=== PATIENT | female | born 1995 | race Caucasian/White ===

== ENCOUNTER 2019-11-02 20:00 | Emergency (ER) | payer MEDICAID, SELFPAY ==
[2019-11-02 20:20] VITALS: BP 133/91; PULSE 82; RESP 14; TEMP 37; O2SAT 98; BMI 22.6
--- NOTE | 2019-11-02 21:31 | CTR_ITS ---
PROCEDURE INFORMATION: Exam: CT Abdomen And Pelvis With Contrast Exam date and time: 11/02/2019 10:18 PM Age: 23 years old Clinical indication: Abdominal pain; Localized; Right lower quadrant (rlq); Additional info: Abd pain TECHNIQUE: Imaging protocol: Computed tomography of the abdomen and pelvis with intravenous contrast. Radiation optimization: All CT scans at this facility use at least one of these dose optimization techniques: automated exposure control; mA and/or kV adjustment per patient size (includes targeted exams where dose is matched to clinical indication); or iterative reconstruction. Contrast material: OMNI 300; Contrast volume: 95 ml; Contrast route: INTRAVENOUS (IV); COMPARISON: CT Abdomen/Pelvis Renal [id number] 10/28/2018 3:21 PM RADIATION DOSE METRICS: Total DLP (mGy-cm): 321.57 FINDINGS: Lungs: The lung bases are clear. Liver: There is mild periportal edema in the liver. This is a nonspecific finding, that can be seen in hepatitis and other hepatic abnormalities. It can also be a nonsignificant finding, sometimes seen in overhydration. Please correlate clinically. Gallbladder and bile ducts: No definite gallbladder abnormality by CT. No biliary tree dilation. Pancreas: Unremarkable. Spleen: Unremarkable. Adrenals: Unremarkable. Kidneys and ureters: No significant hydronephrosis of either kidney. No visible ureteral calculus. Suspect mild right periureteric stranding. There appears to be very mild thickening/enhancement of the right ureteral wall. While nonspecific, this appearance raises suspicion for right ureteritis/pyelonephritis. Please correlate clinically. The kidneys enhance homogeneously. No perinephric fluid. Stomach and bowel: There are no CT findings to strongly suggest diverticulitis. Appendix: The appendix is visualized and appears normal. Intraperitoneal space: No free air, ascites, or bowel distention. Vasculature: No evidence for abdominal aortic aneurysm. Lymph nodes: No retroperitoneal adenopathy. Bladder: Suspect mild to moderate diffuse urinary bladder wall thickening. While nonspecific, this could indicate evidence for cystitis. Please correlate clinically. Reproductive: Essentially unremarkable for age. Bones/joints: No significant acute finding. Soft tissues: No significant acute finding. CT/CT abdomen pelvis w con* [id number] IMPRESSION: 1. Suspect mild right periureteric stranding. There appears to be very mild thickening/enhancement of the right ureteral wall. While nonspecific, this appearance raises suspicion for right ureteritis/pyelonephritis. Please correlate clinically. 2. Suspected urinary bladder wall thickening, possibly secondary to cystitis. 3. Normal appendix. 4. Mild periportal edema in the liver, see above. 5. Other findings discussed above. Radiation Dose CTDIVOL = (mGy): DLP = 321.57 (mGy-cm)
[2019-11-02 21:47] VITALS: BP 130/80; PULSE 69; RESP 18; O2SAT 100
[2019-11-02 21:48] VITALS: RESP 18
[2019-11-02] MEDS: ondansetron 2 mg/ML SDV 2 mL 4 MG IVP ×2 (21:48→23:53)
[2019-11-02] MEDS: morphine 4 mg/mL SDV 1 mL IVP ×2 (21:48→23:55)
--- NOTE | 2019-11-02 21:56 | W.ED.ABDPA2 ---
HPI - Abdominal Pain General: Chief Complaint: Abdominal Pain Stated Complaint: ABDOMINAL PAIN Time Seen by Provider: 11/02/19 20:41 Source: patient Mode of arrival: ambulatory Limitations: no limitations History of Present Illness: HPI narrative: 23-year-old female who states she been having diffuse abdominal pain over the last day. States pain is sharp in nature. States she is also had nausea and vomiting. States she has had no worsening or improving factors. Denies any fevers. MD elicited complaint: abdominal pain Onset (ago): day(s) Pain Consistency: constant Location: RLQ Severity: severe Quality: stabbing Radiation: none Associated Symptoms: Denies chills, dysuria and fever(s) Review of Systems Const: Denies: fever(s), chills, body aches or change in appetite Eyes: Denies: blurry vision or eye discomfort ENMT: Denies: throat pain or dental pain Card: Denies: chest pain Resp: Denies: dyspnea GI: Reports: abdominal pain : Denies: dysuria Musc: Denies: neck pain or back pain Skin/Breast: Denies: rash Neuro: Denies: headache(s) Psych: Denies: depression Bryon/Lymph: Denies: easy bruising All/Imm: Denies: urticaria Physical Exam Const: COMMON NORMALS: no acute distress, patient oriented x3 and healthy appearing HENMT: COMMON NORMALS: normocephalic and atraumatic HEAD & SCALP: normocephalic and atraumatic Eye: COMMON NORMALS: Equal, round and reactive pupils present and EOMs intact bilaterally PUPIL: Yes Equal, round and reactive pupils present Neck/C-Spine: COMMON NORMALS: full ROM and supple Chest: COMMONS NORMALS: normal inspection of the chest and normal palpation of entire chest wall Resp: COMMON NORMALS: normal respiratory effort, No retractions, No use of accessory muscles and clear to auscultation bilaterally AUSCULTATION: clear to auscultation bilaterally Cardio: COMMON NORMALS: regular rate, regular rhythm and No murmurs present (Cardio) RATE: regular rate RHYTHM: regular rhythm GI: COMMON NORMALS: Normal to inspection, nondistended, normoactive bowel sounds present, Soft to palpation and no masses PALPATION: Yes Soft to palpation and Yes Tenderness to palpation present (GI) Details: RLQ Extremity: COMMON NORMALS: normal to inspection and full ROM Neuro: COMMON NORMALS: patient oriented x3, moves all extremities and no focal motor deficits Psych: COMMON NORMALS: mental status grossly normal, Normal thought process present and cooperative THOUGHT PROCESS: Normal thought process present Skin: COMMON NORMALS: no rashes or lesions noted and no wounds GENERAL SKIN EXAM: no rashes or lesions noted Course Vital Signs: Vital signs: Vital Signs Temperature 98.6 F 11/02/19 20:20 Pulse Rate 79 11/03/19 01:28 Respiratory Rate 17 11/03/19 01:28 Blood Pressure 108/70 11/03/19 01:28 Pulse Oximetry 97 11/03/19 01:28 MDM - Abdominal Pain MDM Narrative: Medical decision making narrative: Tisha presents here with pyelonephritis. Patient is able to tolerate p.o. here and white count is normal. Will trial outpatient therapy first. We will place her on nausea meds along with pain meds and ciprofloxacin. She is to follow-up with PCP in 3 to 5 days and return to ER if worsening. She understands and agrees to plan. Lab Data: Labs: Lab Results 11/02/19 11/02/19 11/03/19 Range/Units 21:30 21:49 00:35 WBC 9.7 (4.0-10.0) 10^3/ uL RBC 3.73 L (4.1-5.3) 10^6/u L Hgb 10.9 L (11.5-15.3) g/dL Hct 34.6 L (37.0-47.0) % MCV 92.8 (81-99) fL MCH 29.2 (28.0-34.0) pg MCHC 31.5 (30.0-36.0) g/dL RDW 12.5 (12.1-15.1) % Plt Count 192 (130-400) 10^3/c mm MPV 10.8 H (7.4-10.4) fL Neut % (Auto) 73.9 % Lymph % (Auto) 17.2 % [place] % (Auto) 7.6 % Eos % (Auto) 0.8 % Baso % (Auto) 0.1 % Neut # (Auto) 7.19 (1.8-7.7) 10^3/u L Lymph # (Auto) 1.7 (0.8-4.8) 10^3/u L [place] # (Auto) 0.7 (0.2-0.9) 10^3/u L Eos # (Auto) 0.1 (0.0-0.8) 10^3/u L Baso # (Auto) 0.0 (0.0-0.1) 10^3/u L Nucleated RBC % (a uto) 0 % Nucleated RBCs # 0.0 /100WBC Sodium (136-145) mmol/L Potassium (3.5-5.1) mmol/L Chloride (98-107) mmol/L Carbon Dioxide (22-29) mmol/L Anion Gap (5-19) BUN (6-20) mg/dL Creatinine (0.5-0.9) mg/dL GFR Calculation (90-130) mL/min Glucose (65-115) mg/dL Calculated Osmolal ity (285-295) mOsm/k g Calcium (8.5-10.5) mg/dL Total Bilirubin (0.15-1.2) mg/dL AST (0-32) U/L ALT (0-33) U/L Alkaline Phosphata se (35-105) IU/L Total Protein (6.6-8.7) g/dL Albumin (3.5-5.2) g/dL Globulin (1.3-4.6) g/dL Lipase (13-60) U/L Urine Color Yellow (Yellow) Urine Appearance Cloudy (CLEAR) Urine pH 6.5 (5-7) Ur Specific Gravit y 1.020 (1.005-1.030) Urine Protein 1+ H (Negative) Urine Glucose (UA) Norm (Normal) Urine Ketones Negative (Negative) Urine Blood 2+ H (Negative) Urine Nitrate Negative (Negative) Urine Bilirubin Neg (NEGATIVE) Urine Urobilinogen Norm (Negative) mg/dL Ur Leukocyte Stefani ase Negative (Negative) Urine RBC 5-10 H (0-2) /hpf Urine WBC 15-25 H (0-5) /hpf Ur Squamous Epith Cells 0-4 H (0-5) Amorphous Sediment Not Reportable Urine Bacteria 1+ H (NONE) Urine HCG, Qual Negative (Negative) 11/03/19 Range/Units 00:35 WBC (4.0-10.0) 10^3/ uL RBC (4.1-5.3) 10^6/u L Hgb (11.5-15.3) g/dL Hct (37.0-47.0) % MCV (81-99) fL MCH (28.0-34.0) pg MCHC (30.0-36.0) g/dL RDW (12.1-15.1) % Plt Count (130-400) 10^3/c mm MPV (7.4-10.4) fL Neut % (Auto) % Lymph % (Auto) % [place] % (Auto) % Eos % (Auto) % Baso % (Auto) % Neut # (Auto) (1.8-7.7) 10^3/u L Lymph # (Auto) (0.8-4.8) 10^3/u L [place] # (Auto) (0.2-0.9) 10^3/u L Eos # (Auto) (0.0-0.8) 10^3/u L Baso # (Auto) (0.0-0.1) 10^3/u L Nucleated RBC % (a uto) % Nucleated RBCs # /100WBC Sodium 137 (136-145) mmol/L Potassium 3.7 (3.5-5.1) mmol/L Chloride 103 (98-107) mmol/L Carbon Dioxide 24 (22-29) mmol/L Anion Gap 13.7 (5-19) BUN 11 (6-20) mg/dL Creatinine 0.8 (0.5-0.9) mg/dL GFR Calculation 88.9 L (90-130) mL/min Glucose 83 (65-115) mg/dL Calculated Osmolal ity 279 L (285-295) mOsm/k g Calcium 8.2 L (8.5-10.5) mg/dL Total Bilirubin 0.2 (0.15-1.2) mg/dL AST 13 (0-32) U/L ALT 10 (0-33) U/L Alkaline Phosphata se 49 (35-105) IU/L Total Protein 7.2 (6.6-8.7) g/dL Albumin 4.1 (3.5-5.2) g/dL Globulin 3.1 (1.3-4.6) g/dL Lipase 22 (13-60) U/L Urine Color (Yellow) Urine Appearance (CLEAR) Urine pH (5-7) Ur Specific Gravit y (1.005-1.030) Urine Protein (Negative) Urine Glucose (UA) (Normal) Urine Ketones (Negative) Urine Blood (Negative) Urine Nitrate (Negative) Urine Bilirubin (NEGATIVE) Urine Urobilinogen (Negative) mg/dL Ur Leukocyte Stfeani ase (Negative) Urine RBC (0-2) /hpf Urine WBC (0-5) /hpf Ur Squamous Epith Cells (0-5) Amorphous Sediment Urine Bacteria (NONE) Urine HCG, Qual (Negative) Discharge Plan Discharge Patient Disposition: Home Clinical Impression: Pyelonephritis Condition: Stable Prescriptions: [place] 5-325 mg tablet 1 tab PO Q6H PRN (Reason: pain) Qty: 14 RF: 0 ondansetron 4 mg tablet,disintegrating 4 mg PO Q6H PRN (Reason: nausea and vomiting) Qty: 14 RF: 0 Cipro 500 mg tablet 500 mg PO BID Qty: 14 RF: 0 No Action Sprintec (28) 0.25-35 mg-mcg tablet 1 tab PO DAILY RF: 0 Hair,Skin and Nails 1 mg iron-66.7 mcg-1,000 mcg Tablet 1 tab PO DAILY RF: 0 Discharge Orders: Discharge Order (Routine); Ordered 11/03/19 Ordered By: Cy Hilliard Referrals: Lars Isabel MD [Primary Care Provider] - 1-3 days Discharge Diet: Advance as tolerated Discharge Activity: Resume usual activity Patient Instructions: Acute Pyelonephritis (ED) Discharge Date/Time: 11/03/19 01:30 Coding Level of Care Code ED Chief Console Operator for Chg Fwd Exam Comprehensive
[2019-11-02 22:02] LABS: Add Urine Microscopic? YES; Bacteria Urine 1+; Bilirubin Urine Neg (NEGATIVE); Blood Urine 2+ (Negative); Glucose Urine UA Norm (Normal); Ketones Urine Negative (Negative); Leukocyte Esterase Urine Negative (Negative); Nitrate Urine Negative (Negative); Protein Urine 1+ (Negative); Squamous Epithelial Cell Urine 0-4 (0-5); Urine Appearance Cloudy (CLEAR); Urine Color Yellow (Yellow); Urobilinogen Urine Norm (Negative); WBC Urine 15-25 /hpf (0-5); pH Urine 6.5 (5-7)
[2019-11-02 22:47] VITALS: BP 140/85; PULSE 88; RESP 18; O2SAT 100
[2019-11-02 23:00] VITALS: RESP 18
[2019-11-02] MEDS: iohexol 300 mg/mL 100 mL Btl IV (23:07)
[2019-11-02] MEDS: sodium chloride 0.9% 1,000 ML 999 ML IV (23:54)
[2019-11-02 23:55] VITALS: RESP 18
[2019-11-03] VITALS: BP 124/80; PULSE 70; RESP 18; O2SAT 98
[2019-11-03] MEDS: cefTRIAXone 1,000 MG in sodium chloride 0.9% (plus) 50 ML 100 MG IV (00:13)
[2019-11-03] MEDS: metoclopramide 5 mg/mL SDV 2 mL IVP (00:20)
[2019-11-03] MEDS: diphenhydrAMINE 50 mg/mL SDV 1mL 25 MG IVP (00:21)
[2019-11-03 00:50] LABS: Basophils % 0.1 %; Eosinophils # 0.1 10^3/uL (0.0-0.8); Eosinophils % 0.8 %; Hematocrit 34.6 % (37.0-47.0); Hemoglobin 10.9 g/dL (11.5-15.3); Lymphocytes # 1.7 10^3/uL (0.8-4.8); Lymphocytes % 17.2 %; Mean Corpuscular HGB Conc 31.5 g/dL (30.0-36.0); Mean Corpuscular Hemoglobin 29.2 pg (28.0-34.0); Mean Corpuscular Volume 92.8 fL (81-99); Mean Platelet Volume 10.8 fL (7.4-10.4); Monocytes # 0.7 10^3/uL (0.2-0.9); Monocytes % 7.6 %; Neutrophils # 7.19 10^3/uL (1.8-7.7); Neutrophils % 73.9 %; Nucleated Red Blood Cells % 0 %; Platelet Count 192 10^3/cmm (130-400); Red Blood Count 3.73 10^6/uL (4.1-5.3); Red Cell Distribution Width 12.5 % (12.1-15.1); White Blood Count 9.7 10^3/uL (4.0-10.0)
[2019-11-03 01:12] LABS: Alanine Aminotransferase 10 U/L (0-33); Albumin Level 4.1 g/dL (3.5-5.2); Alkaline Phosphatase 49 IU/L (35-105); Anion Gap 13.7 (5-19); Aspartate Amino Transferase 13 U/L (0-32); Blood Urea Nitrogen 11 mg/dL (6-20); Calcium 8.2 mg/dL (8.5-10.5); Carbon Dioxide 24 mmol/L (22-29); Chloride 103 mmol/L (98-107); Globulin 3.1 g/dL (1.3-4.6); Glomerular Filtration Rate 88.9 mL/min (90-130); Glucose 83 mg/dL (65-115); Lipase 22 U/L (13-60); Osmolality Calculated 279 mOsm/kg (285-295); Potassium 3.7 mmol/L (3.5-5.1); Sodium 137 mmol/L (136-145); Total Bilirubin 0.2 mg/dL (0.15-1.2); Total Protein 7.2 g/dL (6.6-8.7)
[2019-11-03 01:28] VITALS: BP 108/70; PULSE 79; RESP 17; O2SAT 97
== END 2019-11-03 01:30 | disposition home or self-care (01) ==
PROVIDERS: Emergency Provider Emergency Medicine; PCP Family Medicine
DX: N10 Acute pyelonephritis (principal)
CPT/HCPCS: 12345; 74177; 80053; 81001; 81025; 83690; 85025; 96360; 96361; 96365; 96375; 96376; 99283; 99284; J0696; J1200; J2270; J2405; J2765; J7030; Q9967

== ENCOUNTER 2020-05-16 12:36 | Emergency (ER) | payer MEDICAID, SELFPAY ==
[2020-05-16 13:12] VITALS: BP 105/75; PULSE 81; RESP 14; TEMP 36.2; O2SAT 99; BMI 21.1
== END 2020-05-16 14:06 | disposition left against medical advice (07) ==
PROVIDERS: Emergency Provider Family Medicine; PCP Family Medicine
DX: Z53.21 Procedure and treatment not carried out due to patient leaving prior to being seen by health care provider (principal)
CPT/HCPCS: 99282

== ENCOUNTER 2020-05-18 14:42 | Emergency (ER) | payer MEDICAID, SELFPAY ==
[2020-05-18 14:59] VITALS: BP 105/71; PULSE 80; RESP 16; TEMP 36.5; O2SAT 98; BMI 19.5
--- NOTE | 2020-05-18 15:38 | ED_ITS ---
HPI - Abdominal Pain General: Chief Complaint: Abdominal Pain Stated Complaint: RUQ ABDOMINAL PAIN Time Seen by Provider: 05/18/20 15:04 History of Present Illness: HPI narrative: 24-year-old female comes in complaining of right upper quadrant abdominal pain that began yesterday. She was seen yesterday at a local primary care clinic and had a right upper quadrant abdominal soft ultrasound done which ultimately was negative. Patient states her last period was normal and she had a negative test at home. She has had some nausea her stools have been normal she has not had any vomiting denies dysuria urgency or frequency. MD elicited complaint: abdominal pain Pertinent past history: past UTI Onset (ago): day(s) Pain Consistency: constant Location: RUQ Severity: moderate Quality: cramping Radiation: R flank Exacerbating factors: nothing Associated Symptoms: Reports anorexia, nausea and poor appetite; Denies belching, bloating, change in bowel habits, change in stool character, chills, coffee ground emesis, constipation, GI cramping, diarrhea, dyspepsia, dysuria, excessive flatus, fever(s), heartburn, hematochezia, hematuria, hematemesis, fecal incontinence, loose stools, melena, syncope, vomiting and other Related Data: Date of Last Menstrual Period: 05/10/20 Review of Systems Const: Denies: fever(s) or chills ENMT: Denies: throat pain, ear or mastoid pain, nasal discharge or nasal congestion Card: Denies: syncope Resp: Denies: dyspnea, productive cough or non-productive cough GI: Reports: nausea; Denies: vomiting, hematemesis, coffee ground emesis, heartburn, diarrhea, constipation, bloating, GI cramping, belching, excessive flatus, fecal incontinence, change in bowel habits, change in stool character, hematochezia, melena or other : Denies: dysuria or hematuria Skin/Breast: Denies: rash or pruritus [facility] ED Female Reproductive History: Date of last menstrual period: 05/10/20 Physical Exam Const: COMMON NORMALS: no acute distress GENERAL APPEARANCE: cooperative and comfortable ORIENTATION/CONSCIOUSNESS: Yes awake, Yes oriented to person, Yes oriented to place and Yes oriented to time HENMT: COMMON NORMALS: normocephalic, atraumatic and hearing grossly normal bilaterally HEAD & SCALP: normocephalic and atraumatic Neck/C-Spine: COMMON NORMALS: no JVD Resp: COMMON NORMALS: normal respiratory effort, No retractions, No use of accessory muscles and clear to auscultation bilaterally AUSCULTATION: clear to auscultation bilaterally Cardio: COMMON NORMALS: no JVD, regular rate, regular rhythm and No murmurs present (Cardio) RATE: regular rate RHYTHM: regular rhythm GI: COMMON NORMALS: Soft to palpation and No hepatosplenomegaly present AUS CULTATION: Yes normoactive bowel sounds PALPATION: Yes Soft to palpation, No Tenderness to palpation present (GI), No Guarding due to palpation present (GI) and Yes No hepatosplenomegaly present Extremity: COMMON NORMALS: normal to inspection, capillary refill normal, no clubbing, cyanosis or edema, no calf tenderness and no pedal edema Neuro: SENSORIUM/ORIENTATION: Yes oriented to person, Yes oriented to place and Yes oriented to time Skin: COMMON NORMALS: no rashes or lesions noted GENERAL SKIN EXAM: no rashes or lesions noted Course Vital Signs: Vital signs: Vital Signs Temperature 97.7 F 05/18/20 14:59 Pulse Rate 78 05/18/20 16:47 Respiratory Rate 18 05/18/20 16:47 Blood Pressure 104/66 05/18/20 16:47 Pulse Oximetry 98 05/18/20 16:47 MDM - Abdominal Pain MDM Narrative: Medical decision making narrative: Reviewed findings with the patient. Her labs and imaging are all normal. I suspect that some of this may be dyspepsia but also very likely may be biliary dyskinesia she notes when she eats specific foods meats that seems to trigger it has been increasing recently. She had a gallbladder ultrasound yesterday that was read as normal reviewed that in the electronic record. It was done over [facility]. Reviewed diet with her recommend she do very very bland diet the next several days gave her hydrocodone and Zofran to use as needed. Should follow-up with her primary care doctor may need further investigation such as a HIDA scan or EGD if she has worsening symptoms she can return. Lab Data: Labs: Lab Results 05/18/20 05/18/20 05/18/20 Range/Units 15:20 15:20 15:20 WBC 3.8 L (4.0-10.0) 10^3/ uL RBC 4.13 (4.1-5.3) 10^6/u L Hgb 12.0 (11.5-15.3) g/dL Hct 37.6 (37.0-47.0) % MCV 91.0 (81-99) fL MCH 29.1 (28.0-34.0) pg MCHC 31.9 (30.0-36.0) g/dL RDW 12.3 (12.1-15.1) % Plt Count 189 (130-400) 10^3/c mm MPV 10.8 H (7.4-10.4) fL Neut % (Auto) 58.3 % Lymph % (Auto) 28.6 % [place] % (Auto) 11.7 % Eos % (Auto) 1.1 % Baso % (Auto) 0.0 % Neut # (Auto) 2.20 (1.8-7.7) 10^3/u L Lymph # (Auto) 1.1 (0.8-4.8) 10^3/u L [place] # (Auto) 0.4 (0.2-0.9) 10^3/u L Eos # (Auto) 0.0 (0.0-0.8) 10^3/u L Baso # (Auto) 0.0 (0.0-0.1) 10^3/u L Nucleated RBC % (a uto) 0 % Nucleated RBCs # 0.0 /100WBC Sodium 136 (136-145) mmol/L Potassium 3.8 (3.5-5.1) mmol/L Chloride 100 (98-107) mmol/L Carbon Dioxide 28 (22-29) mmol/L Anion Gap 11.8 (5-19) BUN 10 (6-20) mg/dL Creatinine 0.7 (0.5-0.9) mg/dL GFR Calculation 102.8 (90-130) mL/min Glucose 81 (65-115) mg/dL Calculated Osmolal ity 280 L (285-295) mOsm/k g Calcium 9.2 (8.5-10.5) mg/dL Magnesium 1.8 (1.7-2.3) mg/dL Total Bilirubin 0.2 (0.15-1.2) mg/dL AST 16 (0-32) U/L ALT 22 (0-33) U/L Alkaline Phosphata se 69 (35-105) IU/L Total Protein 7.5 (6.6-8.7) g/dL Albumin 4.5 (3.5-5.2) g/dL Globulin 3.0 (1.3-4.6) g/dL HCG, Qual Negative (Negative) Urine Color (Yellow) Urine Appearance (CLEAR) Urine pH (5-7) Ur Specific Gravit y (1.005-1.030) Urine Protein (Negative) Urine Glucose (UA) (Normal) Urine Ketones (Negative) Urine Blood (Negative) Urine Nitrate (Negative) Urine Bilirubin (Negative) Urine Urobilinogen (Negative) mg/dL Ur Leukocyte Stefani ase (Negative) Urine RBC (0-2) /hpf Urine WBC (0-5) /hpf Ur Squamous Epith Cells (0-5) /hpf Calcium Oxalate Cr ystal /hpf Amorphous Sediment Urine Bacteria (NONE) /hpf Urine Mucus /hpf 05/18/20 Range/Units 15:20 WBC (4.0-10.0) 10^3/ uL RBC (4.1-5.3) 10^6/u L Hgb (11.5-15.3) g/dL Hct (37.0-47.0) % MCV (81-99) fL MCH (28.0-34.0) pg MCHC (30.0-36.0) g/dL RDW (12.1-15.1) % Plt Count (130-400) 10^3/c mm MPV (7.4-10.4) fL Neut % (Auto) % Lymph % (Auto) % [place] % (Auto) % Eos % (Auto) % Baso % (Auto) % Neut # (Auto) (1.8-7.7) 10^3/u L Lymph # (Auto) (0.8-4.8) 10^3/u L [place] # (Auto) (0.2-0.9) 10^3/u L Eos # (Auto) (0.0-0.8) 10^3/u L Baso # (Auto) (0.0-0.1) 10^3/u L Nucleated RBC % (a uto) % Nucleated RBCs # /100WBC Sodium (136-145) mmol/L Potassium (3.5-5.1) mmol/L Chloride (98-107) mmol/L Carbon Dioxide (22-29) mmol/L Anion Gap (5-19) BUN (6-20) mg/dL Creatinine (0.5-0.9) mg/dL GFR Calculation (90-130) mL/min Glucose (65-115) mg/dL Calculated Osmolal ity (285-295) mOsm/k g Calcium (8.5-10.5) mg/dL Magnesium (1.7-2.3) mg/dL Total Bilirubin (0.15-1.2) mg/dL AST (0-32) U/L ALT (0-33) U/L Alkaline Phosphata se (35-105) IU/L Total Protein (6.6-8.7) g/dL Albumin (3.5-5.2) g/dL Globulin (1.3-4.6) g/dL HCG, Qual (Negative) Urine Color Yellow (Yellow) Urine Appearance Hazy A (CLEAR) Urine pH 5 (5-7) Ur Specific Gravit y 1.025 (1.005-1.030) Urine Protein Neg (Negative) Urine Glucose (UA) Norm (Normal) Urine Ketones Negative (Negative) Urine Blood Neg (Negative) Urine Nitrate Negative (Negative) Urine Bilirubin Neg (Negative) Urine Urobilinogen Norm (Negative) mg/dL Ur Leukocyte Stefani ase Negative (Negative) Urine RBC None (0-2) /hpf Urine WBC None (0-5) /hpf Ur Squamous Epith Cells 5-10 H (0-5) /hpf Calcium Oxalate Cr ystal 25-40 H /hpf Amorphous Sediment Not Reportable Urine Bacteria Trace (NONE) /hpf Urine Mucus 4+ /hpf Discharge Plan Discharge Patient Disposition: Home Clinical Impression: Abdominal pain Condition: Stable Prescriptions: New hydrocodone-acetaminophen 5-325 mg tablet 1 tab PO Q6H PRN (Reason: pain) Qty: 20 RF: 0 Zofran 4 mg tablet 4 mg PO Q6H PRN (Reason: nausea and vomiting) Qty: 10 RF: 0 Discharge Orders: Discharge ED (Routine); Ordered 05/18/20 Ordered By: Dre Gunter Referrals: Lars Isabel MD [Primary Care Provider] - Patient Instructions: Abdominal Pain (ED), Opioid Safety Coding Level of Care Code ED Air Operations Manager for Chg Fwd Exam Comprehensive
[2020-05-18 15:42] LABS: Eosinophils % 1.1 %; Hematocrit 37.6 % (37.0-47.0); Lymphocytes # 1.1 10^3/uL (0.8-4.8); Lymphocytes % 28.6 %; Mean Corpuscular HGB Conc 31.9 g/dL (30.0-36.0); Mean Corpuscular Hemoglobin 29.1 pg (28.0-34.0); Mean Platelet Volume 10.8 fL (7.4-10.4); Monocytes # 0.4 10^3/uL (0.2-0.9); Monocytes % 11.7 %; Neutrophils % 58.3 %; Nucleated Red Blood Cells % 0 %; Platelet Count 189 10^3/cmm (130-400); Red Blood Count 4.13 10^6/uL (4.1-5.3); Red Cell Distribution Width 12.3 % (12.1-15.1); White Blood Count 3.8 10^3/uL (4.0-10.0)
[2020-05-18 15:47] VITALS: BP 108/68; PULSE 78; RESP 18; O2SAT 99
[2020-05-18 15:52] LABS: Add Urine Microscopic? YES; Bilirubin Urine Neg (Negative); Blood Urine Neg (Negative); Glucose Urine UA Norm (Normal); Ketones Urine Negative (Negative); Leukocyte Esterase Urine Negative (Negative); Nitrate Urine Negative (Negative); Protein Urine Neg (Negative); Specific Gravity, Urine 1.025 (1.005-1.030); Urine Appearance Hazy (CLEAR); Urine Color Yellow (Yellow); Urobilinogen Urine Norm (Negative); pH Urine 5 (5-7)
[2020-05-18 15:55] LABS: Add Urine Culture? No; Bacteria Urine TRACE /hpf; Calcium Oxalate Crystals Urine 25-40 /hpf; Mucus Urine 4+ /hpf
--- NOTE | 2020-05-18 15:55 | CTR_ITS ---
PROCEDURE INFORMATION: Exam: CT Abdomen And Pelvis With Contrast Exam date and time: 05/18/2020 4:20 PM Age: 24 years old Clinical indication: Abdominal pain; Additional info: Abd pain TECHNIQUE: Imaging protocol: Computed tomography of the abdomen and pelvis with contrast. Radiation optimization: All CT scans at this facility use at least one of these dose optimization techniques: automated exposure control; mA and/or kV adjustment per patient size (includes targeted exams where dose is matched to clinical indication); or iterative reconstruction. Contrast material: OMNI 300; Contrast volume: 95 ml; Contrast route: INTRAVENOUS (IV); COMPARISON: CT abdomen pelvis w con* [id number] 11/02/2019 11:00 PM RADIATION DOSE METRICS: Total DLP (mGy-cm): 816.66 FINDINGS: Lungs: Small subsolid subcentimeter nodules are again seen in the right lower lobe, which appear stable. The largest nodule measures 7 mm. Liver: Normal. No mass. Gallbladder and bile ducts: Normal. No calcified stones. No ductal dilation. Pancreas: Normal. No ductal dilation. Spleen: Normal. No splenomegaly. Adrenal glands: Normal. No mass. Kidneys and ureters: Normal. No hydronephrosis. Stomach and bowel: Short segment small bowel intussusception is present in the right upper quadrant, which is likely transient. No intestinal obstruction. Appendix: The appendix is normal. Intraperitoneal space: Unremarkable. No free air. No significant fluid collection. Vasculature: Unremarkable. No abdominal aortic aneurysm. Lymph nodes: Unremarkable. No enlarged lymph nodes. Urinary bladder: Unremarkable as visualized. Reproductive: The uterus and ovaries appear normal. Bones/joints: Unremarkable. No acute fracture. Soft tissues: Unremarkable. CT/CT abdomen pelvis w con* [id number] IMPRESSION: 1. No acute abnormality is seen. Short segment small bowel intussusception in the right upper quadrant is likely transient. No intestinal obstruction. 2. Stable, likely benign, right lower lobe subcentimeter nodules. Radiation Dose CTDIVOL = (mGy): DLP = 816.66 (mGy-cm)
[2020-05-18 16:19] LABS: Alanine Aminotransferase 22 U/L (0-33); Albumin Level 4.5 g/dL (3.5-5.2); Alkaline Phosphatase 69 IU/L (35-105); Anion Gap 11.8 (5-19); Aspartate Amino Transferase 16 U/L (0-32); Blood Urea Nitrogen 10 mg/dL (6-20); Calcium 9.2 mg/dL (8.5-10.5); Carbon Dioxide 28 mmol/L (22-29); Chloride 100 mmol/L (98-107); Glomerular Filtration Rate 102.8 mL/min (90-130); Glucose 81 mg/dL (65-115); Magnesium 1.8 mg/dL (1.7-2.3); Osmolality Calculated 280 mOsm/kg (285-295); Potassium 3.8 mmol/L (3.5-5.1); Sodium 136 mmol/L (136-145); Total Bilirubin 0.2 mg/dL (0.15-1.2); Total Protein 7.5 g/dL (6.6-8.7)
[2020-05-18 16:21] LABS: HCG, Serum Qual Negative (Negative)
[2020-05-18] MEDS: iohexol 300 mg/mL 100 mL Btl IV (16:32)
[2020-05-18] MEDS: sodium chloride 0.9% 1,000 ML 999 ML IV (16:39)
[2020-05-18] MEDS: promethazine 25 mg/mL SDV 1 mL IM (16:45)
[2020-05-18] MEDS: morphine 4 mg/mL SDV 1 mL 2 MG IVP (16:45)
[2020-05-18] MEDS: lidocaine 2% viscous 15 ML, aluminum-mag hydrox-simethicon 30 ML, sucralfate oral liq 1 GM PO (16:45)
[2020-05-18 16:47] VITALS: BP 104/66; PULSE 78; RESP 18; O2SAT 98
[2020-05-18 17:41] VITALS: BP 104/66; PULSE 78; RESP 18; O2SAT 98
== END 2020-05-18 17:42 | disposition home or self-care (01) ==
PROVIDERS: Emergency Provider Family Medicine; PCP Family Medicine
DX: R10.9 Unspecified abdominal pain (principal)
CPT/HCPCS: 74177; 80053; 81001; 83735; 84703; 85025; 96361; 96374; 99284; J2270; J2550; J7030; Q9967

== ENCOUNTER 2020-06-01 02:11 | Emergency (ER) | payer MEDICAID, SELFPAY ==
[2020-06-01 02:42] VITALS: BP 106/72; PULSE 73; RESP 14; TEMP 36.8; O2SAT 98; BMI 21.1
[2020-06-01 02:46] VITALS: PULSE 66; RESP 16; O2SAT 100
--- NOTE | 2020-06-01 03:05 | ED_ITS ---
HPI - Abdominal Pain General: Chief Complaint: Abdominal Pain Stated Complaint: upper abd pain Time Seen by Provider: 06/01/20 02:49 Source: patient Mode of arrival: ambulatory Limitations: no limitations History of Present Illness: HPI narrative: 24-year-old female states mid abdominal pain for last 2 to 3 weeks. Last 2 weeks she has had an ultrasound and CT of her abdomen that showed no abnormalities. Her PCP is concerned it could be her gallbladder but she missed her appointment with him this week. She states he started her on a antiacid that she states helps when she takes it but then the pain starts again. States pain is worse with eating. States the pain got worse tonight rates it 8 out of 10. Denies any vomiting and fever. Denies any diarrhea. Associated Symptoms: Reports nausea; Denies chills, dysuria and fever(s) Related Data: Date of Last Menstrual Period: 05/10/20 Review of Systems Const: Denies: fever(s), chills, body aches or change in appetite Eyes: Denies: blurry vision or eye discomfort ENMT: Denies: throat pain or dental pain Card: Denies: chest pain Resp: Denies: dyspnea GI: Reports: abdominal pain and nausea : Denies: dysuria Musc: Denies: neck pain or back pain Skin/Breast: Denies: rash Neuro: Denies: headache(s) Psych: Denies: depression Bryon/Lymph: Denies: easy bruising All/Imm: Denies: urticaria [facility] ED Female Reproductive History: Date of last menstrual period: 05/10/20 Physical Exam Const: COMMON NORMALS: no acute distress, patient oriented x3 and healthy appearing HENMT: COMMON NORMALS: normocephalic and atraumatic HEAD & SCALP: normocephalic and atraumatic Eye: COMMON NORMALS: Equal, round and reactive pupils present and EOMs intact bilaterally PUPIL: Yes Equal, round and reactive pupils present Neck/C-Spine: COMMON NORMALS: full ROM and supple Chest: COMMONS NORMALS: normal inspection of the chest and normal palpation of entire chest wall Resp: COMMON NORMALS: normal respiratory effort, No retractions, No use of accessory muscles and clear to auscultation bilaterally AUSCULTATION: clear to auscultation bilaterally Cardio: COMMON NORMALS: regular rate, regular rhythm and No murmurs present (Cardio) RATE: regular rate RHYTHM: regular rhythm GI: COMMON NORMALS: Normal to inspection, nondistended, normoactive bowel sounds present, Soft to palpation, non-tender and no masses PALPATION: Yes Soft to palpation Extremity: COMMON NORMALS: normal to inspection and full ROM Neuro: COMMON NORMALS: patient oriented x3, moves all extremities and no focal motor deficits Psych: COMMON NORMALS: mental status grossly normal, Normal thought process present and cooperative THOUGHT PROCESS: Normal thought process present Skin: COMMON NORMALS: no rashes or lesions noted and no wounds GENERAL SKIN EXAM: no rashes or lesions noted Course Vital Signs: Vital signs: Vital Signs Temperature 98.2 F 06/01/20 02:42 Pulse Rate 66 06/01/20 02:46 Respiratory Rate 16 06/01/20 03:11 Blood Pressure 106/72 06/01/20 02:42 Pulse Oximetry 100 06/01/20 02:46 MDM - Abdominal Pain MDM Narrative: Medical decision making narrative: Patient presents with abdominal pain and recent CT and ultrasound that were both negative. Her exam here is benign she has no signs of acute surgical abdomen. We will start her on Protonix and sulcal fate and get her surgery follow-up. She feels much improved here she is stable for discharge. She is return if worsening. Lab Data: Labs: Lab Results 06/01/20 06/01/20 06/01/20 Range/Units 03:10 03:10 03:10 WBC 5.9 (4.0-10.0) 10^3/ uL RBC 4.22 (4.1-5.3) 10^6/u L Hgb 12.2 (11.5-15.3) g/dL Hct 38.1 (37.0-47.0) % MCV 90.3 (81-99) fL MCH 28.9 (28.0-34.0) pg MCHC 32.0 (30.0-36.0) g/dL RDW 12.5 (12.1-15.1) % Plt Count 200 (130-400) 10^3/c mm MPV 10.8 H (7.4-10.4) fL Neut % (Auto) 64.6 % Lymph % (Auto) 22.3 % [place] % (Auto) 11.5 % Eos % (Auto) 1.2 % Baso % (Auto) 0.2 % Neut # (Auto) 3.83 (1.8-7.7) 10^3/u L Lymph # (Auto) 1.3 (0.8-4.8) 10^3/u L [place] # (Auto) 0.7 (0.2-0.9) 10^3/u L Eos # (Auto) 0.1 (0.0-0.8) 10^3/u L Baso # (Auto) 0.0 (0.0-0.1) 10^3/u L Nucleated RBC % (a uto) 0 % Nucleated RBCs # 0.0 /100WBC Sodium 138 (136-145) mmol/L Potassium 3.9 (3.5-5.1) mmol/L Chloride 103 (98-107) mmol/L Carbon Dioxide 24 (22-29) mmol/L Anion Gap 14.9 (5-19) BUN 10 (6-20) mg/dL Creatinine 0.7 (0.5-0.9) mg/dL GFR Calculation 102.8 (90-130) mL/min Glucose 93 (65-115) mg/dL Calculated Osmolal ity 285 (285-295) mOsm/k g Calcium 9.2 (8.5-10.5) mg/dL Total Bilirubin 0.2 (0.15-1.2) mg/dL AST 15 (0-32) U/L ALT 23 (0-33) U/L Alkaline Phosphata se 71 (35-105) IU/L Total Protein 7.8 (6.6-8.7) g/dL Albumin 4.6 (3.5-5.2) g/dL Globulin 3.2 (1.3-4.6) g/dL Lipase 34 (13-60) U/L HCG, Qual Negative (Negative) Urine Color (Yellow) Urine Appearance (CLEAR) Urine pH (5-7) Ur Specific Gravit y (1.005-1.030) Urine Protein (Negative) Urine Glucose (UA) (Normal) Urine Ketones (Negative) Urine Blood (Negative) Urine Nitrate (Negative) Urine Bilirubin (Negative) Urine Urobilinogen (Negative) mg/dL Ur Leukocyte Stefani ase (Negative) 06/01/20 Range/Units 03:10 WBC (4.0-10.0) 10^3/ uL RBC (4.1-5.3) 10^6/u L Hgb (11.5-15.3) g/dL Hct (37.0-47.0) % MCV (81-99) fL MCH (28.0-34.0) pg MCHC (30.0-36.0) g/dL RDW (12.1-15.1) % Plt Count (130-400) 10^3/c mm MPV (7.4-10.4) fL Neut % (Auto) % Lymph % (Auto) % [place] % (Auto) % Eos % (Auto) % Baso % (Auto) % Neut # (Auto) (1.8-7.7) 10^3/u L Lymph # (Auto) (0.8-4.8) 10^3/u L [place] # (Auto) (0.2-0.9) 10^3/u L Eos # (Auto) (0.0-0.8) 10^3/u L Baso # (Auto) (0.0-0.1) 10^3/u L Nucleated RBC % (a uto) % Nucleated RBCs # /100WBC Sodium (136-145) mmol/L Potassium (3.5-5.1) mmol/L Chloride (98-107) mmol/L Carbon Dioxide (22-29) mmol/L Anion Gap (5-19) BUN (6-20) mg/dL Creatinine (0.5-0.9) mg/dL GFR Calculation (90-130) mL/min Glucose (65-115) mg/dL Calculated Osmolal ity (285-295) mOsm/k g Calcium (8.5-10.5) mg/dL Total Bilirubin (0.15-1.2) mg/dL AST (0-32) U/L ALT (0-33) U/L Alkaline Phosphata se (35-105) IU/L Total Protein (6.6-8.7) g/dL Albumin (3.5-5.2) g/dL Globulin (1.3-4.6) g/dL Lipase (13-60) U/L HCG, Qual (Negative) Urine Color Yellow (Yellow) Urine Appearance Clear (CLEAR) Urine pH 5 (5-7) Ur Specific Gravit y 1.020 (1.005-1.030) Urine Protein Neg (Negative) Urine Glucose (UA) Norm (Normal) Urine Ketones Negative (Negative) Urine Blood Neg (Negative) Urine Nitrate Negative (Negative) Urine Bilirubin Neg (Negative) Urine Urobilinogen Norm (Negative) mg/dL Ur Leukocyte Stefani ase Negative (Negative) Discharge Plan Discharge Patient Disposition: Home Condition: Stable Prescriptions: New Protonix 40 mg tablet,delayed release (DR/EC) 40 mg PO DAILY Qty: 60 RF: 0 sucralfate 1 gram tablet 1 g PO BID 28 Days Qty: 56 RF: 0 No Action hydrocodone-acetaminophen 5-325 mg tablet 1 tab PO Q6H PRN (Reason: pain) Qty: 20 RF: 0 Zofran 4 mg tablet 4 mg PO Q6H PRN (Reason: nausea and vomiting) Qty: 10 RF: 0 Discharge Orders: Discharge ED (Routine); Ordered 06/01/20 Ordered By: Cy Hilliard Referrals: Franky Emmanuel MD [Physician] - 1-3 days Lars Isabel MD [Primary Care Provider] - Discharge Diet: Advance as tolerated Discharge Activity: Resume usual activity Patient Instructions: Abdominal Pain (ED) Coding Level of Care Code ED Flamer After Lasting for Chg Fwd Exam Comprehensive
[2020-06-01 03:11] VITALS: RESP 16
[2020-06-01] MEDS: morphine 4 mg/mL SDV 1 mL IVP (03:11)
[2020-06-01] MEDS: ondansetron 2 mg/ML SDV 2 mL 4 MG IVP (03:12)
[2020-06-01] MEDS: sodium chloride 0.9% 1,000 ML 999 ML IV (03:12)
[2020-06-01 03:20] LABS: Add Urine Microscopic? NO; Basophils % 0.2 %; Eosinophils # 0.1 10^3/uL (0.0-0.8); Eosinophils % 1.2 %; Hematocrit 38.1 % (37.0-47.0); Hemoglobin 12.2 g/dL (11.5-15.3); Lymphocytes # 1.3 10^3/uL (0.8-4.8); Lymphocytes % 22.3 %; Mean Corpuscular Hemoglobin 28.9 pg (28.0-34.0); Mean Corpuscular Volume 90.3 fL (81-99); Mean Platelet Volume 10.8 fL (7.4-10.4); Monocytes # 0.7 10^3/uL (0.2-0.9); Monocytes % 11.5 %; Neutrophils # 3.83 10^3/uL (1.8-7.7); Neutrophils % 64.6 %; Nucleated Red Blood Cells % 0 %; Platelet Count 200 10^3/cmm (130-400); Red Blood Count 4.22 10^6/uL (4.1-5.3); Red Cell Distribution Width 12.5 % (12.1-15.1); White Blood Count 5.9 10^3/uL (4.0-10.0)
[2020-06-01 03:21] LABS: HCG Qualitative Urine. Negative (Negative)
[2020-06-01 03:24] LABS: Bilirubin Urine Neg (Negative); Blood Urine Neg (Negative); Glucose Urine UA Norm (Normal); Ketones Urine Negative (Negative); Leukocyte Esterase Urine Negative (Negative); Nitrate Urine Negative (Negative); Protein Urine Neg (Negative); Urine Appearance Clear (CLEAR); Urine Color Yellow (Yellow); Urobilinogen Urine Norm (Negative); pH Urine 5 (5-7)
[2020-06-01 03:36] LABS: Alanine Aminotransferase 23 U/L (0-33); Albumin Level 4.6 g/dL (3.5-5.2); Alkaline Phosphatase 71 IU/L (35-105); Anion Gap 14.9 (5-19); Aspartate Amino Transferase 15 U/L (0-32); Blood Urea Nitrogen 10 mg/dL (6-20); Calcium 9.2 mg/dL (8.5-10.5); Carbon Dioxide 24 mmol/L (22-29); Chloride 103 mmol/L (98-107); Globulin 3.2 g/dL (1.3-4.6); Glomerular Filtration Rate 102.8 mL/min (90-130); Glucose 93 mg/dL (65-115); Lipase 34 U/L (13-60); Osmolality Calculated 285 mOsm/kg (285-295); Potassium 3.9 mmol/L (3.5-5.1); Sodium 138 mmol/L (136-145); Total Bilirubin 0.2 mg/dL (0.15-1.2); Total Protein 7.8 g/dL (6.6-8.7)
[2020-06-01 04:05] VITALS: BP 112/77; PULSE 71; RESP 16; O2SAT 100
--- NOTE | 2020-06-04 08:10 | DCPLANNER ---
marketing support manager had message to schedule a follow up appointment for patient with general surgery for abdominal pain. marketing support manager emailed patients information to both Jade and Kaylie at [facility] general surgery. Patients information will be printed and reviewed. Clinic will call patient with appointment information.
--- NOTE | 2020-06-12 09:16 | DCPLANNER ---
manager switch was contacted by general surgery, stating that they were unable to reach patient, and mailed patient a letter. manager switch called phone number [phone], unable to speak with patient at this time. manager switch left a voicemail for patient patient to return phone call.
--- NOTE | 2020-06-15 09:47 | DCPLANNER ---
Patient has a follow up appointment scheduled for Thursday, June 18, 2020 at 3:[address] Jha at [facility] General Surgery. Clinic will call patient with appointment information.
--- NOTE | 2020-06-19 15:42 | DCPLANNER ---
Patient had a follow up appointment scheduled for 06.18.[address] Jha at general surgery - patient did attend appointment.
== END 2020-06-01 04:03 | disposition home or self-care (01) ==
PROVIDERS: Emergency Provider Emergency Medicine; PCP Family Medicine
DX: R10.9 Unspecified abdominal pain (principal)
CPT/HCPCS: 80053; 81003; 81025; 83690; 85025; 96361; 96374; 96375; 99284; J2270; J2405; J7030

== ENCOUNTER 2020-06-05 15:34 | Emergency (ER) | payer MEDICAID, SELFPAY ==
[2020-06-05 15:57] VITALS: BP 111/71; PULSE 75; RESP 16; TEMP 36.7; O2SAT 97; BMI 21.1
[2020-06-05 16:34] LABS: Add Urine Microscopic? NO
[2020-06-05 16:41] LABS: Bilirubin Urine Neg (Negative); Blood Urine Neg (Negative); Glucose Urine UA Norm (Normal); Ketones Urine Negative (Negative); Leukocyte Esterase Urine Negative (Negative); Nitrate Urine Negative (Negative); Protein Urine Neg (Negative); Urine Appearance Clear (CLEAR); Urine Color Yellow (Yellow); Urobilinogen Urine Norm (Negative); pH Urine 6.5 (5-7)
[2020-06-05 17:10] VITALS: BP 123/76; PULSE 77; RESP 18; O2SAT 98
[2020-06-05 17:18] LABS: Basophils % 0.2 %; Eosinophils % 0.6 %; Hematocrit 35.8 % (37.0-47.0); Hemoglobin 11.4 g/dL (11.5-15.3); Lymphocytes # 1.2 10^3/uL (0.8-4.8); Lymphocytes % 18.5 %; Mean Corpuscular HGB Conc 31.8 g/dL (30.0-36.0); Mean Corpuscular Hemoglobin 28.7 pg (28.0-34.0); Mean Corpuscular Volume 90.2 fL (81-99); Mean Platelet Volume 10.4 fL (7.4-10.4); Monocytes # 0.6 10^3/uL (0.2-0.9); Monocytes % 9.7 %; Neutrophils % 70.8 %; Nucleated Red Blood Cells % 0 %; Platelet Count 198 10^3/cmm (130-400); Red Blood Count 3.97 10^6/uL (4.1-5.3); Red Cell Distribution Width 12.6 % (12.1-15.1); White Blood Count 6.5 10^3/uL (4.0-10.0)
--- NOTE | 2020-06-05 17:26 | ED_ITS ---
HPI - Abdominal Pain General: Chief Complaint: Abdominal Pain Stated Complaint: R SIDE ABD PAIN Time Seen by Provider: 06/05/20 17:11 History of Present Illness: HPI narrative: Patient says she had anxiety attack this morning felt like some pulled underneath her bellybutton when she was having the tach. She complains about pain underneath her bellybutton denies any other problems presently. MD elicited complaint: abdominal pain Pertinent past history: other (Recent work-up for abdominal pain) Onset (ago): hour(s) Pain Consistency: constant Location: Periumbilical Severity: moderate Quality: aching and sharp Radiation: none Migration to: no migration Exacerbating factors: movement Relieving factors: rest Context: other (With anxiety attack muscles were again tense she said) Associated Symptoms: Reports no associated symptoms and nausea; Denies chills, fever(s) and vomiting Related Data: Date of Last Menstrual Period: 05/22/20 Review of Systems Const: Denies: fever(s), chills or body aches Eyes: Denies: change in vision or blurry vision ENMT: Denies: throat pain or nasal congestion Card: Denies: chest pain or dyspnea on exertion Resp: Denies: dyspnea, productive cough or non-productive cough GI: Reports: abdominal pain and nausea; Denies: vomiting Musc: Denies: extremity pain Skin/Breast: Denies: rash Neuro: Denies: headache(s) Psych: Denies: anxiety or depression Bryon/Lymph: Denies: easy bruising [facility] Female Reproductive History: Date of last menstrual period: 05/22/20 Physical Exam Const: COMMON NORMALS: no acute distress, average body habitus and patient oriented x3 HENMT: COMMON NORMALS: normocephalic HEAD & SCALP: normal to inspection and normocephalic FACE & SINUS: normal facial exam Eye: COMMON NORMALS: conjunctivae normal GENERAL EYE: appearance normal, both eyes and all related structures CONJUNCTIVA: Yes conjunctivae normal Neck/C-Spine: COMMON NORMALS: no JVD Chest: COMMONS NORMALS: normal inspection of the chest Resp: COMMON NORMALS: normal respiratory effort and clear to auscultation bilaterally AUSCULTATION: clear to auscultation bilaterally Cardio: COMMON NORMALS: no JVD, regular rate and regular rhythm RATE: regular rate RHYTHM: regular rhythm GI: AUSCULTATION: Yes normoactive bowel sounds PALPATION: Yes Tenderness to palpation present (GI) Details: other (in and around the bellybutton) Extremity: COMMON NORMALS: normal to inspection and full ROM Neuro: COMMON NORMALS: patient oriented x3 Course Vital Signs: Vital signs: Vital Signs Temperature 98.1 F 06/05/20 15:57 Pulse Rate 87 06/05/20 18:01 Respiratory Rate 16 06/05/20 18:01 Blood Pressure 137/75 06/05/20 18:01 Pulse Oximetry 98 06/05/20 18:01 MDM - Abdominal Pain MDM Narrative: Medical decision making narrative: Patient complained about abdominal pain after anxiety attack this morning when she felt like she strained her muscle below her umbilicus. Patient does not appear any distress here did have tenderness around the belt I did not feel a hernia no bulging noted good bowel sounds. Patient instructed to take care abdominal strain and what medication she can take. Lab Data: Labs: Lab Results 06/05/20 06/05/20 06/05/20 Range/Units 16:09 17:05 17:05 WBC 6.5 (4.0-10.0) 10^3/ uL RBC 3.97 L (4.1-5.3) 10^6/u L Hgb 11.4 L (11.5-15.3) g/dL Hct 35.8 L (37.0-47.0) % MCV 90.2 (81-99) fL MCH 28.7 (28.0-34.0) pg MCHC 31.8 (30.0-36.0) g/dL RDW 12.6 (12.1-15.1) % Plt Count 198 (130-400) 10^3/c mm MPV 10.4 (7.4-10.4) fL Neut % (Auto) 70.8 % Lymph % (Auto) 18.5 % [place] % (Auto) 9.7 % Eos % (Auto) 0.6 % Baso % (Auto) 0.2 % Neut # (Auto) 4.60 (1.8-7.7) 10^3/u L Lymph # (Auto) 1.2 (0.8-4.8) 10^3/u L [place] # (Auto) 0.6 (0.2-0.9) 10^3/u L Eos # (Auto) 0.0 (0.0-0.8) 10^3/u L Baso # (Auto) 0.0 (0.0-0.1) 10^3/u L Nucleated RBC % (a uto) 0 % Nucleated RBCs # 0.0 /100WBC Sodium 138 (136-145) mmol/L Potassium 4.3 (3.5-5.1) mmol/L Chloride 103 (98-107) mmol/L Carbon Dioxide 26 (22-29) mmol/L Anion Gap 13.3 (5-19) BUN 11 (6-20) mg/dL Creatinine 0.7 (0.5-0.9) mg/dL GFR Calculation 102.8 (90-130) mL/min Glucose 79 (65-115) mg/dL Calculated Osmolal ity 284 L (285-295) mOsm/k g Calcium 9.4 (8.5-10.5) mg/dL Total Bilirubin 0.2 (0.15-1.2) mg/dL AST 13 (0-32) U/L ALT 13 (0-33) U/L Alkaline Phosphata se 50 (35-105) IU/L Total Protein 7.7 (6.6-8.7) g/dL Albumin 4.7 (3.5-5.2) g/dL Globulin 3.0 (1.3-4.6) g/dL Lipase 27 (13-60) U/L HCG, Qual (Negative) Urine Color Yellow (Yellow) Urine Appearance Clear (CLEAR) Urine pH 6.5 (5-7) Ur Specific Gravit y 1.020 (1.005-1.030) Urine Protein Neg (Negative) Urine Glucose (UA) Norm (Normal) Urine Ketones Negative (Negative) Urine Blood Neg (Negative) Urine Nitrate Negative (Negative) Urine Bilirubin Neg (Negative) Urine Urobilinogen Norm (Negative) mg/dL Ur Leukocyte Stefani ase Negative (Negative) 06/05/20 Range/Units 17:05 WBC (4.0-10.0) 10^3/ uL RBC (4.1-5.3) 10^6/u L Hgb (11.5-15.3) g/dL Hct (37.0-47.0) % MCV (81-99) fL MCH (28.0-34.0) pg MCHC (30.0-36.0) g/dL RDW (12.1-15.1) % Plt Count (130-400) 10^3/c mm MPV (7.4-10.4) fL Neut % (Auto) % Lymph % (Auto) % [place] % (Auto) % Eos % (Auto) % Baso % (Auto) % Neut # (Auto) (1.8-7.7) 10^3/u L Lymph # (Auto) (0.8-4.8) 10^3/u L [place] # (Auto) (0.2-0.9) 10^3/u L Eos # (Auto) (0.0-0.8) 10^3/u L Baso # (Auto) (0.0-0.1) 10^3/u L Nucleated RBC % (a uto) % Nucleated RBCs # /100WBC Sodium (136-145) mmol/L Potassium (3.5-5.1) mmol/L Chloride (98-107) mmol/L Carbon Dioxide (22-29) mmol/L Anion Gap (5-19) BUN (6-20) mg/dL Creatinine (0.5-0.9) mg/dL GFR Calculation (90-130) mL/min Glucose (65-115) mg/dL Calculated Osmolal ity (285-295) mOsm/k g Calcium (8.5-10.5) mg/dL Total Bilirubin (0.15-1.2) mg/dL AST (0-32) U/L ALT (0-33) U/L Alkaline Phosphata se (35-105) IU/L Total Protein (6.6-8.7) g/dL Albumin (3.5-5.2) g/dL Globulin (1.3-4.6) g/dL Lipase (13-60) U/L HCG, Qual Negative (Negative) Urine Color (Yellow) Urine Appearance (CLEAR) Urine pH (5-7) Ur Specific Gravit y (1.005-1.030) Urine Protein (Negative) Urine Glucose (UA) (Normal) Urine Ketones (Negative) Urine Blood (Negative) Urine Nitrate (Negative) Urine Bilirubin (Negative) Urine Urobilinogen (Negative) mg/dL Ur Leukocyte Stefani ase (Negative) Discharge Plan Discharge Patient Disposition: Home Clinical Impression: Abdominal wall strain Qualifiers: Encounter type: initial encounter Qualified Code(s): S39.011A - Strain of muscle, fascia and tendon of abdomen, initial encounter Condition: Stable Prescriptions: New ketorolac 10 mg tablet 10 mg PO Q8H 2 Days Qty: 6 RF: 0 No Action buspirone 5 mg Tablet 5 mg PO BID PRN (Reason: Anxiety) RF: 0 Sprintec (28) 0.25-35 mg-mcg tablet 1 tab PO DAILY RF: 0 propranolol 20 mg Tablet 20 - 40 mg PO BID PRN (Reason: UNKNOWN) RF: 0 Lexapro 10 mg Tablet 10 mg PO DAILY@0900 RF: 0 sucralfate 1 gram tablet 1 g PO BID@0900,1800 RF: 0 Protonix 40 mg tablet,delayed release (DR/EC) 40 mg PO DAILY@0900 RF: 0 Discharge Orders: Discharge ED (Routine); Ordered 06/05/20 Ordered By: Edy Arroyo Referrals: Lars Isabel MD [Primary Care Provider] - Discharge Diet: Usual diet Discharge Activity: Increase activity as tolerated Patient Instructions: Muscle Strain (ED) Activity Restrictions/Additional Instructions: Follow-up with medical provider as directed. Take medications as prescribed. Return to the ER or your medical provider if condition worsens. Please read and understand discharge instructions. If any questions ask please. No heavy lifting. Can apply warm moist heat to area to help with discomfort. Follow-up Dr. Isabel as needed. Coding Level of Care Code ED Laborer Cheesemaking for Julito Pérez Exam Comprehensive
[2020-06-05] MEDS: ketorolac 10 mg Tablet PO (17:28)
[2020-06-05] MEDS: promethazine 25 mg Tablet PO (17:28)
[2020-06-05 17:41] LABS: Alanine Aminotransferase 13 U/L (0-33); Albumin Level 4.7 g/dL (3.5-5.2); Alkaline Phosphatase 50 IU/L (35-105); Anion Gap 13.3 (5-19); Aspartate Amino Transferase 13 U/L (0-32); Blood Urea Nitrogen 11 mg/dL (6-20); Calcium 9.4 mg/dL (8.5-10.5); Carbon Dioxide 26 mmol/L (22-29); Chloride 103 mmol/L (98-107); Glomerular Filtration Rate 102.8 mL/min (90-130); Glucose 79 mg/dL (65-115); Lipase 27 U/L (13-60); Osmolality Calculated 284 mOsm/kg (285-295); Potassium 4.3 mmol/L (3.5-5.1); Sodium 138 mmol/L (136-145); Total Bilirubin 0.2 mg/dL (0.15-1.2); Total Protein 7.7 g/dL (6.6-8.7)
[2020-06-05 18:01] VITALS: BP 137/75; PULSE 87; RESP 16; O2SAT 98
[2020-06-05 18:07] LABS: HCG, Serum Qual Negative (Negative)
== END 2020-06-05 18:03 | disposition home or self-care (01) ==
PROVIDERS: Physician Assistant; Emergency Provider Nurse Practitioner Family; PCP Family Medicine
DX: S39.011A Strain of muscle, fascia and tendon of abdomen, initial encounter (principal); X58.XXXA Exposure to other specified factors, initial encounter
CPT/HCPCS: 36415; 80053; 81003; 83690; 84703; 85025; 99283; Q0169

== ENCOUNTER 2020-06-29 07:49 | Outpatient (CLI) | payer MEDICAID, SELFPAY ==
--- NOTE | 2020-06-29 08:00 | NM_ITS ---
WS: [id number] NUCLEAR MEDICINE HIDA SCAN CLINICAL INFORMATION: R10.9 - Unspecified abdominal pain TECHNIQUE: Following intravenous administration of mCi of technetium 99m mebrofenin, images of the ab domen were obtained over the course of 60 minutes. Next, gallbladder ejection fraction was determined by obtaining preprandial and one-hour postprandial images of the gallbladder following oral ingestio n of Ensure. COMPARISON: Ultrasound and CT May 2020 FINDINGS: Normal hepatic uptake at 5 minutes. Normal common bile duct and small bowel activity. No evidence of acute cholecystitis. Gallbladder is visualized by 15 minutes. Gallbladder ejection fraction 78% withi n normal limits. No evidence of chronic cholecystitis. NM/NM hepatobiliary w phar* [id number] IMPRESSION: 1. No evidence of acute or chronic cholecystitis. 2. Normal gallbladder ejection fraction 78% within normal limits.
== END 2020-06-29 07:50 | disposition home or self-care (01) ==
LOC: NM 07:51
PROVIDERS: PCP Family Medicine; Visit Provider Surgery
DX: R10.9 Unspecified abdominal pain (principal)
CPT/HCPCS: 78227; A9537

== ENCOUNTER → 2020-07-05 11:56 | Outpatient (BNVA) | payer MEDICAID, SELFPAY | PROVIDERS: PCP Family Medicine; Visit Provider Surgery | DX: R10.9 Unspecified abdominal pain (principal) | CPT/HCPCS: 87635 ==

== ENCOUNTER 2020-07-09 08:30 | Day surgery (SDC) | payer MEDICAID, SELFPAY ==
[2020-07-06 14:13] VITALS: BMI 21.1
[2020-07-09] VITALS (11 sets, daily range): BP systolic 110–129; BP diastolic 52–85; PULSE 52–71; RESP 10–20; TEMP 36.2–36.6; O2SAT 99–100
[2020-07-09 08:44] LABS: OR HCG Qualitative Urine Negative (Negative)
[2020-07-09] MEDS: sodium chloride 0.9% 1,000 ML 30 ML IV (09:13)
[2020-07-09] MEDS: diphenhydrAMINE 50 mg/mL SDV 1mL 12.5 MG IVP (09:27)
[2020-07-09] MEDS: ondansetron 2 mg/ML SDV 2 mL 4 MG IVP ×2 (09:28→12:02)
--- NOTE | 2020-07-09 09:28 | P.ANESASSM_ITS ---
Pre-Anesthetic Assessment Pre-Anesthetic Assessment: Height/Weight: Height 1.7 m Weight 61.235 kg Temp Pulse Resp BP Pulse Ox 98 F 71 16 110/68 100 07/09/20 08:49 07/09/20 08:49 07/09/20 08:49 07/09/20 08:49 07/09/20 08:49 Preop Diagnosis: Abdominal pain Proposed Procedure: Operation Date: 07/09/20 09:55 Proposed Procedures p Laparoscopic Cholecystectomy 99633 R10.9(Not Applicable) - Eulalio Baez MD Was Beta Tasha taken within 24 hours: N/A Was Clonidine taken within 24 hours: N/A Last intake: Intake Last Liquid Date 07/08/20 Last Liquid Time 18:30 Last Solid Date 07/08/20 Last Solid Time 18:30 Social: Social History: No alcohol and No tobacco Exam: Pre-Anes Outpt Exam: alert, oriented x 3, clear to auscultation bilat erally and regular rate & rhythm Airway: Submandibular: WNL Cervical ROM: WNL MP: 2 Dentition: Full Anesthetic Plan: ASA status: 1 Anesthesia: General Risk of > 500 ml blood loss (7ml/kg in children): No Meds/Allergies Current Medications: Current Medications Generic Name Dose Route Start Last Admin Trade Name Freq PRN Reason Stop Dose Admin Sodium Chloride 1,000 mls @ 30 ml s/hr 07/09/20 08:45 07/09/20 09:13 Sodium Chloride 0.9% IV 07/10/20 08:44 30 mls/hr .Q24H ROBB Administration PFSH Anesthesia PFSH: Family History Other Cancer Diabetes Hypertension Stroke Denies family history of CAD (coronary artery disease) Social History Smoking and tobacco status: never smoked Alcohol intake: never Female Reproductive History: Date of last menstrual period: 05/22/20 Data Anesthesia Other Labs: Laboratory Results - last 48 hr 07/09/20 08:37 Urine HCG, Qual Negative Cardiac Studies: No Data to Display
--- NOTE | 2020-07-09 10:07 | W.PM.OPSUD ---
Surgery/Procedure H&P Update DATE OF PROCEDURE: July 09, 2020 DATE H&P PERFORMED: 07/04/20 H&P UPDATE INFORMATION: I have reviewed H&P completed within last 30 days, I have examined patient prior to procedure and No changes to prior documentation PREOP DIAGNOSIS: Abdominal pain PRIMARY INDICATION FOR PROCEDURE: The same PLANNED PROCEDURE: Operation Date: 07/09/20 09:55 Proposed Procedures p Laparoscopic Cholecystectomy 47135 R10.9(Not Applicable) - Eulalio Baez MD
[2020-07-09] MEDS: ampicillin-sulbactam 3 GM in sodium chloride 0.9% (plus) 50 ML IV (10:17)
[2020-07-09] MEDS: lidocaine 2% INJ 20 mL (10:43)
--- NOTE | 2020-07-09 11:09 | P.OP_ITS ---
Operative Report Date of procedure: July 09, 2020 Pre-op Diagnosis: Abdominal pain Post-op diagnosis: same Post-op Findings: Chronic Cholecystitis Procedure Done: Laproscopic Cholecystectomy Specimens removed/disposition: GALL BLADDER AND CONTENTS Surgeon: Eulalio Baez Mixer Operator Tablets: Surgical cady Reese student Franca Rose nurse Clari Anesthesia: General (GETA Team Leader Surgery Will Smart ) Estimated blood loss (mL): 5 Findings: Chronic cholecystitis Condition: stable Disposition: same day Brief History: Recurrent biliary colic. Full H&P and informed consent per chart. Procedure: Patient was identified in the holding area and taken back to the operative suite, placed in supine position intubated by anesthesia . Time-out was done verifying the patient's name/date of /planned procedure and destination after the procedure, all were in agreement. SCDs confirmed to be functioning, preoperative antibiotics administered per protocol, and beta anila protocol was confirmed. Patient was appropriately secured to the table, footboard was applied to the OR table, before prep and drape anesthesia was asked to tilt the table back and forth to make sure that the patient is appropriately secured and she was. Prep and drape of the abdomen was done under the usual sterile technique, followed by that supraumbilical skin incision,skin incision was done by a 11 blade knife, and stay sutures were applied to the fascia and Goldstein trocar technique was used to enter the abdominal without injuring any abdominal viscera, started by low flow gas insufflation followed by a high flow, started with a 10 mm laparoscope and under direct vision there was no evidence of any injuries, the scope then switched to a 30? ,10 millimeter scope and under direct visualization 5 millimeter trocar was inserted in the epigastric region followed by two 5 mm trocars were inserted in the right upper quadrant that was done after injection of local lidocaine 2% at all incision sites. Gallbladder showed Chronic cholecystitis.Mild Fatty liver is noticed. Patient was then positioned in the head up and tilted to the left Ratcheted forceps were introduced into the lateral most 5mm port and was applied unto the fundus of the gallbladder cephalad and using Bullet forceps the infundibulum of the gallbladder was retracted laterally. Using [place] forceps then L-hook cautery to dissect the peritoneum overlying the Calot's triangle which was then opened medially and laterally until the cystic duct and the cystic artery were skeletonized. Dissection was carried along the body of the gallbladder and after ensuring critical view of safety was identfied. Cystic duct and cystic artery where seen connected to the gallbladder. Clips were applied on the cystic duct towards the common bile duct 1 towards the gallbladder then divided is in sharp scissors, 2 clips were then applied onto the cystic artery and 1 towards the gallbladder and divided by sharp scissors.Additional traversing vessel was clipped and divided. Dissection was then carried along of the gallbladder from the gallbladder fossa using cautery as well as sharp dissection with heat energy.The gallbladder then was dissected out from the gallbladder fossa totally , cholecystectomy was then achieved and was placed in an Endo Catch bag and then retrieved from the Goldstein trocar site under direct visualization using a 5 mm 30? scope through the epigastric trocar, specimen was then passed to the circulating nurse to go for permanent pathology,irrigation and hemostasis was done to the gallbladder fossa after hemostasis was secured, final survey laparoscopy was done that showed no injuries. The supraumbilical fascial defect was then closed using interrupted PDS sutures using a fascial closure device ;Shamar Linder under direct visualization Gas was allowed to deflate,Trocars were then taken out under direct vision there was no evidence of bleeding Specimen was passed to the circulating nurse for permanent pathology. No drains were placed and the supraumbilical incision as well as all trocar sites were closed by 3/0 vicryl followed by 4-0 Monocryl to approximate the skin edges of the supraumbilical incision, dressing was applied in the form of surical glue and the patient patient got extubated and was taken to recovery area in a stable condition. Count of sponges,needles and instruments were completed at the end of the proce jovany I was present for the whole entire procedure.
[2020-07-09] MEDS: fentaNYL 50 mcg/mL INJ 2mL IVP ×2 (11:35→11:40)
[2020-07-09] MEDS: HYDROcodone-acetaminophen 5-325 mg Tablet 1 TAB PO (12:18)
[2020-07-09] MEDS: HYDROmorphone 1 mg/mL INJ 1 mL 0.5 MG IVP (13:00)
[2020-07-09] MEDS: midazolam 1 mg/mL INJ 2 mL 2 MG IVP (13:50)
--- NOTE | 2020-07-09 14:53 | ANE.PACU2 ---
Inpatient post-anesthesia follow up: Airway intact: Yes Vital signs: Temperature 97.9 F Pulse Rate 59 Respiratory Rate 16 Blood Pressure 114/81 Pulse Oximetry 100 Oxygen Delivery Me thod Room Air Oxygen Flow Rate 8 Fraction of Inspir ed Oxygen Hydration adequate: Yes Nausea and vomiting: No Pain level: 3 Mental status: Baseline Additional Comments: A lot of pain and anxiety post op.
--- NOTE | 2020-07-10 09:33 | SUR.PHASEII ---
1300 pt states she is hurting real bad and stated that pain pill not working,order given to give dilaudid 0.5mg iv per dr cordero 1320 pt with eyes closed and resting 1345 pt states she needs something for her nerves bad stated she was about to have an anxiety attack,order given to give versed 2mg iv 1355 pt ready to go home
== END 2020-07-09 14:20 | disposition home or self-care (01) ==
PROVIDERS: PCP Family Medicine; Visit Provider Surgery
PROC: 0FT44ZZ Resection of Gallbladder, Percutaneous Endoscopic Approach (ICD-10-PCS; CPT 47562; principal; 2020-07-09 09:45)
DX: K81.1 Chronic cholecystitis (principal)
CPT/HCPCS: 47562; 81025; 84703; 88304; 96374; 96375; J0295; J1100; J1170; J1200; J2250; J2405; J2704; J2710; J3010; J3490; J7030

== ENCOUNTER 2020-07-15 13:01 | Emergency (ER) | payer MEDICAID, SELFPAY ==
[2020-07-15 13:02] VITALS: BP 134/83; PULSE 82; RESP 18; TEMP 36.6; O2SAT 99; BMI 21.1
[2020-07-15 13:33] LABS: HCG Qualitative Urine. Negative (Negative)
[2020-07-15 13:37] LABS: Add Urine Culture? No; Bacteria Urine TRACE /hpf; Bilirubin Urine Neg (Negative); Blood Urine Neg (Negative); Glucose Urine UA Norm (Normal); Ketones Urine 1+ (Negative); Leukocyte Esterase Urine Negative (Negative); Mucus Urine 1+ /hpf; Nitrate Urine Negative (Negative); Protein Urine Neg (Negative); Specific Gravity, Urine 1.015 (1.005-1.030); Urine Appearance Clear (CLEAR); Urine Color Yellow (Yellow); Urobilinogen Urine Norm (Negative); WBC Urine 0-4 /hpf (0-5); pH Urine 6 (5-7)
--- NOTE | 2020-07-15 14:29 | XRR_ITS ---
PROCEDURE INFORMATION: Exam: XR Chest Exam date and time: 07/15/2020 2:52 PM Age: 24 years old Clinical indication: Abdominal pain. Recent cholecystectomy. TECHNIQUE: Imaging protocol: XR of the chest. Views: 1 view. COMPARISON: CT abdomen pelvis w con* [id number] 05/18/2020 4:46 PM FINDINGS: Lungs: Minimal atelectasis or scarring at the left base. Pleural spaces: No pleural effusion. No pneumothorax. Heart/Mediastinum: The cardiac silhouette is unremarkable. No gross evidence of pneumomediastinum. Bones/joints: No gross fracture. IMPRESSION: No acute cardiopulmonary abnormality identified. PROCEDURE INFORMATION: Exam: XR Abdomen Exam date and time: 07/15/2020 2:52 PM Age: 24 years old Clinical indication: Abdominal pain. Recent cholecystectomy. TECHNIQUE: Imaging protocol: XR of the abdomen. Views: 2 Views. Upright and supine views. COMPARISON: CT abdomen pelvis w con* [id number] 05/18/2020 4:46 PM FINDINGS: The liver appears enlarged. There has been recent cholecystectomy. No portal venous gas is appreciated. No free intraperitoneal air is seen. Nonobstructive bowel gas pattern. XR/XR acute abdomen series [id number] IMPRESSION: 1. Nonobstructive bowel gas pattern. 2. No free intraperitoneal air is seen. 3. Probable hepatomegaly.
--- NOTE | 2020-07-15 14:30 | W.ED.ABDPA2 ---
HPI - Abdominal Pain General: Chief Complaint: Abdominal Pain Stated Complaint: AB PAIN Time Seen by Provider: 07/15/20 14:25 History of Present Illness: HPI narrative: 24-year-old female comes in with abdominal pain. Patient had her gallbladder removed 1 week ago on July 09. Patient comes in today just for lower abdominal pain. Patient appears well. Patient appears no acute distress. Related Data: Date of Last Menstrual Period: 05/22/20 Review of Systems General: Reports: 10 or more systems reviewed and unremarkable except in HPI and below GI: Reports: abdominal pain PFSH ED PFSH: Family History Other Cancer Diabetes Hypertension Stroke Denies family history of CAD (coronary artery disease) Social History Smoking and tobacco status: never smoked Alcohol intake: never Female Reproductive History: Date of last menstrual period: 05/22/20 Physical Exam Const: COMMON NORMALS: no acute distress and patient oriented x3 GENERAL APPEARANCE: cooperative HENMT: COMMON NORMALS: normocephalic and Normal external nose present HEAD & SCALP: normal to inspection and normocephalic NOSE: Normal external nose present MOUTH: Normal oral and palatal mucosa present Eye: GENERAL EYE: appearance normal, both eyes and all related structures Neck/C-Spine: COMMON NORMALS: full ROM Chest: COMMONS NORMALS: normal inspection of the chest Resp: COMMON NORMALS: normal respiratory effort EFFORT & INSPECTION: Yes able to speak in complete sentences Cardio: COMMON NORMALS: regular rate and regular rhythm RATE: regular rate RHYTHM: regular rhythm GI: COMMON NORMALS: Soft to palpation PALPATION: Yes Soft to palpation and Yes Tenderness to palpation present (GI) OTHER: Patient is for well-healed surgical incision wounds. No significant redness or swelling is noted at the wounds. Bowel sounds are present. Back/Pelvis: COMMON NORMALS: thoracic and lumbar spine normal to inspection Extremity: COMMON NORMALS: normal to inspection Neuro: COMMON NORMALS: patient oriented x3 and moves all extremities Psych: COMMON NORMALS: mental status grossly normal and cooperative Skin: COMMON NORMALS: no rashes or lesions noted GENERAL SKIN EXAM: no rashes or lesions noted Course Vital Signs: Vital signs: Vital Signs Temperature 97.8 F 07/15/20 13:02 Pulse Rate 82 07/15/20 13:02 Respiratory Rate 18 07/15/20 13:02 Blood Pressure 134/83 07/15/20 13:02 Pulse Oximetry 99 07/15/20 13:02 MDM - Abdominal Pain MDM Narrative: Medical decision making narrative: Patient comes in today for concerns of abdominal pain. Patient is 1 week status post cholecystectomy. On exam abdomen is soft with some mild tenderness. Surgical wounds are well-healing. No signs of significant redness no rigidity and abdomen. Vital signs are normal. Differential diagnosis includes but not limited to malingering, obstructed bile duct, pancreatitis, bowel obstruction. X-rays noted no significant abnormality normal bowel gas pattern, and no signs of free air. Laboratory values were normal. Urinalysis was normal. Reviewed exam with patient recommended trying to return to normal diet and exercise. Encourage plenty of fluids. I did not refill her hydrocodone but did give her some tramadol 50 mg every 6 hours number 20 tablets for her pain. Recommend that patient could also use acetaminophen or ibuprofen for further pain. Patient reported understanding of care plan and need for follow-up or return. Lab Data: Labs: Lab Results 07/15/20 07/15/20 07/15/20 Range/Units 13:08 13:08 14:40 WBC 5.1 (4.0-10.0) 10^3/ uL RBC 4.28 (4.1-5.3) 10^6/u L Hgb 12.6 (11.5-15.3) g/dL Hct 38.4 (37.0-47.0) % MCV 89.7 (81-99) fL MCH 29.4 (28.0-34.0) pg MCHC 32.8 (30.0-36.0) g/dL RDW 12.3 (12.1-15.1) % Plt Count 199 (130-400) 10^3/c mm MPV 10.7 H (7.4-10.4) fL Neut % (Auto) 73.1 % Lymph % (Auto) 14.8 % [place] % (Auto) 10.9 % Eos % (Auto) 0.8 % Baso % (Auto) 0.2 % Neut # (Auto) 3.70 (1.8-7.7) 10^3/u L Lymph # (Auto) 0.8 (0.8-4.8) 10^3/u L [place] # (Auto) 0.6 (0.2-0.9) 10^3/u L Eos # (Auto) 0.0 (0.0-0.8) 10^3/u L Baso # (Auto) 0.0 (0.0-0.1) 10^3/u L Nucleated RBC % (a uto) 0 % Nucleated RBCs # 0.0 /100WBC Sodium (136-145) mmol/L Potassium (3.5-5.1) mmol/L Chloride (98-107) mmol/L Carbon Dioxide (22-29) mmol/L Anion Gap (5-19) BUN (6-20) mg/dL Creatinine (0.5-0.9) mg/dL GFR Calculation (90-130) mL/min Glucose (65-115) mg/dL Calculated Osmolal ity (285-295) mOsm/k g Calcium (8.5-10.5) mg/dL Total Bilirubin (0.15-1.2) mg/dL AST (0-32) U/L ALT (0-33) U/L Alkaline Phosphata se (35-105) IU/L Total Protein (6.6-8.7) g/dL Albumin (3.5-5.2) g/dL Globulin (1.3-4.6) g/dL Lipase (13-60) U/L HCG, Qual Negative (Negative) Urine Color Yellow (Yellow) Urine Appearance Clear (CLEAR) Urine pH 6 (5-7) Ur Specific Gravit y 1.015 (1.005-1.030) Urine Protein Neg (Negative) Urine Glucose (UA) Norm (Normal) Urine Ketones 1+ H (Negative) Urine Blood Neg (Negative) Urine Nitrate Negative (Negative) Urine Bilirubin Neg (Negative) Urine Urobilinogen Norm (Negative) mg/dL Ur Leukocyte Stefani ase Negative (Negative) Urine RBC None (0-2) /hpf Urine WBC 0-4 H (0-5) /hpf Ur Squamous Epith Cells 5-10 H (0-5) /hpf Amorphous Sediment Not Reportable Urine Bacteria Trace (NONE) /hpf Urine Mucus 1+ /hpf 07/15/20 Range/Units 14:40 WBC (4.0-10.0) 10^3/ uL RBC (4.1-5.3) 10^6/u L Hgb (11.5-15.3) g/dL Hct (37.0-47.0) % MCV (81-99) fL MCH (28.0-34.0) pg MCHC (30.0-36.0) g/dL RDW (12.1-15.1) % Plt Count (130-400) 10^3/c mm MPV (7.4-10.4) fL Neut % (Auto) % Lymph % (Auto) % [place] % (Auto) % Eos % (Auto) % Baso % (Auto) % Neut # (Auto) (1.8-7.7) 10^3/u L Lymph # (Auto) (0.8-4.8) 10^3/u L [place] # (Auto) (0.2-0.9) 10^3/u L Eos # (Auto) (0.0-0.8) 10^3/u L Baso # (Auto) (0.0-0.1) 10^3/u L Nucleated RBC % (a uto) % Nucleated RBCs # /100WBC Sodium 136 (136-145) mmol/L Potassium 4.1 (3.5-5.1) mmol/L Chloride 98 (98-107) mmol/L Carbon Dioxide 26 (22-29) mmol/L Anion Gap 16.1 (5-19) BUN 10 (6-20) mg/dL Creatinine 0.7 (0.5-0.9) mg/dL GFR Calculation 102.8 (90-130) mL/min Glucose 79 (65-115) mg/dL Calculated Osmolal ity 280 L (285-295) mOsm/k g Calcium 9.3 (8.5-10.5) mg/dL Total Bilirubin 0.4 (0.15-1.2) mg/dL AST 18 (0-32) U/L ALT 24 (0-33) U/L Alkaline Phosphata se 65 (35-105) IU/L Total Protein 7.9 (6.6-8.7) g/dL Albumin 4.7 (3.5-5.2) g/dL Globulin 3.2 (1.3-4.6) g/dL Lipase 19 (13-60) U/L HCG, Qual (Negative) Urine Color (Yellow) Urine Appearance (CLEAR) Urine pH (5-7) Ur Specific Gravit y (1.005-1.030) Urine Protein (Negative) Urine Glucose (UA) (Normal) Urine Ketones (Negative) Urine Blood (Negative) Urine Nitrate (Negative) Urine Bilirubin (Negative) Urine Urobilinogen (Negative) mg/dL Ur Leukocyte Stefani ase (Negative) Urine RBC (0-2) /hpf Urine WBC (0-5) /hpf Ur Squamous Epith Cells (0-5) /hpf Amorphous Sediment Urine Bacteria (NONE) /hpf Urine Mucus /hpf Discharge Plan Discharge Patient Disposition: Home Clinical Impression: Abdominal pain Qualifiers: Abdominal location: generalized Qualified Code(s): R10.84 - Generalized abdominal pain Condition: Stable Prescriptions: New tramadol 50 mg tablet 50 mg PO Q6H PRN (Reason: pain) Qty: 20 RF: 0 Discontinued hydrocodone-acetaminophen 5-325 mg tablet 1 tab PO Q6H PRN (Reason: pain) Qty: 28 RF: 0 No Action Pain PM 25-500 mg Tablet 2 tab PO PRN RF: 0 Discharge Orders: Discharge ED (Routine); Ordered 07/15/20 Ordered By: Jose Antonio Lopez Referrals: Lars Isabel MD [Primary Care Provider] - Discharge Diet: Usual diet Discharge Activity: Increase activity as tolerated Patient Instructions: Abdominal Pain (ED), Opioid Safety Activity Restrictions/Additional Instructions: Monitor for fever. Drink plenty of fluids. Increase diet as tolerated. Consider a bland diet such as bananas, rice, apples, toast, boiled chicken. Follow-up with surgeon for continued complaints. Return to the ER for new concerns. Coding Level of Care Code ED Brain Wave Technician for Chg Fwd Exam Comprehensive
--- NOTE | 2020-07-15 14:39 | PC.PHAR ---
PT STATES SHE HASNT TAKEN HER SPRINTEC FOR 3 WEEKS OR SO-PT STATES SHE STOP TAKING HER BUSPAR,PROPRANOLOL,OR LEXAPRO FOR AT LEAST A MONTH OR 2
[2020-07-15 14:57] LABS: Basophils % 0.2 %; Eosinophils % 0.8 %; Hematocrit 38.4 % (37.0-47.0); Hemoglobin 12.6 g/dL (11.5-15.3); Lymphocytes # 0.8 10^3/uL (0.8-4.8); Lymphocytes % 14.8 %; Mean Corpuscular HGB Conc 32.8 g/dL (30.0-36.0); Mean Corpuscular Hemoglobin 29.4 pg (28.0-34.0); Mean Corpuscular Volume 89.7 fL (81-99); Mean Platelet Volume 10.7 fL (7.4-10.4); Monocytes # 0.6 10^3/uL (0.2-0.9); Monocytes % 10.9 %; Neutrophils % 73.1 %; Nucleated Red Blood Cells % 0 %; Platelet Count 199 10^3/cmm (130-400); Red Blood Count 4.28 10^6/uL (4.1-5.3); Red Cell Distribution Width 12.3 % (12.1-15.1); White Blood Count 5.1 10^3/uL (4.0-10.0)
[2020-07-15] MEDS: HYDROcodone-acetaminophen 5-325 mg Tablet 1 TAB PO (15:11)
[2020-07-15 15:21] LABS: Alanine Aminotransferase 24 U/L (0-33); Albumin Level 4.7 g/dL (3.5-5.2); Alkaline Phosphatase 65 IU/L (35-105); Anion Gap 16.1 (5-19); Aspartate Amino Transferase 18 U/L (0-32); Blood Urea Nitrogen 10 mg/dL (6-20); Calcium 9.3 mg/dL (8.5-10.5); Carbon Dioxide 26 mmol/L (22-29); Chloride 98 mmol/L (98-107); Globulin 3.2 g/dL (1.3-4.6); Glomerular Filtration Rate 102.8 mL/min (90-130); Glucose 79 mg/dL (65-115); Lipase 19 U/L (13-60); Osmolality Calculated 280 mOsm/kg (285-295); Potassium 4.1 mmol/L (3.5-5.1); Sodium 136 mmol/L (136-145); Total Bilirubin 0.4 mg/dL (0.15-1.2); Total Protein 7.9 g/dL (6.6-8.7)
[2020-07-15 16:00] VITALS: PULSE 72; RESP 17; O2SAT 99
== END 2020-07-15 16:00 | disposition home or self-care (01) ==
PROVIDERS: Emergency Medicine; Emergency Provider Nurse Practitioner Family; PCP Family Medicine
DX: R10.84 Generalized abdominal pain (principal)
CPT/HCPCS: 74022; 80053; 81001; 81025; 83690; 85025; 99283

== ENCOUNTER 2020-10-22 11:09 | Emergency (ER) | payer MEDICAID, SELFPAY ==
[2020-10-22] VITALS (7 sets, daily range): BP systolic 107–117; BP diastolic 74–86; PULSE 78–89; RESP 14–16; TEMP 36.9; O2SAT 97–100; BMI 21.9
--- NOTE | 2020-10-22 11:16 | ED_ITS ---
HPI - Abdominal Pain General: Chief Complaint: Abdominal Pain Stated Complaint: Abd pain Time Seen by Provider: 10/22/20 11:13 History of Present Illness: HPI narrative: Ms. White is a 24-year-old lady with significant past medical history of endometriosis and surgical history of cholecystectomy who presents emergency department due to abdominal pain. She reports a longstanding history of intermittent abdominal pain though starting this morning she had significant worsening of this pain. She describes symptom onset is after eating some spam. She had subacute onset diffuse abdominal cramping which is worse in the lower abdomen. The intensity of symptoms is moderate to severe and worsened her typical baseline. There is mild associated nausea but no vomiting. Since her cholecystectomy she endorses change in bowel habits but no diarrhea associated with this event. No urinary symptoms. She reports negative home test and had a menstraul period starting approximately 10 days ago. Overall the intensity symptoms has persisted. Her symptoms are worse with movement but do not cope with rest. She does endorse a somewhat fatty diet. No other specific exacerbating relieving factors identified. Related Data: Date of Last Menstrual Period: 05/22/20 Review of Systems General: Reports: 10 or more systems reviewed and unremarkable except in HPI and below Narrative: CONSTITUTIONAL: denies fever, fatigue, weakness EYES - denies pain, denies loss of vision EARS - denies ear issues. NOSE - denies congestion or rhinorrhea. THROAT - denies sore throat or difficulty swallowing. CARDIOVASCULAR - denies chest pain and palpitations RESPIRATORY - denies shortness of breath and cough GASTROINTESTINAL -see HPI GENITOURINARY - denies dysuria or urinary frequency. No abnormal bleeding or discharge MUSCULOSKELETAL- denies deformity or pain SKIN - denies rashes or new changed skin lesions NEUROLOGIC - denies focal weakness or sensory changes HEMATOLOGIC/LYMPHATIC - denies easy bruising or lymphadenopathy. PFSH ED PFSH: Medical History Abdominal pain Chronic cholecystitis Family History Other Cancer Diabetes Hypertension Stroke Denies family history of CAD (coronary artery disease) Social History Smoking and tobacco status: never smoked Alcohol intake: never Female Reproductive History: Date of last menstrual period: 05/22/20 Physical Exam Narrative: EXAM NARRATIVE: GENERAL/CONSTITUTIONAL - well-appearing. No acute distress. Eyes - PERRL, no conjunctival injection ENMT - Atraumatic external nose and ears. Moist mucous membranes NECK - supple. trachea midline CARDIOVASCULAR - regular rate and rhythm. Peripheral pulses 2+ and equal RESPIRATORY -clear to auscultation bilaterally. No retractions or accessory muscle use. ABDOMEN/GI - there is generalized tenderness to moderate palpation. There are a few small areas of localized tenderness to percussion though no diffuse distention or peritonitis noted. MSK - Extremities without obvious deformity or tenderness to palpation SKIN - Warm, Dry NEURO - alert and appropriately oriented. strength and sensation intact. Moves all extremities equally. PSYCH - Appropriate mood and affect Course ED course: - Patient was seen and evaluated by me at bedside - Patient placed on cardiac monitors, IV access obtained - Initial evaluation notable for mildly uncomfortable appearing, no acute distress. Abdominal exam as noted above. - Labs and imaging obtained and reviewed -Symptom control ordered. - Labs notable for no significant hematologic or metabolic abnormality. No evidence of urinary tract infection. Beta hCG negative. -Patient did have some improvement with symptomatic care however given evidence of focal tenderness to percussion on abdominal exam, despite being somewhat out of proportion to laboratory findings, imaging was warranted. I discussed various methodologies with the patient including risks and benefits. Via shared decision making we proceeded with ultrasound given history of multiple CT scans and age. Ultrasound with no acute finding to explain the patient's symptoms, no evidence of abscess in the gallbladder fossa. - Upon serial reexamination after treatment the patient was improved with symptom care - Based on patient history, evaluation, labs, and imaging as interpreted the most likely cause of the patient's condition is unclear. I discussed at length changes that can occur without a gallbladder with the patient including need for dietary modification and time for renormalization of GI function. The patient endorses symptoms that are somewhat consistent with poor processing of fatty foods which are a stable in her diet. - The results of ED evaluation were discussed with the patient including prescriptions and/or symptomatic cares including appropriate and responsible use, followup plan, and return precautions. The patient verbalized understanding and felt safe for discharge. - Patient discharged in satisfactory condition. Vital Signs: Vital signs: Vital Signs Temperature 98.4 F 10/22/20 11:13 Pulse Rate 83 10/22/20 15:09 Respiratory Rate 14 10/22/20 13:27 Blood Pressure 107/74 10/22/20 15:09 Pulse Oximetry 97 10/22/20 15:09 MDM - Abdominal Pain Medical Records: Attestation: I reviewed the patient's medical records. Lab Data: Attestation: I reviewed the patient's lab results. Labs: Lab Results 10/22/20 10/22/20 10/22/20 Range/Units 11:49 11:49 11:49 WBC 5.2 (4.0-10.0) 10^3/ uL RBC 4.13 (4.1-5.3) 10^6/u L Hgb 12.1 (11.5-15.3) g/dL Hct 37.5 (37.0-47.0) % MCV 90.8 (81-99) fl MCH 29.3 (28.0-34.0) pg MCHC 32.3 (30.0-36.0) g/dL RDW 13.2 (12.1-15.1) % Plt Count 212 (130-400) 10^3/c mm MPV 10.7 H (7.4-10.4) fL Neut % (Auto) 69.1 % Lymph % (Auto) 15.9 % [place] % (Auto) 13.6 % Eos % (Auto) 0.8 % Baso % (Auto) 0.4 % Neut # (Auto) 3.61 (1.8-7.7) 10^3/u L Lymph # (Auto) 0.8 (0.8-4.8) 10^3/u L [place] # (Auto) 0.7 (0.2-0.9) 10^3/u L Eos # (Auto) 0.0 (0.0-0.8) 10^3/u L Baso # (Auto) 0.0 (0.0-0.1) 10^3/u L Nucleated RBC % (a uto) 0 % Nucleated RBCs # 0.0 /100WBC Sodium 138 (136-145) mmol/L Potassium 3.9 (3.5-5.1) mmol/L Chloride 103 (98-107) mmol/L Carbon Dioxide 25 (22-29) mmol/L Anion Gap 13.9 (5-19) BUN 11 (6-20) mg/dL Creatinine 0.6 (0.5-0.9) mg/dL GFR Calculation 122.8 (90-130) mL/min Glucose 77 (65-115) mg/dL Calculated Osmolal ity 284 L (285-295) mOsm/k g Lactate 0.7 (0.5-2.2) mmol/L Calcium 8.7 (8.5-10.5) mg/dL Total Bilirubin 0.4 (0.15-1.2) mg/dL AST 17 (0-32) U/L ALT 19 (0-33) U/L Alkaline Phosphata se 74 (35-105) IU/L Total Protein 7.0 (6.6-8.7) g/dL Albumin 4.5 (3.5-5.2) g/dL Globulin 2.5 (1.3-4.6) g/dL Lipase 17 (13-60) U/L HCG, Qual (Negative) Urine Color (Yellow) Urine Appearance (CLEAR) Urine pH (5-7) Ur Specific Gravit y (1.005-1.030) Urine Protein (Negative) Urine Glucose (UA) (Normal) Urine Ketones (Negative) Urine Blood (Negative) Urine Nitrate (Negative) Urine Bilirubin (Negative) Urine Urobilinogen (Negative) mg/dL Ur Leukocyte Stefani ase (Negative) 10/22/20 10/22/20 Range/Units 11:49 11:49 WBC (4.0-10.0) 10^3/ uL RBC (4.1-5.3) 10^6/u L Hgb (11.5-15.3) g/dL Hct (37.0-47.0) % MCV (81-99) fl MCH (28.0-34.0) pg MCHC (30.0-36.0) g/dL RDW (12.1-15.1) % Plt Count (130-400) 10^3/c mm MPV (7.4-10.4) fL Neut % (Auto) % Lymph % (Auto) % [place] % (Auto) % Eos % (Auto) % Baso % (Auto) % Neut # (Auto) (1.8-7.7) 10^3/u L Lymph # (Auto) (0.8-4.8) 10^3/u L [place] # (Auto) (0.2-0.9) 10^3/u L Eos # (Auto) (0.0-0.8) 10^3/u L Baso # (Auto) (0.0-0.1) 10^3/u L Nucleated RBC % (a uto) % Nucleated RBCs # /100WBC Sodium (136-145) mmol/L Potassium (3.5-5.1) mmol/L Chloride (98-107) mmol/L Carbon Dioxide (22-29) mmol/L Anion Gap (5-19) BUN (6-20) mg/dL Creatinine (0.5-0.9) mg/dL GFR Calculation (90-130) mL/min Glucose (65-115) mg/dL Calculated Osmolal ity (285-295) mOsm/k g Lactate (0.5-2.2) mmol/L Calcium (8.5-10.5) mg/dL Total Bilirubin (0.15-1.2) mg/dL AST (0-32) U/L ALT (0-33) U/L Alkaline Phosphata se (35-105) IU/L Total Protein (6.6-8.7) g/dL Albumin (3.5-5.2) g/dL Globulin (1.3-4.6) g/dL Lipase (13-60) U/L HCG, Qual Negative (Negative) Urine Color Yellow (Yellow) Urine Appearance Clear (CLEAR) Urine pH 5 (5-7) Ur Specific Gravit y 1.010 (1.005-1.030) Urine Protein Neg (Negative) Urine Glucose (UA) Norm (Normal) Urine Ketones Negative (Negative) Urine Blood Neg (Negative) Urine Nitrate Negative (Negative) Urine Bilirubin Neg (Negative) Urine Urobilinogen Norm (Negative) mg/dL Ur Leukocyte Stefani ase Negative (Negative) Discharge Plan Discharge Patient Disposition: Home Clinical Impression: Abdominal pain Qualifiers: Abdominal location: generalized Qualified Code(s): R10.84 - Generalized abdominal pain Condition: Stable Prescriptions: No Action ibuprofen 200 mg Tablet 400 mg PO Q6H PRN (Reason: Pain) RF: 0 diphenhydramine-acetaminophen [Tylenol PM Extra Strength] 25-500 mg Tablet 2 tab PO BEDTIME PRN (Reason: Sleep) RF: 0 dicyclomine 20 mg tablet 20 mg PO TID PRN (Reason: Abd cramping) Qty: 30 RF: 0 Discharge Orders: Discharge ED (Routine); Ordered 10/22/20 Ordered By: Andrei Griffin Referrals: Lars Isabel MD [Primary Care Provider] - Discharge Diet: Low Fat Discharge Activity: Resume usual activity Patient Instructions: Abdominal Pain (ED), Opioid Safety Activity Restrictions/Additional Instructions: Thank you for visiting the emergency department. You were seen and evaluated for abdominal pain. The exact cause of this is somewhat unclear and likely involves multiple factors. Since having your gallbladder removed you are more likely to have pain after eating fatty foods or large meals. Additionally it is possible that you have mild irritation of the stomach or even ulcers. Please follow-up with your primary care provider. You may use [id number] medications for your symptoms however please avoid NSAIDs such as ibuprofen. Please return to the emergency department if you experience worsening of your current symptoms, inability to tolerate oral intake, fevers, chills, pain that does not improve with ulqs-[id number] medications, or anything else that you are concerned about and feel needs emergency department evaluation. Coding Level of Care Code ED Private Branch Exchange Operator for Julito Pérez
[2020-10-22] MEDS: ondansetron 2 mg/ML SDV 2 mL 4 MG IVP (11:52)
[2020-10-22 11:57] LABS: Basophils % 0.4 %; Eosinophils % 0.8 %; Hematocrit 37.5 % (37.0-47.0); Hemoglobin 12.1 g/dL (11.5-15.3); Lymphocytes # 0.8 10^3/uL (0.8-4.8); Lymphocytes % 15.9 %; Mean Corpuscular HGB Conc 32.3 g/dL (30.0-36.0); Mean Corpuscular Hemoglobin 29.3 pg (28.0-34.0); Mean Corpuscular Volume 90.8 fl (81-99); Mean Platelet Volume 10.7 fL (7.4-10.4); Monocytes # 0.7 10^3/uL (0.2-0.9); Monocytes % 13.6 %; Neutrophils # 3.61 10^3/uL (1.8-7.7); Neutrophils % 69.1 %; Nucleated Red Blood Cells % 0 %; Platelet Count 212 10^3/cmm (130-400); Red Blood Count 4.13 10^6/uL (4.1-5.3); Red Cell Distribution Width 13.2 % (12.1-15.1); White Blood Count 5.2 10^3/uL (4.0-10.0)
[2020-10-22] MEDS: sodium chloride 0.9% 1,000 ML 999 ML IV (11:58)
[2020-10-22 12:00] LABS: Add Urine Microscopic? NO; Charge for UA Resulting for Rev
[2020-10-22 12:01] LABS: HCG Qualitative Urine. Negative (Negative)
[2020-10-22] MEDS: morphine 4 mg/mL SDV 1 mL IVP ×2 (12:07→13:27)
[2020-10-22 12:09] LABS: Bilirubin Urine Neg (Negative); Blood Urine Neg (Negative); Glucose Urine UA Norm (Normal); Ketones Urine Negative (Negative); Leukocyte Esterase Urine Negative (Negative); Nitrate Urine Negative (Negative); Protein Urine Neg (Negative); Urine Appearance Clear (CLEAR); Urine Color Yellow (Yellow); Urobilinogen Urine Norm (Negative); pH Urine 5 (5-7)
[2020-10-22 12:14] LABS: Alanine Aminotransferase 19 U/L (0-33); Albumin Level 4.5 g/dL (3.5-5.2); Alkaline Phosphatase 74 IU/L (35-105); Anion Gap 13.9 (5-19); Aspartate Amino Transferase 17 U/L (0-32); Blood Urea Nitrogen 11 mg/dL (6-20); Calcium 8.7 mg/dL (8.5-10.5); Carbon Dioxide 25 mmol/L (22-29); Chloride 103 mmol/L (98-107); Globulin 2.5 g/dL (1.3-4.6); Glomerular Filtration Rate 122.8 mL/min (90-130); Glucose 77 mg/dL (65-115); Lipase 17 U/L (13-60); Osmolality Calculated 284 mOsm/kg (285-295); Potassium 3.9 mmol/L (3.5-5.1); Sodium 138 mmol/L (136-145); Total Bilirubin 0.4 mg/dL (0.15-1.2)
[2020-10-22 12:15] LABS: Lactate (Lactic Acid level) 0.7 mmol/L (0.5-2.2)
--- NOTE | 2020-10-22 12:30 | US_ITS ---
WS: [id number] Complete ABDOMINAL ULTRASOUND HISTORY: abdominal pain, hx of cholecystectomy COMPARISON: 05/17/2020. Liver: 13.1 cm in length. Liver is normal size and echogenicity with no mass or intrahepatic dilatati on. Gallbladder: Prior cholecystectomy. Pancreas: Normal size and echogenicity. CBD: 0.4 cm. Right kidney: 12.1 cm x 6.4 cm x 6.0 cm. No mass, cortical thickening or hydronephrosis. Left kidney: 11.5 cm x 5.4 cm x 5.6 cm. No mass, cortical thickening or hydronephrosis. Spleen: Normal size and echogenicity. Abdominal aorta and IVC are within normal limits. No ascites. US/US abdomen complete* [id number] IMPRESSION: 1. Prior cholecystectomy. 2. Otherwise normal.
[2020-10-22] MEDS: dicyclomine 10 mg Capsule PO (13:26)
[2020-10-22] MEDS: lidocaine 2% viscous 15 ML, aluminum-mag hydrox-simethicon 30 ML, sucralfate oral liq 1 GM PO (14:26)
== END 2020-10-22 15:11 | disposition home or self-care (01) ==
PROVIDERS: Emergency Provider Emergency Medicine; PCP Family Medicine
DX: R10.84 Generalized abdominal pain (principal)
CPT/HCPCS: 76700; 80053; 81003; 81025; 83605; 83690; 85025; 96361; 96374; 96375; 96376; 99284; J2270; J2405; J7030

== ENCOUNTER 2020-10-23 12:04 | Emergency (ER) | payer MEDICAID, SELFPAY ==
[2020-10-23 12:11] VITALS: BP 105/71; PULSE 74; RESP 18; TEMP 37.1; O2SAT 98; BMI 21.9
--- NOTE | 2020-10-23 12:18 | W.ED.ABDPA2 ---
HPI - Abdominal Pain General: Chief Complaint: Abdominal Pain Stated Complaint: Pain in right side of abd Time Seen by Provider: 10/23/20 12:17 History of Present Illness: HPI narrative: 24-year-old female comes in today with complaints of abdominal pain and nausea. Patient was evaluated yesterday in the in the emergency room and was recommended to just monitor it. Patient came in today for continued complaints of pain and nausea without much improvement. Patient reports that movement makes it worse. MD elicited complaint: abdominal pain Related Data: Date of Last Menstrual Period: 05/22/20 Review of Systems General: Reports: 10 or more systems reviewed and unremarkable except in HPI and below GI: Reports: abdominal pain PFSH ED PFSH: Medical History Abdominal pain Chronic cholecystitis Family History Other Cancer Diabetes Hypertension Stroke Denies family history of CAD (coronary artery disease) Social History Smoking and tobacco status: never smoked Alcohol intake: never Female Reproductive History: Date of last menstrual period: 05/22/20 Physical Exam Const: COMMON NORMALS: no acute distress and patient oriented x3 GENERAL APPEARANCE: cooperative HENMT: COMMON NORMALS: normocephalic and Normal external nose present HEAD & SCALP: normal to inspection and normocephalic NOSE: Normal external nose present MOUTH: Normal oral and palatal mucosa present Eye: GENERAL EYE: appearance normal, both eyes and all related structures Neck/C-Spine: COMMON NORMALS: full ROM Lymph: LYMPHATIC: no lymphadenopathy noted Chest: COMMONS NORMALS: normal inspection of the chest Resp: COMMON NORMALS: normal respiratory effort EFFORT & INSPECTION: Yes able to speak in complete sentences Cardio: COMMON NORMALS: regular rate and regular rhythm RATE: regular rate RHYTHM: regular rhythm GI: COMMON NORMALS: Soft to palpation PALPATION: Yes Soft to palpation, No Guarding due to palpation present (GI) and No Rebound tenderness present : COMMON NORMALS: Yes no CVA tenderness BLADDER/KIDNEY EXAM: Yes no CVA tenderness Back/Pelvis: COMMON NORMALS: no CVA tenderness and thoracic and lumbar spine normal to inspection Extremity: COMMON NORMALS: normal to inspection Neuro: COMMON NORMALS: patient oriented x3 and moves all extremities Psych: COMMON NORMALS: mental status grossly normal and cooperative Skin: COMMON NORMALS: no rashes or lesions noted GENERAL SKIN EXAM: no rashes or lesions noted Course Vital Signs: Vital signs: Vital Signs Temperature 98.7 F 10/23/20 12:11 Pulse Rate 76 10/23/20 13:03 Respiratory Rate 13 10/23/20 13:03 Blood Pressure 108/78 10/23/20 13:03 Pulse Oximetry 98 10/23/20 13:03 MDM - Abdominal Pain MDM Narrative: Medical decision making narrative: 24-year-old female comes in today for complaints of abdominal discomfort. Patient reports some nausea. Patient denies any fever. Patient denies any vomiting or blood in stool. Patient reports discomfort is been waxing and waning since her gallbladder surgery. Patient appears well. Patient appears in no acute distress. Abdomen was soft with some mild tenderness on palpation. Bowel sounds are present throughout. Vital signs were normal. Differential diagnosis includes but not limited to constipation, bowel obstruction, gastroenteritis. Laboratory values were unremarkable. There was no significant changes from prior labs yesterday. X-ray of the abdomen and chest indicated no perforation or bowel obstruction. Patient sounds like she has more of a irritable bowel type syndrome as she reports that feeling to defecate but without being able to produce any bowel movements. Patient also reports when she does have bowel movements it is watery. I will start patient on dicyclomine 20 mg 3 times a day to treat for irritable bowel type syndrome. Patient was recommended then to follow-up with primary care for further treatment and evaluation. Patient was also recommended to monitor for fever or blood in vomit or stool. Patient reported understanding agreed to plan. Lab Data: Labs: Lab Results 10/23/20 10/23/20 10/23/20 Range/Units 12:20 12:30 12:30 WBC 5.4 (4.0-10.0) 10^3/ uL RBC 4.23 (4.1-5.3) 10^6/u L Hgb 12.3 (11.5-15.3) g/dL Hct 38.0 (37.0-47.0) % MCV 89.8 (81-99) fl MCH 29.1 (28.0-34.0) pg MCHC 32.4 (30.0-36.0) g/dL RDW 12.8 (12.1-15.1) % Plt Count 214 (130-400) 10^3/c mm MPV 10.9 H (7.4-10.4) fL Neut % (Auto) 71.4 % Lymph % (Auto) 14.8 % Cook % (Auto) 12.8 % Eos % (Auto) 0.4 % Baso % (Auto) 0.4 % Neut # (Auto) 3.86 (1.8-7.7) 10^3/u L Lymph # (Auto) 0.8 (0.8-4.8) 10^3/u L Cook # (Auto) 0.7 (0.2-0.9) 10^3/u L Eos # (Auto) 0.0 (0.0-0.8) 10^3/u L Baso # (Auto) 0.0 (0.0-0.1) 10^3/u L Nucleated RBC % (a uto) 0 % Nucleated RBCs # 0.0 /100WBC Sodium 138 (136-145) mmol/L Potassium 4.0 (3.5-5.1) mmol/L Chloride 99 (98-107) mmol/L Carbon Dioxide 29 (22-29) mmol/L Anion Gap 14.0 (5-19) BUN 11 (6-20) mg/dL Creatinine 0.7 (0.5-0.9) mg/dL GFR Calculation 102.8 (90-130) mL/min Glucose 108 (65-115) mg/dL Calculated Osmolal ity 286 (285-295) mOsm/k g Calcium 9.5 (8.5-10.5) mg/dL Total Bilirubin 0.3 (0.15-1.2) mg/dL AST 18 (0-32) U/L ALT 26 (0-33) U/L Alkaline Phosphata se 87 (35-105) IU/L Total Protein 7.9 (6.6-8.7) g/dL Albumin 4.5 (3.5-5.2) g/dL Globulin 3.4 (1.3-4.6) g/dL Lipase 22 (13-60) U/L HCG, Qual (Negative) Urine Color Yellow (Yellow) Urine Appearance Clear (CLEAR) Urine pH 7 (5-7) Ur Specific Gravit y 1.020 (1.005-1.030) Urine Protein Neg (Negative) Urine Glucose (UA) Norm (Normal) Urine Ketones Negative (Negative) Urine Blood Trace H (Negative) Urine Nitrate Negative (Negative) Urine Bilirubin Neg (Negative) Urine Urobilinogen Norm (Negative) mg/dL Ur Leukocyte Stefani ase Negative (Negative) Urine RBC 5-10 H (0-2) /hpf Urine WBC None (0-5) /hpf Ur Squamous Epith Cells 0-4 H (0-5) /hpf Amorphous Sediment Not Reportable Urine Bacteria 1+ H (NONE) /hpf Urine Mucus Trace /hpf 10/23/20 Range/Units 12:30 WBC (4.0-10.0) 10^3/ uL RBC (4.1-5.3) 10^6/u L Hgb (11.5-15.3) g/dL Hct (37.0-47.0) % MCV (81-99) fl MCH (28.0-34.0) pg MCHC (30.0-36.0) g/dL RDW (12.1-15.1) % Plt Count (130-400) 10^3/c mm MPV (7.4-10.4) fL Neut % (Auto) % Lymph % (Auto) % Cook % (Auto) % Eos % (Auto) % Baso % (Auto) % Neut # (Auto) (1.8-7.7) 10^3/u L Lymph # (Auto) (0.8-4.8) 10^3/u L Cook # (Auto) (0.2-0.9) 10^3/u L Eos # (Auto) (0.0-0.8) 10^3/u L Baso # (Auto) (0.0-0.1) 10^3/u L Nucleated RBC % (a uto) % Nucleated RBCs # /100WBC Sodium (136-145) mmol/L Potassium (3.5-5.1) mmol/L Chloride (98-107) mmol/L Carbon Dioxide (22-29) mmol/L Anion Gap (5-19) BUN (6-20) mg/dL Creatinine (0.5-0.9) mg/dL GFR Calculation (90-130) mL/min Glucose (65-115) mg/dL Calculated Osmolal ity (285-295) mOsm/k g Calcium (8.5-10.5) mg/dL Total Bilirubin (0.15-1.2) mg/dL AST (0-32) U/L ALT (0-33) U/L Alkaline Phosphata se (35-105) IU/L Total Protein (6.6-8.7) g/dL Albumin (3.5-5.2) g/dL Globulin (1.3-4.6) g/dL Lipase (13-60) U/L HCG, Qual Negative (Negative) Urine Color (Yellow) Urine Appearance (CLEAR) Urine pH (5-7) Ur Specific Gravit y (1.005-1.030) Urine Protein (Negative) Urine Glucose (UA) (Normal) Urine Ketones (Negative) Urine Blood (Negative) Urine Nitrate (Negative) Urine Bilirubin (Negative) Urine Urobilinogen (Negative) mg/dL Ur Leukocyte Stefani ase (Negative) Urine RBC (0-2) /hpf Urine WBC (0-5) /hpf Ur Squamous Epith Cells (0-5) /hpf Amorphous Sediment Urine Bacteria (NONE) /hpf Urine Mucus /hpf Discharge Plan Discharge Patient Disposition: Home Clinical Impression: Abdominal pain Qualifiers: Abdominal location: generalized Qualified Code(s): R10.84 - Generalized abdominal pain Condition: Stable Prescriptions: New dicyclomine 20 mg tablet 20 mg PO TID PRN (Reason: Abd cramping) Qty: 30 RF: 0 No Action ibuprofen 200 mg Tablet 400 mg PO Q6H PRN (Reason: Pain) RF: 0 diphenhydramine-acetaminophen [Tylenol PM Extra Strength] 25-500 mg Tablet 2 tab PO BEDTIME PRN (Reason: Sleep) RF: 0 Discharge Orders: Discharge ED (Routine); Ordered 10/23/20 Ordered By: Jose Antonio Lopez Referrals: Lars Isabel MD [Primary Care Provider] - Discharge Diet: Usual diet Discharge Activity: Increase activity as tolerated Patient Instructions: High Fiber Diet (ED), Abdominal Pain (ED), Opioid Safety Activity Restrictions/Additional Instructions: Drink plenty of fluids. Use dicyclomine 20 mg 3 times a day for abdominal pain and cramping. Healthy diet. Includes high fibrous foods or supplemental fiber. Follow-up with primary care for further instruction and evaluation. Return to the ER for high fever, blood in vomit or stool. 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
--- NOTE | 2020-10-23 12:27 | XRR_ITS ---
PROCEDURE INFORMATION: Exam: XR Abdomen Exam date and time: 10/23/2020 12:27 PM Age: 24 years old Clinical indication: Abdominal pain; Prior surgery; Surgery date: 1-6 months; Surgery type: Gb 3 months ago; Patient HX: History--right side abd pain and pelvic pain. Nausea. Diarrhea since gb surger 3 month ago. TECHNIQUE: Imaging protocol: XR of the abdomen. Views: 2 Views. Upright and supine views. COMPARISON: CR XR acute abdomen series [id number] 07/15/2020 2:50 PM FINDINGS: Gastrointestinal tract: Normal. No bowel dilation. Intraperitoneal space: Normal. No free air. Organs: Cholecystectomy clips project over the right upper quadrant. Bones/joints: Unremarkable for age. XR/XR acute abdomen series [id number] IMPRESSION: Nonobstructive bowel gas pattern.
[2020-10-23 12:41] LABS: Bilirubin Urine Neg (Negative); Blood Urine Trace (Negative); Glucose Urine UA Norm (Normal); Ketones Urine Negative (Negative); Nitrate Urine Negative (Negative); Protein Urine Neg (Negative); Urine Appearance Clear (CLEAR); Urine Color Yellow (Yellow); pH Urine 7 (5-7)
[2020-10-23 12:42] LABS: Add Urine Microscopic? YES; Leukocyte Esterase Urine Negative (Negative); Urobilinogen Urine Norm (Negative)
[2020-10-23 12:52] LABS: Basophils % 0.4 %; Eosinophils % 0.4 %; Hemoglobin 12.3 g/dL (11.5-15.3); Lymphocytes # 0.8 10^3/uL (0.8-4.8); Lymphocytes % 14.8 %; Mean Corpuscular HGB Conc 32.4 g/dL (30.0-36.0); Mean Corpuscular Hemoglobin 29.1 pg (28.0-34.0); Mean Corpuscular Volume 89.8 fl (81-99); Mean Platelet Volume 10.9 fL (7.4-10.4); Monocytes # 0.7 10^3/uL (0.2-0.9); Monocytes % 12.8 %; Neutrophils # 3.86 10^3/uL (1.8-7.7); Neutrophils % 71.4 %; Nucleated Red Blood Cells % 0 %; Platelet Count 214 10^3/cmm (130-400); Red Blood Count 4.23 10^6/uL (4.1-5.3); Red Cell Distribution Width 12.8 % (12.1-15.1); White Blood Count 5.4 10^3/uL (4.0-10.0)
--- NOTE | 2020-10-23 12:52 | PC.NURSE ---
Patient has bowel sounds active in all 4 quadrants. Reports pain in lower abd and nausea.
[2020-10-23 12:54] LABS: Bacteria Urine 1+ /hpf; Mucus Urine TRACE /hpf; Squamous Epithelial Cell Urine 0-4 /hpf (0-5)
[2020-10-23 12:55] LABS: Add Urine Culture? No
[2020-10-23 13:03] VITALS: BP 108/78; PULSE 76; RESP 13; O2SAT 98
[2020-10-23 13:13] LABS: HCG, Serum Qual Negative (Negative)
[2020-10-23 13:20] LABS: Alanine Aminotransferase 26 U/L (0-33); Albumin Level 4.5 g/dL (3.5-5.2); Alkaline Phosphatase 87 IU/L (35-105); Aspartate Amino Transferase 18 U/L (0-32); Blood Urea Nitrogen 11 mg/dL (6-20); Calcium 9.5 mg/dL (8.5-10.5); Carbon Dioxide 29 mmol/L (22-29); Chloride 99 mmol/L (98-107); Globulin 3.4 g/dL (1.3-4.6); Glomerular Filtration Rate 102.8 mL/min (90-130); Glucose 108 mg/dL (65-115); Lipase 22 U/L (13-60); Osmolality Calculated 286 mOsm/kg (285-295); Sodium 138 mmol/L (136-145); Total Bilirubin 0.3 mg/dL (0.15-1.2); Total Protein 7.9 g/dL (6.6-8.7)
[2020-10-23 13:56] VITALS: BP 113/89; PULSE 80; RESP 16; O2SAT 100
== END 2020-10-23 13:53 | disposition home or self-care (01) ==
PROVIDERS: Emergency Provider Nurse Practitioner Family; PCP Family Medicine
DX: R10.84 Generalized abdominal pain (principal)
CPT/HCPCS: 74022; 80053; 81001; 83690; 84703; 85025; 99282

== ENCOUNTER 2021-01-18 13:27 | Emergency (ER) | payer MEDICAID, SELFPAY ==
[2021-01-18 13:58] VITALS: BP 116/86; PULSE 82; RESP 18; TEMP 36.7; O2SAT 99; BMI 21.9
[2021-01-18 15:10] LABS: Add Urine Microscopic? NO; Charge for UA Resulting for Rev
[2021-01-18 15:36] LABS: Bilirubin Urine Neg (Negative); Blood Urine Neg (Negative); Glucose Urine UA Norm (Normal); HCG Qualitative Urine. Negative (Negative); Ketones Urine Negative (Negative); Leukocyte Esterase Urine Negative (Negative); Nitrate Urine Negative (Negative); Protein Urine Neg (Negative); Urine Appearance Clear (CLEAR); Urine Color Yellow (Yellow); Urobilinogen Urine Norm (Negative); pH Urine 5 (5-7)
--- NOTE | 2021-01-18 15:50 | ED_ITS ---
Documented by User: BRADLEY Constantino 01/19/21 07:12 HPI - Abdominal Pain General: Chief Complaint: Abdominal Pain Stated Complaint: Abdominal Pain Time Seen by Provider: 01/18/21 15:11 History of Present Illness: HPI narrative: Patient is a 25 female comes to the ED with abdominal pain. Past surgical history of cholecystectomy. Patient says symptoms have been going on on and off for the past 2 weeks. She says today she woke up and she was having more severe abdominal pain. Abdominal pain was located in the epigastric, periumbilical and right lower quadrant of abdomen. She rates the pain currently a 7 out of 10. Pain worsens with certain food she eats. She endorses having nausea but denies any emesis. Denies any fever, chills, bladder or bowel symptoms. Associated Symptoms: Reports nausea; Denies chills, constipation, diarrhea, dysuria, fever(s), hematochezia, hematuria and vomiting Related Data: Date of Last Menstrual Period: 01/05/21 Review of Systems Const: Reports: change in appetite (Decreased); Denies: fever(s), chills or fatigue Eyes: Denies: change in vision or eye discomfort ENMT: Denies: throat pain, odynophagia, nasal discharge or nasal congestion Card: Denies: chest pain, palpitations, edema, swelling of feet/ankles, dyspnea on exertion or orthopnea Resp: Denies: dyspnea, productive cough or non-productive cough GI: Reports: abdominal pain and nausea; Denies: vomiting, diarrhea, constipation or hematochezia : Denies: flank pain, dysuria or hematuria Musc: Denies: neck pain, back pain or extremity swelling Skin/Breast: Denies: rash or new lesions Neuro: Denies: headache(s), numbness in extremities or weakness in extremities PFSH ED PFSH: Medical History Abdominal pain Chronic cholecystitis Family History Other Cancer Diabetes Hypertension Stroke Denies family history of CAD (coronary artery disease) Social History Smoking and tobacco status: never smoked Alcohol intake: never Female Reproductive History: Date of last menstrual period: 01/05/21 Physical Exam Const: COMMON NORMALS: no acute distress, patient oriented x3, healthy appearing and alert GENERAL APPEARANCE: cooperative and comfortable HENMT: COMMON NORMALS: normocephalic HEAD & SCALP: normocephalic MOUTH: Normal oral and palatal mucosa present THROAT: posterior oropharynx normal and uvula midline Neck/C-Spine: COMMON NORMALS: supple GENERAL: Yes normal visual inspection Resp: COMMON NORMALS: normal respiratory effort, No retractions, No use of accessory muscles and clear to auscultation bilaterally AUSCULTATION: clear to auscultation bilaterally Cardio: COMMON NORMALS: regular rate, regular rhythm, S1 normal heart sound present, S2 normal heart sound present, No gallops present (Cardio), No clicks present (Cardio), No murmurs present (Cardio) and Peripheral pulses 2+ throughout RATE: regular rate RHYTHM: regular rhythm HEART SOUNDS: S1 normal heart sound present and S2 normal heart sound present PERIPHERAL PULSES: Peripheral pulses 2+ throughout GI: COMMON NORMALS: Normal to inspection, nondistended, normoactive bowel sounds present, Soft to palpation and no masses PALPATION: Yes Soft to palpation and Yes Tenderness to palpation present (GI) Details: RLQ and other (Epigastric and periumbilical tenderness) : COMMON NORMALS: Yes no CVA tenderness BLADDER/KIDNEY EXAM: Yes no CVA tenderness Back/Pelvis: COMMON NORMALS: no CVA tenderness Extremity: COMMON NORMALS: normal to inspection Neuro: COMMON NORMALS: patient oriented x3 SENSORIUM/ORIENTATION: Yes alert GAIT: Yes Normal gait present Skin: GENERAL SKIN EXAM: dry skin Course Vital Signs: Vital signs: Vital Signs Temperature 98.0 F 01/18/21 13:58 Pulse Rate 71 01/18/21 17:00 Respiratory Rate 16 01/18/21 16:48 Blood Pressure 135/96 01/18/21 17:00 Pulse Oximetry 96 01/18/21 17:00 MDM - Abdominal Pain MDM Narrative: Medical decision making narrative: Patient is a 25-year-old female comes to the ED with abdominal pain. Patient's abdominal pain is located in epigastric, periumbilical and right lower quadrant of abdomen. She endorses having nausea as well and a decreased appetite. Vitals stable. Patient appears nontoxic and in no acute distress or pain. Exam shows right lower quadrant, epigastric and periumbilical tenderness. The rest of exam was benign. I performed the history physical exam and lab work-up for patient. I transferred care over to Edy Oneill and I told him we are just waiting on the CT abdomen report. Lab Data: Attestation: I reviewed the patient's lab results. Labs: Lab Results 01/18/21 01/18/21 01/18/21 14:00 14:00 16:40 WBC 5.4 10^3/uL 10^3/ uL (4.0-10.0) RBC 4.26 10^6/uL 10^6 /uL (4.1-5.3) Hgb 12.5 g/dL g/dL (11.5-15.3) Hct 38.5 % % (37.0-47.0) MCV 90.4 fl fl (81-99) MCH 29.3 pg pg (28.0-34.0) MCHC 32.5 g/dL g/dL (30.0-36.0) RDW 12.7 % % (12.1-15.1) Plt Count 215 10^3/cmm 10^3 /cmm (130-400) MPV 10.6 fL H fL (7.4-10.4) Neut % (Auto) 62.1 % % Lymph % (Auto) 27.7 % % [place] % (Auto) 9.0 % % Eos % (Auto) 0.6 % % Baso % (Auto) 0.2 % % Neut # (Auto) 3.37 10^3/uL 10^3 /uL (1.8-7.7) Lymph # (Auto) 1.5 10^3/uL 10^3/ uL (0.8-4.8) [place] # (Auto) 0.5 10^3/uL 10^3/ uL (0.2-0.9) Eos # (Auto) 0.0 10^3/uL 10^3/ uL (0.0-0.8) Baso # (Auto) 0.0 10^3/uL 10^3/ uL (0.0-0.1) Nucleated RBC % (a uto) 0 % % Nucleated RBCs # 0.0 /100WBC /100W BC Sodium Potassium Chloride Carbon Dioxide Anion Gap BUN Creatinine GFR Calculation Glucose Calculated Osmolal ity Calcium Total Bilirubin AST ALT Alkaline Phosphata se Total Protein Albumin Globulin Lipase HCG, Qual Negative (Negative) Urine Color Yellow (Yellow) Urine Appearance Clear (CLEAR) Urine pH 5 (5-7) Ur Specific Gravit y 1.020 (1.005-1.030) Urine Protein Neg (Negative) Urine Glucose (UA) Norm (Normal) Urine Ketones Negative (Negative) Urine Blood Neg (Negative) Urine Nitrate Negative (Negative) Urine Bilirubin Neg (Negative) Urine Urobilinogen Norm mg/dL mg/dL (Negative) Ur Leukocyte Stefani ase Negative (Negative) H. pylori IgG Anti body 01/18/21 01/18/21 16:40 16:40 WBC RBC Hgb Hct MCV MCH MCHC RDW Plt Count MPV Neut % (Auto) Lymph % (Auto) [place] % (Auto) Eos % (Auto) Baso % (Auto) Neut # (Auto) Lymph # (Auto) [place] # (Auto) Eos # (Auto) Baso # (Auto) Nucleated RBC % (a uto) Nucleated RBCs # Sodium 137 mmol/L mmol/L (136-145) Potassium 3.9 mmol/L mmol/L (3.5-5.1) Chloride 100 mmol/L mmol/L (98-107) Carbon Dioxide 24 mmol/L mmol/L (22-29) Anion Gap 16.9 (5-19) BUN 9 mg/dL mg/dL (6-20) Creatinine 0.6 mg/dL mg/dL (0.5-0.9) GFR Calculation 121.8 mL/min mL/m in (90-130) Glucose 77 mg/dL mg/dL (65-115) Calculated Osmolal ity 281 mOsm/kg L mOs m/kg (285-295) Calcium 9.4 mg/dL mg/dL (8.5-10.5) Total Bilirubin 0.5 mg/dL mg/dL (0.15-1.2) AST 20 U/L U/L (0-32) ALT 25 U/L U/L (0-33) Alkaline Phosphata se 64 IU/L IU/L (35-105) Total Protein 7.7 g/dL g/dL (6.6-8.7) Albumin 4.7 g/dL g/dL (3.5-5.2) Globulin 3.0 g/dL g/dL (1.3-4.6) Lipase 18 U/L U/L (13-60) HCG, Qual Urine Color Urine Appearance Urine pH Ur Specific Gravit y Urine Protein Urine Glucose (UA) Urine Ketones Urine Blood Urine Nitrate Urine Bilirubin Urine Urobilinogen Ur Leukocyte Stefani ase H. pylori IgG Anti body Negative (Negative) Imaging Data ^: CT Abd/Pel: Attestation: I personally reviewed and interpreted this imaging study as follows: Radiologist's impression: [address] [id number] [address] Scan Report Signed Patient: Tisha Mcginnis Unit #: [id number] : 1995 Age/Sex: 25 / F ADM Date: 01/18/21 Loc: ER Room/Bed: Attending Dr: Ordering Provider/Ordering MD: Arturo Rodriguez Date of Service: 01/18/21 Procedure(s): CT abdomen pelvis w con* [id number] Accession Number(s): [id number] Report Number: [id number] PROCEDURE INFORMATION: Exam: CT Abdomen And Pelvis With Contrast Exam date and time: 01/18/2021 3:50 PM Age: 25 years old Clinical indication: Abdominal pain; Localized; Right; Prior surgery; Surgery date: 6+ months; Surgery type: Gb; Patient HX: C/O R sided and epigastric abd pain; Additional info: Rlq, epigastric and periumbilical tenderness, nausea TECHNIQUE: Imaging protocol: Computed tomography of the abdomen and pelvis with contrast. Radiation optimization: All CT scans at this facility use at least one of these dose optimization techniques: automated exposure control; mA and/or kV adjustment per patient size (includes targeted exams where dose is matched to clinical indication); or iterative reconstruction. Contrast material: OMNI 300; Contrast volume: 95 ml; Contrast route: INTRAVENOUS (IV); COMPARISON: CT abdomen pelvis w con* [id number] 05/18/2020 4:46 PM RADIATION DOSE METRICS: Total DLP (mGy-cm): 858.69 FINDINGS: Lungs: Two 5 mm right lower lobe nodules. Liver: Normal. No mass. Gallbladder and bile ducts: Cholecystectomy. Mild prominence of the bile ducts is consistent with reservoir effect. Pancreas: Normal. No ductal dilation. Spleen: Normal. No splenomegaly. Adrenal glands: Normal. No mass. Kidneys and ureters: Normal. No hydronephrosis. Stomach and bowel: Unremarkable. No obstruction. No mucosal thickening. Appendix: The appendix is visualized and is normal. Intraperitoneal space: Small amount of pelvic ascites. No free air. Vasculature: Unremarkable. No abdominal aortic aneurysm. Lymph nodes: Unremarkable. No enlarged lymph nodes. Urinary bladder: Unremarkable as visualized. Reproductive: The uterus and ovaries are unremarkable. Bones/joints: Unremarkable. No acute fracture. Soft tissues: Unremarkable. CT/CT abdomen pelvis w con* [id number] IMPRESSION: 1. No acute abnormality identified in the abdomen or pelvis. 2. 5 mm right pulmonary nodules. If the patient does not have known cancer, follow up should be based on clinical information because of the low risk of cancer in this age group. (Reference: Mike) References: Mike Garduno, et al. Guidelines for Management of Incidental Pulmonary Nodules Detected on CT Images: From the Fleischner Society 2017. Radiology. 2017;284(1):228-243. Radiation Dose CTDIVOL = (mGy): DLP = 858.69 (mGy-cm) Dictated By: Devyn Gould Signed By: Devyn Gould Signed Date/Time: 01/18/21 1717 DD/ 1550 Discharge Plan Discharge Prescriptions: No Action ibuprofen 200 mg Tablet 400 mg PO Q6H PRN (Reason: Pain) RF: 0 diphenhydramine-acetaminophen [Tylenol PM Extra Strength] 25-500 mg Tablet 2 tab PO BEDTIME PRN (Reason: Sleep) RF: 0 dicyclomine 20 mg tablet 20 mg PO TID PRN (Reason: Abd cramping) Qty: 30 RF: 0 Referrals: aLrs Isabel MD [Primary Care Provider] - Coding Level of Care Code ED Conveyor Attendant for Chg Fwd Exam Comprehensive Documented by User: GLENIS Aguilar 01/18/21 18:36 HPI - Abdominal Pain General: Chief Complaint: Abdominal Pain Stated Complaint: Abdominal Pain Time Seen by Provider: 01/18/21 15:11 PFSH ED PFSH: Medical History Abdominal pain Chronic cholecystitis Family History Other Cancer Diabetes Hypertension Stroke Denies family history of CAD (coronary artery disease) Social History Smoking and tobacco status: never smoked Alcohol intake: never Course Vital Signs: Vital signs: Vital Signs Temperature 98.0 F 01/18/21 13:58 Pulse Rate 71 01/18/21 17:00 Respiratory Rate 16 01/18/21 16:48 Blood Pressure 135/96 01/18/21 17:00 Pulse Oximetry 96 01/18/21 17:00 MDM - Abdominal Pain MDM Narrative: Medical decision making narrative: Patient signed out AMA prior to me being able to visit with her. Labs CT all come back showing no abnormal findings. I was told patient says she just want to go home did want waiting longer. Lab Data: Labs: Lab Results 01/18/21 01/18/21 01/18/21 14:00 14:00 16:40 WBC 5.4 10^3/uL 10^3/ uL (4.0-10.0) RBC 4.26 10^6/uL 10^6 /uL (4.1-5.3) Hgb 12.5 g/dL g/dL (11.5-15.3) Hct 38.5 % % (37.0-47.0) MCV 90.4 fl fl (81-99) MCH 29.3 pg pg (28.0-34.0) MCHC 32.5 g/dL g/dL (30.0-36.0) RDW 12.7 % % (12.1-15.1) Plt Count 215 10^3/cmm 10^3 /cmm (130-400) MPV 10.6 fL H fL (7.4-10.4) Neut % (Auto) 62.1 % % Lymph % (Auto) 27.7 % % [place] % (Auto) 9.0 % % Eos % (Auto) 0.6 % % Baso % (Auto) 0.2 % % Neut # (Auto) 3.37 10^3/uL 10^3 /uL (1.8-7.7) Lymph # (Auto) 1.5 10^3/uL 10^3/ uL (0.8-4.8) [place] # (Auto) 0.5 10^3/uL 10^3/ uL (0.2-0.9) Eos # (Auto) 0.0 10^3/uL 10^3/ uL (0.0-0.8) Baso # (Auto) 0.0 10^3/uL 10^3/ uL (0.0-0.1) Nucleated RBC % (a uto) 0 % % Nucleated RBCs # 0.0 /100WBC /100W BC Sodium Potassium Chloride Carbon Dioxide Anion Gap BUN Creatinine GFR Calculation Glucose Calculated Osmolal ity Calcium Total Bilirubin AST ALT Alkaline Phosphata se Total Protein Albumin Globulin Lipase HCG, Qual Negative (Negative) Urine Color Yellow (Yellow) Urine Appearance Clear (CLEAR) Urine pH 5 (5-7) Ur Specific Gravit y 1.020 (1.005-1.030) Urine Protein Neg (Negative) Urine Glucose (UA) Norm (Normal) Urine Ketones Negative (Negative) Urine Blood Neg (Negative) Urine Nitrate Negative (Negative) Urine Bilirubin Neg (Negative) Urine Urobilinogen Norm mg/dL mg/dL (Negative) Ur Leukocyte Stefani ase Negative (Negative) H. pylori IgG Anti body 01/18/21 01/18/21 16:40 16:40 WBC RBC Hgb Hct MCV MCH MCHC RDW Plt Count MPV Neut % (Auto) Lymph % (Auto) [place] % (Auto) Eos % (Auto) Baso % (Auto) Neut # (Auto) Lymph # (Auto) [place] # (Auto) Eos # (Auto) Baso # (Auto) Nucleated RBC % (a uto) Nucleated RBCs # Sodium 137 mmol/L mmol/L (136-145) Potassium 3.9 mmol/L mmol/L (3.5-5.1) Chloride 100 mmol/L mmol/L (98-107) Carbon Dioxide 24 mmol/L mmol/L (22-29) Anion Gap 16.9 (5-19) BUN 9 mg/dL mg/dL (6-20) Creatinine 0.6 mg/dL mg/dL (0.5-0.9) GFR Calculation 121.8 mL/min mL/m in (90-130) Glucose 77 mg/dL mg/dL (65-115) Calculated Osmolal ity 281 mOsm/kg L mOs m/kg (285-295) Calcium 9.4 mg/dL mg/dL (8.5-10.5) Total Bilirubin 0.5 mg/dL mg/dL (0.15-1.2) AST 20 U/L U/L (0-32) ALT 25 U/L U/L (0-33) Alkaline Phosphata se 64 IU/L IU/L (35-105) Total Protein 7.7 g/dL g/dL (6.6-8.7) Albumin 4.7 g/dL g/dL (3.5-5.2) Globulin 3.0 g/dL g/dL (1.3-4.6) Lipase 18 U/L U/L (13-60) HCG, Qual Urine Color Urine Appearance Urine pH Ur Specific Gravit y Urine Protein Urine Glucose (UA) Urine Ketones Urine Blood Urine Nitrate Urine Bilirubin Urine Urobilinogen Ur Leukocyte Stefani ase H. pylori IgG Anti body Negative (Negative) Discharge Plan Discharge Prescriptions: No Action ibuprofen 200 mg Tablet 400 mg PO Q6H PRN (Reason: Pain) RF: 0 diphenhydramine-acetaminophen [Tylenol PM Extra Strength] 25-500 mg Tablet 2 tab PO BEDTIME PRN (Reason: Sleep) RF: 0 dicyclomine 20 mg tablet 20 mg PO TID PRN (Reason: Abd cramping) Qty: 30 RF: 0 Referrals: Lars Isabel MD [Primary Care Provider] - Coding Level of Care Code ED Conveyor Attendant for Chg Fwd Exam Comprehensive Documented by User: Andrei Griffin MD 01/23/21 02:04 HPI - Abdominal Pain General: Chief Complaint: Abdominal Pain Stated Complaint: Abdominal Pain Time Seen by Provider: 01/18/21 15:11 [facility] ED PFSH: Medical History Abdominal pain Chronic cholecystitis Family History Other Cancer Diabetes Hypertension Stroke Denies family history of CAD (coronary artery disease) Social History Smoking and tobacco status: never smoked Alcohol intake: never Course Vital Signs: Vital signs: Vital Signs Temperature 98.0 F 01/18/21 13:58 Pulse Rate 71 01/18/21 17:00 Respiratory Rate 16 01/18/21 16:48 Blood Pressure 135/96 01/18/21 17:00 Pulse Oximetry 96 01/18/21 17:00 MDM - Abdominal Pain MDM Narrative: Medical decision making narrative: I did not see or discuss this patient at time of care. I have reviewed labs and imaging. Unclear best option for follow-up as I did not assess the patient's risk factors regarding pulmonary nodule. Andrei Griffin MD Emergency Medicine Lab Data: Labs: Lab Results 01/18/21 01/18/21 01/18/21 14:00 14:00 16:40 WBC 5.4 10^3/uL 10^3/ uL (4.0-10.0) RBC 4.26 10^6/uL 10^6 /uL (4.1-5.3) Hgb 12.5 g/dL g/dL (11.5-15.3) Hct 38.5 % % (37.0-47.0) MCV 90.4 fl fl (81-99) MCH 29.3 pg pg (28.0-34.0) MCHC 32.5 g/dL g/dL (30.0-36.0) RDW 12.7 % % (12.1-15.1) Plt Count 215 10^3/cmm 10^3 /cmm (130-400) MPV 10.6 fL H fL (7.4-10.4) Neut % (Auto) 62.1 % % Lymph % (Auto) 27.7 % % [place] % (Auto) 9.0 % % Eos % (Auto) 0.6 % % Baso % (Auto) 0.2 % % Neut # (Auto) 3.37 10^3/uL 10^3 /uL (1.8-7.7) Lymph # (Auto) 1.5 10^3/uL 10^3/ uL (0.8-4.8) [place] # (Auto) 0.5 10^3/uL 10^3/ uL (0.2-0.9) Eos # (Auto) 0.0 10^3/uL 10^3/ uL (0.0-0.8) Baso # (Auto) 0.0 10^3/uL 10^3/ uL (0.0-0.1) Nucleated RBC % (a uto) 0 % % Nucleated RBCs # 0.0 /100WBC /100W BC Sodium Potassium Chloride Carbon Dioxide Anion Gap BUN Creatinine GFR Calculation Glucose Calculated Osmolal ity Calcium Total Bilirubin AST ALT Alkaline Phosphata se Total Protein Albumin Globulin Lipase HCG, Qual Negative (Negative) Urine Color Yellow (Yellow) Urine Appearance Clear (CLEAR) Urine pH 5 (5-7) Ur Specific Gravit y 1.020 (1.005-1.030) Urine Protein Neg (Negative) Urine Glucose (UA) Norm (Normal) Urine Ketones Negative (Negative) Urine Blood Neg (Negative) Urine Nitrate Negative (Negative) Urine Bilirubin Neg (Negative) Urine Urobilinogen Norm mg/dL mg/dL (Negative) Ur Leukocyte Stefani ase Negative (Negative) H. pylori IgG Anti body 01/18/21 01/18/21 16:40 16:40 WBC RBC Hgb Hct MCV MCH MCHC RDW Plt Count MPV Neut % (Auto) Lymph % (Auto) [place] % (Auto) Eos % (Auto) Baso % (Auto) Neut # (Auto) Lymph # (Auto) [place] # (Auto) Eos # (Auto) Baso # (Auto) Nucleated RBC % (a uto) Nucleated RBCs # Sodium 137 mmol/L mmol/L (136-145) Potassium 3.9 mmol/L mmol/L (3.5-5.1) Chloride 100 mmol/L mmol/L (98-107) Carbon Dioxide 24 mmol/L mmol/L (22-29) Anion Gap 16.9 (5-19) BUN 9 mg/dL mg/dL (6-20) Creatinine 0.6 mg/dL mg/dL (0.5-0.9) GFR Calculation 121.8 mL/min mL/m in (90-130) Glucose 77 mg/dL mg/dL (65-115) Calculated Osmolal ity 281 mOsm/kg L mOs m/kg (285-295) Calcium 9.4 mg/dL mg/dL (8.5-10.5) Total Bilirubin 0.5 mg/dL mg/dL (0.15-1.2) AST 20 U/L U/L (0-32) ALT 25 U/L U/L (0-33) Alkaline Phosphata se 64 IU/L IU/L (35-105) Total Protein 7.7 g/dL g/dL (6.6-8.7) Albumin 4.7 g/dL g/dL (3.5-5.2) Globulin 3.0 g/dL g/dL (1.3-4.6) Lipase 18 U/L U/L (13-60) HCG, Qual Urine Color Urine Appearance Urine pH Ur Specific Gravit y Urine Protein Urine Glucose (UA) Urine Ketones Urine Blood Urine Nitrate Urine Bilirubin Urine Urobilinogen Ur Leukocyte Stefani ase H. pylori IgG Anti body Negative (Negative) Discharge Plan Discharge Prescriptions: No Action ibuprofen 200 mg Tablet 400 mg PO Q6H PRN (Reason: Pain) RF: 0 diphenhydramine-acetaminophen [Tylenol PM Extra Strength] 25-500 mg Tablet 2 tab PO BEDTIME PRN (Reason: Sleep) RF: 0 dicyclomine 20 mg tablet 20 mg PO TID PRN (Reason: Abd cramping) Qty: 30 RF: 0 Referrals: Lars Isabel MD [Primary Care Provider] - Coding Level of Care Code ED Conveyor Attendant for Chg Fwd Exam Comprehensive
[2021-01-18] MEDS: sodium chloride 0.9% 1,000 ML 999 ML IV (16:44)
[2021-01-18 16:45] VITALS: RESP 16; O2SAT 100
[2021-01-18 16:45] LABS: Basophils % 0.2 %; Eosinophils % 0.6 %; Hematocrit 38.5 % (37.0-47.0); Hemoglobin 12.5 g/dL (11.5-15.3); Lymphocytes # 1.5 10^3/uL (0.8-4.8); Lymphocytes % 27.7 %; Mean Corpuscular HGB Conc 32.5 g/dL (30.0-36.0); Mean Corpuscular Hemoglobin 29.3 pg (28.0-34.0); Mean Corpuscular Volume 90.4 fl (81-99); Mean Platelet Volume 10.6 fL (7.4-10.4); Monocytes # 0.5 10^3/uL (0.2-0.9); Neutrophils # 3.37 10^3/uL (1.8-7.7); Neutrophils % 62.1 %; Nucleated Red Blood Cells % 0 %; Platelet Count 215 10^3/cmm (130-400); Red Blood Count 4.26 10^6/uL (4.1-5.3); Red Cell Distribution Width 12.7 % (12.1-15.1); White Blood Count 5.4 10^3/uL (4.0-10.0)
[2021-01-18] MEDS: morphine 4 mg/mL SDV 1 mL IVP (16:45)
[2021-01-18] MEDS: ondansetron 2 mg/ML SDV 2 mL 4 MG IVP (16:45)
[2021-01-18 16:48] VITALS: BP 112/86; PULSE 75; RESP 16; O2SAT 100
[2021-01-18] MEDS: iohexol 300 mg/mL 100 mL Btl IV (16:54)
[2021-01-18 17:00] VITALS: BP 135/96; PULSE 71; O2SAT 96
[2021-01-18 17:02] LABS: Alanine Aminotransferase 25 U/L (0-33); Albumin Level 4.7 g/dL (3.5-5.2); Alkaline Phosphatase 64 IU/L (35-105); Anion Gap 16.9 (5-19); Aspartate Amino Transferase 20 U/L (0-32); Blood Urea Nitrogen 9 mg/dL (6-20); Calcium 9.4 mg/dL (8.5-10.5); Carbon Dioxide 24 mmol/L (22-29); Chloride 100 mmol/L (98-107); Creatinine Clr Calc Pharmacy 141.1067; Glomerular Filtration Rate 121.8 mL/min (90-130); Glucose 77 mg/dL (65-115); Lipase 18 U/L (13-60); Osmolality Calculated 281 mOsm/kg (285-295); Potassium 3.9 mmol/L (3.5-5.1); Sodium 137 mmol/L (136-145); Total Bilirubin 0.5 mg/dL (0.15-1.2); Total Protein 7.7 g/dL (6.6-8.7)
[2021-01-18 17:03] LABS: H. Pylori IgG Antibody Negative (Negative)
--- NOTE | 2021-01-18 17:24 | PC.NURSE ---
called to pt room via call light pt co pain of 10 on a pain scale. informed dr. arauz he verbalized understanding no further orders.
--- NOTE | 2021-01-18 17:40 | PC.NURSE ---
called to pt room via [employer] who stated that pt was wanting to leave. upon arrival pt is in tears updated pt on care. pt then asked if she wanted the iv removed and wanted to leave she stated, just take it out . pt refused to sign ama paperwork. pt informed that she should not drive under the influence of morphine. no evidence of learning.
== END 2021-01-18 17:48 ==
PROVIDERS: Family Medicine; Physician Assistant; Emergency Provider Nurse Practitioner Family; PCP Family Medicine
DX: R10.9 Unspecified abdominal pain (principal)
CPT/HCPCS: 74177; 80053; 81003; 81025; 83690; 85025; 86677; 96361; 96374; 96375; 99283; J2270; J2405; J7030; Q9967

== ENCOUNTER 2021-04-28 18:35 | Emergency (ER) | payer MEDICAID, SELFPAY ==
[2021-04-28 18:41] VITALS: BP 103/72; PULSE 84; RESP 16; TEMP 36.7; O2SAT 97; BMI 21.9
--- NOTE | 2021-04-28 18:44 | W.ED.SKABFB ---
HPI - Skin/Abscess/Foreign Bdy General: Chief complaint: Skin/Abscess/Foreign Body Stated complaint: Ingrown hairs in Pubic Area Time Seen by Provider: 04/28/21 18:44 History of Present Illness: 25-year-old female comes in today with complaints of new lesions to the left inguinal area along the underwear line where she shaves. Patient reports for the last 2 weeks she has had these recurring lesions and is concerned for wound infection or abscess. Patient reports lesions are painful. Patient denies any other medical problems or issues. Review of Systems General: Reports: 10 or more systems reviewed and unremarkable except in HPI and below Skin/Breast: Reports: skin tenderness and new lesions PFSH ED PFSH: Medical History Abdominal pain Chronic cholecystitis Family History Other Cancer Diabetes Hypertension Stroke Denies family history of CAD (coronary artery disease) Social History Smoking and tobacco status: never smoked Alcohol intake: never Female Reproductive History: Date of last menstrual period: 01/05/21 Physical Exam Const: COMMON NORMALS: alert Resp: COMMON NORMALS: clear to auscultation bilaterally AUSCULTATION: clear to auscultation bilaterally Cardio: COMMON NORMALS: regular rate and regular rhythm RATE: regular rate RHYTHM: regular rhythm : EXTERNAL FEMALE EXAM: Yes lesion (1 cm palpable fluctuant mass to the left perineal area.) Extremity: COMMON NORMALS: full ROM Neuro: SENSORIUM/ORIENTATION: Yes alert Psych: COMMON NORMALS: cooperative Skin: LESIONS: lesion noted (Pustular lesions noted to the left inguinal fold.) Procedures Abscess I/D Site: giorgi-rectal Side (if applicable): left Local Anesthetic: lidocaine 1% Amount of anesthesia used (mL): 1 Technique: incised with #11 blade Amount of fluid expressed (mL): 1 Irrigation: No Packing used?: none Course Vital Signs: Vital signs: Vital Signs Temperature 98.1 F 04/28/21 18:41 Pulse Rate 84 04/28/21 18:41 Respiratory Rate 16 04/28/21 18:41 Blood Pressure 103/72 04/28/21 18:41 Pulse Oximetry 97 04/28/21 18:41 MDM - Skin/Abscess/Foreign Bdy Medicial Decision Making Patient comes in for several pustules to the left inguinal area. On exam we note 3 or 4 pustules with one being enlarged to the perineal region. No significant surrounding erythema or redness. Differential diagnosis folliculitis, pseudo-Gretchen folliculitis, abscess. There is a superficial abscess to the groin patient requested that we go ahead and drain it. Small incision was made with small amount of purulent drainage from the wound. We will put patient on Keflex 500 mg twice daily for the next 7 days. Patient was also given some mupirocin ointment to use to each of the lesions until healed. Patient reported understanding of care plan need for follow-up or return to the ER. Discharge Plan Discharge Patient Disposition: Home Clinical Impression: Folliculitis Abscess of skin or subcutaneous tissue Qualifiers: Site of cutaneous abscess: trunk Site of cutaneous abscess of trunk: groin Qualified Code(s): L02.214 - Cutaneous abscess of groin Condition: Stable Prescriptions: New cephalexin 500 mg capsule 500 mg PO BID 7 Days Qty: 14 0RF No Action ibuprofen 200 mg Tablet 400 mg PO Q6H PRN (Reason: Pain) 0RF diphenhydramine-acetaminophen [Tylenol PM Extra Strength] 25-500 mg Tablet 2 tab PO BEDTIME PRN (Reason: Sleep) 0RF dicyclomine 20 mg tablet 20 mg PO TID PRN (Reason: Abd cramping) Qty: 30 0RF Discharge Orders: Discharge ED (Routine); Ordered 04/28/21 Ordered By: Jose Antonio Lopez Referrals: Lars Isabel MD [Primary Care Provider] - Discharge Diet: Usual diet Discharge Activity: Increase activity as tolerated Patient Instructions: Folliculitis (ED) Activity Restrictions/Additional Instructions: Use warm compresses to the area to help express purulent drainage. Take antibiotics as directed. Cephalexin twice a day for 7 days. Use mupirocin ointment to any new sores until healed. Use acetaminophen or ibuprofen for pain. Follow-up with primary care in 3 days for recheck. Return to ER for new concerns. Coding Level of Care Code ED Enrichment Specialist for [facility] Fwd Exam Detailed
[2021-04-28] MEDS: cephALEXin 500 mg Capsule PO (19:40)
[2021-04-28] MEDS: mupirocin oint 22 gm 1 APPLIC TOPICAL (19:40)
[2021-04-28 20:44] VITALS: BP 115/79; PULSE 70; RESP 16; TEMP 37; O2SAT 98
== END 2021-04-28 21:24 | disposition home or self-care (01) ==
PROVIDERS: Emergency Provider Nurse Practitioner Family; PCP Family Medicine
DX: L02.214 Cutaneous abscess of groin (principal); L73.9 Follicular disorder, unspecified
CPT/HCPCS: 10060; 99283

== ENCOUNTER 2021-05-05 20:36 | Emergency (ER) | payer MEDICAID, SELFPAY ==
[2021-05-05 20:53] VITALS: BP 143/79; PULSE 114; RESP 20; TEMP 36.8; O2SAT 100; BMI 21.9
--- NOTE | 2021-05-05 21:07 | ED_ITS ---
Documented by User: GLENIS Aguilar 05/05/21 22:02 HPI - Anxiety General: Chief Complaint: Anxiety Stated Complaint: Panic Attack Time Seen by Provider: 05/05/21 21:01 History of Present Illness: Patient with a history of severe anxiety and panic attacks. Patient smokes marijuana daily basis had marijuana last couple days and having severe panic attack presently. Has no medications to take. Says just life stressors going on her life. She has her boyfriend here with her. denies any significant medical history. Denies any other drugs of abuse ingested. Associated symptoms: Deny chest pain, chills, fever(s), headache(s), nausea or vomiting Review of Systems Const: Denies: fever(s), chills or body aches Eyes: Denies: eye discomfort ENMT: Denies: throat pain Card: Denies: chest pain Resp: Denies: dyspnea GI: Denies: abdominal pain, nausea or vomiting Skin/Breast: Denies: rash Neuro: Denies: headache(s) Psych: Reports: anxiety and panic attacks; Denies: depression or suicidal ideation PFSH ED PFSH: Medical History Abdominal pain Chronic cholecystitis Family History Other Cancer Diabetes Hypertension Stroke Denies family history of CAD (coronary artery disease) Social History Smoking and tobacco status: never smoked Alcohol intake: never Female Reproductive History: Date of last menstrual period: 01/05/21 Physical Exam Const: COMMON NORMALS: no acute distress, patient oriented x3 and alert HENMT: COMMON NORMALS: normocephalic and external ears normal HEAD & SCALP: normocephalic EXTERNAL EAR: Yes external ears normal Eye: COMMON NORMALS: EOMs intact bilaterally Neck/C-Spine: COMMON NORMALS: no JVD Resp: COMMON NORMALS: normal respiratory effort and No use of accessory muscles Cardio: COMMON NORMALS: no JVD GI: INSPECTION: Yes normal to inspection Extremity: COMMON NORMALS: normal to inspection and full ROM Neuro: COMMON NORMALS: patient oriented x3 SENSORIUM/ORIENTATION: Yes alert Psych: COMMON NORMALS: mental status grossly normal and speech normal APPEARANCE: Yes grossly normal ATTITUDE: Yes agitated ACTIVITY/MOTOR BEHAVIOR: Yes Avoids eye contact (attititude/behavior) SPEECH: Yes normal speech MOOD & AFFECT: Yes anxious THOUGHT CONTENT: Yes Normal thought content present Skin: COMMON NORMALS: no rashes or lesions noted GENERAL SKIN EXAM: no rashes or lesions noted Course Vital Signs: Vital signs: Vital Signs Temperature 98.3 F 05/05/21 20:53 Pulse Rate 114 H 05/05/21 20:53 Respiratory Rate 14 05/05/21 22:07 Blood Pressure 143/79 05/05/21 20:53 Pulse Oximetry 100 05/05/21 20:53 MDM - Anxiety Medical Decision Making Patient with history of anxiety and panic attacks. Patient having panic attack tonight. Patient does have a medication. Patient was provided with Ativan pill which helped her tremendously very calm now. Patient is also given prescription asked follow-up behavioral health care. Discharge Plan Discharge Patient Disposition: Home Clinical Impression: Panic attack Condition: Stable Prescriptions: New Ativan 0.5 mg tablet 0.25 mg PO TID PRN (Reason: agitation) Qty: 7 0RF No Action ibuprofen 200 mg Tablet 400 mg PO Q6H PRN (Reason: Pain) 0RF diphenhydramine-acetaminophen [Tylenol PM Extra Strength] 25-500 mg Tablet 2 tab PO BEDTIME PRN (Reason: Sleep) 0RF dicyclomine 20 mg tablet 20 mg PO TID PRN (Reason: Abd cramping) Qty: 30 0RF Discharge Orders: Discharge ED (Routine); Ordered 05/05/21 Ordered By: Edy Arroyo Referrals: Lars Isabel MD [Primary Care Provider] - Discharge Diet: Usual diet Discharge Activity: Resume usual activity Patient Instructions: Panic Attack (ED) Activity Restrictions/Additional Instructions: Follow-up with medical provider as directed. Take medications as prescribed. Return to the ER or your medical provider if condition worsens. Please read and understand discharge instructions. If any questions ask please. See if you get appointment with a behavioral health care follow-up with them concerning your history of panic attacks. Coding Level of Care Code ED [facility] for [facility]g Fwd Exam Comprehensive Documented by User: Naveed Gómez DO 05/05/21 22:17 HPI - Anxiety General: Chief Complaint: Anxiety Stated Complaint: Panic Attack Time Seen by Provider: 05/05/21 21:01 PFS ED PFSH: Medical History Abdominal pain Chronic cholecystitis Family History Other Cancer Diabetes Hypertension Stroke Denies family history of CAD (coronary artery disease) Social History Smoking and tobacco status: never smoked Alcohol intake: never Course Vital Signs: Vital signs: Vital Signs Temperature 98.3 F 05/05/21 20:53 Pulse Rate 114 H 05/05/21 20:53 Respiratory Rate 14 05/05/21 22:07 Blood Pressure 143/79 05/05/21 20:53 Pulse Oximetry 100 05/05/21 20:53 MDM - Anxiety Medical Decision Making Patient with history of anxiety and panic attacks. Patient having panic attack tonight. Patient does have a medication. Patient was provided with Ativan pill which helped her tremendously very calm now. Patient is also given prescription asked follow-up behavioral health care. This patient was originally seen by GLENIS Kitchen.? I agree with his history, evaluation, and treatment. Discharge Plan Discharge Patient Disposition: Home Clinical Impression: Panic attack Condition: Stable Prescriptions: New Ativan 0.5 mg tablet 0.25 mg PO TID PRN (Reason: agitation) Qty: 7 0RF No Action ibuprofen 200 mg Tablet 400 mg PO Q6H PRN (Reason: Pain) 0RF diphenhydramine-acetaminophen [Tylenol PM Extra Strength] 25-500 mg Tablet 2 tab PO BEDTIME PRN (Reason: Sleep) 0RF dicyclomine 20 mg tablet 20 mg PO TID PRN (Reason: Abd cramping) Qty: 30 0RF Discharge Orders: Discharge ED (Routine); Ordered 05/05/21 Ordered By: Edy Arroyo Referrals: Lars Isabel MD [Primary Care Provider] - Discharge Diet: Usual diet Discharge Activity: Resume usual activity Patient Instructions: Panic Attack (ED) Activity Restrictions/Additional Instructions: Follow-up with medical provider as directed. Take medications as prescribed. Return to the ER or your medical provider if condition worsens. Please read and understand discharge instructions. If any questions ask please. See if you get appointment with a behavioral health care follow-up with them concerning your history of panic attacks. Coding Level of Care Code ED Seat Cover Cutter for Julito Fwmiya Exam Comprehensive
[2021-05-05] MEDS: LORazepam 1 mg Tablet PO (21:20)
[2021-05-05 22:07] VITALS: RESP 14
== END 2021-05-05 22:07 | disposition home or self-care (01) ==
PROVIDERS: Emergency Provider Nurse Practitioner Family; PCP Family Medicine
DX: F41.0 Panic disorder [episodic paroxysmal anxiety] (principal)
CPT/HCPCS: 99283

== ENCOUNTER 2021-05-06 22:20 | Emergency (ER) | payer MEDICAID, SELFPAY ==
--- NOTE | 2021-05-06 22:26 | ED_ITS ---
HPI - Fever General: Chief Complaint: Fever Stated Complaint: Fever 102\Joints Feel Squeezed\Panic Attach Time Seen by Provider: 05/06/21 22:26 History of Present Illness: Patient comes in today with complaints of fever and malaise. Patient reports fever starting this morning. Patient was seen yesterday in the ER for anxiety. Patient is alert and oriented. She does report frequency in urination. Denies any other symptoms. Review of Systems General: Reports: 10 or more systems reviewed and unremarkable except in HPI and below Const: Reports: fever(s) : Reports: urinary frequency PFSH ED PFSH: Medical History Abdominal pain Chronic cholecystitis Family History Other Cancer Diabetes Hypertension Stroke Denies family history of CAD (coronary artery disease) Social History Smoking and tobacco status: never smoked Alcohol intake: never Female Reproductive History: Date of last menstrual period: 01/05/21 Physical Exam Const: COMMON NORMALS: alert HENMT: COMMON NORMALS: atraumatic HEAD & SCALP: atraumatic NOSE: No nasal discharge present MOUTH: Normal oral and palatal mucosa present THROAT: posterior oropharynx normal Eye: COMMON NORMALS: EOMs intact bilaterally Resp: COMMON NORMALS: normal respiratory effort and clear to auscultation bilaterally AUSCULTATION: clear to auscultation bilaterally Cardio: COMMON NORMALS: regular rhythm RATE: tachycardic RHYTHM: regular rhythm GI: COMMON NORMALS: Soft to palpation and non-tender PALPATION: Yes Soft to palpation : COMMON NORMALS: Yes no CVA tenderness BLADDER/KIDNEY EXAM: Yes no CVA tenderness Back/Pelvis: COMMON NORMALS: no CVA tenderness Extremity: COMMON NORMALS: normal to inspection and no pedal edema Neuro: SENSORIUM/ORIENTATION: Yes alert Psych: COMMON NORMALS: cooperative Skin: COMMON NORMALS: no rashes or lesions noted GENERAL SKIN EXAM: no rashes or lesions noted Course Vital Signs: Vital signs: Vital Signs Temperature 101.5 F H 05/06/21 22:27 Pulse Rate 110 H 05/06/21 22:52 Respiratory Rate 16 05/06/21 22:27 Blood Pressure 116/73 05/06/21 23:44 Pulse Oximetry 98 02/28/22 22:52 MDM - Fever Medical Decision Making 25-year-old female comes in today with complaints of fever starting today. Patient also reports some dysuria and frequency. On exam abdomen soft n ontender. Skin is warm and dry. Vital signs are normal. Patient also has some symptoms of anxiety. Patient appears mildly unwell but not toxic. Vital signs noted a temperature of 101.5. Differential diagnosis includes but not limited to urinary tract infection, pneumonia, viral syndrome. COVID, strep, influenza are all negative. Urinalysis had a large number of calcium oxalate crystals, an d some trace of leukocyte esterase but otherwise was unremarkable. Patient's white count on her CBC noted at 14,000 with some neutrophilia. CMP was unremarkable. Suspect patient either has a viral infection or may be a early urinary tract infection. Patient did note some mild dehydration. Patient was given 1 L IV fluid for her dehydration. We will cover urine with 1 g of Rocephin IV. Reviewed recommendations for further treatment with fluids and acetaminophen and ibuprofen. Patient and mother both reported understanding. Lab Data : 05/06/21 23:20 05/06/21 23:20 Laboratory Results WBC 14.1 10^3/uL (4.0-10.0) H 05/06/21 23:20 RBC 4.25 10^6/uL (4.1-5.3) 05/06/21 23:20 Hgb 12.4 g/dL (11.5-15.3) 05/06/21 23:20 Hct 37.6 % (37.0-47.0) 05/06/21 23:20 MCV 88.5 fl (81-99) 05/06/21 23:20 MCH 29.2 pg (28.0-34.0) 05/06/21 23:20 MCHC 33.0 g/dL (30.0-36.0) 05/06/21 23:20 RDW 12.4 % (12.1-15.1) 05/06/21 23:20 Plt Count 228 10^3/cmm (130-400) 05/06/21 23:20 MPV 10.7 fL (7.4-10.4) H 05/06/21 23:20 Neut % (Auto) 86.8 % 05/06/21 23:20 Lymph % (Auto) 4.5 % 05/06/21 23:20 [place] % (Auto) 8.3 % 05/06/21 23:20 Eos % (Auto) 0.0 % 05/06/21 23:20 Baso % (Auto) 0.1 % 05/06/21 23:20 Neut # (Auto) 12.28 10^3/uL (1.8-7.7) H 05/06/21 23:20 Lymph # (Auto) 0.6 10^3/uL (0.8-4.8) L 05/06/21 23:20 [place] # (Auto) 1.2 10^3/uL (0.2-0.9) H 05/06/21 23:20 Eos # (Auto) 0.0 10^3/uL (0.0-0.8) 05/06/21 23:20 Baso # (Auto) 0.0 10^3/uL (0.0-0.1) 05/06/21 23:20 Nucleated RBC % (auto) 0 % 05/06/21 23:20 Nucleated RBCs # 0.0 /100WBC 05/06/21 23:20 Sodium 134 mmol/L (136-145) L 05/06/21 23:20 Potassium 3.6 mmol/L (3.5-5.1) 05/06/21 23:20 Chloride 101 mmol/L (98-107) 05/06/21 23:20 Carbon Dioxide 21 mmol/L (22-29) L 05/06/21 23:20 Anion Gap 15.6 (5-19) 05/06/21 23:20 BUN 12 mg/dL (6-20) 05/06/21 23:20 Creatinine 0.7 mg/dL (0.5-0.9) 05/06/21 23:20 GFR Calculation 102.0 mL/min (90-130) 05/06/21 23:20 Glucose 116 mg/dL (65-115) H 05/06/21 23:20 Calculated Osmolality 279 mOsm/kg (285-295) L 05/06/21 23:20 Calcium 10.0 mg/dL (8.5-10.5) 05/06/21 23:20 Total Bilirubin 0.5 mg/dL (0.15-1.2) 05/06/21 23:20 AST 18 U/L (0-32) 05/06/21 23:20 ALT 22 U/L (0-33) 05/06/21 23:20 Alkaline Phosphatase 94 IU/L (35-105) 05/06/21 23:20 Total Protein 7.1 g/dL (6.6-8.7) 05/06/21 23:20 Albumin 4.8 g/dL (3.5-5.2) 05/06/21 23:20 Globulin 2.3 g/dL (1.3-4.6) 05/06/21 23:20 HCG, Qual Negative (Negative) 05/06/21 23:20 Urine Color Yellow (Yellow) 05/06/21 23:42 Urine Appearance Sl hazy (CLEAR) 05/06/21 23:42 Urine pH 7 (5-7) 05/06/21 23:42 Ur Specific [place] 1.020 (1.005-1.030) 05/06/21 23:42 Urine Protein Trace (Negative) 05/06/21 23:42 Urine Glucose (UA) Norm (Normal) 05/06/21 23:42 Urine Ketones 1+ (Negative) H 05/06/21 23:42 Urine Blood Neg (Negative) 05/06/21 23:42 Urine Nitrate Negative (Negative) 05/06/21 23:42 Urine Bilirubin Neg (Negative) 05/06/21 23:42 Urine Urobilinogen 4 mg/dL (Negative) H 05/06/21 23:42 Ur Leukocyte Esterase Trace (Negative) H 05/06/21 23:42 Urine RBC 0-4 /hpf (0-2) H 05/06/21 23:42 Urine WBC 0-4 /hpf (0-5) H 05/06/21 23:42 Ur Squamous Epith Cells 15-25 /hpf (0-5) H 05/06/21 23:42 Calcium Oxalate Crystal >100 /hpf H 05/06/21 23:42 Amorphous Sediment Not Reportable 05/06/21 23:42 Urine Bacteria Trace /hpf (NONE) 05/06/21 23:42 Urine Mucus 2+ /hpf 05/06/21 23:42 Influenza Type A Ag Negative (Negative) 05/06/21 23:20 Influenza Type B Ag Negative (Negative) 05/06/21 23:20 SARS-CoV-2 Ag (Rapid) Negative (Negative) 05/06/21 23:20 Group A Strep Rapid Negative (Negative) 05/06/21 23:20 Imaging Data CXR: My impression: Normal-appearing chest x-ray. Discharge Plan Discharge Patient Disposition: Home Clinical Impression: Dehydration, Viral infection, Dysuria Leukocytosis Qualifiers: Leukocytosis type: other Qualified Code(s): D72.828 - Other elevated white blood cell count Condition: Stable Prescriptions: No Action ibuprofen 200 mg Tablet 400 mg PO Q6H PRN (Reason: Pain) 0RF diphenhydramine-acetaminophen [Tylenol PM Extra Strength] 25-500 mg Tablet 2 tab PO BEDTIME PRN (Reason: Sleep) 0RF dicyclomine 20 mg tablet 20 mg PO TID PRN (Reason: Abd cramping) Qty: 30 0RF Ativan 0.5 mg tablet 0.25 mg PO TID PRN (Reason: agitation) Qty: 7 0RF Discharge Orders: Discharge ED (Routine); Ordered 05/07/21 Ordered By: Jose Antonio Lopez Referrals: Lars Isabel MD [Primary Care Provider] - Discharge Diet: Usual diet Discharge Activity: Increase activity as tolerated Patient Instructions: Viral Syndrome (ED) Activity Restrictions/Additional Instructions: Home and rest. Drink plenty of fluids. It is important to stay well-hydrated by drinking water and fluids. Use acetaminophen or ibuprofen for pain and fever. Follow-up with primary care in 2 to 3 days for recheck. Return to ER for new concerns. Stand Alone Forms: Work/School Release Coding Level of Care Code ED [facility] Exam Comprehensive
[2021-05-06 22:27] VITALS: BP 120/78; PULSE 124; RESP 16; TEMP 38.6; O2SAT 97; BMI 21.9
[2021-05-06 22:52] VITALS: BP 117/82; PULSE 110; O2SAT 98
--- NOTE | 2021-05-06 23:04 | XRR_ITS ---
PROCEDURE INFORMATION: Exam: XR Chest Exam date and time: 05/06/2021 11:04 PM Age: 25 years old Clinical indication: Fever TECHNIQUE: Imaging protocol: XR of the chest. Views: 1 view. COMPARISON: CR XR acute abdomen series [id number] 07/15/2020 2:50 PM FINDINGS: Lungs: Moderately hyperaerated lungs consistent with deep inspiratory effort vs significant reactive airway disease vs moderate COPD . Pleural spaces: Unremarkable. No pleural effusion. No pneumothorax. Heart/Mediastinum: Unremarkable. No cardiomegaly. Bones/joints: Unremarkable. XR/XR chest 1V portable [id number] IMPRESSION: Moderately hyperaerated lungs consistent with deep inspiratory effort vs significant reactive airway disease vs moderate COPD .
[2021-05-06] MEDS: sodium chloride 0.9% 1,000 ML 999 ML IV (23:20)
[2021-05-06 23:28] LABS: Basophils % 0.1 %; Hematocrit 37.6 % (37.0-47.0); Hemoglobin 12.4 g/dL (11.5-15.3); Lymphocytes # 0.6 10^3/uL (0.8-4.8); Lymphocytes % 4.5 %; Mean Corpuscular Hemoglobin 29.2 pg (28.0-34.0); Mean Corpuscular Volume 88.5 fl (81-99); Mean Platelet Volume 10.7 fL (7.4-10.4); Monocytes # 1.2 10^3/uL (0.2-0.9); Monocytes % 8.3 %; Neutrophils # 12.28 10^3/uL (1.8-7.7); Neutrophils % 86.8 %; Nucleated Red Blood Cells % 0 %; Platelet Count 228 10^3/cmm (130-400); Red Blood Count 4.25 10^6/uL (4.1-5.3); Red Cell Distribution Width 12.4 % (12.1-15.1); White Blood Count 14.1 10^3/uL (4.0-10.0)
[2021-05-06] MEDS: LORazepam 2 mg/mL INJ 1 mL 0.5 MG IVP (23:35)
[2021-05-06 23:36] LABS: HCG, Serum Qual Negative (Negative)
[2021-05-06 23:38] LABS: Rapid Strep A Test Negative (Negative)
[2021-05-06 23:43] LABS: Alanine Aminotransferase 22 U/L (0-33); Albumin Level 4.8 g/dL (3.5-5.2); Alkaline Phosphatase 94 IU/L (35-105); Anion Gap 15.6 (5-19); Aspartate Amino Transferase 18 U/L (0-32); Blood Urea Nitrogen 12 mg/dL (6-20); Carbon Dioxide 21 mmol/L (22-29); Chloride 101 mmol/L (98-107); Globulin 2.3 g/dL (1.3-4.6); Glucose 116 mg/dL (65-115); Osmolality Calculated 279 mOsm/kg (285-295); Potassium 3.6 mmol/L (3.5-5.1); Sodium 134 mmol/L (136-145); Total Bilirubin 0.5 mg/dL (0.15-1.2); Total Protein 7.1 g/dL (6.6-8.7)
[2021-05-06 23:44] VITALS: BP 116/73
[2021-05-06 23:46] LABS: Influenza A by IFA Negative (Negative); Influenza B by IFA Negative (Negative); SARS Covid-2 Antigen Negative (Negative)
[2021-05-06 23:54] LABS: Add Urine Culture? No; Add Urine Microscopic? YES; Bacteria Urine TRACE /hpf; Bilirubin Urine Neg (Negative); Blood Urine Neg (Negative); Calcium Oxalate Crystals Urine >100 /hpf; Glucose Urine UA Norm (Normal); Ketones Urine 1+ (Negative); Leukocyte Esterase Urine Trace (Negative); Mucus Urine 2+ /hpf; Nitrate Urine Negative (Negative); Protein Urine Trace (Negative); RBC Urine 0-4 /hpf (0-2); Squamous Epithelial Cell Urine 15-25 /hpf (0-5); Urine Appearance SL Hazy (CLEAR); Urine Color Yellow (Yellow); Urobilinogen Urine 4 mg/dL (Negative); WBC Urine 0-4 /hpf (0-5); pH Urine 7 (5-7)
[2021-05-07] MEDS: cefTRIAXone 1,000 MG in sodium chloride 0.9% (plus) 50 ML 100 MG IV (00:22)
[2021-05-07 00:41] VITALS: PULSE 100; O2SAT 98
== END 2021-05-07 00:42 | disposition home or self-care (01) ==
PROVIDERS: Emergency Provider Nurse Practitioner Family; PCP Family Medicine
DX: D72.828 Other elevated white blood cell count (principal); E86.0 Dehydration; B34.9 Viral infection, unspecified; R30.0 Dysuria; Z20.822 Contact with and (suspected) exposure to COVID-19
CPT/HCPCS: 71045; 80053; 81001; 84703; 85025; 87081; 87426; 87804; 87880; 96365; 96375; 99284; J0696; J2060; J7030

== ENCOUNTER 2021-05-19 20:49 | Emergency (ER) | payer MEDICAID, SELFPAY ==
[2021-05-19 21:10] VITALS: BP 120/88; PULSE 97; RESP 16; TEMP 37; O2SAT 97
[2021-05-19] MEDS: sodium chloride 0.9% 1,000 ML 999 ML IV (21:51)
[2021-05-19 21:54] LABS: Basophils % 0.1 %; Eosinophils # 0.1 10^3/uL (0.0-0.8); Eosinophils % 0.8 %; Hematocrit 38.1 % (37.0-47.0); Hemoglobin 12.6 g/dL (11.5-15.3); Lymphocytes # 1.3 10^3/uL (0.8-4.8); Lymphocytes % 17.9 %; Mean Corpuscular HGB Conc 33.1 g/dL (30.0-36.0); Mean Corpuscular Hemoglobin 29.7 pg (28.0-34.0); Mean Corpuscular Volume 89.9 fl (81-99); Monocytes # 0.6 10^3/uL (0.2-0.9); Monocytes % 8.7 %; Neutrophils # 5.33 10^3/uL (1.8-7.7); Neutrophils % 72.2 %; Nucleated Red Blood Cells % 0 %; Platelet Count 233 10^3/cmm (130-400); Red Blood Count 4.24 10^6/uL (4.1-5.3); Red Cell Distribution Width 12.8 % (12.1-15.1); White Blood Count 7.4 10^3/uL (4.0-10.0)
[2021-05-19 22:07] VITALS: RESP 16
[2021-05-19] MEDS: ondansetron 2 mg/ML SDV 2 mL 4 MG IVP ×2 (22:07→23:43)
[2021-05-19] MEDS: morphine 4 mg/mL SDV 1 mL IVP (22:07)
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
[2021-05-19 22:20] LABS: HCG, Serum Qual Negative (Negative)
[2021-05-19 22:26] LABS: Alanine Aminotransferase 28 U/L (0-33); Albumin Level 4.2 g/dL (3.5-5.2); Alkaline Phosphatase 77 IU/L (35-105); Anion Gap 14.9 (5-19); Aspartate Amino Transferase 20 U/L (0-32); Blood Urea Nitrogen 13 mg/dL (6-20); C Reactive Protein 6.3 mg/L (0.0-4.9); Carbon Dioxide 23 mmol/L (22-29); Chloride 104 mmol/L (98-107); Globulin 3.1 g/dL (1.3-4.6); Glucose 92 mg/dL (65-115); Lipase 21 U/L (13-60); Osmolality Calculated 286 mOsm/kg (285-295); Potassium 3.9 mmol/L (3.5-5.1); Sodium 138 mmol/L (136-145); Total Bilirubin 0.4 mg/dL (0.15-1.2); Total Protein 7.3 g/dL (6.6-8.7)
--- NOTE | 2021-05-19 22:31 | PC.NURSE ---
Pt clutching abdomen and sts her pain is much worse, sts she feels like something is expanding in there.
--- NOTE | 2021-05-19 22:37 | CTR_ITS ---
PROCEDURE INFORMATION: Exam: CT Abdomen And Pelvis With Contrast Exam date and time: 05/19/2021 10:37 PM Age: 25 years old Clinical indication: Abdominal pain; Localized; Right; Additional info: Right sided pain TECHNIQUE: Imaging protocol: Computed tomography of the abdomen and pelvis with contrast. Radiation optimization: All CT scans at this facility use at least one of these dose optimization techniques: automated exposure control; mA and/or kV adjustment per patient size (includes targeted exams where dose is matched to clinical indication); or iterative reconstruction. Contrast material: OMNI 300; Contrast volume: 95 ml; Contrast route: INTRAVENOUS (IV); COMPARISON: CT abdomen pelvis w con* [id number] 01/18/2021 4:53 PM RADIATION DOSE METRICS: Total DLP (mGy-cm): 1412.39 FINDINGS: Liver: Periportal edema may be related to hydration status. Gallbladder and bile ducts: Cholecystectomy. Common bile duct dilated 2 7.2 mm likely related to prior cholecystectomy, similar to prior exam, a MRCP could further evaluate this. Pancreas: Normal. No ductal dilation. Spleen: Normal. No splenomegaly. Adrenal glands: Normal. No mass. Kidneys and ureters: Normal. No hydronephrosis. Stomach and bowel: Mildly prominent fluid in the small bowel without dilation suggestive of an enteritis. Appendix: No evidence of appendicitis. Intraperitoneal space: Unremarkable. No free air. No significant fluid collection. Vasculature: Unremarkable. No abdominal aortic aneurysm. Lymph nodes: Unremarkable. No enlarged lymph nodes. Urinary bladder: Unremarkable as visualized. Reproductive: Unremarkable as visualized. Bones/joints: Unremarkable. No acute fracture. Soft tissues: Unremarkable. CT/CT abdomen pelvis w con* [id number] IMPRESSION: 1. Negative for acute inflammatory process in the abdomen or pelvis. 2. Periportal edema may be related to hydration status. 3. Cholecystectomy. 4. Mildly prominent fluid in the small bowel without dilation suggestive of an enteritis. 5. Common bile duct dilated to 7.2 mm likely related to prior cholecystectomy, similar to prior exam, a MRCP could further evaluate this.
[2021-05-19 22:40] VITALS: RESP 20
[2021-05-19] MEDS: fentaNYL 50 mcg/mL INJ 2mL 75 MCG IVP ×2 (22:40→22:47)
[2021-05-19 22:47] VITALS: RESP 24; O2SAT 100
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
[2021-05-19] MEDS: iohexol 300 mg/mL 100 mL Btl IV (23:40)
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
[2021-05-20 00:50] VITALS: BP 109/76; PULSE 70; RESP 12; O2SAT 98
[2021-05-20] MEDS: ondansetron 4 MG Tablet 8 MG PO (01:16)
[2021-05-20] MEDS: metoclopramide 5 mg/mL SDV 2 mL 10 MG IVP (01:21)
[2021-05-20 03:12] LABS: Adenovirus Not Detected (NOT DETECT); Chlamydia Pneumoniae Not Detected (NOT DETECT); Coronavirus 229E,HKU1,NL63,OC4 Not Detected (NOT DETECT); Human Metapneumovirus Not Detected (NOT DETECT); Human Rhinovirus/Enterovirus Not Detected (NOT DETECT); Influenza A Not Detected (NOT DETECT); Influenza A H1 Not Detected (NOT DETECT); Influenza A H1-2009 Not Detected (NOT DETECT); Influenza A H3 Not Detected (NOT DETECT); Influenza B Not Detected (NOT DETECT); Mycoplasma Pneumoniae Not Detected (NOT DETECT); Parainfluenza Virus Type 1 Not Detected (NOT DETECT); Parainfluenza Virus Type 2 Not Detected (NOT DETECT); Parainfluenza Virus Type 3 Not Detected (NOT DETECT); Parainfluenza Virus Type 4 Not Detected (NOT DETECT); Respiratory Syncytial Virus A Not Detected (NOT DETECT); Respiratory Syncytial Virus B Not Detected (NOT DETECT); SARS-COV-2 Not Detected (NOT DETECT)
== END 2021-05-20 01:37 | disposition home or self-care (01) ==
PROVIDERS: Emergency Provider Emergency Medicine; PCP Family Medicine
DX: K52.9 Noninfective gastroenteritis and colitis, unspecified (principal); S05.12XA Contusion of eyeball and orbital tissues, left eye, initial encounter; Y04.2XXA Assault by strike against or bumped into by another person, initial encounter; Z20.822 Contact with and (suspected) exposure to COVID-19
CPT/HCPCS: 70450; 70486; 72125; 74177; 80053; 83690; 84703; 85025; 86140; 87635; 96361; 96374; 96375; 96376; 99284; J2270; J2405; J2765; J3010; J3490; J7030; Q0162; Q9967

== ENCOUNTER 2021-06-08 16:36 | Emergency (ER) | payer MEDICAID, SELFPAY ==
[2021-06-08] VITALS (7 sets, daily range): BP systolic 122–156; BP diastolic 78–96; PULSE 89–133; RESP 18–24; TEMP 36.3; O2SAT 97–100; BMI 21.9
--- NOTE | 2021-06-08 17:06 | W.ED.ALLEREA ---
HPI - Allergic Reaction General: Chief complaint: Allergic Reaction Stated complaint: allergic rxn Time Seen by Provider: 06/08/21 17:06 History of Present Illness: HPI narrative: Ms. Mcginnis is a 24-year-old lady with history of anxiety who presents to the emergency department due to chest pain and racing heart. She reports feeling like her heart was more racing and more anxious starting last night. She reports that this feels different from her typical baseline anxiety but initially she was not sure. She started experiencing sharp left anterior chest pain without significant radiation which she has never had before. Overall course of symptoms has been worsening. Intensity is moderate to severe. No history of blood clots, recent travel, recent surgery. No family history of clotting disorder. Only other recent change in health that she can think of is starting lithium approximately 3 days ago. No other specific changes in health, exacerbating, or alleviating factors identified. Onset (ago): hour(s) Review of Systems General: Reports: 10 or more systems reviewed and unremarkable except in HPI and below PFSH ED PFSH: Medical History Abdominal pain Chronic cholecystitis Psychiatric care Surgical History History of cholecystectomy Family History Other Cancer Diabetes Hypertension Stroke Denies family history of CAD (coronary artery disease) Social History Smoking and tobacco status: never smoked Alcohol intake: never Female Reproductive History: Date of last menstrual period: 05/26/21 Physical Exam Const: COMMON NORMALS: alert GENERAL APPEARANCE: cooperative and well developed HENMT: COMMON NORMALS: normocephalic and atraumatic HEAD & SCALP: normocephalic and atraumatic THROAT: posterior oropharynx normal Eye: COMMON NORMALS: conjunctivae normal CONJUNCTIVA: Yes conjunctivae normal SCLERA: sclerae normal Neck/C-Spine: COMMON NORMALS: supple GENERAL: Yes trachea midline Resp: COMMON NORMALS: clear to auscultation bilaterally EFFORT & INSPECTION: Yes able to speak in complete sentences AUSCULTATION: clear to auscultation bilaterally Cardio: COMMON NORMALS: regular rhythm RATE: tachycardic RHYTHM: regular rhythm GI: COMMON NORMALS: Soft to palpation PALPATION: Yes Soft to palpation and No Tenderness to palpation present (GI) PERCUSSION: normal to percussion Extremity: GENERAL: Yes normal exam except as noted and No edema Neuro: COMMON NORMALS: moves all extremities SENSORIUM/ORIENTATION: Yes alert and No Orientation impaired Psych: COMMON NORMALS: mental status grossly normal and Normal thought process present MOOD & AFFECT: Yes anxious THOUGHT PROCESS: Normal thought process present Course ED course: - Patient was seen and evaluated by me at bedside - Patient placed on cardiac monitors, IV access obtained - Initial evaluation notable for anxious appearance, no evidence of anaphylaxis. Tachycardia noted. - Labs and xrays personally interpreted by me. EKG at 1654 interpreted by me and notable for sinus tachycardia. No STEMI. - IV fluids ordered. - Labs notable for no significant abnormality with exception of mild dehydration. - Imaging notable for no lobar consolidation or pneumothorax. - Upon serial reexamination after treatment the patient was improved with benzodiazepine, antiemetic, and fluids - Based on patient history, evaluation, and testing as interpreted the most likely cause of the patient's condition is unclear, possible atypical medication reaction. Patient advised to stop medication and follow-up with prescribing provider as soon as possible. - The results of ED evaluation were discussed with the patient including prescriptions and/or symptomatic cares (if applicable) including appropriate and responsible use, followup plan, and return precautions. The patient verbalized understanding and felt safe for discharge. - Patient discharged in satisfactory condition. Note: Click bubbles or prepopulated bazan in note writing are used for assistance with data collection and billing and are inherently more limited than narrative and other text portions of this note. Please use narrative for additional clinical history and defer to narrative/free test for any case of contradictory information. If information appears in only free text or click bubble it should be considered present or absent as reported. Please contact note health technical writer for clarifications of clinical information or contradictory information. MDM is a brief summary, contradictory or erroneous seeming information should be clarified and full note should be reviewed. Vital Signs: Vital signs: Vital Signs Temperature 97.3 F L 06/08/21 16:41 Pulse Rate 98 06/08/21 20:19 Respiratory Rate 20 H 06/08/21 20:19 Blood Pressure 130/78 06/08/21 20:19 Pulse Oximetry 98 06/08/21 20:19 MDM - Allergic Reaction Medical Decision Making 25-year-old lady presenting after starting lithium with increased anxiety and concern of allergic reaction. No evidence of anaphylaxis. Improved with anxiolysis, antiemetic, and fluids. Satisfactory for outpatient management. Medical Records I reviewed the patient's medical records. Lab Data I reviewed the patient's lab results. : 06/08/21 17:12 06/08/21 17:12 Radiology Impressions Chest X-Ray 06/08/21 18:14 IMPRESSION: No acute findings. Laboratory Results WBC 7.5 10^3/uL (4.0-10.0) 06/08/21 17:12 RBC 5.04 10^6/uL (4.1-5.3) 06/08/21 17:12 Hgb 14.8 g/dL (11.5-15.3) 06/08/21 17:12 Hct 44.7 % (37.0-47.0) 06/08/21 17:12 MCV 88.7 fl (81-99) 06/08/21 17:12 MCH 29.4 pg (28.0-34.0) 06/08/21 17:12 MCHC 33.1 g/dL (30.0-36.0) 06/08/21 17:12 RDW 13.1 % (12.1-15.1) 06/08/21 17:12 Plt Count 263 10^3/cmm (130-400) 06/08/21 17:12 MPV 10.4 fL (7.4-10.4) 06/08/21 17:12 Neut % (Auto) 61.6 % 06/08/21 17:12 Lymph % (Auto) 24.3 % 06/08/21 17:12 [place] % (Auto) 13.6 % 06/08/21 17:12 Eos % (Auto) 0.3 % 06/08/21 17:12 Baso % (Auto) 0.1 % 06/08/21 17:12 Neut # (Auto) 4.61 10^3/uL (1.8-7.7) 06/08/21 17:12 Lymph # (Auto) 1.8 10^3/uL (0.8-4.8) 06/08/21 17:12 [place] # (Auto) 1.0 10^3/uL (0.2-0.9) H 06/08/21 17:12 Eos # (Auto) 0.0 10^3/uL (0.0-0.8) 06/08/21 17:12 Baso # (Auto) 0.0 10^3/uL (0.0-0.1) 06/08/21 17:12 Nucleated RBC % (auto) 0 % 06/08/21 17:12 Nucleated RBCs # 0.0 /100WBC 06/08/21 17:12 D-Dimer 0.25 ug/mIFEU (0-0.59) 06/08/21 17:34 Sodium 134 mmol/L (136-145) L 06/08/21 17:12 Potassium 3.6 mmol/L (3.5-5.1) 06/08/21 17:12 Chloride 101 mmol/L (98-107) 06/08/21 17:12 Carbon Dioxide 17 mmol/L (22-29) L 06/08/21 17:12 Anion Gap 19.6 (5-19) H 06/08/21 17:12 BUN 9 mg/dL (6-20) 06/08/21 17:12 Creatinine 0.9 mg/dL (0.5-0.9) 06/08/21 17:12 GFR Calculation 76.3 mL/min (90-130) L 06/08/21 17:12 Glucose 93 mg/dL (65-115) 06/08/21 17:12 Calculated Osmolality 276 mOsm/kg (285-295) L 06/08/21 17:12 Calcium 10.6 mg/dL (8.5-10.5) H 06/08/21 17:12 Total Bilirubin 0.7 mg/dL (0.15-1.2) 06/08/21 17:12 AST 26 U/L (0-32) 06/08/21 17:12 ALT 33 U/L (0-33) 06/08/21 17:12 Alkaline Phosphatase 86 IU/L (35-105) 06/08/21 17:12 Troponin T Baseline 6 ng/L (0-10) 06/08/21 17:12 Troponin T 120 Minute 6.00 ng/L (0-10) 06/08/21 18:49 Delta Troponin T Not Reportable 06/08/21 18:49 Total Protein 9.4 g/dL (6.6-8.7) H 06/08/21 17:12 Albumin 5.3 g/dL (3.5-5.2) H 06/08/21 17:12 Globulin 4.1 g/dL (1.3-4.6) 06/08/21 17:12 TSH 1.40 uIU/mL (0.27-4.20) 06/08/21 17:12 [place]aros 0.1 mmol/L (0.6-1.2) L 06/08/21 17:12 Discharge Plan Discharge Patient Disposition: Home Clinical Impression: Adverse reaction to drug, Dehydration Condition: Stable Prescriptions: No Action clonazepam 0.5 mg Tablet 0.5 mg PO DAILY PRN (Reason: Anxiety) 0RF lithium carbonate 150 mg Capsule 150 mg PO BID 0RF Discharge Orders: Discharge ED (Routine); Ordered 06/08/21 Ordered By: Andrei Griffin Referrals: Lars Isabel MD [Primary Care Provider] - Discharge Diet: Usual diet Discharge Activity: Resume usual activity Patient Instructions: Dehydration (ED), Adverse Drug Reaction (ED), Anxiety (ED) Activity Restrictions/Additional Instructions: Thank you for visiting the emergency department. You were seen and evaluated for chest pain, tachycardia, and anxiety. The exact cause of the symptoms is unclear. You were found to be mildly dehydrated. This may also partly be due to adverse medication reaction. As discussed, I recommend further discussion with your prescribing provider prior to resuming lithium. Please follow-up with your primary care provider. Please return to the emergency department for anything else that you are concerned about and feel needs emergency department evaluation. Coding Level of Care Code ED Special Events Director for Julito Pérez
[2021-06-08 17:17] LABS: Basophils % 0.1 %; Eosinophils % 0.3 %; Hematocrit 44.7 % (37.0-47.0); Hemoglobin 14.8 g/dL (11.5-15.3); Lymphocytes # 1.8 10^3/uL (0.8-4.8); Lymphocytes % 24.3 %; Mean Corpuscular HGB Conc 33.1 g/dL (30.0-36.0); Mean Corpuscular Hemoglobin 29.4 pg (28.0-34.0); Mean Corpuscular Volume 88.7 fl (81-99); Mean Platelet Volume 10.4 fL (7.4-10.4); Monocytes % 13.6 %; Neutrophils # 4.61 10^3/uL (1.8-7.7); Neutrophils % 61.6 %; Nucleated Red Blood Cells % 0 %; Platelet Count 263 10^3/cmm (130-400); Red Blood Count 5.04 10^6/uL (4.1-5.3); Red Cell Distribution Width 13.1 % (12.1-15.1); White Blood Count 7.5 10^3/uL (4.0-10.0)
[2021-06-08] MEDS: sodium chloride 0.9% 1,000 ML 999 ML IV (17:19)
[2021-06-08] MEDS: LORazepam 2 mg/mL INJ 1 mL 1 MG IVP ×2 (17:33→19:22)
[2021-06-08] MEDS: ondansetron 2 mg/ML SDV 2 mL 4 MG IVP (17:40)
[2021-06-08 17:46] LABS: Alanine Aminotransferase 33 U/L (0-33); Albumin Level 5.3 g/dL (3.5-5.2); Alkaline Phosphatase 86 IU/L (35-105); Anion Gap 19.6 (5-19); Aspartate Amino Transferase 26 U/L (0-32); Blood Urea Nitrogen 9 mg/dL (6-20); Calcium 10.6 mg/dL (8.5-10.5); Carbon Dioxide 17 mmol/L (22-29); Chloride 101 mmol/L (98-107); Globulin 4.1 g/dL (1.3-4.6); Glomerular Filtration Rate 76.3 mL/min (90-130); Glucose 93 mg/dL (65-115); Osmolality Calculated 276 mOsm/kg (285-295); Potassium 3.6 mmol/L (3.5-5.1); Sodium 134 mmol/L (136-145); Total Bilirubin 0.7 mg/dL (0.15-1.2); Total Protein 9.4 g/dL (6.6-8.7)
[2021-06-08 18:02] LABS: Troponin(5th) Baseline 6 ng/L (0-10)
[2021-06-08 18:02] LABS: D Dimer 0.25 ug/mIFEU (0-0.59)
--- NOTE | 2021-06-08 18:14 | XRR_ITS ---
PROCEDURE INFORMATION: Exam: XR Chest Exam date and time: 06/08/2021 6:32 PM Age: 25 years old Clinical indication: Pain; Chest pressure; Additional info: Chest pain TECHNIQUE: Imaging protocol: XR of the chest. Views: 1 view. COMPARISON: CR (CHEST, ) 05/06/2021 11:16 PM FINDINGS: Lungs: Unremarkable. No consolidation. Pleural spaces: Unremarkable. No pleural effusion. No pneumothorax. Heart/Mediastinum: Unremarkable. No cardiomegaly. Bones/joints: Unremarkable. XR/XR chest 1V portable [id number] IMPRESSION: No acute findings.
--- NOTE | 2021-06-08 19:19 | ECG_ITS ---
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 Measurements Intervals [place] Rate: 120 P: 78 CA: 136 QRS: 6 QRSD: 88 T: 80 QT: 320 QTc: 453 Interpretive Statements SINUS TACHYCARDIA POSSIBLE RIGHT VENTRICULAR CONDUCTION DELAY [RSR (QR) IN V1/V2] ABNORMAL RHYTHM ECG INTERPRETATION BASED ON A DEFAULT AGE OF 40 YEARS No previous ECG available for comparison Electronically Signed On 06-09-2021 9:40:24 CDT by Vamsi Cowan M.D. [id number]
[2021-06-08] MEDS: diphenhydrAMINE 50 mg/mL SDV 1mL 25 MG IVP (19:23)
[2021-06-09 01:06] LABS: Lithium 0.1 mmol/L (0.6-1.2)
== END 2021-06-08 20:24 | disposition home or self-care (01) ==
PROVIDERS: Emergency Provider Emergency Medicine; PCP Family Medicine
DX: F41.9 Anxiety disorder, unspecified (principal); R00.0 Tachycardia, unspecified; T43.595A Adverse effect of other antipsychotics and neuroleptics, initial encounter; E86.0 Dehydration
CPT/HCPCS: 36415; 71045; 80053; 80178; 84443; 84484; 85025; 85378; 93005; 96361; 96374; 96375; 96376; 99284; J1200; J2060; J2405; J7030

== ENCOUNTER 2021-06-09 23:49 | Emergency (ER) | payer MEDICAID, SELFPAY ==
[2021-06-10 00:06] VITALS: BP 110/82; PULSE 109; RESP 22; TEMP 36.4; O2SAT 99; BMI 21.9
--- NOTE | 2021-06-10 00:19 | ED_ITS ---
HPI - Anxiety General: Chief Complaint: Anxiety Stated Complaint: Anxiety Attack Time Seen by Provider: 06/10/21 00:17 History of Present Illness: 45-year-old female comes in today with complaints of anxiety. Patient reports she was instructed to stop taking her lithium and follow-up with her primary care for concerns of an adverse drug effect. Since then patient has had increased anxiety. Patient has taken 1 dose of her clonazepam this morning but this evening had worsening anxiety. Patient is coming to the ER due to this discomfort. Patient appears anxious. Patient appears nontoxic. Patient appears in no pain. MD complaint: anxiety Onset (ago): day(s) Symptoms: chest pain, palpitations and extremity numbness/tingling History of similar episodes: Yes Provoking factors: medication change Relieving factors: nothing Associated symptoms: Reports chest pain, fever(s) and palpitations; Deny nausea or vomiting Review of Systems General: Reports: 10 or more systems reviewed and unremarkable except in HPI and below Const: Reports: fever(s) Card: Reports: chest pain and palpitations Resp: Reports: dyspnea GI: Denies: nausea or vomiting Psych: Reports: anxiety and panic attacks PFSH ED PFSH: Medical History Abdominal pain Chronic cholecystitis Psychiatric care Surgical History History of cholecystectomy Family History Other Cancer Diabetes Hypertension Stroke Denies family history of CAD (coronary artery disease) Social History Smoking and tobacco status: never smoked Alcohol intake: never Female Reproductive History: Date of last menstrual period: 05/20/21 Physical Exam Const: COMMON NORMALS: alert HENMT: COMMON NORMALS: atraumatic HEAD & SCALP: atraumatic Neck/C-Spine: COMMON NORMALS: full ROM Resp: COMMON NORMALS: normal respiratory effort and clear to auscultation bilaterally AUSCULTATION: clear to auscultation bilaterally Cardio: COMMON NORMALS: regular rate and regular rhythm PALPATION: normal PMI RATE: regular rate RHYTHM: regular rhythm Extremity: COMMON NORMALS: normal to inspection Neuro: SENSORIUM/ORIENTATION: Yes alert Psych: COMMON NORMALS: cooperative Skin: COMMON NORMALS: no rashes or lesions noted GENERAL SKIN EXAM: no r ashes or lesions noted Course Vital Signs: Vital signs: Vital Signs Temperature 97.5 F L 06/10/21 00:06 Pulse Rate 98 06/10/21 01:30 Respiratory Rate 19 H 06/10/21 01:30 Blood Pressure 122/72 06/10/21 01:30 Pulse Oximetry 98 06/10/21 01:30 MDM - Anxiety Medical Decision Making 5-year-old female comes in today with persistent anxiety attack. Patient was seen yesterday and told to stop her lithium and talk with her prescribing provider regarding dosing for her lithium. Patient states since then she has had increased anxiety. Patient took her dose of clonazepam for today but did not have any relief of her anxiety. Patient came into the ER due to this persistent feeling of anxiety. On exam lungs are clear to auscultation. Heart rates regular. Vital signs are normal except for some mild elevation of pulse at 109, and mild increase in respirations at 22. Differential diagnosis includes anxiety attack, panic disorder, adverse drug effect, malingering. Patient was given 2 mg of Ativan IM and released to home with recommendations to follow-up with behavioral health specialist. Discharge Plan Discharge Patient Disposition: Home Clinical Impression: Acute anxiety Condition: Stable Prescriptions: No Action clonazepam 0.5 mg Tablet 0.5 mg PO DAILY PRN (Reason: Anxiety) 0RF lithium carbonate 150 mg Capsule 150 mg PO BID 0RF Discharge Orders: Discharge ED (Routine); Ordered 06/10/21 Ordered By: Jose Antonio Lopez Referrals: Lars Isabel MD [Primary Care Provider] - Discharge Diet: Usual diet Discharge Activity: Increase activity as tolerated Patient Instructions: Anxiety (ED) Activity Restrictions/Additional Instructions: You should not drive with this medication. Home and rest and drink plenty of water. Follow-up with behavioral health careers counsellor in the morning or your prescribing provider for further evaluation and treatment. Return to the ER for new concerns. Coding Level of Care Code ED Transmission Builder for Julito Fwmiya Exam Comprehensive
[2021-06-10] MEDS: LORazepam 2 mg/mL INJ 1 mL IM (00:40)
[2021-06-10 01:30] VITALS: BP 122/72; PULSE 98; RESP 19; O2SAT 98
== END 2021-06-10 01:31 | disposition home or self-care (01) ==
PROVIDERS: Emergency Provider Nurse Practitioner Family; PCP Family Medicine
DX: F41.9 Anxiety disorder, unspecified (principal)
CPT/HCPCS: 96372; 99283; J2060

== ENCOUNTER 2021-06-28 18:17 | Emergency (ER) | payer MEDICAID, SELFPAY ==
[2021-06-28 18:21] VITALS: BP 129/92; PULSE 119; RESP 22; TEMP 36.8; O2SAT 99; BMI 21.1
--- NOTE | 2021-06-28 18:32 | ECG_ITS ---
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 Measurements Intervals [place] Rate: 131 P: 76 GA: 159 QRS: -48 QRSD: 93 T: 75 QT: 315 QTc: 466 Interpretive Statements SINUS TACHYCARDIA POSSIBLE RIGHT VENTRICULAR CONDUCTION DELAY [RSR (QR) IN V1/V2] LEFT ANTERIOR FASCICULAR BLOCK [QRS AXIS <= -45, QR IN I, RS IN II] Compared to ECG 06/08/2021 16:54:32 Left anterior fascicular block now present Electronically Signed On 06-28-2021 23:29:40 CDT by Iglesia Taveras M.D. [id number]
[2021-06-28] MEDS: LORazepam 2 mg/mL INJ 1 mL IM (20:28)
--- NOTE | 2021-06-28 20:30 | W.ED.GENADLT ---
Documented by User: GLENIS Aguilar 06/28/21 21:32 HPI - General Adult General: Chief complaint: General Medical Stated complaint: Chest pain Time Seen by Provider: 06/28/21 20:18 History of Present Illness: Patient presents with acute anxiety attack. Patient said it started this morning and is got worse today. Patient said she been crying and feeling very anxious. She said this is caused her chest to hurt which she has had happened multiple times with a panic attack. Patient's clonazepam is not helped her today. Associated symptoms: Reports chest pain; Deny dyspnea, headache(s), nausea, rash or vomiting Review of Systems Const: Denies: fever(s), chills or body aches Eyes: Denies: eye discomfort ENMT: Denies: throat pain Card: Reports: chest pain Resp: Denies: dyspnea GI: Denies: abdominal pain, nausea or vomiting Skin/Breast: Denies: rash Neuro: Denies: headache(s) Psych: Reports: anxiety (Panic attacks chronic, acute today.); Denies: depression or suicidal ideation [facility] ED PFSH: Medical History Abdominal pain Chronic cholecystitis Psychiatric care Surgical History History of cholecystectomy Family History Other Cancer Diabetes Hypertension Stroke Denies family history of CAD (coronary artery disease) Social History Smoking and tobacco status: never smoked Alcohol intake: never Female Reproductive History: Date of last menstrual period: 05/20/21 Physical Exam Const: COMMON NORMALS: no acute distress, patient oriented x3 and alert HENMT: COMMON NORMALS: normocephalic and external ears normal HEAD & SCALP: normocephalic EXTERNAL EAR: Yes external ears normal Eye: COMMON NORMALS: EOMs intact bilaterally Neck/C-Spine: COMMON NORMALS: no JVD Resp: COMMON NORMALS: normal respiratory effort and No use of accessory muscles Cardio: COMMON NORMALS: no JVD GI: INSPECTION: Yes normal to inspection Extremity: COMMON NORMALS: normal to inspection and full ROM Neuro: COMMON NORMALS: patient oriented x3 SENSORIUM/ORIENTATION: Yes alert Psych: COMMON NORMALS: mental status grossly normal and speech normal APPEARANCE: Yes grossly normal ATTITUDE: Yes Other attitude/behavior findings present (Psych) (Anxious and crying) SPEECH: Yes normal speech MOOD & AFFECT: Yes anxious Skin: COMMON NORMALS: no rashes or lesions noted GENERAL SKIN EXAM: no rashes or lesions noted Course Vital Signs: Vital signs: Vital Signs Temperature 98.3 F 06/28/21 18:21 Pulse Rate 119 H 06/28/21 21:15 Respiratory Rate 20 H 06/28/21 21:15 Blood Pressure 127/79 06/28/21 21:15 Pulse Oximetry 100 06/28/21 21:15 [facility] - General Adult Medical Decision Making Patient had chest pain with her panic attack. Patient has a history of chronic panic attacks. Usually requires Ativan has been seen her multiple times a year. EKG show any acute event going on. Patient felt much better after receiving IM Ativan. Patient no longer had chest pain. Discharge Plan Discharge Patient Disposition: Home Clinical Impression: Anxiety attack Condition: Stable Prescriptions: No Action clonazepam 0.5 mg Tablet 0.5 mg PO DAILY PRN (Reason: Anxiety) 0RF lithium carbonate 150 mg Capsule 150 mg PO BID 0RF Discharge Orders: Discharge ED (Routine); Ordered 06/28/21 Ordered By: Edy Arroyo Referrals: Lars Isabel MD [Primary Care Provider] - Discharge Diet: Usual diet Discharge Activity: Resume usual activity Patient Instructions: Anxiety (ED) Activity Restrictions/Additional Instructions: Follow-up your mental health provider soon as possible. Take medications as directed. Return for worsening symptoms are see your primary care provider. Coding Level of Care Code ED Candy Forming Machine Operator for Chg Fwd Exam Comprehensive Documented by User: Naveed Gómez DO 06/29/21 00:02 [facility] - General Adult General: Chief complaint: General Medical Stated complaint: Chest pain Time Seen by Provider: 06/28/21 20:18 [facility] ED PFSH: Medical History Abdominal pain Chronic cholecystitis Psychiatric care Surgical History History of cholecystectomy Family History Other Cancer Diabetes Hypertension Stroke Denies family history of CAD (coronary artery disease) Social History Smoking and tobacco status: never smoked Alcohol intake: never Course Vital Signs: Vital signs: Vital Signs Temperature 98.3 F 06/28/21 18:21 Pulse Rate 119 H 06/28/21 21:15 Respiratory Rate 20 H 06/28/21 21:15 Blood Pressure 127/79 06/28/21 21:15 Pulse Oximetry 100 06/28/21 21:15 MDM - General Adult Medical Decision Making Patient had chest pain with her panic attack. Patient has a history of chronic panic attacks. Usually requires Ativan has been seen her multiple times a year. EKG show any acute event going on. Patient felt much better after receiving IM Ativan. Patient no longer had chest pain. This patient was originally seen by GLENIS Kitchen.? I agree with his history, evaluation, and treatment. Discharge Plan Discharge Patient Disposition: Home Clinical Impression: Anxiety attack Condition: Stable Prescriptions: No Action clonazepam 0.5 mg Tablet 0.5 mg PO DAILY PRN (Reason: Anxiety) 0RF lithium carbonate 150 mg Capsule 150 mg PO BID 0RF Discharge Orders: Discharge ED (Routine); Ordered 06/28/21 Ordered By: Edy Arroyo Referrals: Lars Isabel MD [Primary Care Provider] - Discharge Diet: Usual diet Discharge Activity: Resume usual activity Patient Instructions: Anxiety (ED) Activity Restrictions/Additional Instructions: Follow-up your mental health provider soon as possible. Take medications as directed. Return for worsening symptoms are see your primary care provider. Coding Level of Care Code ED Candy Forming Machine Operator for Yusufg Fwd Exam Comprehensive
[2021-06-28 21:15] VITALS: BP 127/79; PULSE 119; RESP 20; O2SAT 100
== END 2021-06-28 21:08 | disposition home or self-care (01) ==
PROVIDERS: Emergency Provider Nurse Practitioner Family; PCP Family Medicine
DX: F41.0 Panic disorder [episodic paroxysmal anxiety] (principal); R07.9 Chest pain, unspecified
CPT/HCPCS: 93005; 96372; 99283; J2060

== ENCOUNTER 2021-06-29 18:04 | Emergency (ER) | payer MEDICAID, SELFPAY ==
[2021-06-29 18:17] VITALS: BP 120/80; PULSE 118; RESP 20; TEMP 36.7; O2SAT 100; BMI 21.1
--- NOTE | 2021-06-29 18:29 | ECG_ITS ---
[facility] Test Date: 2021-06-29 Pat Name: Tisha Mcginnis Department: Room: Gender: Female Route Supervisor: : 1995 Requested By: Edy Arroyo Order Number: [id number] Fariba MD: Bright Wallis M.D. Measurements Intervals [place] Rate: 125 P: 77 IN: 156 QRS: 17 QRSD: 90 T: 92 QT: 336 QTc: 486 Interpretive Statements SINUS TACHYCARDIA POSSIBLE RIGHT VENTRICULAR CONDUCTION DELAY [RSR (QR) IN V1/V2] ABNORMAL QRS-T ANGLE [QRS-T AXIS DIFFERENCE > 60] Compared to ECG 06/28/2021 18:31:18 Left anterior fascicular block no longer present Electronically Signed On 06-30-2021 19:28:07 CDT by Bright Wallis M.D. [id number]
--- NOTE | 2021-06-29 18:53 | ED_ITS ---
Documented by User: GLENIS Aguilar 06/29/21 22:08 HPI - Chest Pain General: Chief Complaint: Chest Pain Stated Complaint: cp Time Seen by Provider: 06/29/21 18:29 History of Present Illness: Patient presents with. Heart rate and chest pain related. Patient states when she gets up and walks sometimes her heart rate goes up faster. She said she has had some chest pain with this. She was seen in ER last night and given Ativan calm her. Presents today with similar symptoms as to yesterday. Patient denies any recent illness. PFSH ED PFSH: Medical History Abdominal pain Chronic cholecystitis Psychiatric care Surgical History History of cholecystectomy Family History Other Cancer Diabetes Hypertension Stroke Denies family history of CAD (coronary artery disease) Social History Smoking and tobacco status: never smoked Alcohol intake: never Female Reproductive History: Date of last menstrual period: 05/20/21 Course Vital Signs: Vital signs: Vital Signs Temperature 98.1 F 06/29/21 18:17 Pulse Rate 118 H 06/29/21 18:17 Respiratory Rate 20 H 06/29/21 18:17 Blood Pressure 120/80 06/29/21 18:17 Pulse Oximetry 100 06/29/21 18:17 MDM - Chest Pain Medical Decision Making I discussed with patient and her mom her heart rate and symptoms and we discussed chest pain causes and testing. I got EKG which similar to previous. Had chest x-ray ordered and discussed with patient that we will be ordering some labs to check for causes of her increased heart rate and chest pain. Patient was adamant choosing to leave the ER and saying that this place is a joke. I explained that we need to do further testing to find out the cause of her chest pain. I spoke calmly professionally with mother and patient and I answered all the questions they presented and I tried to talk patient to stay but patient chooses to leave. Patient not willing to sign AMA papers. Discharge Plan Discharge Patient Disposition: Left Against Medical Advice Clinical Impression: Atypical chest pain Condition: Stable Prescriptions: No Action clonazepam 0.5 mg Tablet 0.5 mg PO DAILY PRN (Reason: Anxiety) 0RF lithium carbonate 150 mg Capsule 150 mg PO BID 0RF Discharge Orders: Discharge ED (Routine); Ordered 06/29/21 Ordered By: Edy Arroyo Referrals: Lars Isabel MD [Primary Care Provider] - Coding Level of Care Code ED Clinical Trial Coordinator for Chg Fwd Documented by User: Naveed Gómez DO 06/29/21 22:33 HPI - Chest Pain General: Chief Complaint: Chest Pain Stated Complaint: cp Time Seen by Provider: 06/29/21 18:29 PFSH ED PFSH: Medical History Abdominal pain Chronic cholecystitis Psychiatric care Surgical History History of cholecystectomy Family History Other Cancer Diabetes Hypertension Stroke Denies family history of CAD (coronary artery disease) Social History Smoking and tobacco status: never smoked Alcohol intake: never Course Vital Signs: Vital signs: Vital Signs Temperature 98.1 F 06/29/21 18:17 Pulse Rate 118 H 06/29/21 18:17 Respiratory Rate 20 H 06/29/21 18:17 Blood Pressure 120/80 06/29/21 18:17 Pulse Oximetry 100 06/29/21 18:17 MDM - Chest Pain Medical Decision Making I discussed with patient and her mom her heart rate and symptoms and we discussed chest pain causes and testing. I got EKG which similar to previous. Had chest x-ray ordered and discussed with patient that we will be ordering some labs to check for causes of her increased heart rate and chest pain. Patient was adamant choosing to leave the ER and saying that this place is a joke. I explained that we need to do further testing to find out the cause of her chest pain. I spoke calmly professionally with mother and patient and I answered all the questions they presented and I tried to talk patient to stay but patient chooses to leave. Patient not willing to sign AMA papers. This patient was originally seen by GLENIS Kitchen.? I agree with his history, evaluation. Discharge Plan Discharge Patient Disposition: Left Against Medical Advice Clinical Impression: Atypical chest pain Condition: Stable Prescriptions: No Action clonazepam 0.5 mg Tablet 0.5 mg PO DAILY PRN (Reason: Anxiety) 0RF lithium carbonate 150 mg Capsule 150 mg PO BID 0RF Discharge Orders: Discharge ED (Routine); Ordered 06/29/21 Ordered By: Edy Arroyo Referrals: Lars Isabel MD [Primary Care Provider] - Coding Level of Care Code ED Clinical Trial Coordinator for Julito Pérez
== END 2021-06-29 18:58 | disposition left against medical advice (07) ==
PROVIDERS: Emergency Provider Nurse Practitioner Family; PCP Family Medicine
DX: R07.89 Other chest pain (principal); Z53.29 Procedure and treatment not carried out because of patient's decision for other reasons
CPT/HCPCS: 93005; 99282

== ENCOUNTER → 2021-11-20 11:25 | Outpatient (BNVA) | payer MEDICAID, SELFPAY | PROVIDERS: PCP Family Medicine; Visit Provider Emergency Medicine | DX: B37.9 Candidiasis, unspecified (principal); Z20.2 Contact with and (suspected) exposure to infections with a predominantly sexual mode of transmission | CPT/HCPCS: 81025; 87491; 87591 ==

== ENCOUNTER 2021-12-25 08:24 | Emergency (ER) | payer MEDICAID, SELFPAY ==
[2021-12-25 08:29] VITALS: BP 127/73; PULSE 81; RESP 14; TEMP 36.7; O2SAT 100; BMI 21.9
[2021-12-25 09:04] VITALS: BP 115/75; PULSE 74; O2SAT 95
[2021-12-25 09:18] LABS: Basophils % 0.3 %; Eosinophils # 0.1 10^3/uL (0.0-0.8); Eosinophils % 0.8 %; Hematocrit 41.9 % (37.0-47.0); Hemoglobin 13.7 g/dL (11.5-15.3); Lymphocytes # 1.1 10^3/uL (0.8-4.8); Lymphocytes % 13.7 %; Mean Corpuscular HGB Conc 32.7 g/dL (30.0-36.0); Mean Corpuscular Hemoglobin 29.8 pg (28.0-34.0); Mean Corpuscular Volume 91.3 fl (81-99); Mean Platelet Volume 10.9 fL (7.4-10.4); Monocytes # 0.7 10^3/uL (0.2-0.9); Monocytes % 8.6 %; Neutrophils # 5.93 10^3/uL (1.8-7.7); Neutrophils % 76.3 %; Nucleated Red Blood Cells % 0 %; Platelet Count 218 10^3/cmm (130-400); Red Blood Count 4.59 10^6/uL (4.1-5.3); Red Cell Distribution Width 13.2 % (12.1-15.1); White Blood Count 7.8 10^3/uL (4.0-10.0)
[2021-12-25 09:30] VITALS: BP 115/76; PULSE 75; O2SAT 99
[2021-12-25 09:30] LABS: Alanine Aminotransferase 27 U/L (0-33); Albumin Level 4.8 g/dL (3.5-5.2); Alkaline Phosphatase 81 U/L (35-105); Blood Urea Nitrogen 12 mg/dL (6-20); Calcium 9.9 mg/dL (8.5-10.5); Carbon Dioxide 25 mmol/L (22-29); Chloride 101 mmol/L (98-107); Globulin 3.4 g/dL (1.3-4.6); Glomerular Filtration Rate 101.1 mL/min (90-130); Glucose 89 mg/dL (65-115); Lipase 21 U/L (13-60); Osmolality Calculated 285 mOsm/kg (285-295); Sodium 138 mmol/L (136-145); Total Bilirubin 0.3 mg/dL (0.15-1.2); Total Protein 8.2 g/dL (6.6-8.7)
[2021-12-25 09:32] LABS: Anion Gap 15.9 (5-19); Aspartate Amino Transferase 23 U/L (0-32); Potassium 3.9 mmol/L (3.5-5.1)
[2021-12-25 09:40] LABS: HCG, Serum Qual Negative (Negative)
[2021-12-25 09:51] LABS: Add Urine Microscopic? YES; Bilirubin Urine Neg (Negative); Blood Urine 3+ (Negative); Glucose Urine UA Norm (Normal); Ketones Urine Negative (Negative); Leukocyte Esterase Urine Negative (Negative); Nitrate Urine Positive (Negative); Protein Urine Neg (Negative); Urine Appearance Hazy (CLEAR); Urine Color Yellow (Yellow); Urobilinogen Urine Neg (Negative); pH Urine 6 (5-7)
[2021-12-25 09:52] LABS: Add Urine Culture? Yes; Bacteria Urine 3+ /hpf; RBC Urine 25-40 /hpf (0-2); Squamous Epithelial Cell Urine 0-4 /hpf (0-5); WBC Urine 0-4 /hpf (0-5)
[2021-12-25 10:38] VITALS: BP 120/78; PULSE 68; O2SAT 100
--- NOTE | 2021-12-25 10:38 | ED_ITS ---
HPI - Abdominal Pain General: Chief Complaint: Abdominal Pain Stated Complaint: Abd pains Time Seen by Provider: 12/25/21 09:47 Source: patient Mode of arrival: ambulatory Limitations: no limitations History of Present Illness: See nursing assessment. Patient with complaints of pain in the right flank for the past 2 days. Patient states she has had mild dysuria for the past week. She denies any fever or chills. She denies any hematuria. She states she just got off of her menses. She states she does have a history of urinary tract infections. Past surgical history includes cholecystectomy. She states she still has her appendix. She denies any change in her bowel habits. She states she had slight nausea earlier with the pain but denies any nausea now. No vomiting. Associated Symptoms: Reports dysuria and nausea; Denies chills, diarrhea, fever(s), hematuria and vomiting Related Data: Date of Last Menstrual Period: 05/20/21 Review of Systems Const: Denies: fever(s) or chills Eyes: Denies: change in vision ENMT: Denies: throat pain Card: Denies: chest pain or palpitations Resp: Denies: dyspnea or wheezing GI: Reports: abdominal pain and nausea; Denies: vomiting or diarrhea : Reports: flank pain and dysuria; Denies: hematuria Musc: Denies: neck pain Skin/Breast: Denies: rash or pruritus Neuro: Denies: headache(s) or numbness in extremities Psych: Denies: anxiety Bryon/Lymph: Denies: enlarged lymph nodes PFSH ED PFSH: Medical History Abdominal pain Chronic cholecystitis Psychiatric care Surgical History History of cholecystectomy Family History Other Cancer Diabetes Hypertension Stroke Denies family history of CAD (coronary artery disease) Social History Smoking and tobacco status: never smoked Alcohol intake: never Female Reproductive History: Date of last menstrual period: 05/20/21 Physical Exam Const: COMMON NORMALS: no acute distress, patient oriented x3, alert and well nourished GENERAL APPEARANCE: cooperative HENMT: COMMON NORMALS: normocephalic and atraumatic HEAD & SCALP: normocephalic and atraumatic Eye: COMMON NORMALS: EOMs intact bilaterally Neck/C-Spine: COMMON NORMALS: full ROM, no lymphadenopathy, supple and no JVD Lymph: LYMPHATIC: no lymphadenopathy noted Chest: COMMONS NORMALS: normal inspection of the chest and normal palpation of entire chest wall Resp: COMMON NORMALS: normal respiratory effort, No retractions, No use of accessory muscles and clear to auscultation bilaterally AUSCULTATION: clear to auscultation bilaterally Cardio: COMMON NORMALS: no JVD, regular rate, regular rhythm and Peripheral pulses 2+ throughout RATE: regular rate RHYTHM: regular rhythm PERIPHERAL PULSES: Peripheral pulses 2+ throughout GI: OTHER: Patient with mild right flank and right lower quadrant abdominal pain. Normoactive bowel sounds throughout. No hepatosplenomegaly. No masses palpated. No guarding or rebound. Normoactive bowel sounds throughout. : OTHER: Mild right flank pain. Back/Pelvis: OTHER: Right flank pain. Midline of the spine is nontender. No rash. No ecchymosis. Extremity: COMMON NORMALS: normal to inspection and full ROM Neuro: COMMON NORMALS: patient oriented x3, CN's II-XII intact bilaterally, moves all extremities, no focal motor deficits and no sensory deficits noted SENSORIUM/ORIENTATION: Yes alert Psych: COMMON NORMALS: mental status grossly normal, Normal thought process present, cooperative, normal affect and speech normal SPEECH: Yes normal speech THOUGHT PROCESS: Normal thought process present Skin: COMMON NORMALS: no rashes or lesions noted GENERAL SKIN EXAM: no rashes or lesions noted Course Vital Signs: Vital signs: Vital Signs Temperature 98.1 F 12/25/21 08:29 Pulse Rate 68 12/25/21 10:38 Respiratory Rate 14 12/25/21 08:29 Blood Pressure 120/78 12/25/21 10:38 Pulse Oximetry 100 12/25/21 10:38 Oxygen Delivery Me thod 12/25/21 10:38 MDM - Abdominal Pain Medical Decision Making uti vs pyelo Lab Data : 12/25/21 08:55 12/25/21 08:55 Labs/Radiology: Laboratory Results WBC 7.8 10^3/uL (4.0-10.0) 12/25/21 08:55 RBC 4.59 10^6/uL (4.1-5.3) 12/25/21 08:55 Hgb 13.7 g/dL (11.5-15.3) 12/25/21 08:55 Hct 41.9 % (37.0-47.0) 12/25/21 08:55 MCV 91.3 fl (81-99) 12/25/21 08:55 MCH 29.8 pg (28.0-34.0) 12/25/21 08:55 MCHC 32.7 g/dL (30.0-36.0) 12/25/21 08:55 RDW 13.2 % (12.1-15.1) 12/25/21 08:55 Plt Count 218 10^3/cmm (130-400) 12/25/21 08:55 MPV 10.9 fL (7.4-10.4) H 12/25/21 08:55 Neut % (Auto) 76.3 % 12/25/21 08:55 Lymph % (Auto) 13.7 % 12/25/21 08:55 [place] % (Auto) 8.6 % 12/25/21 08:55 Eos % (Auto) 0.8 % 12/25/21 08:55 Baso % (Auto) 0.3 % 12/25/21 08:55 Neut # (Auto) 5.93 10^3/uL (1.8-7.7) 12/25/21 08:55 Lymph # (Auto) 1.1 10^3/uL (0.8-4.8) 12/25/21 08:55 [place] # (Auto) 0.7 10^3/uL (0.2-0.9) 12/25/21 08:55 Eos # (Auto) 0.1 10^3/uL (0.0-0.8) 12/25/21 08:55 Baso # (Auto) 0.0 10^3/uL (0.0-0.1) 12/25/21 08:55 Nucleated RBC % (auto) 0 % 12/25/21 08:55 Nucleated RBCs # 0.0 /100WBC 12/25/21 08:55 Sodium 138 mmol/L (136-145) 12/25/21 08:55 Potassium 3.9 mmol/L (3.5-5.1) 12/25/21 08:55 Chloride 101 mmol/L (98-107) 12/25/21 08:55 Carbon Dioxide 25 mmol/L (22-29) 12/25/21 08:55 Anion Gap 15.9 (5-19) 12/25/21 08:55 BUN 12 mg/dL (6-20) 12/25/21 08:55 Creatinine 0.7 mg/dL (0.5-0.9) 12/25/21 08:55 GFR Calculation 101.1 mL/min (90-130) 12/25/21 08:55 Glucose 89 mg/dL (65-115) 12/25/21 08:55 Calculated Osmolality 285 mOsm/kg (285-295) 12/25/21 08:55 Calcium 9.9 mg/dL (8.5-10.5) 12/25/21 08:55 Total Bilirubin 0.3 mg/dL (0.15-1.2) 12/25/21 08:55 AST 23 U/L (0-32) 12/25/21 08:55 ALT 27 U/L (0-33) 12/25/21 08:55 Alkaline Phosphatase 81 U/L (35-105) 12/25/21 08:55 Total Protein 8.2 g/dL (6.6-8.7) 12/25/21 08:55 Albumin 4.8 g/dL (3.5-5.2) 12/25/21 08:55 Globulin 3.4 g/dL (1.3-4.6) 12/25/21 08:55 Lipase 21 U/L (13-60) 12/25/21 08:55 HCG, Qual Negative (Negative) 12/25/21 09:06 Urine Color Yellow (Yellow) 12/25/21 08:45 Urine Appearance Hazy (CLEAR) A 12/25/21 08:45 Urine pH 6 (5-7) 12/25/21 08:45 Ur Specific [place] 1.020 (1.005-1.030) 12/25/21 08:45 Urine Protein Neg (Negative) 12/25/21 08:45 Urine Glucose (UA) Norm (Normal) 12/25/21 08:45 Urine Ketones Negative (Negative) 12/25/21 08:45 Urine Blood 3+ (Negative) H 12/25/21 08:45 Urine Nitrate Positive (Negative) H 12/25/21 08:45 Urine Bilirubin Neg (Negative) 12/25/21 08:45 Urine Urobilinogen Neg mg/dL (Negative) 12/25/21 08:45 Ur Leukocyte Esterase Negative (Negative) 12/25/21 08:45 Urine RBC 25-40 /hpf (0-2) H 12/25/21 08:45 Urine WBC 0-4 /hpf (0-5) H 12/25/21 08:45 Ur Squamous Epith Cells 0-4 /hpf (0-5) H 12/25/21 08:45 Amorphous Sediment Not Reportable 12/25/21 08:45 Urine Bacteria 3+ /hpf (NONE) H 12/25/21 08:45 Discharge Plan Discharge Patient Disposition: Home Clinical Impression: Pyelonephritis Condition: Stable Prescriptions: New cephalexin 500 mg capsule 500 mg PO QID 7 Days Qty: 28 0RF Rx Instructions: for infection Pyridium 200 mg tablet 200 mg PO Q8H PRN (Reason: pain) 3 Days Qty: 9 1RF Rx Instructions: will turn urine orange. No Action ibuprofen 200 mg Tablet 200 mg PO Q6H PRN (Reason: Pain) Discharge Orders: Discharge ED (Routine); Ordered 12/25/21 Ordered By: Jose Chase Referrals: Lars Isabel MD [Primary Care Provider] - Discharge Diet: Advance as tolerated Discharge Activity: Increase activity as tolerated Patient Instructions: Kidney Infection (ED) Activity Restrictions/Additional Instructions: Start cephalexin antibiotic tomorrow morning. Drink plenty of fluids. May take Pyridium as needed for pain. Pyridium will turn urine orange. May also take Tylenol for pain. Return if symptoms worsen or do not improve for possible repeat antibiotic injection tomorrow. Drink plenty of water. Coding Level of Care Code ED Computer Science Teacher for Julito Pérez
[2021-12-25] MEDS: cefTRIAXone 1,000 MG in lidocaine 1% 2.1 ML 2.1 MG IM (11:04)
== END 2021-12-25 11:05 | disposition home or self-care (01) ==
PROVIDERS: Emergency Provider Family Medicine; PCP Family Medicine
DX: N12 Tubulo-interstitial nephritis, not specified as acute or chronic (principal)
CPT/HCPCS: 80053; 81001; 83690; 84703; 85025; 87077; 87086; 87186; 96372; 99284; J0696

== ENCOUNTER 2021-12-25 15:26 | Emergency (ER) | payer MEDICAID, SELFPAY ==
[2021-12-25 15:39] VITALS: BP 148/99; PULSE 102; RESP 16; TEMP 36.8; O2SAT 100; BMI 21.9
--- NOTE | 2021-12-25 16:04 | CTR_ITS ---
PROCEDURE INFORMATION: Exam: CT Abdomen And Pelvis Without Contrast Exam date and time: 12/25/2021 4:52 PM Age: 26 years old Clinical indication: Pain; Other: RT flank; Prior surgery; Surgery date: 6+ months; Surgery type: Gbladder; Additional info: Flank pain TECHNIQUE: Imaging protocol: Computed tomography of the abdomen and pelvis without contrast. Radiation optimization: All CT scans at this facility use at least one of these dose optimization techniques: automated exposure control; mA and/or kV adjustment per patient size (includes targeted exams where dose is matched to clinical indication); or iterative reconstruction. COMPARISON: CT abdomen pelvis w con* [id number] 05/19/2021 11:32 PM RADIATION DOSE METRICS: Total DLP (mGy-cm): 393.63 FINDINGS: Liver: Normal. No mass. Gallbladder and bile ducts: The gallbladder has been removed. No biliary ductal dilatation. Pancreas: Normal. No ductal dilation. Spleen: Normal. No splenomegaly. Adrenal glands: Normal. No mass. Kidneys and ureters: A tiny renal stone is present in the interpolar region of the right kidney. The kidneys appear otherwise normal. No ureteral stone or hydronephrosis. Stomach and bowel: Unremarkable. No obstruction. No mucosal thickening. Appendix: The appendix is normal. Intraperitoneal space: Unremarkable. No free air. No significant fluid collection. Vasculature: Unremarkable. No abdominal aortic aneurysm. Lymph nodes: Unremarkable. No enlarged lymph nodes. Urinary bladder: Unremarkable as visualized. Reproductive: The uterus and ovaries appear normal. Bones/joints: Unremarkable. No acute fracture. Soft tissues: Unremarkable. CT/CT abdomen pelvis wo con [id number] IMPRESSION: 1. No acute abnormality is seen in the abdomen or pelvis. 2. Nonobstructing right kidney renal stone.
[2021-12-25] MEDS: HYDROcodone-acetaminophen 5-325 mg Tablet 1 TAB PO (16:28)
--- NOTE | 2021-12-25 22:39 | W.ED.ABDPA2 ---
HPI - Abdominal Pain General: Chief Complaint: Abdominal Pain Stated Complaint: Return visit, severe pain Time Seen by Provider: 12/25/21 15:45 History of Present Illness: 26 yo female patient presents to ER with worsening bilateral flank pain. Pt was seen earlier today for pylonephritis and states the pain is worse and she was not given pain meds. Pt states she was given antibiotics. Pt denies any fever or abd pain denies n/v/d. Associated Symptoms: Denies change in bowel habits, chills, constipation, GI cramping, diarrhea, dysuria, fever(s), hematuria, hematemesis, nausea, syncope and vomiting Related Data: Date of Last Menstrual Period: 05/20/21 Review of Systems Const: Denies: fever(s), chills, body aches, change in appetite, change in weight, fatigue, malaise or diaphoresis Eyes: Denies: change in vision, blurry vision, blind spots, photophobia, eye discomfort, eye discharge, eye redness, floaters or seeing flashes ENMT: Denies: throat pain, uvular edema, enlarged tonsils, odynophagia, hoarseness, mouth pain, swelling of lips/tongue, oral sores, bleeding gums, dental pain, dry mouth, ear or mastoid pain, ear discharge, change in hearing, tinnitus, disequilibrium, nasal discharge, nasal congestion, post nasal drip or sinus pain Card: Denies: chest pain, palpitations, irregular heart rhythm, edema, swelling of feet/ankles, lightheadedness, syncope, pre-syncope, dyspnea on exertion, orthopnea, leg pain with exertion or acrocyanosis Resp: Denies: dyspnea, productive cough, non-productive cough, wheezing, stridor, pain on inspiration, change in phlegm color, hemoptysis or chest congestion GI: Denies: abdominal pain, nausea, vomiting, hematemesis, dysphagia, diarrhea, constipation, GI cramping, change in bowel habits or rectal pain : Denies: difficulty voiding, dysuria, urinary frequency, urinary urgency, urinary hesitancy or hematuria Musc: Denies: neck pain, back pain, extremity pain, extremity swelling, joint pain, joint swelling, joint redness, joint warmth or deformity Skin/Breast: Denies: rash, pruritus, erythema, sores, new lesions, changes in skin color or dry skin Neuro: Denies: headache(s), numbness in extremities, weakness in extremities, sensory changes, lack of coordination, difficulty walking, frequent falls, dizziness, vertigo, confusion, behavioral changes, Slurred speech present, difficulty communicating thoughts or seizure-like activity Psych: Denies: anxiety, depression, suicidal ideation or homicidal ideation Endo: Denies: polyuria, polydipsia, tired all the time, cold intolerance, excessive sweating, flushing, hot flashes or heat intolerance Bryon/Lymph: Denies: easy bruising, easy bleeding, petechiae, purpura, enlarged lymph nodes or tender lymph nodes All/Imm: Denies: urticaria, throat swelling, tongue swelling, facial swelling, acute wheezing or itchy eyes PFSH ED PFSH: Medical History Abdominal pain Chronic cholecystitis Psychiatric care Surgical History History of cholecystectomy Family History Other Cancer Diabetes Hypertension Stroke Denies family history of CAD (coronary artery disease) Social History Smoking and tobacco status: never smoked Alcohol intake: never Female Reproductive History: Date of last menstrual period: 05/20/21 Physical Exam Const: COMMON NORMALS: no acute distress, patient oriented x3, healthy appearing, alert and well nourished GENERAL APPEARANCE: cooperative, comfortable, well kempt and well developed; not ill appearing ORIENTATION/CONSCIOUSNESS: Yes awake, Yes oriented to person, Yes oriented to place and Yes oriented to time HENMT: THROAT: no uvular edema Neck/C-Spine: COMMON NORMALS: full ROM, no lymphadenopathy, supple, no meningeal signs, no JVD and Thyroid normal GENERAL: Yes normal visual inspection and Yes trachea midline THYROID: Thyroid normal CERVICAL SPINE: Yes cervical ROM normal Lymph: LYMPHATIC: no lymphadenopathy noted and no lymphedema noted Chest: COMMONS NORMALS: normal inspection of the chest and normal palpation of entire chest wall Resp: COMMON NORMALS: normal respiratory effort, No retractions, No use of accessory muscles and clear to auscultation bilaterally EFFORT & INSPECTION: Yes able to speak in complete sentences and Yes symmetric chest movement AUSCULTATION: clear to auscultation bilaterally Cardio: COMMON NORMALS: no JVD, regular rate and regular rhythm RATE: regular rate RHYTHM: regular rhythm GI: COMMON NORMALS: Normal to inspection, nondistended, normoactive bowel sounds present, Soft to palpation, non-tender, No hepatosplenomegaly present, no masses and no bruits INSPECTION: Yes normal to inspection AUSCULTATION: Yes normoactive bowel sounds PALPATION: Yes Soft to palpation and Yes No hepatosplenomegaly present PERCUSSION: normal to percussion RECTAL EXAM: deferred Back/Pelvis: COMMON NORMALS: thoracic and lumbar spine normal to inspection, no thoracic nor lumbar tenderness, thoraco-lumbar ROM normal and straight leg raise negative bilaterally THORACIC SPINE/UPPER BACK: Yes normal to inspection LUMBAR SPINE/LOWER BACK: Yes normal to inspection Extremity: COMMON NORMALS: normal to inspection, full ROM and capillary refill normal GENERAL: Yes normal exam except as noted Neuro: COMMON NORMALS: patient oriented x3, CN's II-XII intact bilaterally, moves all extremities, no focal motor deficits, no sensory deficits noted, deep tendon reflexes 2+ bilaterally and gait normal SENSORIUM/ORIENTATION: Yes alert, Yes oriented to person, Yes oriented to place and Yes oriented to time MENINGEAL SIGNS: Yes no meningeal signs CRANIAL NERVES: Yes CN normal except as noted SPEECH: speech normal GAIT: Yes Normal gait present SENSORY EXAM: Yes extremities MOTOR EXAM: 5/5 motor strength present throughout Psych: COMMON NORMALS: mental status grossly normal, Normal thought process present, cooperative, normal affect, speech normal, activity/motor behavior normal, denies hallucinations, denies homicidal ideation and denies suicidal ideation APPEARANCE: Yes grossly normal and Yes well kempt ATTITUDE: Yes calm ACTIVITY/MOTOR BEHAVIOR: Yes appropriate eye contact SPEECH: Yes normal speech THOUGHT PROCESS: Normal thought process present THOUGHT CONTENT: Yes Normal thought content present ATTENTION/CONCENTRATION: Yes attention grossly intact MEMORY/COGNITION: Yes memory grossly intact INSIGHT: Good insight present (Psych) JUDGEMENT: Good judgement present (Psych) Skin: COMMON NORMALS: no rashes or lesions noted, no wounds, turgor normal, no jaundice, no petechiae and no mottling GENERAL SKIN EXAM: no rashes or lesions noted and turgor normal Course Vital Signs: Vital signs: Vital Signs Temperature 98.2 F 12/25/21 15:39 Pulse Rate 102 H 12/25/21 15:39 Respiratory Rate 16 12/25/21 15:39 Blood Pressure 148/99 12/25/21 15:39 Pulse Oximetry 100 12/25/21 15:39 Oxygen Delivery Me thod 12/25/21 15:39 MDM - Abdominal Pain Medical Decision Making Patient is well appearing non toxic and in no acute distress. 26 yo female patient presents to ER with worsening bilateral flank pain. Pt was seen earlier today for pylonephritis and states the pain is worse and she was not given pain meds. Pt states she was given antibiotics. Pt denies any fever or abd pain denies n/v/d. CT abd/pelvis negative for any acute findings there are non obstructing renal stones. Patient was given [place] and had good clinical improvement of pain. Will send patient home with [place] and have her continue her antibiotics as prescribed as well as follow up with PCP for recheck in 1 -2 days Lab Data Labs/Radiology: Radiology Impressions Abdomen/Pelvis CT 12/25/21 16:04 IMPRESSION: 1. No acute abnormality is seen in the abdomen or pelvis. 2. Nonobstructing right kidney renal stone. Discharge Plan Discharge Patient Disposition: Home Clinical Impression: Pyelonephritis Condition: Stable Prescriptions: New hydrocodone-acetaminophen 5-325 mg tablet 1 tab PO Q6H PRN (Reason: pain) Qty: 14 0RF ondansetron 4 mg tablet,disintegrating 4 mg PO Q6H PRN (Reason: nausea and vomiting) Qty: 14 0RF No Action ibuprofen 200 mg Tablet 200 mg PO Q6H PRN (Reason: Pain) cephalexin 500 mg capsule 500 mg PO QID 7 Days Qty: 28 0RF Rx Instructions: for infection Pyridium 200 mg tablet 200 mg PO Q8H PRN (Reason: pain) 3 Days Qty: 9 1RF Rx Instructions: will turn urine orange. Discharge Orders: Discharge ED (Routine); Ordered 12/25/21 Ordered By: Cy Hilliard Referrals: Lars Isabel MD [Primary Care Provider] - 1-3 days Discharge Diet: Advance as tolerated Discharge Activity: Resume usual activity Patient Instructions: Kidney Infection (ED), Opioid Safety Coding Level of Care Code ED Subgrade Roller Operator for Yusufg Beto
== END 2021-12-25 18:21 | disposition home or self-care (01) ==
PROVIDERS: Emergency Provider Registered Nurse; PCP Family Medicine
DX: N12 Tubulo-interstitial nephritis, not specified as acute or chronic (principal)
CPT/HCPCS: 74176; 99284

== ENCOUNTER 2022-05-20 12:51 | Emergency (ER) | payer MEDICAID, SELFPAY ==
[2022-05-20 13:13] VITALS: BP 121/80; PULSE 78; RESP 16; TEMP 36.9; O2SAT 99
[2022-05-20 14:10] LABS: Basophils % 0.2 %; Eosinophils % 0.2 %; Hematocrit 43.4 % (37.0-47.0); Hemoglobin 14.1 g/dL (11.5-15.3); Lymphocytes # 1.1 10^3/uL (0.8-4.8); Lymphocytes % 26.9 %; Mean Corpuscular HGB Conc 32.5 g/dL (30.0-36.0); Mean Corpuscular Hemoglobin 29.1 pg (28.0-34.0); Mean Corpuscular Volume 89.5 fl (81-99); Mean Platelet Volume 10.5 fL (7.4-10.4); Monocytes # 0.5 10^3/uL (0.2-0.9); Monocytes % 11.8 %; Neutrophils # 2.52 10^3/uL (1.8-7.7); Neutrophils % 60.7 %; Nucleated Red Blood Cells % 0 %; Platelet Count 215 10^3/cmm (130-400); Red Blood Count 4.85 10^6/uL (4.1-5.3); White Blood Count 4.2 10^3/uL (4.0-10.0)
--- NOTE | 2022-05-20 14:11 | W.ED.NAVMDI ---
HPI - Nausea/Vomiting/Diarrhea General: Chief complaint: Nausea/Vomiting/Diarrhea Stated complaint: N/V/D, just found out she was Time Seen by Provider: 05/20/22 13:52 Source: patient Mode of arrival: ambulatory History of Present Illness: 26 yo female presents with the persistent N/V. no hematochezia no hemataemesis, no dysuria urgency or frequency. Pt recently had home preg test positive. Has had hyperemesis with preious pregnancies. MD elicited complaint: nausea and vomiting Pertinent past history: other (early ) Onset (ago): week(s) Description of vomiting: watery and bilious Associated nausea: Yes Severity: mild Quality: cramping Exacerbating factors: none Relieving factors: none Associated symtoms: Reports anorexia and nausea; Denies altered mental status, anxiety, bloating, change in vision, chest pain, cough, diaphoresis, decreased urine output, dizziness, dysuria, epistaxis, fatigue, fecal incontinence, fevers/chills, headache(s), malaise, myalgias, numbness, palpitations, rash, short of breath, syncope, tenesmus, tinnitus or weakness Review of Systems Const: Denies: fever(s), chills, fatigue, malaise or diaphoresis Eyes: Denies: change in vision ENMT: Denies: throat pain, tinnitus, nasal congestion, nasal obstruction or epistaxis Card: Denies: chest pain, palpitations or syncope Resp: Denies: dyspnea, productive cough or non-productive cough GI: Reports: nausea and GI cramping; Denies: abdominal pain, vomiting, bloating or fecal incontinence : Denies: dysuria, urinary frequency or urinary urgency Skin/Breast: Denies: rash or pruritus Neuro: Denies: headache(s) or dizziness Psych: Denies: anxiety PFSH ED PFSH: Medical History Abdominal pain Chronic cholecystitis Surgical History History of cholecystectomy Family History Other Cancer Diabetes Hypertension Stroke Denies family history of CAD (coronary artery disease) Social History (Reviewed 05/21/22 @ 15:18 by AAKASH Barrett Smoking and tobacco status: never smoked Alcohol intake: never Physical Exam Const: EXAM LIMITATIONS: no altered mental status GENERAL APPEARANCE: cooperative and comfortable ORIENTATION/CONSCIOUSNESS: Yes awake, Yes oriented to person, Yes oriented to place and Yes oriented to time HENMT: COMMON NORMALS: normocephalic, atraumatic and hearing grossly normal bilaterally HEAD & SCALP: normocephalic and atraumatic Resp: COMMON NORMALS: normal respiratory effort, No retractions, No use of accessory muscles and clear to auscultation bilaterally AUSCULTATION: clear to auscultation bilaterally Cardio: COMMON NORMALS: regular rate, regular rhythm and No murmurs present (Cardio) RATE: regular rate RHYTHM: regular rhythm GI: COMMON NORMALS: Soft to palpation and No hepatosplenomegaly present AUSCULTATION: Yes normoactive bowel sounds PALPATION: Yes Soft to palpation, No Tenderness to palpation present (GI), No Guarding due to palpation present (GI) and Yes No hepatosplenomegaly present Extremity: COMMON NORMALS: normal to inspection, capillary refill normal, no clubbing, cyanosis or edema, no calf tenderness and no pedal edema Neuro: SENSORIUM/ORIENTATION: Yes oriented to person, Yes oriented to place and Yes oriented to time Skin: COMMON NORMALS: no rashes or lesions noted GENERAL SKIN EXAM: no rashes or lesions noted Course Vital Signs: Vital signs: Vital Signs Temperature 98.5 F 05/20/22 13:13 Pulse Rate 78 05/20/22 13:13 Respiratory Rate 16 05/20/22 13:13 Blood Pressure 121/80 05/20/22 13:13 Pulse Oximetry 99 05/20/22 13:13 Oxygen Delivery Me thod 05/20/22 13:13 MDM - Nausea/Vomiting/Diarrhea Medical Decision Making improved with IV fluids. Discharge home with diclegis and proemthizine to use PRN. F/U w Dr. Maame ospina schedkellie. Medical Records I reviewed the patient's medical records. Lab Data I reviewed the patient's lab results. 05/20/22 14:02 05/20/22 14:02 Laboratory Results WBC 4.2 10^3/uL (4.0-10.0) 05/20/22 14:02 RBC 4.85 10^6/uL (4.1-5.3) 05/20/22 14:02 Hgb 14.1 g/dL (11.5-15.3) 05/20/22 14:02 Hct 43.4 % (37.0-47.0) 05/20/22 14:02 MCV 89.5 fl (81-99) 05/20/22 14:02 MCH 29.1 pg (28.0-34.0) 05/20/22 14:02 MCHC 32.5 g/dL (30.0-36.0) 05/20/22 14:02 RDW 13.0 % (12.1-15.1) 05/20/22 14:02 Plt Count 215 10^3/cmm (130-400) 05/20/22 14:02 MPV 10.5 fL (7.4-10.4) H 05/20/22 14:02 Neut % (Auto) 60.7 % 05/20/22 14:02 Lymph % (Auto) 26.9 % 05/20/22 14:02 [place] % (Auto) 11.8 % 05/20/22 14:02 Eos % (Auto) 0.2 % 05/20/22 14:02 Baso % (Auto) 0.2 % 05/20/22 14:02 Neut # (Auto) 2.52 10^3/uL (1.8-7.7) 05/20/22 14:02 Lymph # (Auto) 1.1 10^3/uL (0.8-4.8) 05/20/22 14:02 [place] # (Auto) 0.5 10^3/uL (0.2-0.9) 05/20/22 14:02 Eos # (Auto) 0.0 10^3/uL (0.0-0.8) 05/20/22 14:02 Baso # (Auto) 0.0 10^3/uL (0.0-0.1) 05/20/22 14:02 Nucleated RBC % (auto) 0 % 05/20/22 14:02 Nucleated RBCs # 0.0 /100WBC 05/20/22 14:02 Sodium 138 mmol/L (136-145) 05/20/22 14:02 Potassium 4.1 mmol/L (3.5-5.1) 05/20/22 14:02 Chloride 101 mmol/L (98-107) 05/20/22 14:02 Carbon Dioxide 24 mmol/L (22-29) 05/20/22 14:02 Anion Gap 17.1 (5-19) 05/20/22 14:02 BUN 9 mg/dL (6-20) 05/20/22 14:02 Creatinine 0.7 mg/dL (0.5-0.9) 05/20/22 14:02 GFR Calculation 101.1 mL/min (90-130) 05/20/22 14:02 Glucose 79 mg/dL (65-115) 05/20/22 14:02 Calculated Osmolality 284 mOsm/kg (285-295) L 05/20/22 14:02 Calcium 9.8 mg/dL (8.5-10.5) 05/20/22 14:02 Total Bilirubin 0.3 mg/dL (0.15-1.2) 05/20/22 14:02 AST 19 U/L (0-32) 05/20/22 14:02 ALT 20 U/L (0-33) 05/20/22 14:02 Alkaline Phosphatase 76 U/L (35-105) 05/20/22 14:02 Total Protein 8.6 g/dL (6.6-8.7) 05/20/22 14:02 Albumin 5.0 g/dL (3.5-5.2) 05/20/22 14:02 Globulin 3.6 g/dL (1.3-4.6) 05/20/22 14:02 Lipase 33 U/L (13-60) 05/20/22 14:02 HCG, Qual Positive (Negative) H 05/20/22 14:02 Ser , Semi-Qnt 302.80 mIU/mL 05/20/22 14:02 Discharge Plan Discharge Patient Disposition: Home Clinical Impression: Hyperemesis gravidarum Condition: Stable Prescriptions: New Diclegis 10-10 mg tablet,delayed release (DR/EC) 1 tab PO BID Qty: 90 0RF Rx Instructions: 2 p.o. at hs, if not improving increase to 2 at HS and 1 tab AM, if still not improving after 2 days increase to 2 p.o. twice daily promethazine 25 mg tablet 25 mg PO Q6H PRN (Reason: nausea and vomiting) Qty: 20 0RF Discharge Orders: Discharge ED (Routine); Ordered 05/20/22 Ordered By: Dre Gunter Referrals: Lars Isabel MD [Primary Care Provider] - Discharge Diet: Clear Liquid Discharge Activity: Increase activity as tolerated Patient Instructions: Opioid Safety, Pain Management Activity Restrictions/Additional Instructions: You were seen for hyeperemesis associated with . You were given IV and nausea meds. Recommend you start Diclegis as prescribed and follow up with your OB doctor. Coding Level of Care Code ED Utility Driver for Yusufg Beto
[2022-05-20 14:21] LABS: HCG, Serum Qual Positive (Negative)
[2022-05-20] MEDS: sodium chloride 0.9% 1,000 ML 999 ML IV (14:27)
[2022-05-20 14:37] LABS: Alanine Aminotransferase 20 U/L (0-33); Alkaline Phosphatase 76 U/L (35-105); Anion Gap 17.1 (5-19); Aspartate Amino Transferase 19 U/L (0-32); Blood Urea Nitrogen 9 mg/dL (6-20); Calcium 9.8 mg/dL (8.5-10.5); Carbon Dioxide 24 mmol/L (22-29); Chloride 101 mmol/L (98-107); Globulin 3.6 g/dL (1.3-4.6); Glomerular Filtration Rate 101.1 mL/min (90-130); Glucose 79 mg/dL (65-115); Lipase 33 U/L (13-60); Osmolality Calculated 284 mOsm/kg (285-295); Potassium 4.1 mmol/L (3.5-5.1); Sodium 138 mmol/L (136-145); Total Bilirubin 0.3 mg/dL (0.15-1.2); Total Protein 8.6 g/dL (6.6-8.7)
[2022-05-20] MEDS: promethazine 25 mg/mL SDV 1 mL IM (15:04)
== END 2022-05-20 15:22 | disposition home or self-care (01) ==
PROVIDERS: Physician Assistant; Emergency Provider Family Medicine; PCP Family Medicine
DX: O21.0 Mild hyperemesis gravidarum (principal); Z3A.00 Weeks of gestation of pregnancy not specified
CPT/HCPCS: 80053; 83690; 84702; 84703; 85025; 96360; 96372; 99284; J2550; J7030

== ENCOUNTER 2022-05-22 08:44 | Emergency (ER) | payer MEDICAID, SELFPAY ==
[2022-05-22 08:50] VITALS: BP 133/93; PULSE 109; RESP 16; O2SAT 100
--- NOTE | 2022-05-22 08:57 | W.ED.MEDCLER ---
HPI - Medical Clearance General Chief complaint: Medical Clearance Stated complaint: reaction to shot Time Seen by Provider: 05/22/22 08:50 Source: patient Mode of arrival: ambulatory History of Present Illness 40 26-year-old G3, P2 female returns to the emergency room complaining of redness erythema at the injection site on the left upper arm. Related Information Previous Rx's Medication Instructions Recorded doxylamine 10 mg-pyridoxine (vit 1 tab PO BID #90 tabs 05/20/22 B6) 10 mg tablet,delayed release (Diclegis) promethazine 25 mg tablet 25 mg PO Q6H PRN nausea and 05/20/22 vomiting #20 tabs Allergies Allergy/AdvReac Type Severity Reaction Status Date / Time No Known Allergies Allergy Verified 05/20/22 13:18 Course Vital Signs Pulse Rate 109 H 05/22/22 08:50 Respiratory Rate 16 05/22/22 08:50 Blood Pressure 133/93 05/22/22 08:50 Pulse Oximetry 100 05/22/22 08:50 Oxygen Delivery Method 05/22/22 08:50 Discharge Plan Discharge Patient Disposition: Home Clinical Impression: Injection site reaction Condition: Stable Prescriptions: No Action Diclegis 10-10 mg tablet,delayed release (DR/EC) 1 tab PO BID Qty: 90 0RF Rx Instructions: 2 p.o. at hs, if not improving increase to 2 at HS and 1 tab AM, if still not improving after 2 days increase to 2 p.o. twice daily promethazine 25 mg tablet 25 mg PO Q6H PRN (Reason: nausea and vomiting) Qty: 20 0RF Discharge Orders: Discharge ED (Routine); Ordered 05/22/22 Ordered By: Dre Gunter Referrals: Lars Isabel MD [Primary Care Provider] - Discharge Diet: Usual diet Discharge Activity: Resume usual activity Patient Instructions: Opioid Safety, Pain Management Activity Restrictions/Additional Instructions: You were seen today for injection site reaction. These types of reactions do not represent an allergic reaction. You can use oral Benadryl or apply ice topically at the site. If symptoms worsen or change recheck. Stand Alone Forms: Work/School Release
--- NOTE | 2022-05-22 09:34 | ED_ITS ---
HPI - General Adult General: Chief complaint: Medical Clearance Stated complaint: reaction to shot Time Seen by Provider: 05/22/22 08:50 Source: patient Mode of arrival: ambulatory History of Present Illness: 26-year-old G3, P2 female returns to the emergency room complaining of redness erythema at the injection site on the left upper arm. She not having difficulty breathing at the injection site from the Phenergan she received few days ago and we seen her for hyperemesis. Onset (ago): day(s) Location: left and upper extremity Relieving factors: none Exacerbating factors: none Associated symptoms: Deny chest pain, cough, diaphoresis, decreased appetite, dyspnea, fevers/chills, headache(s), malaise, nausea, rash, palpitations, seizures, short of breath, vomiting or weakness Treatments prior to arrival: none Review of Systems Const: Denies: fever(s), chills, malaise or diaphoresis ENMT: Denies: throat pain, odynophagia, hoarseness or swelling of lips/tongue Card: Denies: chest pain or palpitations Resp: Denies: dyspnea GI: Denies: nausea or vomiting Skin/Breast: Denies: rash Neuro: Denies: headache(s) PFSH ED PFSH: Medical History Abdominal pain Chronic cholecystitis Surgical History History of cholecystectomy Family History Other Cancer Diabetes Hypertension Stroke Denies family history of CAD (coronary artery disease) Social History Smoking and tobacco status: never smoked Alcohol intake: never Physical Exam Const: COMMON NORMALS: no acute distress GENERAL APPEARANCE: cooperative and comfortable ORIENTATION/CONSCIOUSNESS: Yes awake, Yes oriented to person, Yes oriented to place and Yes oriented to time HENMT: COMMON NORMALS: normocephalic, atraumatic and hearing grossly normal bilaterally HEAD & SCALP: normocephalic and atraumatic Resp: COMMON NORMALS: normal respiratory effort, No retractions, No use of accessory muscles and clear to auscultation bilaterally AUSCULTATION: clear to auscultation bilaterally Cardio: COMMON NORMALS: regular rate, regular rhythm and No murmurs present (Cardio) RATE: regular rate RHYTHM: regular rhythm Extremity: COMMON NORMALS: normal to inspection, capillary refill normal, no clubbing, cyanosis or edema, no calf tenderness and no pedal edema OTHER: Localized reaction on the left upper arm overlying the deltoid muscle was injection was given minimal erythema no induration no sign of infection Neuro: SENSORIUM/ORIENTATION: Yes oriented to person, Yes oriented to place and Yes oriented to time Skin: COMMON NORMALS: no rashes or lesions noted GENERAL SKIN EXAM: no rashes or lesions noted Course Vital Signs: Vital signs: Vital Signs Pulse Rate 109 H 05/22/22 08:50 Respiratory Rate 16 05/22/22 08:50 Blood Pressure 133/93 05/22/22 08:50 Pulse Oximetry 100 05/22/22 08:50 Oxygen Delivery Me thod 05/22/22 08:50 MDM - General Adult Medical Decision Making Localized reaction can use oral Benadryl apply ice to the area follow-up as needed Discharge Plan Discharge Patient Disposition: Home Clinical Impression: Injection site reaction Condition: Stable Prescriptions: No Action Diclegis 10-10 mg tablet,delayed release (DR/EC) 1 tab PO BID Qty: 90 0RF Rx Instructions: 2 p.o. at hs, if not improving increase to 2 at HS and 1 tab AM, if still not improving after 2 days increase to 2 p.o. twice daily promethazine 25 mg tablet 25 mg PO Q6H PRN (Reason: nausea and vomiting) Qty: 20 0RF Discharge Orders: Discharge ED (Routine); Ordered 05/22/22 Ordered By: Dre Gunter Referrals: Lars Isabel MD [Primary Care Provider] - Discharge Diet: Usual diet Discharge Activity: Resume usual activity Patient Instructions: Opioid Safety, Pain Management Activity Restrictions/Additional Instructions: You were seen today for injection site reaction. These types of reactions do not represent an allergic reaction. You can use oral Benadryl or apply ice topically at the site. If symptoms worsen or change recheck. Stand Alone Forms: Work/School Release Coding Level of Care Code ED Play Back Operator for Julito Pérez
== END 2022-05-22 09:03 | disposition home or self-care (01) ==
PROVIDERS: Emergency Provider Family Medicine; PCP Family Medicine
DX: T80.69XA Other serum reaction due to other serum, initial encounter (principal); X58.XXXA Exposure to other specified factors, initial encounter
CPT/HCPCS: 99282

== ENCOUNTER 2022-06-19 18:01 | Emergency (ER) | payer MEDICAID, SELFPAY ==
[2022-06-19 18:20] VITALS: BP 127/80; PULSE 88; RESP 14; TEMP 37; O2SAT 98
[2022-06-19 19:09] LABS: Add Urine Microscopic? NO; Charge for UA Resulting for Rev
[2022-06-19 19:28] LABS: Bilirubin Urine Neg (Negative); Blood Urine Neg (Negative); Glucose Urine UA Norm (Normal); Ketones Urine 1+ (Negative); Leukocyte Esterase Urine Negative (Negative); Nitrate Urine Negative (Negative); Protein Urine Neg (Negative); Urine Appearance Hazy (CLEAR); Urine Color Yellow (Yellow); Urobilinogen Urine Neg (Negative); pH Urine 5 (5-7)
[2022-06-19 19:57] LABS: Basophils % 0.3 %; Eosinophils # 0.1 10^3/uL (0.0-0.8); Eosinophils % 1.2 %; Hematocrit 38.9 % (37.0-47.0); Lymphocytes # 1.9 10^3/uL (0.8-4.8); Mean Corpuscular HGB Conc 33.4 g/dL (30.0-36.0); Mean Corpuscular Hemoglobin 30.2 pg (28.0-34.0); Mean Corpuscular Volume 90.3 fl (81-99); Mean Platelet Volume 10.6 fL (7.4-10.4); Monocytes # 0.9 10^3/uL (0.2-0.9); Monocytes % 8.4 %; Neutrophils # 7.59 10^3/uL (1.8-7.7); Neutrophils % 71.6 %; Nucleated Red Blood Cells % 0 %; Platelet Count 220 10^3/cmm (130-400); Red Blood Count 4.31 10^6/uL (4.1-5.3); Red Cell Distribution Width 12.4 % (12.1-15.1); White Blood Count 10.6 10^3/uL (4.0-10.0)
[2022-06-19 20:11] LABS: Alanine Aminotransferase 20 U/L (0-33); Albumin Level 4.8 g/dL (3.5-5.2); Alkaline Phosphatase 74 U/L (35-105); Anion Gap 15.8 (5-19); Aspartate Amino Transferase 18 U/L (0-32); Blood Urea Nitrogen 10 mg/dL (6-20); Calcium 9.4 mg/dL (8.5-10.5); Carbon Dioxide 23 mmol/L (22-29); Chloride 101 mmol/L (98-107); Globulin 3.3 g/dL (1.3-4.6); Glomerular Filtration Rate 120.8 mL/min (90-130); Glucose 80 mg/dL (65-115); Osmolality Calculated 280 mOsm/kg (285-295); Potassium 3.8 mmol/L (3.5-5.1); Sodium 136 mmol/L (136-145); Total Bilirubin 0.2 mg/dL (0.15-1.2); Total Protein 8.1 g/dL (6.6-8.7)
--- NOTE | 2022-06-19 20:59 | ECG_ITS ---
[facility] Test Date: 2022-06-19 Pat Name: Tisha Mcginnis Department: Room: Gender: Female Director Of Recruiting: : 1995 Requested By: Hermelindo Valdes Order Number: [id number] Fariba MD: Iglesia Taveras M.D. Measurements Intervals [place] Rate: 80 P: 136 ID: [id number] QRS: 54 QRSD: 91 T: 93 QT: 359 QTc: 416 Interpretive Statements ECTOPIC ATRIAL RHYTHM LEFT ATRIAL ENLARGEMENT [-0.15mV P-WAVE IN V1/V2] POSSIBLE RIGHT VENTRICULAR CONDUCTION DELAY [RSR (QR) IN V1/V2] NONSPECIFIC ST & T-WAVE ABNORMALITY Compared to ECG 06/29/2021 18:27:30 Ectopic atrial rhythm now present Atrial abnormality now present T-wave abnormality now present Sinus tachycardia no longer present Electronically Signed On 06-19-2022 21:10:44 CDT by Iglesia Taveras M.D. [id number]
[2022-06-19 21:04] VITALS: BP 121/85; PULSE 89; O2SAT 99
[2022-06-19] MEDS: sodium chloride 0.9% 1,000 ML 999 ML IV (22:04)
[2022-06-19 22:10] VITALS: BP 119/71; PULSE 113; RESP 16; O2SAT 99
[2022-06-19] MEDS: lactated ringers 1,000 ML 999 ML IV (22:20)
[2022-06-19 22:30] VITALS: BP 109/76; PULSE 98; RESP 16; O2SAT 96
--- NOTE | 2022-06-19 22:30 | ED_ITS ---
HPI - General Adult General: Chief complaint: General Medical Stated complaint: n/v, near syncope Time Seen by Provider: 06/19/22 22:30 History of Present Illness: Ms. Mcginnis is a 26-year-old lady currently approximately 2 and half months presenting to the emergency department for generalized illness. She reports being in her baseline health up until yesterday when she had exertional palpitations and lightheaded warm feeling. She reports recurrence twice today and generalized malaise. She has had nausea vomiting. Denies history of complications with current , first and preeclampsia. Intensity symptoms when present is moderate to severe. Endorses generalized malaise and weakness. No other specific changes in health, exacerbating, or alleviating factors identified. Onset (ago): day(s) Severity: moderate Relieving factors: none Exacerbating factors: movement and other Associated symptoms: Reports chest pain, dyspnea and syncope (near) Review of Systems General: Reports: 10 or more systems reviewed and unremarkable except in HPI and below Card: Reports: chest pain and syncope (near) Resp: Reports: dyspnea PFSH ED PFSH: Medical History Abdominal pain Chronic cholecystitis Surgical History History of cholecystectomy Family History Other Cancer Diabetes Hypertension Stroke Denies family history of CAD (coronary artery disease) Social History Smoking and tobacco status: never smoked Alcohol intake: never Substance/Drug Use: current Physical Exam Const: COMMON NORMALS: patient oriented x3 and alert GENERAL APPEARANCE: cooperative and well developed HENMT: COMMON NORMALS: normocephalic and atraumatic HEAD & SCALP: normocephalic and atraumatic Eye: COMMON NORMALS: conjunctivae normal CONJUNCTIVA: Yes conjunctivae normal SCLERA: sclerae normal Neck/C-Spine: COMMON NORMALS: supple GENERAL: Yes trachea midline Resp: COMMON NORMALS: clear to auscultation bilaterally EFFORT & INSPECTION: Yes able to speak in complete sentences AUSCULTATION: clear to auscultation bilaterally Cardio: COMMON NORMALS: regular rate and regular rhythm RATE: regular rate RHYTHM: regular rhythm GI: COMMON NORMALS: Soft to palpation PALPATION: Yes Soft to palpation and No Tenderness to palpation present (GI) Extremity: GENERAL: Yes normal exam except as noted and No edema Neuro: COMMON NORMALS: patient oriented x3, CN's II-XII intact bilaterally, moves all extremities, no focal motor deficits and no sensory deficits noted SENSORIUM/ORIENTATION: Yes alert and No Orientation impaired Psych: COMMON NORMALS: mental status grossly normal and Normal thought process present THOUGHT PROCESS: Normal thought process present Course Vital Signs: Vital signs: Vital Signs Temperature 98.6 F 06/19/22 18:20 Pulse Rate 91 06/20/22 01:04 Respiratory Rate 16 06/20/22 01:04 Blood Pressure 109/78 06/20/22 01:04 Pulse Oximetry 95 06/20/22 01:04 Oxygen Delivery Me thod Room Air 06/19/22 21:04 MDM - General Adult Medical Decision Making 26-year-old lady currently presenting with near syncope associate with generalized illness. EKG demonstrates sinus rhythm with normal axis and intervals, there are nonspecific ST segment abnormalities, no STEMI. Labs with minimal leukocytosis, normal hemoglobin and platelet count. Metabolic panel without acute derangement to explain symptoms. TSH is low though likely n ormal with normal free T4. D-dimer is negative. No UTI. COVID- negative. Chest x-ray with no lobar consolidation or pneumothorax. Patient treated with IV fluids and antiemetic and mother improved on reassessment. Exact etiology of symptoms is unclear, there is mild dehydration. Does not appear to need hospitalization at this time. The results of ED evaluation were discussed with the patient including prescriptions and/or symptomatic cares (if applicable) including appropriate and responsible use, followup plan, and return precautions. The patient verbalized understanding and felt safe for discharge. Medical Records I reviewed the patient's medical records. Lab Data I reviewed the patient's lab results. 06/19/22 19:30 06/19/22 19:30 Radiology Impressions Chest X-Ray 06/19/22 23:11 IMPRESSION: Negative chest exam. Laboratory Results WBC 10.6 10^3/uL (4.0-10.0) H 06/19/22 19:30 RBC 4.31 10^6/uL (4.1-5.3) 06/19/22 19:30 Hgb 13.0 g/dL (11.5-15.3) 06/19/22: Hct 38.9 % (37.0-47.0) 06/19/22: MCV 90.3 fl (81-99) 06/19/22: MCH 30.2 pg (28.0-34.0) 06/19/22: MCHC 33.4 g/dL (30.0-36.0) 06/19/22 RDW 12.4 % (12.1-15.1) 06/19/22 Plt Count 220 10^3/cmm (130-400) 06/19/22 MPV 10.6 fL (7.4-10.4) H 06/19/22 Neut % (Auto) 71.6 % 06/19/22 Lymph % (Auto) 18.0 % 06/19/22: [place] % (Auto) 8.4 % 06/19/22 Eos % (Auto) 1.2 % 06/19/22 Baso % (Auto) 0.3 % 06/19/22 Neut # (Auto) 7.59 10^3/uL (1.8-7.7) 06/19/22 Lymph # (Auto) 1.9 10^3/uL (0.8-4.8) 06/19/22 [place] # (Auto) 0.9 10^3/uL (0.2-0.9) 06/19/22 Eos # (Auto) 0.1 10^3/uL (0.0-0.8) 06/19/22 Baso # (Auto) 0.0 10^3/uL (0.0-0.1) 06/19/22 Nucleated RBC % (auto) 0 % 06/19/22 Nucleated RBCs # 0.0 /100WBC 06/19/22 D-Dimer 0.59 ug/mIFEU (0-0.59) 06/19/22 Sodium 136 mmol/L (136-145) 06/19/22 Potassium 3.8 mmol/L (3.5-5.1) 06/19/22 19:30 Chloride 101 mmol/L (98-107) 06/19/22 19:30 Carbon Dioxide 23 mmol/L (22-29) 06/19/22 19:30 Anion Gap 15.8 (5-19) 06/19/22 19:30 BUN 10 mg/dL (6-20) 06/19/22 19:30 Creatinine 0.6 mg/dL (0.5-0.9) 06/19/22 19: GFR Calculation 120.8 mL/min (90-130) 06/19/22 19:30 Glucose 80 mg/dL (65-115) 06/19/22: Calculated Osmolality 280 mOsm/kg (285-295) L 06/19/22 19: Calcium 9.4 mg/dL (8.5-10.5) 06/19/22: Magnesium 1.9 mg/dL (1.7-2.3) 06/19/22 19: Total Bilirubin 0.2 mg/dL (0.15-1.2) 06/19/22 19:30 AST 18 U/L (0-32) 06/19/22 19:30 ALT 20 U/L (0-33) 06/19/22 19:30 Alkaline Phosphatase 74 U/L (35-105) 06/19/22 19:30 Total Protein 8.1 g/dL (6.6-8.7) 06/19/22 19:30 Albumin 4.8 g/dL (3.5-5.2) 06/19/22 19: Globulin 3.3 g/dL (1.3-4.6) 06/19/22 19:30 TSH 0.24 uIU/mL (0.27-4.20) L 06/19/22 19:30 Free T4 1.65 ng/dL (0.82-1.77) 06/19/22 19:30 Urine Color Yellow (Yellow) 06/19/22 18:50 Urine Appearance Hazy (CLEAR) A 06/19/22 18:50 Urine pH 5 (5-7) 06/19/22 18:50 Ur Specific [place] 1.030 (1.005-1.030) 06/19/22 18:50 Urine Protein Neg (Negative) 06/19/22 18:50 Urine Glucose (UA) Norm (Normal) 06/19/22 18:50 Urine Ketones 1+ (Negative) H 06/19/22 18:50 Urine Blood Neg (Negative) 06/19/22 18:50 Urine Nitrate Negative (Negative) 06/19/22 18:50 Urine Bilirubin Neg (Negative) 06/19/22 18:50 Urine Urobilinogen Neg mg/dL (Negative) 06/19/22 18:50 Ur Leukocyte Esterase Negative (Negative) 06/19/22 18:50 SARS-CoV-2 Ag (Rapid) negative (Negative) 06/19/22 22:54 Discharge Plan Discharge Patient Disposition: Home Clinical Impression: Dehydration, Malaise and fatigue Condition: Stable Prescriptions: No Action Diclegis 10-10 mg tablet,delayed release (DR/EC) 1 tab PO BID Qty: 90 0RF Rx Instructions: 2 p.o. at hs, if not improving increase to 2 at HS and 1 tab AM, if still not improving after 2 days increase to 2 p.o. twice daily promethazine 25 mg tablet 25 mg PO Q6H PRN (Reason: nausea and vomiting) Qty: 20 0RF Discharge Orders: Discharge ED (Routine); Ordered 06/20/22 Ordered By: Andrei Griffin Referrals: Lars Isabel MD [Primary Care Provider] - Discharge Diet: Usual diet Discharge Activity: Increase activity as tolerated Patient Instructions: Nausea and Vomiting in (ED), Dehydration (ED) Activity Restrictions/Additional Instructions: Thank you for visiting the emergency department. You were seen and evaluated for respiratory symptoms and generalized illness. The exact cause your symptoms is unclear however does not appear to need hospitalization at this time. You likely do have mild dehydration. Please follow-up with your puffer tender. Please ensure that you are staying hydrated. Return to the emergency department for worsening symptoms or anything else that you are concerned about and feel needs emergency department evaluation. 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
[2022-06-19 23:03] LABS: D Dimer 0.59 ug/mIFEU (0-0.59)
--- NOTE | 2022-06-19 23:11 | XRR_ITS ---
PROCEDURE INFORMATION: Exam: XR Chest Exam date and time: 06/19/2022 11:14 PM Age: 26 years old Clinical indication: Prior surgery; Surgery type: Gb; Patient HX: C/O cough with palpitations. Currently TECHNIQUE: Imaging protocol: Radiologic exam of the chest. Views: 1 view. COMPARISON: CR XR chest 1V portable [id number] 06/08/2021 6:32 PM FINDINGS: Lungs: Unremarkable. No consolidation. Pleural spaces: Unremarkable. No pleural effusion. No pneumothorax. Heart/Mediastinum: Unremarkable. No cardiomegaly. Bones/joints: Unremarkable for age. XR/XR chest 1V portable [id number] IMPRESSION: Negative chest exam.
[2022-06-19 23:18] LABS: Magnesium 1.9 mg/dL (1.7-2.3); Thyroid Stimulating Hormone 0.24 uIU/mL (0.27-4.20)
[2022-06-19 23:19] LABS: SARS Covid-2 Antigen negative (Negative)
--- NOTE | 2022-06-19 23:45 | PC.NURSE ---
Patient still having n/v. She has changed her mind on the Zofran and is now requesting it. Provider notified and verbal order given by Dr Griffin to reorder zofran 4mg ivp.
[2022-06-19] MEDS: ondansetron 2 mg/ML SDV 2 mL 4 MG IVP (23:46)
[2022-06-19 23:56] LABS: Free T4 Free Thyroxine 1.65 ng/dL (0.82-1.77)
[2022-06-20 00:05] VITALS: BP 103/71; BP 115/78; BP 120/84; PULSE 82; PULSE 85; PULSE 91
[2022-06-20 01:04] VITALS: BP 109/78; PULSE 91; RESP 16; O2SAT 95
== END 2022-06-20 01:06 | disposition home or self-care (01) ==
PROVIDERS: Emergency Medicine; Emergency Provider Emergency Medicine; PCP Family Medicine
DX: O26.891 Other specified pregnancy related conditions, first trimester (principal); O26.811 Pregnancy related exhaustion and fatigue, first trimester; E86.0 Dehydration
CPT/HCPCS: 36415; 71045; 80053; 81003; 83735; 84439; 84443; 85025; 85378; 87426; 93005; 96361; 96374; 99285; J2405; J7030; J7120

== ENCOUNTER 2022-08-23 07:08 | Emergency (ER) | payer MEDICAID, SELFPAY ==
--- NOTE | 2022-08-23 07:15 | W.ED.GENADLT ---
HPI - General Adult General: Chief complaint: Dizziness Stated complaint: 18 weeks, tingling in arms and hand, face numbness Time Seen by Provider: 08/23/22 07:12 History of Present Illness: Ms. Mcginnis is a 26-year-old lady currently presenting to the emergency department for onset of abnormal feeling. She is currently 18 weeks reports recently being at her baseline health. She was at work overnight when she had onset of a lightheaded tingly type feeling. Overall intensity symptoms was moderate to severe. Does have a history of syncope. Currently feels mostly back to baseline. No other specific changes in health, exacerbating, or alleviating factors identified. Onset (ago): minute(s) Severity: moderate Associated symptoms: Reports malaise, weakness and other; Deny chest pain, dyspnea, fevers/chills or headache(s) Review of Systems General: Reports: 10 or more systems reviewed and unremarkable except in HPI and below Const: Reports: malaise Card: Denies: chest pain Resp: Denies: dyspnea Neuro: Denies: headache(s) PFS ED PFSH: Medical History Abdominal pain Chronic cholecystitis Surgical History History of cholecystectomy Family History Other Cancer Diabetes Hypertension Stroke Denies family history of CAD (coronary artery disease) Social History Smoking and tobacco status: never smoked Alcohol intake: never Substance/Drug Use: current Physical Exam Const: COMMON NORMALS: patient oriented x3 and alert GENERAL APPEARANCE: cooperative and well developed HENMT: COMMON NORMALS: normocephalic and atraumatic HEAD & SCALP: normocephalic and atraumatic THROAT: posterior oropharynx normal Eye: COMMON NORMALS: conjunctivae normal CONJUNCTIVA: Yes conjunctivae normal SCLERA: sclerae normal Neck/C-Spine: COMMON NORMALS: supple GENERAL: Yes trachea midline Resp: COMMON NORMALS: normal respiratory effort EFFORT & INSPECTION: Yes able to speak in complete sentences Cardio: COMMON NORMALS: regular rate and regular rhythm RATE: regular rate RHYTHM: regular rhythm GI: COMMON NORMALS: Soft to palpation PALPATION: Yes Soft to palpation and No Tenderness to palpation present (GI) Extremity: GENERAL: Yes normal exam except as noted and No edema Neuro: COMMON NORMALS: patient oriented x3, CN's II-XII intact bilaterally, moves all extremities and no focal motor deficits SENSORIUM/ORIENTATION: Yes alert and No Orientation impaired OTHER: Subjective mildly abnormal compared to contralateral sensation in the ulnar nerve distribution of the right forearm and about the ankle more vague than divide but probably L4-S1 nerve distribution. No appreciable weakness. Psych: COMMON NORMALS: mental status grossly normal and Normal thought process present THOUGHT PROCESS: Normal thought process present Course Vital Signs: Vital signs: Vital Signs Temperature 98.3 F 08/23/22 07:21 Pulse Rate 77 08/23/22 10:19 Respiratory Rate 16 08/23/22 10:19 Blood Pressure 117/78 08/23/22 10:19 Pulse Oximetry 100 08/23/22 10:19 Oxygen Delivery Me thod Room Air 08/23/22 07:21 MDM - General Adult Medical Decision Making 26-year-old lady presenting with abnormal feeling. She is currently . Exam as above with subjective peripheral nerve distribution changes. No central abnormalities identified. EKG notable for sinus rhythm, normal axis and intervals, no STEMI. Labs with no leukocytosis, likely physiologic anemia. No significant metabolic derangement to explain symptoms. No urinary symptoms. No evidence of venous sinus thrombosis on clinical exam. Patient somewhat improved with IV fluids. Exact etiology of symptoms is unclear however does not appear to need hospitalization or further ED evaluation at this time. The results of ED evaluation were discussed with the patient including prescriptions and/or symptomatic cares (if applicable) including appropriate and responsible use, followup plan, and return precautions. The patient verbalized understanding and felt safe for discharge. Medical Records I reviewed the patient's medical records. Lab Data I reviewed the patient's lab results. 08/23/22 07:40 08/23/22 07:40 Laboratory Results WBC 8.0 10^3/uL (4.0-10.0) 08/23/22 07:40 RBC 3.57 10^6/uL (4.1-5.3) L 08/23/22 07:40 Hgb 11.0 g/dL (11.5-15.3) L 08/23/22 07:40 Hct 33.2 % (37.0-47.0) L 08/23/22 07:40 MCV 93.0 fl (81-99) 08/23/22 07:40 MCH 30.8 pg (28.0-34.0) 08/23/22 07:40 MCHC 33.1 g/dL (30.0-36.0) 08/23/22 07:40 RDW 13.1 % (12.1-15.1) 08/23/22 07:40 Plt Count 191 10^3/cmm (130-400) 08/23/22 07:40 MPV 10.6 fL (7.4-10.4) H 08/23/22 07:40 Neut % (Auto) 69.1 % 08/23/22 07:40 Lymph % (Auto) 17.8 % 08/23/22 07:40 [place] % (Auto) 11.2 % 08/23/22 07:40 Eos % (Auto) 1.0 % 08/23/22 07:40 Baso % (Auto) 0.4 % 08/23/22 07:40 Neut # (Auto) 5.52 10^3/uL (1.8-7.7) 08/23/22 07:40 Lymph # (Auto) 1.4 10^3/uL (0.8-4.8) 08/23/22 07:40 [place] # (Auto) 0.9 10^3/uL (0.2-0.9) 08/23/22 07:40 Eos # (Auto) 0.1 10^3/uL (0.0-0.8) 08/23/22 07:40 Baso # (Auto) 0.0 10^3/uL (0.0-0.1) 08/23/22 07:40 Nucleated RBC % (auto) 0 % 08/23/22 07:40 Nucleated RBCs # 0.0 /100WBC 08/23/22 07:40 Sodium 138 mmol/L (136-145) 08/23/22 07:40 Potassium 3.6 mmol/L (3.5-5.1) 08/23/22 07:40 Chloride 101 mmol/L (98-107) 08/23/22 07:40 Carbon Dioxide 26 mmol/L (22-29) 08/23/22 07:40 Anion Gap 14.6 (5-19) 08/23/22 07:40 BUN 10 mg/dL (6-20) 08/23/22 07:40 Creatinine 0.6 mg/dL (0.5-0.9) 08/23/22 07:40 GFR Calculation 120.8 mL/min (90-130) 08/23/22 07:40 Glucose 82 mg/dL (65-115) 08/23/22 07:40 Calculated Osmolality 284 mOsm/kg (285-295) L 08/23/22 07:40 Calcium 9.3 mg/dL (8.5-10.5) 08/23/22 07:40 Magnesium 1.9 mg/dL (1.7-2.3) 08/23/22 07:40 Discharge Plan Discharge Patient Disposition: Home Clinical Impression: Pre-syncope, Paresthesia Condition: Stable Prescriptions: No Action Diclegis 10-10 mg tablet,delayed release (DR/EC) 1 tab PO BID Qty: 90 0RF Rx Instructions: 2 p.o. at hs, if not improving increase to 2 at HS and 1 tab AM, if still not improving after 2 days increase to 2 p.o. twice daily promethazine 25 mg tablet 25 mg PO Q6H PRN (Reason: nausea and vomiting) Qty: 20 0RF Discharge Orders: Discharge ED (Routine); Ordered 08/23/22 Ordered By: Andrei Griffin Referrals: Lars Isabel MD [Primary Care Provider] - Discharge Diet: Usual diet Discharge Activity: Resume usual activity Patient Instructions: Paresthesia (ED), Near Syncope (ED) Activity Restrictions/Additional Instructions: Thank you for visiting the emergency department. You were seen evaluated for a presyncopal type abnormal feeling. The exact cause of your symptoms is unclear though does not appear to need hospitalization or further ED evaluation at this time. Please follow-up with your rubber goods inspector and primary care provider. Ensure that you are resting and staying hydrated. Return to the emergency department for anything that you are concerned about, any new neurologic symptoms, syncope, chest pain, shortness of breath, or anything else that you are concerned about and feel needs emergency department evaluation. Coding Level of Care Code ED Supplier Quality Engineering Manager for Julito Pérez
[2022-08-23 07:21] VITALS: BP 118/76; PULSE 75; RESP 14; TEMP 36.8; O2SAT 100; BMI 23.5
[2022-08-23 07:30] VITALS: BP 130/84; PULSE 82; RESP 16; O2SAT 100
[2022-08-23] MEDS: lactated ringers 1,000 ML 999 ML IV (07:58)
[2022-08-23 08:01] LABS: Basophils % 0.4 %; Eosinophils # 0.1 10^3/uL (0.0-0.8); Hematocrit 33.2 % (37.0-47.0); Lymphocytes # 1.4 10^3/uL (0.8-4.8); Lymphocytes % 17.8 %; Mean Corpuscular HGB Conc 33.1 g/dL (30.0-36.0); Mean Corpuscular Hemoglobin 30.8 pg (28.0-34.0); Mean Platelet Volume 10.6 fL (7.4-10.4); Monocytes # 0.9 10^3/uL (0.2-0.9); Monocytes % 11.2 %; Neutrophils # 5.52 10^3/uL (1.8-7.7); Neutrophils % 69.1 %; Nucleated Red Blood Cells % 0 %; Platelet Count 191 10^3/cmm (130-400); Red Blood Count 3.57 10^6/uL (4.1-5.3); Red Cell Distribution Width 13.1 % (12.1-15.1)
[2022-08-23 08:19] LABS: Anion Gap 14.6 (5-19); Blood Urea Nitrogen 10 mg/dL (6-20); Calcium 9.3 mg/dL (8.5-10.5); Carbon Dioxide 26 mmol/L (22-29); Chloride 101 mmol/L (98-107); Glomerular Filtration Rate 120.8 mL/min (90-130); Glucose 82 mg/dL (65-115); Magnesium 1.9 mg/dL (1.7-2.3); Osmolality Calculated 284 mOsm/kg (285-295); Potassium 3.6 mmol/L (3.5-5.1); Sodium 138 mmol/L (136-145)
[2022-08-23 08:30] VITALS: BP 102/75; PULSE 84; RESP 16; O2SAT 100
--- NOTE | 2022-08-23 08:38 | ECG_ITS ---
[facility] Test Date: 2022-08-23 Pat Name: Tisha Mcginnis Department: Room: Gender: Female Civil Engineer Land Development: : 1995 Requested By: Andrei Griffin Order Number: [id number] Link MD: Bright Wallis M.D. Measurements Intervals [place] Rate: 68 P: 61 SD: 174 QRS: 36 QRSD: 88 T: 45 QT: 395 QTc: 422 Interpretive Statements SINUS RHYTHM POSSIBLE RIGHT VENTRICULAR CONDUCTION DELAY [RSR (QR) IN V1/V2] Compared to ECG 06/19/2022 20:59:31 Ectopic atrial rhythm no longer present Atrial abnormality no longer present T-wave abnormality no longer present Electronically Signed On 08-25-2022 8:02:02 CDT by Bright Wallis M.D. [email or web address]
[2022-08-23 09:26] VITALS: BP 93/55; PULSE 72; RESP 18; O2SAT 100
[2022-08-23 10:06] VITALS: BP 109/79; BP 117/78; BP 97/91; PULSE 80; PULSE 81; PULSE 92
[2022-08-23 10:19] VITALS: BP 117/78; PULSE 77; RESP 16; O2SAT 100
== END 2022-08-23 10:20 | disposition home or self-care (01) ==
PROVIDERS: Emergency Provider Emergency Medicine; PCP Family Medicine
DX: O26.892 Other specified pregnancy related conditions, second trimester (principal); R55 Syncope and collapse; R20.2 Paresthesia of skin; Z3A.18 18 weeks gestation of pregnancy
CPT/HCPCS: 80048; 83735; 85025; 93005; 96360; 96361; 99284; J7120

== ENCOUNTER 2022-09-25 08:52 | Emergency (ER) | payer MEDICAID, SELFPAY ==
[2022-09-25 09:13] VITALS: BP 153/111; PULSE 123; RESP 25; O2SAT 99
--- NOTE | 2022-09-25 10:07 | PC.PHAR ---
pt states she is not taking any prescription or otc medications
[2022-09-25] MEDS: LORazepam 0.5 mg Tablet PO (10:31)
[2022-09-25] MEDS: acetaminophen 500 mg Tablet 1000 MG PO (10:31)
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
== END 2022-09-25 11:09 | disposition home or self-care (01) ==
PROVIDERS: Emergency Provider Family Medicine; PCP Family Medicine
DX: F41.9 Anxiety disorder, unspecified (principal)
CPT/HCPCS: 99283

== ENCOUNTER → 2022-10-06 13:44 | Outpatient (BNVA) | payer MEDICAID, SELFPAY | PROVIDERS: PCP Family Medicine; Visit Provider Obstetrics & Gynecology | DX: Z34.80 Encounter for supervision of other normal pregnancy, unspecified trimester (principal) | CPT/HCPCS: 80307; 81000; 87086 ==

== ENCOUNTER → 2022-10-30 10:36 | Outpatient (BNVA) | payer MEDICAID, SELFPAY | PROVIDERS: Visit Provider Internal Medicine Cardiovascular Disease | DX: R07.9 Chest pain, unspecified (principal) | CPT/HCPCS: 93005 ==

== ENCOUNTER → 2022-11-01 11:10 | Outpatient (CLI) | payer MEDICAID, SELFPAY ==
[2022-11-01 11:10] VITALS: BMI 24.5
[2022-11-01 11:29] VITALS: BP 117/68; PULSE 68; TEMP 36.3
[2022-11-01 12:13] LABS: Add Urine Microscopic? NO; Charge for UA Resulting for Rev
[2022-11-01 12:33] LABS: Bilirubin Urine Neg (Negative); Blood Urine Neg (Negative); Glucose Urine UA Norm (Normal); Ketones Urine Negative (Negative); Leukocyte Esterase Urine Negative (Negative); Nitrate Urine Negative (Negative); Protein Urine Neg (Negative); Sulfosalicylic Acid Urine Negative (Negative); Urine Appearance Clear (CLEAR); Urine Color Light yellow (Yellow); Urobilinogen Urine Norm (Negative); pH Urine 8 (5-7)
[2022-11-01 12:45] VITALS: BP 112/73; PULSE 75
== END | disposition home or self-care (01) ==
LOC: OPOB 11:14 → OBGYN 11:16
PROVIDERS: Visit Provider Obstetrics & Gynecology
DX: O26.899 Other specified pregnancy related conditions, unspecified trimester (principal); R10.31 Right lower quadrant pain; Z3A.00 Weeks of gestation of pregnancy not specified
CPT/HCPCS: 59025; 81003; 99211

== ENCOUNTER → 2022-11-03 14:48 | Outpatient (BNVA) | payer MEDICAID, SELFPAY | PROVIDERS: Visit Provider Obstetrics & Gynecology | DX: Z34.80 Encounter for supervision of other normal pregnancy, unspecified trimester (principal) | CPT/HCPCS: 81000; 82950; 84315; 85027; 86592; 86762; 86803; 86850; 86900; 87340; 87806 ==

== ENCOUNTER 2022-11-17 08:33 | Outpatient (CLI) | payer MEDICAID, SELFPAY ==
--- NOTE | 2022-11-17 08:45 | USCV_ITS ---
Ras Tisha Age: 26 Gender: F : 1995 Exam Date: 11/17/2022 08:59 Ordering Phys: Iglesia Taveras MD ([email or web address]) Technologist: [place] [facility] [place]: BP: 130 / 79 HR: 78 Rhythm: Sinus Technical Quality: Adequate MEASUREMENTS (Male / Female) Normal Values 2D ECHO LV Diastolic Diameter PLAX 4.3 cm 4.2 - 5.9 / 3.9 - 5.3 cm LV Systolic Diameter PLAX 2.6 cm LV Chamber Size 5.1 cm IVS Diastolic Thickness 1.2 cm 0.6 - 1.0 / 0.6 - 0.9 cm IVS Systolic Thickness 1.5 cm LVPW Diastolic Thickness 1.2 cm 0.6 - 1.0 / 0.6 - 0.9 cm LVPW Systolic Thickness 1.8 cm RV Chamber Size 3.8 cm LVOT Diameter 2.1 cm LV Ejection Fraction 2D Teich 70.0 % LV Ejection Fraction MOD 2C 57.3 % LV Ejection Fraction 2C AL 56.9 % LA Diameter 2.7 cm LA Width 3.4 cm LA Height 4.0 cm RA Width 3.5 cm RA Height 4.6 cm Aorta at Sinotubular Diameter 2.6 cm IVC Diameter 0.9 cm M-MODE Aortic Annulus Diameter 3.0 cm LA Ao Ratio MM 1.0 MV E Point Septal Separation 0.5 cm DOPPLER AV Peak Velocity 121.0 cm/s LVOT Peak Velocity 121.0 cm/s AV Area Cont Eq vti 3.6 cm squared AV Area Cont Eq pk 3.4 cm squared MV Area PHT 3.7 cm squared Mitral E to A Ratio 1.4 MV E' Velocity 59.0 cm/s Mitral E to MV E' Ratio 5.3 Mitral E to LV E' Lateral Ratio 4.7 Mitral E to LV E' Septal Ratio 6.1 TR Peak Velocity 192.2 cm/s TR Peak Gradient 14.8 mmHg TR Mean Velocity 124.1 cm/s TR Mean Gradient 7.0 mmHg TR Velocity Time Integral 34.1 cm TV Peak E Velocity 109.0 cm/s Right Atrial Pressure 3.0 mmHg Pulmonary Artery Systolic Pressu 17.8 mmHg PV Peak Velocity 109.0 cm/s FINDINGS Left Ventricle Normal left ventricular size and systolic function, EF 59 %. No regional wall motion abnormalities. Right Ventricle The right ventricle is normal in size and function. Right Atrium The right atrium is normal in size. Left Atrium The left atrium is normal in size. Mitral Valve No gross abnormalities noted Aortic Valve Appears to be tricuspid with no morphologic abnormalities. Tricuspid Valve Mild tricuspid valve regurgitation. Estimated pulmonary artery peak systolic pressure 21 mmHg Pulmonic Valve Trace pulmonary valve regurgitation. Pericardium Normal pericardium without effusion. Aorta Normal ascending aorta dimension. IVC The inferior vena cava appears normal. CONCLUSIONS Normal left ventricular size and systolic function, EF 59 %. No regional wall motion abnormalities. Normal cardiac chamber sizes. Mild tricuspid with a trace of pulmonic regurgitation. Estimated pulmonary artery peak systolic pressure 21 mmHg There is no pericardial effusion. There are no intracardiac masses. No intracardiac shunts based on the color-flow Doppler examination No similar previous studies are available for comparison Dr Iglesia Taveras MD FAC (Electronically Signed) Final Date: 18 November 2022 10:06 S
== END 2022-11-17 08:34 | disposition home or self-care (01) ==
PROVIDERS: PCP Obstetrics & Gynecology; Visit Provider Internal Medicine Cardiovascular Disease
DX: O99.419 Diseases of the circulatory system complicating pregnancy, unspecified trimester (principal); R94.31 Abnormal electrocardiogram [ECG] [EKG]; R06.09 Other forms of dyspnea; Z3A.00 Weeks of gestation of pregnancy not specified
CPT/HCPCS: 81000; 93306

== ENCOUNTER → 2022-11-18 08:13 | Outpatient (BNVA) | payer MEDICAID, SELFPAY | PROVIDERS: PCP Obstetrics & Gynecology; Visit Provider Obstetrics & Gynecology | DX: Z34.80 Encounter for supervision of other normal pregnancy, unspecified trimester (principal) | CPT/HCPCS: 82951; 82952 ==

== ENCOUNTER → 2022-11-26 13:30 | Outpatient (BNVA) | payer MEDICAID, SELFPAY | PROVIDERS: PCP Obstetrics & Gynecology; Visit Provider Obstetrics & Gynecology | DX: Z34.90 Encounter for supervision of normal pregnancy, unspecified, unspecified trimester (principal) | CPT/HCPCS: 76816 ==

== ENCOUNTER → 2022-12-01 14:20 | Outpatient (BNVA) | payer MEDICAID, SELFPAY | PROVIDERS: PCP Family Medicine; Visit Provider Obstetrics & Gynecology | DX: Z34.90 Encounter for supervision of normal pregnancy, unspecified, unspecified trimester (principal) | CPT/HCPCS: 81000 ==

== ENCOUNTER → 2022-12-15 14:00 | Outpatient (BNVA) | payer MEDICAID, SELFPAY | PROVIDERS: PCP Family Medicine; Visit Provider Obstetrics & Gynecology | DX: Z34.90 Encounter for supervision of normal pregnancy, unspecified, unspecified trimester (principal); R30.0 Dysuria | CPT/HCPCS: 81000; 87086 ==

== ENCOUNTER → 2022-12-29 14:00 | Outpatient (BNVA) | payer MEDICAID, SELFPAY | PROVIDERS: PCP Family Medicine; Visit Provider Nurse Practitioner Women's Health | DX: Z34.80 Encounter for supervision of other normal pregnancy, unspecified trimester (principal) | CPT/HCPCS: 81000; 87081; 87491; 87591 ==

== ENCOUNTER 2023-01-06 04:25 | Inpatient (IN) | payer MEDICAID, SELFPAY ==
[2023-01-06] VITALS (92 sets, daily range): BP systolic 103–170; BP diastolic 60–99; PULSE 66–101; RESP 16–17; TEMP 36.6–37.3; O2SAT 97–100; BMI 28.3
--- NOTE | 2023-01-06 05:10 | PM.OBGYHP ---
Providers/Chief Complaint Admitting Physician: Hussein Levy MD Primary OBSTETRICS GYNECOLOGY PHYSICIAN: Hussein Levy MD Primary Care Provider: Lars Isabel MD Chief Complaint: Abdominal pain HPI OBSTETRICS GYNECOLOGY PHYSICIAN History of Present Illness 26 y.o. LMP April 18, 2022 EDC January 23, 2023 At 37 w 4 d No complications Presented to L&D c/o painful UCs No bleeding, fluid leakage + active movements POBHx: x two Required blood transfusions first delivery 7 y.o. male 4 y.o. female Present Details : 3 Para: 2 Labs Rubella: Immune GBS: Negative Medications/Allergies Home Medications Medication Instructions Recorded Confirmed Last Taken Type prenat.vits,maci,phs-msgt-volli 1 tab PO DAILY 10/06/22 12/29/22 Unknown History Allergies Allergy/AdvReac Type Severity Reaction Status Date / Time No Known Allergies Allergy Verified 12/29/22 14:12 PFSH OBSTETRICS GYNECOLOGY PHYSICIAN PFSH: Medical History Abdominal pain Chronic cholecystitis Surgical History History of cholecystectomy Family History Other Cancer Diabetes Hypertension Stroke Denies family history of Colon cancer Ovarian cancer CAD (coronary artery disease) Heart disease Hyperlipidemia Breast cancer Uterine cancer Thyroid disease Social History Smoking and tobacco/nicotine status: never used tobacco/nicotine Alcohol intake: never Substance/Drug Use: current History History History 3 Term 2 0 Miscarriages/Ectopic 0 Living Children 2 Care 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 VS normal In moderate discomfort Awake, alert Lungs: clear Cor: RRR FH 35 cm FHTs normal Cervix: 3 cm / -2 / cephalic Ext: no edema External monitor: regular [facility] heart tracing: good variability, + accelerations Urinary Catheter Management: Rose: Cath Placed During This Visit: yes, but has since been removed by the nurse Reason for Continuing Indwelling Catheter: Decision to DC Catheter Urinary Catheter Date of Insertion: 01/06/23 Urinary Catheter Time of Insertion: 07:40 Date Urinary Catheter Removed: 01/06/23 Time Urinary Catheter Discontinued: 16:55 Data 01/06/23 05:06 Results Labs OB ([facility]): Obstetrics US 11/26/22 Blood Type O Positive 01/06/23 Antibody Screen Negative 01/06/23 Hct 34.8 % (36-47) L 01/06/23 Hgb 11.40 g/dL (11.27-16.99) 01/06/23 Rho(D) Type Positive 01/06/23 Plt Count 204 10^3/cmm (157-399) 01/06/23 Hep Bs Antigen Non-reactive (Nonreactive) 11/03/22 Hepatitis C Antibody Non-reactive (Nonreactive) 11/03/22 Rubella IgG Antibody 436.3 IU/mL (0.0-10.0) H 11/03/22 RPR Nonreactive (Nonreactive) 11/03/22 HIV 1&2 Ab & HIV 1 Ag Non-reactive (Non-Reactiv) 11/03/22 TSH 0.24 uIU/mL (0.27-4.20) L 06/19/22 Free T4 1.65 ng/dL (0.82-1.77) 06/19/22 C.trachomatis RNA (TMA) Not detected (NOT DETECTED) 12/29/22 N.gonorrhoeae RNA (TMA) Not detected (NOT DETECTED) 12/29/22 Chlamydia/GC Comment See note 12/29/22 Gest Glucose Tolerance mg/dL 11/18/22 Ser , Semi-Qnt 302.80 mIU/mL 05/20/22 HCG, Qual Positive (Negative) H 05/20/22 Urine Opiates Screen Negative ng/mL (Negative) 01/06/23 Ur Barbiturates Screen Negative ng/mL (Negative) 01/06/23 Ur Phencyclidine Scrn Negative ng/mL (Negative) 01/06/23 Ur Amphetamines Screen Negative ng/mL (Negative) 01/06/23 U Benzodiazepines Scrn Negative ng/mL (Negative) 01/06/23 Urine Cocaine Screen Negative ng/mL (Negative) 01/06/23 U Marijuana (THC) Screen Positive ng/mL (Negative) H 01/06/23 Micro Urine Specimen 12/15/22 A&P Assessment and plan (1) Supervision of other normal : 37 w 4 d (2) Active labor: Fetus reassuring Plan admit Plan expectant management Attestations Medical Necessity Statement*: patient at 37 w 4 d, in active labor Coding Level of Care Code Acute Code for Chg Fwd Diagnoses Supervision of other normal Z34.80 Active labor Time Spent (min) 30
[2023-01-06 05:16] LABS: Basophils % 0.3 %; Eosinophils % 0.3 %; Hematocrit 34.8 % (36-47); Lymphocytes # 1.4 10^3/uL (0.8-4.8); Lymphocytes % 14.7 %; Mean Corpuscular HGB Conc 32.8 g/dL (30-55); Mean Corpuscular Hemoglobin 30.6 pg (27-33); Mean Corpuscular Volume 93.5 fl (85-98); Monocytes # 0.8 10^3/uL (0.2-0.9); Monocytes % 8.8 %; Neutrophils # 6.96 10^3/uL (1.8-7.7); Neutrophils % 75.4 %; Nucleated Red Blood Cells % 0 %; Platelet Count 204 10^3/cmm (157-399); Red Blood Count 3.72 10^6/uL (3.85-5.65); Red Cell Distribution Width 12.9 % (12.1-15.1); White Blood Count 9.24 10^3/uL (3.29-11.43)
[2023-01-06] MEDS: lactated ringers 1,000 ML 999 ML IV ×2 (05:22→07:23)
[2023-01-06] MEDS: ROPivacaine syringe 100 MG/50 ML SYRINGE 10 MG EPIDURAL ×3 (06:54→16:11)
--- NOTE | 2023-01-06 06:56 | P.ANESASSM_ITS ---
Pre-Anesthetic Assessment Height/Weight: Height 1.7 m Weight 82.1 kg Temp Pulse Resp BP Pulse Ox O2 Del Method 97.9 F 71 17 146/92 99 Room Air 01/06/23 05:46 01/06/23 06:49 01/06/23 04:25 01/06/23 06:49 01/06/23 06:47 01/06/23 04:27 Preop Diagnosis: IUP Labor Epidural Familial anesthetic complications: None Social No alcohol and No tobacco Marijuana use daily Exam alert, oriented x 3 and clear to auscultation bilaterally Airway Submandibular: within normal limits Cervical ROM: within normal limits Mallampati: Class II Dentition: full History/ROS No significant history except as noted Pulmonary None reported CV/HEM None reported (syncopal episodes per patient anxiety induced per patient sees Dr. Taveras normal ECHO ) heart monitor revealed sinus tachycardia patient reports passing out twice - followed by Dr. Taveras. Cardiomegaly noted no other concerns. None reported Hepatic None reported GI Gastroesophageal Reflux Disease Metabolic None reported Musc/skel None reported Neuropsych Anxiety Anesthetic Plan ASA status: 2 Anesthesia: Regional (specify below) Other: Labor Epidural Medications/Allergies Home Medications Medication Instructions Recorded Confirmed Last Taken Type prenat.vits,maci,ous-wvmv-pyozq 1 tab PO DAILY 10/06/22 12/29/22 Unknown History Allergies Allergy/AdvReac Type Severity Reaction Status Date / Time No Known Allergies Allergy Verified 12/29/22 14:12 Current Medications Generic Name Dose Route Start Last Admin Trade Name Freq PRN Reason Stop Dose Admin Lactated Ringer's 1,000 mls @ 999 mls/hr 01/06/23 05:11 01/06/23 05:22 Lactated Ringers IV 999 mls/hr .Q1H1M PRN Administration See label comments PFSH Anesthesia Medical History Abdominal pain Chronic cholecystitis Surgical History History of cholecystectomy Family History Other Cancer Diabetes Hypertension Stroke Denies family history of Colon cancer Ovarian cancer CAD (coronary artery disease) Heart disease Hyperlipidemia Breast cancer Uterine cancer Thyroid disease Social History Smoking and tobacco/nicotine status: never used tobacco/nicotine Alcohol intake: never Substance/Drug Use: current Female Reproductive History : 3 Data Anesthesia 01/06/23 05:06 Short CBC 01/06/23 Range/Units 05:06 WBC 9.24 (3.29-11.43) 10^3/uL Hgb 11.40 (11.27-16.99) g/dL Hct 34.8 L (36-47) % MCV 93.5 (85-98) fl Plt Count 204 (157-399) 10^3/cmm Neut % (Auto) 75.4 % Neut # (Auto) 6.96 (1.8-7.7) 10^3/uL Blood Bank 01/06/23 05:06 Blood Type O Positive Rho(D) Type Positive Antibody Screen Negative Cardiac Studies: Echocardiogram 11/17/22 Cardiac Event Monitor 10/31/22 Anesthesia Procedures Epidural Time Out Performed: Yes Consent: from patient, risks and benefits reviewed and patient agrees to proceed Lumbar Level: L3-L4 Epidural position: sitting Epidural procedure: sterile prep of area, 1% lidocaine to numb the area, negative for paresthesia passed, test dose given, 1.5% xylocaine 1:200k epi, placed PCEA, no systemic response, sterile dressing applied, L.U.D. no apparent complications and 0.2% Ropiavacaine @ mls/hr (10) Additional Comments: FRANCINE at 5.5 cm on second attempt- catheter threaded to 12cm.
[2023-01-06 07:09] LABS: Amphetamines Screen Urine Negative (Negative); Barbiturates Screen Urine Negative (Negative); Benzodiazepines Screen Urine Negative (Negative); Cocaine Screen Urine Negative (Negative); Opiate Screen Urine Negative (Negative); PCP Screen Urine Negative (Negative); THC Screen Urine Positive (Negative)
[2023-01-06] MEDS: dextrose 5%-lactated ringers 1,000 ML 125 ML IV ×2 (08:02→15:43)
[2023-01-06] MEDS: ondansetron 2 mg/ML SDV 2 mL 4 MG IVP ×2 (08:05→20:15)
--- NOTE | 2023-01-06 11:30 | PM.OBGYPN ---
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: Interval history: January 06, 2023, 1130 Fetus reassuring Cx: 6 cm / -3 UCs 1 q 10-15 minutes Plan start Pitocin augmentation Labor: Station: +1 Amniotic Membrane Status: Bulging Monitor Mode: External Contraction Pattern: Regular Vitals/I&O/Wt Last Vital Signs Temp 98.6 F 01/06/23 11:36 Pulse 78 01/06/23 20:14 Resp 17 01/06/23 04:25 BP 143/95 01/06/23 20:14 Pulse Ox 99 01/06/23 06:47 O2 Del Method Room Air 01/06/23 06:55 01/06/23 01/06/23 01/06/23 06:59 14:59 22:59 Intake Total 1000 / 1000 64.817 / 64.817 2041.017 / 2105.834 Output Total 1500 / 1500 Balance 1000 / 1000 64.817 / 64.817 541.017 / 605.834 Weight last 48 hrs Weight 181 lb Physical Exam Urinary Catheter Management: Rose: Cath Placed During This Visit: yes, but has since been removed by the nurse Reason for Continuing Indwelling Catheter: Decision to DC Catheter Urinary Catheter Date of Insertion: 01/06/23 Urinary Catheter Time of Insertion: 07:40 Date Urinary Catheter Removed: 01/06/23 Time Urinary Catheter Discontinued: 16:55 Data 01/06/23 05:06 A&P Assessment and plan (1) Supervision of other normal : 37 w 2 d fetus reassuring (2) Active labor: Cervix at 6 cm plan start pitocin augmentation Attestations Medical Necessity Statement*: patient at 37 w 2 d, presented with active labor Coding Level of Care Code Acute Code for Chg Fwd Diagnoses Supervision of other normal Z34.80 Active labor Time Spent (min) 20
[2023-01-06] MEDS: oxytocin 30 UNIT/500 ML BAG IV (11:56)
--- NOTE | 2023-01-06 16:15 | PM.OBGYPN ---
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 Subjective: Interval history: January 06, 2023, 1615 Fetus reassuring Cx: 9 cm / 100 / -2 / BBOW AROM, clear fluid Labor: Station: +1 Amniotic Membrane Status: Bulging Monitor Mode: External Contraction Pattern: Regular Vitals/I&O/Wt Last Vital Signs Temp 98.6 F 01/06/23 11:36 Pulse 78 01/06/23 20:14 Resp 17 01/06/23 04:25 BP 143/95 01/06/23 20:14 Pulse Ox 99 01/06/23 06:47 O2 Del Method Room Air 01/06/23 06:55 01/06/23 01/06/23 01/06/23 06:59 14:59 22:59 Intake Total 1000 / 1000 64.817 / 64.817 2041.017 / 2105.834 Output Total 1500 / 1500 Balance 1000 / 1000 64.817 / 64.817 541.017 / 605.834 Weight last 48 hrs Weight 181 lb Physical Exam Urinary Catheter Management: Rose: Cath Placed During This Visit: yes, but has since been removed by the nurse Reason for Continuing Indwelling Catheter: Decision to DC Catheter Urinary Catheter Date of Insertion: 01/06/23 Urinary Catheter Time of Insertion: 07:40 Date Urinary Catheter Removed: 01/06/23 Time Urinary Catheter Discontinued: 16:55 Data 01/06/23 05:06 A&P Assessment and plan (1) Supervision of other normal : 37 w 2 d (2) Active labor: Cervix at 9 cm Attestations Medical Necessity Statement*: patient at 37 w 2 d; admitted with active labor Coding Level of Care Code Acute Code for Chg Fwd Diagnoses Supervision of other normal Z34.80 Active labor Time Spent (min) 20
--- NOTE | 2023-01-06 17:20 | PM.OBGYPN ---
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 Subjective Subjective: Interval history: January 06, 2023, 1720 DELIVERY NOTE , vigorous male Normal placenta and cord Cord gases and blood obtained No episiotomy or lacerations EBL: 300 cc Labor: Station: +1 Amniotic Membrane Status: Bulging Monitor Mode: External Contraction Pattern: Regular Vitals/I&O/Wt Last Vital Signs Temp 98.6 F 01/06/23 11:36 Pulse 78 01/06/23 20:14 Resp 17 01/06/23 04:25 BP 143/95 01/06/23 20:14 Pulse Ox 99 01/06/23 06:47 O2 Del Method Room Air 01/06/23 06:55 01/06/23 01/06/23 01/06/23 06:59 14:59 22:59 Intake Total 1000 / 1000 64.817 / 64.817 2041.017 / 2105.834 Output Total 1500 / 1500 Balance 1000 / 1000 64.817 / 64.817 541.017 / 605.834 Weight last 48 hrs Weight 181 lb Physical Exam Urinary Catheter Management: Rose: Cath Placed During This Visit: yes, but has since been removed by the nurse Reason for Continuing Indwelling Catheter: Decision to DC Catheter Urinary Catheter Date of Insertion: 01/06/23 Urinary Catheter Time of Insertion: 07:40 Date Urinary Catheter Removed: 01/06/23 Time Urinary Catheter Discontinued: 16:55 Data 01/06/23 05:06 A&P Assessment and plan (1) Vaginal delivery: s/p Attestations Medical Necessity Statement*: patient at 37 w 2 d; active labor; vaginal delivery Coding Level of Care Code Acute Code for Chg Fwd Diagnoses Vaginal delivery O80 Time Spent (min) 90
[2023-01-06] MEDS: acetaminophen 325 mg Tablet 650 MG PO (19:34)
--- NOTE | 2023-01-06 20:34 | PM.DELIVERY ---
Delivery Note: Date of delivery: January 06, 2023 Pre-delivery diagnoses: 37 w 2 d active labor Post-delivery diagnoses: Vaginal delivery Procedure: Vaginal delivery Op report anesthesia: Epidural Delivering Physician: Hussein Levy MD Estimated blood loss (mL): 300 Pre-Delivery Course: patient progressed to complete without any difficulties Delivery: vaginal delivery Post-Delivery Status: stable History History History 3 Term 2 0 Miscarriages/Ectopic 0 Living Children 2 A&P Assessment and plan (1) Vaginal delivery: Coding Level of Care Code Acute Code for Chg Fwd Diagnoses Vaginal delivery O80 Time Spent (min) 90
[2023-01-06] MEDS: ibuprofen 800 mg tablet PO (21:34)
[2023-01-06] MEDS: benzocaine-menthol 78 gm Canister 1 SPRAY TOPICAL (21:53)
[2023-01-07] VITALS (7 sets, daily range): BP systolic 106–136; BP diastolic 61–88; PULSE 72–87; RESP 16–17; TEMP 36.6–37.1; O2SAT 97–98
[2023-01-07 05:46] LABS: Hematocrit 29.5 % (36-47); Mean Corpuscular HGB Conc 33.2 g/dL (30-55); Mean Corpuscular Hemoglobin 30.8 pg (27-33); Mean Corpuscular Volume 92.8 fl (85-98); Mean Platelet Volume 11.9 fL (7.4-10.4); Platelet Count 152 10^3/cmm (157-399); Red Blood Count 3.18 10^6/uL (3.85-5.65); Red Cell Distribution Width 12.8 % (12.1-15.1); White Blood Count 10.57 10^3/uL (3.29-11.43)
[2023-01-07] MEDS: acetaminophen 325 mg Tablet 650 MG PO (07:34)
--- NOTE | 2023-01-07 08:00 | ANE.PACU2 ---
Inpatient post-anesthesia follow up: Airway intact: Yes Vital signs: Temperature 97.9 F Pulse Rate 84 Respiratory Rate 17 Blood Pressure 130/72 Pulse Oximetry 98 Oxygen Delivery Me thod Room Air Oxygen Flow Rate Fraction of Inspir ed Oxygen Hydration adequate: Yes Nausea and vomiting: No Pain level: 1 Mental status: Baseline
[2023-01-07] MEDS: prenatal vitamin Capsule 1 CAP PO (09:34)
[2023-01-07] MEDS: docusate sodium 100 mg Capsule PO (09:34)
[2023-01-07] MEDS: ibuprofen 800 mg tablet PO ×2 (09:34→16:36)
--- NOTE | 2023-01-07 10:50 | PM.OBGYDC ---
Discharge Providers BELLOWS FILLER Date of Admission: 01/06/23 04:25 Date of Discharge: 01/07/23 Attending Provider at Admission: Hussein Levy MD Attending Provider at Discharge: Hussein Levy MD Consults: none Primary BELLOWS FILLER: Hussein Levy MD Primary Care Provider: Lasr Isabel MD Diagnoses at Discharge Discharge Diagnosis (1) Vaginal delivery: Details from hospital stay: patient admitted at 37 w 4 d with painful uterine contractions, active labor patient progressed to deliver vaginally without any complications Status: Acute Reason for Visit Reason for Visit: Abdominal pain Brief History: 27 y.o. at 37 w 4 d admitted with painful uterine contractions Hospital Course Hospital Course patient progressed to complete cervical dilatation delivered vaginally without episiotomy or lacerations had uneventful course discharged to home on first day Information Peripartum Data: Infant Delivery Method: Vaginal Laceration description: None Episiotomy description: None complications: none Physical Exam Const: COMMON NORMALS: no acute distress, average body habitus, patient oriented x3, no limitations, healthy appearing, alert and well nourished Resp: COMMON NORMALS: normal respiratory effort and clear to auscultation bilaterally AUSCULTATION: clear to auscultation bilaterally Cardio: COMMON NORMALS: regular rate and regular rhythm RATE: regular rate RHYTHM: regular rhythm GI: COMMON NORMALS: Normal to inspection, nondistended, normoactive bowel sounds present, Soft to palpation and non-tender PALPATION: Yes Soft to palpation Extremity: COMMON NORMALS: normal to inspection and no calf tenderness Neuro: COMMON NORMALS: patient oriented x3 SENSORIUM/ORIENTATION: Yes alert Urinary Catheter Management: Rose: Cath Placed During This Visit: yes, but has since been removed by the nurse Reason for Continuing Indwelling Catheter: Decision to DC Catheter Urinary Catheter Date of Insertion: 01/06/23 Urinary Catheter Time of Insertion: 07:40 Date Urinary Catheter Removed: 01/06/23 Time Urinary Catheter Discontinued: 16:55 History History History 3 Term 2 0 Miscarriages/Ectopic 0 Living Children 2 Discharge Data Studies Completed and Pending Laboratory Results WBC 10.57 10^3/uL (3.29-11.43) 01/07/23 05:28 RBC 3.18 10^6/uL (3.85-5.65) L 01/07/23 05:28 Hgb 9.80 g/dL (11.27-16.99) L 01/07/23 05:28 Hct 29.5 % (36-47) L 01/07/23 05:28 MCV 92.8 fl (85-98) 01/07/23 05:28 MCH 30.8 pg (27-33) 01/07/23 05:28 MCHC 33.2 g/dL (30-55) 01/07/23 05:28 RDW 12.8 % (12.1-15.1) 01/07/23 05:28 Plt Count 152 10^3/cmm (157-399) L 01/07/23 05:28 MPV 11.9 fL (7.4-10.4) H 01/07/23 05:28 Neut % (Auto) 75.4 % 01/06/23 05:06 Lymph % (Auto) 14.7 % 01/06/23 05:06 [place] % (Auto) 8.8 % 01/06/23 05:06 Eos % (Auto) 0.3 % 01/06/23 05:06 Baso % (Auto) 0.3 % 01/06/23 05:06 Neut # (Auto) 6.96 10^3/uL (1.8-7.7) 01/06/23 05:06 Lymph # (Auto) 1.4 10^3/uL (0.8-4.8) 01/06/23 05:06 [place] # (Auto) 0.8 10^3/uL (0.2-0.9) 01/06/23 05:06 Eos # (Auto) 0.0 10^3/uL (0.0-0.8) 01/06/23 05:06 Baso # (Auto) 0.0 10^3/uL (0.0-0.1) 01/06/23 05:06 Nucleated RBC % (auto) 0 % 01/06/23 05:06 Nucleated RBCs # 0.0 /100WBC 01/06/23 05:06 Urine Opiates Screen Negative ng/mL (Negative) 01/06/23 02:30 Ur Barbiturates Screen Negative ng/mL (Negative) 01/06/23 02:30 Ur Phencyclidine Scrn Negative ng/mL (Negative) 01/06/23 02:30 Ur Amphetamines Screen Negative ng/mL (Negative) 01/06/23 02:30 U Benzodiazepines Scrn Negative ng/mL (Negative) 01/06/23 02:30 Urine Cocaine Screen Negative ng/mL (Negative) 01/06/23 02:30 U Marijuana (THC) Screen Positive ng/mL (Negative) H 01/06/23 02:30 Blood Type O Positive 01/06/23 05:06 Rho(D) Type Positive 01/06/23 05:06 Antibody Screen Negative 01/06/23 05:06 Procedures Performed vaginal delivery Vitals Last Vital Signs Temp 97.9 F 01/07/23 18:15 Pulse 84 01/07/23 18:15 Resp 17 01/07/23 18:15 BP 130/72 01/07/23 18:15 Pulse Ox 98 01/07/23 09:17 O2 Del Method Room Air 01/07/23 09:17 Results Labs OB ([facility]): Obstetrics US 11/26/22 Blood Type O Positive 01/06/23 Antibody Screen Negative 01/06/23 Hct 29.5 % (36-47) L 01/07/23 Hgb 9.80 g/dL (11.27-16.99) L 01/07/23 Rho(D) Type Positive 01/06/23 Plt Count 152 10^3/cmm (157-399) L 01/07/23 Hep Bs Antigen Non-reactive (Nonreactive) 11/03/22 Hepatitis C Antibody Non-reactive (Nonreactive) 11/03/22 Rubella IgG Antibody 436.3 IU/mL (0.0-10.0) H 11/03/22 RPR Nonreactive (Nonreactive) 11/03/22 HIV 1&2 Ab & HIV 1 Ag Non-reactive (Non-Reactiv) 11/03/22 TSH 0.24 uIU/mL (0.27-4.20) L 06/19/22 Free T4 1.65 ng/dL (0.82-1.77) 06/19/22 C.trachomatis RNA (TMA) Not detected (NOT DETECTED) 12/29/22 N.gonorrhoeae RNA (TMA) Not detected (NOT DETECTED) 12/29/22 Chlamydia/GC Comment See note 12/29/22 Gest Glucose Tolerance mg/dL 11/18/22 Ser , Semi-Qnt 302.80 mIU/mL 05/20/22 HCG, Qual Positive (Negative) H 05/20/22 Urine Opiates Screen Negative ng/mL (Negative) 01/06/23 Ur Barbiturates Screen Negative ng/mL (Negative) 01/06/23 Ur Phencyclidine Scrn Negative ng/mL (Negative) 01/06/23 Ur Amphetamines Screen Negative ng/mL (Negative) 01/06/23 U Benzodiazepines Scrn Negative ng/mL (Negative) 01/06/23 Urine Cocaine Screen Negative ng/mL (Negative) 01/06/23 U Marijuana (THC) Screen Positive ng/mL (Negative) H 01/06/23 Micro Urine Specimen 12/15/22 Discharge Plan Discharge Patient Disposition: Home Condition: Stable Prescriptions: Continued prenat.vits,maci,flv-xkvm-otqow Tablet 1 tab PO DAILY Discharge Orders: Discharge Order (Routine); Ordered 01/07/23 Ordered By: Hussein Levy Referrals: Hussein Levy MD [Physician] - 02/17/23 1:30 pm Discharge Diet: Usual diet Discharge Activity: Increase activity as tolerated Patient Instructions: Preeclampsia and Eclampsia After Delivery (GEN), Hemorrhage (GEN), OB Discharge Report, OB Food/Drug Interaction Guide, OB Care at Home, Opioid Safety, OB Home Care, OB Vaginal Deliveries - [facility], Abnormal Bleeding, Depression Discharge Attestations BELLOWS FILLER Time Spent in Discharge Care*: less than 30 min Coding Level of Care Code Acute Code for Chg Fwd Diagnoses Vaginal delivery O80 Time Spent (min) 20
--- NOTE | 2023-01-07 11:50 | P.PN_ITS ---
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 clear Cor:? RRR Abd:? soft, nontender.? fundus firm Ext:? no edema;? nontender Urinary Catheter Management: Rose: Cath Placed During This Visit: yes, but has since been removed by the nurse Reason for Continuing Indwelling Catheter: Decision to DC Catheter Urinary Catheter Date of Insertion: 01/06/23 Urinary Catheter Time of Insertion: 07:40 Date Urinary Catheter Removed: 01/06/23 Time Urinary Catheter Discontinued: 16:55 Data 01/07/23 05:28 A&P Assessment and plan (1) Vaginal delivery: PPD #1? doing well ? discharge home today ? instructions and precautions given call/return if fever, chills, headache, blurry vision, nausea, vomiting, abdominal pain; vaginal bleeding or discharge; shortness of breath, chest pain, leg pains or swelling; inability to void, perineal pain or swelling; feelings of depression or mood changes; thoughts of suicide or harming others; inability to care for baby. f/u in 6 weeks or PRN Attestations Medical Necessity Statement*: patient s/p vaginal delivery, plan discharge home today Coding Level of Care Code Acute Code for Chg Fwd Diagnoses Vaginal delivery O80 Time Spent (min) 20
== END 2023-01-07 18:15 | disposition home or self-care (01) | DRG 807 ==
LOC: OPOB 08:08 → OBGYN 08:08
PROVIDERS: Admitting Provider Obstetrics & Gynecology; PCP Family Medicine; Visit Provider Obstetrics & Gynecology
DX: O80 Encounter for full-term uncomplicated delivery (principal); Z37.0 Single live birth; Z3A.37 37 weeks gestation of pregnancy
CPT/HCPCS: 36415; 51702; 59025; 59409; 80306; 85025; 85027; 86850; 86900; 96374; 96376; 99211; J2405; J2590; J2795; J7120; J7121

== ENCOUNTER 2023-03-30 01:31 | Emergency (ER) | payer MEDICAID, SELFPAY ==
[2023-03-30 01:31] VITALS: BP 127/84; PULSE 78; RESP 16; TEMP 36.8; O2SAT 98; BMI 23.5
--- NOTE | 2023-03-30 01:32 | XRR_ITS ---
PROCEDURE INFORMATION: Exam: XR Chest Exam date and time: 03/30/2023 1:35 AM Age: 27 years old Clinical indication: Other: Palpitations/weakness; Prior surgery; Surgery date: 6+ months; Surgery type: Gb; Patient HX: Palpitations with weakness. TECHNIQUE: Imaging protocol: Radiologic exam of the chest. Views: 1 view. COMPARISON: CR XR chest 1V portable [id number] 06/19/2022 11:14 PM FINDINGS: Lungs: Unremarkable. No consolidation. Pleural spaces: Unremarkable. No pleural effusion. No pneumothorax. Heart/Mediastinum: Unremarkable. No cardiomegaly. Bones/joints: Unremarkable. XR/XR chest 1V portable [id number] IMPRESSION: No acute findings.
--- NOTE | 2023-03-30 01:32 | ECG_ITS ---
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 Measurements Intervals [place] Rate: 77 P: 62 VT: 193 QRS: 21 QRSD: 103 T: 50 QT: 371 QTc: 422 Interpretive Statements SINUS RHYTHM POSSIBLE RIGHT VENTRICULAR CONDUCTION DELAY [RSR (QR) IN V1/V2] NONSPECIFIC T-WAVE ABNORMALITY Compared to ECG 10/30/2022 10:42:46 T-wave abnormality now present Sinus tachycardia no longer present Electronically Signed On 03-30-2023 9:53:37 BUSINESS SERVICES ANALYST by Vamsi Cowan M.D. [id number] f
--- NOTE | 2023-03-30 01:39 | ED_ITS ---
HPI - Weakness 2 General: Chief complaint: Weakness Stated complaint: WEAKNESS Time Seen by Provider: 03/30/23 01:31 Source: patient and EMS Mode of arrival: EMS Limitations: no limitations History of Present Illness: 27-year-old female states roughly an margot r ago she started having palpitations and felt lightheaded and felt like she was going to pass out. States she had a near syncopal event but did not fully pass out and called EMS. She denies any headache or chest pain states she feels back to her baseline currently. States she has had these events happen in the past. Associated symptoms: Denies chest pain, chills, fever(s), headache(s), nausea or vomiting Review of Systems 2 Const: Denies: fever(s), chills, body aches or change in appetite Eyes: Denies: blurry vision or eye discomfort ENMT: Denies: throat pain or dental pain Card: Reports: palpitations and pre-syncope; Denies: chest pain Resp: Denies: dyspnea GI: Denies: abdominal pain, nausea, vomiting or diarrhea Musc: Denies: neck pain or back pain Skin/Breast: Denies: rash Neuro: Denies: headache(s) PFSH ED 2 PFSH: Medical History Vaginal delivery Active labor Supervision of other normal Chronic cholecystitis Abdominal pain Surgical History History of cholecystectomy Family History Other Cancer Diabetes Hypertension Stroke Denies family history of Colon cancer Ovarian cancer CAD (coronary artery disease) Heart disease Hyperlipidemia Breast cancer Uterine cancer Thyroid disease Social History Smoking and tobacco/nicotine status: never used tobacco/nicotine Alcohol intake: never Substance/Drug Use: current Physical Exam 2 Const: COMMON NORMALS: no acute distress, patient oriented x3 and healthy appearing HENMT: COMMON NORMALS: normocephalic and atraumatic HEAD & SCALP: n ormocephalic and atraumatic Eye: COMMON NORMALS: Equal, round and reactive pupils present and EOMs intact bilaterally PUPIL: Yes Equal, round and reactive pupils present Neck/C-Spine: COMMON NORMALS: full ROM and supple Chest: COMMONS NORMALS: normal inspection of the chest and normal palpation of entire chest wall Resp: COMMON NORMALS: normal respiratory effort, No retractions, No use of accessory muscles and clear to auscultation bilaterally AUSCULTATION: clear to auscultation bilaterally Cardio: COMMON NORMALS: regular rate, regular rhythm and No murmurs present (Cardio) RATE: regular rate RHYTHM: regular rhythm GI: COMMON NORMALS: Normal to inspection, nondistended, normoactive bowel sounds present, Soft to palpation, non-tender and no masses PALPATION: Yes Soft to palpation Extremity: COMMON NORMALS: normal to inspection and full ROM Neuro: COMMON NORMALS: patient oriented x3, moves all extremities and no focal motor deficits Psych: COMMON NORMALS: mental status grossly normal, Normal thought process present and cooperative THOUGHT PROCESS: Normal thought process present Skin: COMMON NORMALS: no rashes or lesions noted and no wounds GENERAL SKIN EXAM: no rashes or lesions noted Course 2 Vital Signs: Vital signs: Vital Signs Temperature 98.3 F 03/30/23 01:31 Pulse Rate 96 03/30/23 01:40 Respiratory Rate 14 03/30/23 01:40 Blood Pressure 127/84 03/30/23 01:40 Pulse Oximetry 98 03/30/23 01:40 Oxygen Delivery Me thod Room Air 03/30/23 01:40 MDM - Weakness Medical Decision Making Patient presents here with near syncopal event she feels much improved here blood work is all normal she is stable for discharge she is follow-up PCP return if worsening. Medical Records I reviewed the patient's medical records. Lab Data 03/30/23 00:50 03/30/23 00:50 Radiology Impressions Chest X-Ray 03/30/23 01:32 IMPRESSION: No acute findings. Laboratory Results WBC 5.07 10^3/uL (3.29-11.43) 03/30/23 00:50 RBC 4.03 10^6/uL (3.85-5.65) 03/30/23 00:50 Hgb 12.10 g/dL (11.27-16.99) 03/30/23 00:50 Hct 36.3 % (36-47) 03/30/23 00:50 MCV 90.1 fl (85-98) 03/30/23 00:50 MCH 30.0 pg (27-33) 03/30/23 00:50 MCHC 33.3 g/dL (30-55) 03/30/23 00:50 RDW 11.8 % (12.1-15.1) L 03/30/23 00:50 Plt Count 224 10^3/cmm (157-399) 03/30/23 00:50 MPV 10.9 fL (7.4-10.4) H 03/30/23 00:50 Neut % (Auto) 43.4 % 03/30/23 00:50 Lymph % (Auto) 43.0 % 03/30/23 00:50 [place] % (Auto) 12.0 % 03/30/23 00:50 Eos % (Auto) 1.4 % 03/30/23 00:50 Baso % (Auto) 0.2 % 03/30/23 00:50 Neut # (Auto) 2.20 10^3/uL (1.8-7.7) 03/30/23 00:50 Lymph # (Auto) 2.2 10^3/uL (0.8-4.8) 03/30/23 00:50 [place] # (Auto) 0.6 10^3/uL (0.2-0.9) 03/30/23 00:50 Eos # (Auto) 0.1 10^3/uL (0.0-0.8) 03/30/23 00:50 Baso # (Auto) 0.0 10^3/uL (0.0-0.1) 03/30/23 00:50 Nucleated RBC % (auto) 0 % 03/30/23 00:50 Nucleated RBCs # 0.0 /100WBC 03/30/23 00:50 Sodium 139 mmol/L (136-145) 03/30/23 00:50 Potassium 3.8 mmol/L (3.5-5.1) 03/30/23 00:50 Chloride 103 mmol/L (98-107) 03/30/23 00:50 Carbon Dioxide 25 mmol/L (22-29) 03/30/23 00:50 Anion Gap 14.8 (5-19) 03/30/23 00:50 BUN 11 mg/dL (6-20) 03/30/23 00:50 Creatinine 0.8 mg/dL (0.5-0.9) 03/30/23 00:50 GFR Calculation 86.0 mL/min (90-130) L 03/30/23 00:50 Glucose 85 mg/dL (65-115) 03/30/23 00:50 POC Glucose 150 mg/dL (70-110) H 03/30/23 01:52 Calculated Osmolality 287 mOsm/kg (285-295) 03/30/23 00:50 Calcium 9.9 mg/dL (8.5-10.5) 03/30/23 00:50 Total Bilirubin 0.2 mg/dL (0.15-1.2) 03/30/23 00:50 AST 15 U/L (0-32) 03/30/23 00:50 ALT 18 U/L (0-33) 03/30/23 00:50 Alkaline Phosphatase 95 U/L (35-105) 03/30/23 00:50 Total Protein 7.6 g/dL (6.6-8.7) 03/30/23 00:50 Albumin 4.7 g/dL (3.5-5.2) 03/30/23 00:50 Globulin 2.9 g/dL (1.3-4.6) 03/30/23 00:50 HCG, Qual Negative (Negative) 03/30/23 00:50 All radiology interpretation(s) finalized by discharge EKG Data EKG 1: I personally reviewed and interpreted this EKG as follows: EKG interpretation date: 03/30/23 EKG interpretation time: 01:34 Interpretation: nsr hr [address] or t wave abnormalities qrs 103 qtc 403 Discharge Plan Discharge Patient Disposition: Home Clinical Impression: Near syncope Condition: Stable Prescriptions: No Action prenat.vits,maci,avz-vsrl-aqnpm Tablet 1 tab PO DAILY Discharge Orders: Discharge ED (Routine); Ordered 03/30/23 Ordered By: Cy Hilliard Referrals: Lars Isabel MD [Physician] - 1-3 days Discharge Diet: Advance as tolerated Discharge Activity: Resume usual activity Patient Instructions: Near Syncope (ED) Coding Level of Care Code ED Senior Backup Administrator for Chg Beto
[2023-03-30 01:40] VITALS: BP 127/84; PULSE 96; RESP 14; O2SAT 98
[2023-03-30 01:48] LABS: Basophils % 0.2 %; Eosinophils # 0.1 10^3/uL (0.0-0.8); Eosinophils % 1.4 %; Hematocrit 36.3 % (36-47); Lymphocytes # 2.2 10^3/uL (0.8-4.8); Mean Corpuscular HGB Conc 33.3 g/dL (30-55); Mean Corpuscular Volume 90.1 fl (85-98); Mean Platelet Volume 10.9 fL (7.4-10.4); Monocytes # 0.6 10^3/uL (0.2-0.9); Neutrophils % 43.4 %; Nucleated Red Blood Cells % 0 %; Platelet Count 224 10^3/cmm (157-399); Red Blood Count 4.03 10^6/uL (3.85-5.65); Red Cell Distribution Width 11.8 % (12.1-15.1); White Blood Count 5.07 10^3/uL (3.29-11.43)
[2023-03-30] MEDS: sodium chloride 0.9% 1,000 ML 999 ML IV (01:50)
[2023-03-30 01:56] LABS: Glucose Point of Care 150 mg/dL (70-110)
[2023-03-30 02:03] LABS: HCG, Serum Qual Negative (Negative)
[2023-03-30 02:05] LABS: Alanine Aminotransferase 18 U/L (0-33); Albumin Level 4.7 g/dL (3.5-5.2); Alkaline Phosphatase 95 U/L (35-105); Anion Gap 14.8 (5-19); Aspartate Amino Transferase 15 U/L (0-32); Blood Urea Nitrogen 11 mg/dL (6-20); Calcium 9.9 mg/dL (8.5-10.5); Carbon Dioxide 25 mmol/L (22-29); Chloride 103 mmol/L (98-107); Globulin 2.9 g/dL (1.3-4.6); Glucose 85 mg/dL (65-115); Osmolality Calculated 287 mOsm/kg (285-295); Potassium 3.8 mmol/L (3.5-5.1); Sodium 139 mmol/L (136-145); Total Bilirubin 0.2 mg/dL (0.15-1.2); Total Protein 7.6 g/dL (6.6-8.7)
[2023-03-30 02:43] VITALS: BP 119/90; PULSE 70; RESP 18; O2SAT 99
== END 2023-03-30 02:42 | disposition home or self-care (01) ==
PROVIDERS: Emergency Provider Emergency Medicine; PCP Family Medicine
DX: R55 Syncope and collapse (principal)
CPT/HCPCS: 36416; 71045; 80053; 82962; 84703; 85025; 93005; 96360; 99285; J7030

== ENCOUNTER → 2023-09-01 07:40 | Outpatient (BNVA) | payer MEDICAID, SELFPAY | PROVIDERS: PCP Family Medicine; Visit Provider Family Medicine | DX: R10.84 Generalized abdominal pain (principal); F41.9 Anxiety disorder, unspecified; R00.0 Tachycardia, unspecified; E11.9 Type 2 diabetes mellitus without complications | CPT/HCPCS: 80053; 84443; 85025; 87177; 87209 ==

== ENCOUNTER 2023-10-02 11:30 | Emergency (ER) | payer MEDICAID, SELFPAY ==
[2023-10-02 11:37] VITALS: BP 147/91; PULSE 87; RESP 16; TEMP 36.9; O2SAT 99; BMI 21.1
--- NOTE | 2023-10-02 11:38 | ECG_ITS ---
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 Measurements Intervals [place] Rate: 87 P: 82 ME: 159 QRS: 41 QRSD: 85 T: 75 QT: 341 QTc: 410 Interpretive Statements SINUS RHYTHM WITH SINUS ARRHYTHMIA POSSIBLE LEFT ATRIAL ENLARGEMENT [-0.1mV P-WAVE IN V1/V2] POSSIBLE RIGHT VENTRICULAR CONDUCTION DELAY [RSR (QR) IN V1/V2] INTERPRETATION BASED ON A DEFAULT AGE OF 40 YEARS Compared to ECG 03/30/2023 01:34:05 T-wave abnormality no longer present Electronically Signed On 10-02-2023 19:57:34 CDT by Iglesia Taveras M.D. [id number] f
--- NOTE | 2023-10-02 11:42 | XR_ITS ---
WS: [id number] XR chest 1V portable [id number] REASON FOR EXAM: dyspnea/cough FINDINGS: The chest is unchanged compared to 03/30/2023. The heart and mediastinum are within normal limits. There is calcified granulomatous disease in both hemithoraces. No acute pulmonary parenchymal or pleural abnormality is identified. Bony thorax is intact without significant abnormality. XR/XR chest 1V portable [id number] IMPRESSION: Stable chest with no acute abnormality.
[2023-10-02 12:02] LABS: ABG PCO2 32.7 mmHg (35-45); ABG PH Result 7.45 (7.35-7.45); Alveolar-Arterial Oxygen Gradi 1.8 mmHg (5-10); Arterial Blood Gas Hematocrit 42.6 % (37-47); Base Excess ABG -0.6 mmol/L (-2.0-2.0); Blood Gas Allen Test Pos; Blood Gas Operator Identificat MONRO; Blood Gas Sample Site Radial, left; Blood Gas Sample Type Arterial; Carboxyhemoglobin 1.7 %THgb (0.4-20.1); HCO3 ABG 22.7 mmol/L (22-26); HGB O2 Sat 96.4 % (95-100); Ionized Calcium Level - ABG 1.3 mmol/L (1.1-1.4); Methemoglobin 0.3 % (0.4-1.5); Oxygen Saturation ABG 98.3; PO2 ABG 94.5 mmHg (80.0-100.0); Potassium Level - ABG 4.1 mmol/L (3.5-5.0); Total Hemoglobin 13.9 g/dL (12-16)
[2023-10-02 12:03] LABS: Oxygen Device ROOM AIR; PO2 FiO2 Ratio Arterial Blood 450
[2023-10-02 12:07] LABS: Basophils % 0.4 %; Eosinophils # 0.2 10^3/uL (0.0-0.8); Eosinophils % 3.3 %; Hematocrit 40.8 % (36-47); Lymphocytes # 1.2 10^3/uL (0.8-4.8); Lymphocytes % 22.7 %; Mean Corpuscular HGB Conc 33.3 g/dL (30-55); Mean Corpuscular Hemoglobin 29.3 pg (27-33); Mean Corpuscular Volume 87.9 fl (85-98); Mean Platelet Volume 10.5 fL (7.4-10.4); Monocytes # 0.6 10^3/uL (0.2-0.9); Monocytes % 11.9 %; Neutrophils # 3.19 10^3/uL (1.8-7.7); Neutrophils % 61.3 %; Nucleated Red Blood Cells % 0 %; Platelet Count 210 10^3/cmm (157-399); Red Blood Count 4.64 10^6/uL (3.85-5.65); Red Cell Distribution Width 12.9 % (12.1-15.1)
--- NOTE | 2023-10-02 12:18 | ED_ITS ---
HPI - Chest Pain 2 General: Chief Complaint: Chest Pain Stated Complaint: chest pains, sob Time Seen by Provider: 10/02/23 11:42 History of Present Illness: 27-year-old female who presents to the e mergency room with complaints of chest discomfort. She has been on antianxiety medicines in the past that she stopped taking them and earlier today began having chest discomfort associated with numbness and tingling cramping in the hands. Most of her symptoms have resolved now. She was short of breath that she had a lot of shaking and states her whole body felt heavy. Her symptoms had begun to resolve by the time she arrived here. No history of any arrhythmias. No history of chronic respiratory problems. Associated symptoms: Reports dyspnea and palpitations; Deny abdominal pain or fever(s) Review of Systems 2 Const: Denies: fever(s) or chills Card: Reports: chest pain and palpitations Resp: Reports: dyspnea GI: Denies: abdominal pain : Denies: dysuria, urinary frequency or urinary urgency Musc: Denies: neck pain or back pain Skin/Breast: Denies: rash PFSH ED 2 PFSH: Medical History Abdominal pain Vaginal delivery Active labor Supervision of other normal Chronic cholecystitis Surgical History History of cholecystectomy Family History Other Cancer Diabetes Hypertension Stroke Denies family history of Colon cancer Ovarian cancer CAD (coronary artery disease) Heart disease Hyperlipidemia Breast cancer Uterine cancer Thyroid disease Social History Smoking and tobacco/nicotine status: never used tobacco/nicotine Alcohol intake: never Substance/Drug Use: current Physical Exam 2 Const: GENERAL APPEARANCE: cooperative and comfortable O RIENTATION/CONSCIOUSNESS: Yes awake, Yes oriented to person, Yes oriented to place and Yes oriented to time HENMT: COMMON NORMALS: normocephalic, atraumatic and hearing grossly normal bilaterally HEAD & SCALP: normocephalic and atraumatic Resp: COMMON NORMALS: normal respiratory effort, No retractions, No use of accessory muscles and clear to auscultation bilaterally AUSCULTATION: clear to auscultation bilaterally Cardio: COMMON NORMALS: regular rate, regular rhythm and No murmurs present (Cardio) RATE: regular rate RHYTHM: regular rhythm GI: COMMON NORMALS: Soft to palpation and No hepatosplenomegaly present A USCULTATION: Yes normoactive bowel sounds PALPATION: Yes Soft to palpation, No Tenderness to palpation present (GI), No Guarding due to palpation present (GI) and Yes No hepatosplenomegaly present Extremity: COMMON NORMALS: normal to inspection, capillary refill normal, no clubbing, cyanosis or edema, no calf tenderness and no pedal edema Neuro: SENSORIUM/ORIENTATION: Yes oriented to person, Yes oriented to place and Yes oriented to time Skin: COMMON NORMALS: no rashes or lesions noted GENERAL SKIN EXAM: no rashes or lesions noted Course 2 Vital Signs: Vital signs: Vital Signs Temperature 98.5 F 10/02/23 11:37 Pulse Rate 87 10/02/23 11:37 Respiratory Rate 16 10/02/23 11:37 Blood Pressure 147/91 10/02/23 11:37 Pulse Oximetry 99 10/02/23 11:37 Oxygen Delivery Me thod Room Air 10/02/23 11:37 MDM - Chest Pain Medical Decision Making Most of patient's symptoms are resolved by the time she arrived. EKG does not show any acute changes. Chest x-ray is normal ABG showed a slight decrease in her pCO2 but she had resolved most of her symptoms she states about the time she arrived here. At this point I think we can discharge her home suspect this is more anxiety driven based we are stopping her medications. Encouraged her to restart buspirone and follow-up with her primary care doctor Medical Records I reviewed the patient's medical records. Lab Data I reviewed the patient's lab results. 10/02/23 12:02 10/02/23 12:02 Radiology Impressions Chest X-Ray 10/02/23 11:42 IMPRESSION: Stable chest with no acute abnormality. Laboratory Results WBC 5.20 10^3/uL (3.29-11.43) 10/02/23 12:02 RBC 4.64 10^6/uL (3.85-5.65) 10/02/23 12:02 Hgb 13.60 g/dL (11.27-16.99) 10/02/23 12:02 Hct 40.8 % (36-47) 10/02/23 12:02 MCV 87.9 fl (85-98) 10/02/23 12:02 MCH 29.3 pg (27-33) 10/02/23 12:02 MCHC 33.3 g/dL (30-55) 10/02/23 12:02 RDW 12.9 % (12.1-15.1) 10/02/23 12:02 Plt Count 210 10^3/cmm (157-399) 10/02/23 12:02 MPV 10.5 fL (7.4-10.4) H 10/02/23 12:02 Neut % (Auto) 61.3 % 10/02/23 12:02 Lymph % (Auto) 22.7 % 10/02/23 12:02 [place] % (Auto) 11.9 % 10/02/23 12:02 Eos % (Auto) 3.3 % 10/02/23 12:02 Baso % (Auto) 0.4 % 10/02/23 12:02 Neut # (Auto) 3.19 10^3/uL (1.8-7.7) 10/02/23 12:02 Lymph # (Auto) 1.2 10^3/uL (0.8-4.8) 10/02/23 12:02 [place] # (Auto) 0.6 10^3/uL (0.2-0.9) 10/02/23 12:02 Eos # (Auto) 0.2 10^3/uL (0.0-0.8) 10/02/23 12:02 Baso # (Auto) 0.0 10^3/uL (0.0-0.1) 10/02/23 12:02 Nucleated RBC % (auto) 0 % 10/02/23 12:02 Nucleated RBCs # 0.0 /100WBC 10/02/23 12:02 Specimen Type Arterial 10/02/23 11:49 Sample Site Radial, left 10/02/23 11:49 ABG pH 7.45 (7.35-7.45) 10/02/23 11:49 ABG pCO2 32.7 mmHg (35-45) L 10/02/23 11:49 ABG pO2 94.5 mmHg (80.0-100.0) 10/02/23 11:49 ABG PO2/FiO2 Ratio 450 10/02/23 11:49 ABG HCO3 22.7 mmol/L (22-26) 10/02/23 11:49 ABG O2 Saturation 98.3 10/02/23 11:49 ABG Base Excess -0.6 mmol/L (-2.0-2.0) 10/02/23 11:49 Chris Test Pos 10/02/23 11:49 A-a O2 Gradient 1.8 mmHg (5-10) L 10/02/23 11:49 Hematocrit 42.6 % (37-47) 10/02/23 11:49 Hgb O2 Saturation 96.4 % (95-100) 10/02/23 11:49 Carboxyhemoglobin 1.7 %THgb (0.4-20.1) 10/02/23 11:49 Methemoglobin 0.3 % (0.4-1.5) L 10/02/23 11:49 Total Hemoglobin 13.9 g/dL (12-16) 10/02/23 11:49 Sodium 139.0 mmol/L (131-143) 10/02/23 11:49 Potassium 4.1 mmol/L (3.5-5.0) 10/02/23 11:49 Glucose 95.0 mg/dL (70-115) 10/02/23 11:49 Ionized Calcium 1.3 mmol/L (1.1-1.4) 10/02/23 11:49 O2 Delivery Device Room air 10/02/23 11:49 FiO2 21.0 % 10/02/23 11:49 Store Operations Specialist ID [place] 10/02/23 11:49 Sodium 139 mmol/L (136-145) 10/02/23 12:02 Potassium 4.1 mmol/L (3.5-5.1) 10/02/23 12:02 Chloride 104 mmol/L (98-107) 10/02/23 12:02 Carbon Dioxide 22 mmol/L (22-29) 10/02/23 12:02 Anion Gap 17.1 (5-19) 10/02/23 12:02 BUN 11 mg/dL (6-20) 10/02/23 12:02 Creatinine 0.8 mg/dL (0.5-0.9) 10/02/23 12:02 GFR Calculation 86.0 mL/min (90-130) L 10/02/23 12:02 Glucose 95 mg/dL (65-115) 10/02/23 12:02 Calculated Osmolality 287 mOsm/kg (285-295) 10/02/23 12:02 Calcium 9.9 mg/dL (8.5-10.5) 10/02/23 12:02 Total Bilirubin 0.5 mg/dL (0.15-1.2) 10/02/23 12:02 AST 19 U/L (0-32) 10/02/23 12:02 ALT 24 U/L (0-33) 10/02/23 12:02 Alkaline Phosphatase 68 U/L (35-105) 10/02/23 12:02 Total Protein 8.6 g/dL (6.6-8.7) 10/02/23 12:02 Albumin 5.0 g/dL (3.5-5.2) 10/02/23 12:02 Globulin 3.6 g/dL (1.3-4.6) 10/02/23 12:02 HCG, Qual Negative (Negative) 10/02/23 12:02 All radiology interpretation(s) finalized by discharge Discharge Plan Discharge Patient Disposition: Home Clinical Impression: Anxiety Condition: Stable Prescriptions: No Action buspirone 10 mg tablet 10 mg PO BID Qty: 60 11RF Discharge Orders: Discharge ED (Routine); Ordered 10/02/23 Ordered By: Dre Gunter Referrals: Flaco Massey MD [Primary Care Provider] - Discharge Diet: Usual diet Discharge Activity: Resume usual activity Patient Instructions: Anxiety (ED), Opioid Safety, Pain Management Activity Restrictions/Additional Instructions: [facility]. It is very important that you follow up as instructed or that you return to the Emergency Department should you have concerns or if your condition changes or worsens in any way. Coding Level of Care Code ED Property And Casualty Insurance Agent for Julito Pérez
[2023-10-02 12:25] LABS: HCG, Serum Qual Negative (Negative)
[2023-10-02 12:26] LABS: Alanine Aminotransferase 24 U/L (0-33); Alkaline Phosphatase 68 U/L (35-105); Anion Gap 17.1 (5-19); Aspartate Amino Transferase 19 U/L (0-32); Blood Urea Nitrogen 11 mg/dL (6-20); Calcium 9.9 mg/dL (8.5-10.5); Carbon Dioxide 22 mmol/L (22-29); Chloride 104 mmol/L (98-107); Creatinine Clr Calc Pharmacy 102.4767; Globulin 3.6 g/dL (1.3-4.6); Glucose 95 mg/dL (65-115); Osmolality Calculated 287 mOsm/kg (285-295); Potassium 4.1 mmol/L (3.5-5.1); Sodium 139 mmol/L (136-145); Total Bilirubin 0.5 mg/dL (0.15-1.2); Total Protein 8.6 g/dL (6.6-8.7)
[2023-10-02 12:56] VITALS: BP 121/77; PULSE 88; O2SAT 99
== END 2023-10-02 12:59 | disposition home or self-care (01) ==
PROVIDERS: Emergency Provider Family Medicine; PCP Family Medicine
DX: F41.9 Anxiety disorder, unspecified (principal)
CPT/HCPCS: 36415; 36600; 71045; 80051; 80053; 82330; 82805; 84703; 85025; 93005; 99285

== ENCOUNTER 2023-11-16 07:53 | Emergency (ER) | payer MEDICAID, SELFPAY ==
[2023-11-16 08:12] VITALS: BP 137/92; PULSE 68; RESP 18; TEMP 36.8; O2SAT 99; BMI 21.9
[2023-11-16 08:16] VITALS: BP 137/92; RESP 16; O2SAT 99
--- NOTE | 2023-11-16 08:36 | ED_ITS ---
HPI - General Adult 2 General: Chief complaint: Vaginal Bleeding Stated complaint: vaginal bleeding Time Seen by Provider: 11/16/23 07:56 History of Present Illness: 27-year-old female presents emergency ro om with complaint of generalized weakness and what she describes as allover abdominal pain. Went on doing further she localizes all that more to the right lower quadrant. She had some vaginal bleeding yesterday very light she has only been on it all now and is nearly stopped. She had a regular period that ended about a week and a half ago is any dysuria urgency or frequency. She has chronic loose stools because of her previous cholecystectomy has not noticed any significant change. No fever sweats or chills. She does report some dark stool last night. Associated symptoms: Reports nausea; Deny chest pain, dyspnea or rash Related Data Previous Rx's Medication Instructions Recorded magnesium citrate 100 mg capsule 100 mg PO BID #60 caps 10/26/23 Allergies Allergy/AdvReac Type Severity Reaction Status Date / Time No Known Allergies Allergy Verified 10/26/23 11:30 Review of Systems 2 Const: Denies: fever(s) or chills Card: Denies: chest pain Resp: Denies: dyspnea GI: Reports: abdominal pain and nausea : Reports: vaginal bleeding; Denies: dysuria, urinary frequency or urinary urgency Musc: Denies: neck pain or back pain Skin/Breast: Denies: rash PFSH ED 2 PFSH: Medical History Abdominal pain Vaginal delivery Active labor Supervision of other normal Chronic cholecystitis Surgical History History of cholecystectomy Family History Other Cancer Diabetes Hypertension Stroke Denies family history of Colon cancer Ovarian cancer CAD (coronary artery disease) Heart disease Hyperlipidemia Breast cancer Uterine cancer Thyroid disease Social History Smoking and tobacco/nicotine status: current every day tobacco/nicotine user Alcohol intake: never Substance/Drug Use: current Physical Exam 2 Const: COMMON NORMALS: no acute distress GENERAL APPEARANCE: cooperative and comfortable ORIENTATION/CONSCIOUSNESS: Yes awake, Yes oriented to person, Yes oriented to place and Yes oriented to time HENMT: COMMON NORMALS: normocephalic, atraumatic and hearing grossly normal bilaterally HEAD & SCALP: normocephalic and atraumatic Resp: COMMON NORMALS: normal respiratory effort, No retractions, No use of accessory muscles and clear to auscultation bilaterally AUSCULTATION: clear to auscultation bilaterally Cardio: COMMON NORMALS: regular rate, regular rhythm and No murmurs present (Cardio) RATE: regular rate RHYTHM: regular rhythm GI: COMMON NORMALS: Soft to palpation and No hepatosplenomegaly present A USCULTATION: Yes normoactive bowel sounds PALPATION: Yes Soft to palpation, No Tenderness to palpation present (GI), No Guarding due to palpation present (GI) and Yes No hepatosplenomegaly present Extremity: COMMON NORMALS: normal to inspection, capillary refill normal, no clubbing, cyanosis or edema, no calf tenderness and no pedal edema Neuro: SENSORIUM/ORIENTATION: Yes oriented to person, Yes oriented to place and Yes oriented to time Skin: COMMON NORMALS: no rashes or lesions noted GENERAL SKIN EXAM: no rashes or lesions noted Course 2 Vital Signs: Vital signs: Vital Signs Temperature 98.2 F 11/16/23 08:12 Pulse Rate 80 11/16/23 11:49 Respiratory Rate 16 11/16/23 08:16 Blood Pressure 104/78 11/16/23 11:49 Pulse Oximetry 100 11/16/23 11:49 Oxygen Delivery Me thod Room Air 11/16/23 11:00 MDM - General Adult Medical Decision Making CT is unremarkable vaginal bleeding is already resolved. Patient reported black stools and blood from the stool rectal exam there is normal stool in the rectal vault mucus Hemoccult negative there is no evidence of rectal tear or swelling, no hemorrhoidal tags or active thrombosed hemorrhoid. Vaginal bleeding has stopped at this point. Will discharge patient home have her follow-up with her primary care doctor. Reviewed labs and imaging. No significant anemia noted on the CBC. Medical Records I reviewed the patient's medical records. Lab Data I reviewed the patient's lab results. 11/16/23 08:47 11/16/23 08:47 Radiology Impressions Abdomen/Pelvis CT 11/16/23 08:50 IMPRESSION: 1. Fatty infiltration of the liver. 2. Small nodules at the right lung base. If the patient does not have known cancer, follow up should be based on clinical information because of the low risk of cancer in this age group. (Reference: Mike) References: Mike Garduno, et al. Guidelines for Management of Incidental Pulmonary Nodules Detected on CT Images: From the Fleischner Society 2017. Radiology. 2017;284(1):228-243. Laboratory Results WBC 3.07 10^3/uL (3.29-11.43) L 11/16/23 08:47 RBC 4.48 10^6/uL (3.85-5.65) 11/16/23 08:47 Hgb 13.30 g/dL (11.27-16.99) 11/16/23 08:47 Hct 40.4 % (36-47) 11/16/23 08:47 MCV 90.2 fl (85-98) 11/16/23 08:47 MCH 29.7 pg (27-33) 11/16/23 08:47 MCHC 32.9 g/dL (30-55) 11/16/23 08:47 RDW 12.5 % (12.1-15.1) 11/16/23 08:47 Plt Count 205 10^3/cmm (157-399) 11/16/23 08:47 MPV 10.5 fL (7.4-10.4) H 11/16/23 08:47 Neut % (Auto) 61.2 % 11/16/23 08:47 Lymph % (Auto) 25.7 % 11/16/23 08:47 [place] % (Auto) 9.8 % 11/16/23 08:47 Eos % (Auto) 2.6 % 11/16/23 08:47 Baso % (Auto) 0.7 % 11/16/23 08:47 Neut # (Auto) 1.88 10^3/uL (1.8-7.7) 11/16/23 08:47 Lymph # (Auto) 0.8 10^3/uL (0.8-4.8) 11/16/23 08:47 [place] # (Auto) 0.3 10^3/uL (0.2-0.9) 11/16/23 08:47 Eos # (Auto) 0.1 10^3/uL (0.0-0.8) 11/16/23 08:47 Baso # (Auto) 0.0 10^3/uL (0.0-0.1) 11/16/23 08:47 Nucleated RBC % (auto) 0 % 11/16/23 08:47 Nucleated RBCs # 0.0 /100WBC 11/16/23 08:47 Sodium 139 mmol/L (136-145) 11/16/23 08:47 Potassium 4.6 mmol/L (3.5-5.1) 11/16/23 08:47 Chloride 103 mmol/L (98-107) 11/16/23 08:47 Carbon Dioxide 26 mmol/L (22-29) 11/16/23 08:47 Anion Gap 14.6 (5-19) 11/16/23 08:47 BUN 12 mg/dL (6-20) 11/16/23 08:47 Creatinine 0.7 mg/dL (0.5-0.9) 11/16/23 08:47 GFR Calculation 100.4 mL/min (90-130) 11/16/23 08:47 Glucose 94 mg/dL (65-115) 11/16/23 08:47 Calculated Osmolality 288 mOsm/kg (285-295) 11/16/23 08:47 Calcium 9.8 mg/dL (8.5-10.5) 11/16/23 08:47 Total Bilirubin 0.4 mg/dL (0.15-1.2) 11/16/23 08:47 AST 21 U/L (0-32) 11/16/23 08:47 ALT 13 U/L (0-33) 11/16/23 08:47 Alkaline Phosphatase 70 U/L (35-105) 11/16/23 08:47 Total Protein 8.2 g/dL (6.6-8.7) 11/16/23 08:47 Albumin 5.0 g/dL (3.5-5.2) 11/16/23 08:47 Globulin 3.2 g/dL (1.3-4.6) 11/16/23 08:47 HCG, Qual Negative (Negative) 11/16/23 08:47 Urine Color Yellow (Yellow) 11/16/23 09:26 Urine Appearance Clear (CLEAR) 11/16/23 09:26 Urine pH 6.5 (5-7) 11/16/23 09:26 Ur Specific [place] 1.006 (1.005-1.030) 11/16/23 09:26 Urine Protein Negative (Negative) 11/16/23 09:26 Urine Glucose (UA) Negative (Normal) 11/16/23 09:26 Urine Ketones Negative (Negative) 11/16/23 09:26 Urine Blood 1+ (Negative) A 11/16/23 09:26 Urine Nitrate Negative (Negative) 11/16/23 09:26 Urine Bilirubin Negative (Negative) 11/16/23 09:26 Urine Urobilinogen 0.2 mg/dL (Negative) 11/16/23 09:26 Ur Leukocyte Esterase Negative (Negative) 11/16/23 09:26 Urine RBC 0-2 /hpf (0-2) 11/16/23 09:26 Urine WBC 0-5 /hpf (0-5) 11/16/23 09:26 Ur Squamous Epith Cells 0-5 /hpf (0-5) 11/16/23 09:26 Amorphous Sediment Not Reportable 11/16/23 09:26 Urine Bacteria None seen /hpf (NONE) 11/16/23 09:26 Hyaline Casts 0-4 /lpf H 11/16/23 09:26 All radiology interpretation(s) finalized by discharge Discharge Plan Discharge Patient Disposition: Home Clinical Impression: Vaginal bleeding Abdominal pain Qualifiers: Abdominal location: generalized Qualified Code(s): R10.84 - Generalized abdominal pain Condition: Stable Prescriptions: No Action magnesium citrate 100 mg capsule 100 mg PO BID Qty: 60 0RF Discharge Orders: Discharge ED (Routine); Ordered 11/16/23 Ordered By: Dre Gunter Referrals: Flaco Massey MD [Primary Care Provider] - Patient Instructions: Abdominal Pain (ED), Opioid Safety, Pain Management Activity Restrictions/Additional Instructions: Thank you for choosing [facility] for your healthcare needs today. It is very important that you follow up as instructed or that you return to the Emergency Department should you have concerns or if your condition changes or worsens in any way. You are seen today with complaints of abnormal vaginal bleeding which she describes as mostly having stopped as well as some blood in the stool and abdominal discomfort. Your hemoglobin is stable CT did not show any significant abnormality. Rectal exam and Hemoccult was negative. There was an incidental finding of a nodule at the base of your right lung you should follow-up with your primary care doctor regarding this. If your symptoms persist follow-up with primary care. Coding Level of Care Code ED Security Sales Consultant for Julito Pérez
--- NOTE | 2023-11-16 08:50 | CTR_ITS ---
PROCEDURE INFORMATION: Exam: CT Abdomen And Pelvis With Contrast Exam date and time: 11/16/2023 9:45 AM Age: 27 years old Clinical indication: Other: Unusual vaginal bleeding; Abdominal pain; Localized; Lower; Prior surgery; Surgery date: 6+ months; Surgery type: Gb; Additional info: Abd pain TECHNIQUE: Imaging protocol: Computed tomography of the abdomen and pelvis with contrast. Radiation optimization: All CT scans at this facility use at least one of these dose optimization techniques: automated exposure control; mA and/or kV adjustment per patient size (includes targeted exams where dose is matched to clinical indication); or iterative reconstruction. Contrast material: [id number]; Contrast volume: 100 ml; Contrast route: INTRAVENOUS (IV); COMPARISON: CT abdomen pelvis wo con [id number] 12/25/2021 4:52 PM RADIATION DOSE METRICS: Total DLP (mGy-cm): 334 FINDINGS: Lungs: There are 2 pulmonary nodules involving the right middle lobe. One of the nodules was included on prior exam from 2021 and is unchanged. The 2nd nodule was not included on prior exam. Liver: There is diffuse fatty infiltration of the liver. The liver is otherwise normal. Gallbladder and biliary ducts: There are surgical clips within the gallbladder fossa. Pancreas: Normal. No ductal dilation. Spleen: Normal. No splenomegaly. Adrenal glands: Normal. No mass. Kidneys and ureters: Normal. No hydronephrosis. Stomach and bowel: Unremarkable. No obstruction. No mucosal thickening. Appendix: No evidence of appendicitis. Intraperitoneal space: Unremarkable. No free air. No significant fluid collection. Vasculature: Unremarkable. No abdominal aortic aneurysm. Lymph nodes: Unremarkable. No enlarged lymph nodes. Urinary bladder: Unremarkable as visualized. Reproductive: Unremarkable as visualized. Bones/joints: Unremarkable. No acute fracture. Soft tissues: Unremarkable. CT/CT abdomen pelvis w con* [id number] IMPRESSION: 1. Fatty infiltration of the liver. 2. Small nodules at the right lung base. If the patient does not have known cancer, follow up should be based on clinical information because of the low risk of cancer in this age group. (Reference: Mike) References: Mike Garduno et al. Guidelines for Management of Incidental Pulmonary Nodules Detected on CT Images: From the Fleischner Society 2017. Radiology. 2017;284(1):228-243.
[2023-11-16 09:02] LABS: Basophils % 0.7 %; Eosinophils # 0.1 10^3/uL (0.0-0.8); Eosinophils % 2.6 %; Hematocrit 40.4 % (36-47); Lymphocytes # 0.8 10^3/uL (0.8-4.8); Lymphocytes % 25.7 %; Mean Corpuscular HGB Conc 32.9 g/dL (30-55); Mean Corpuscular Hemoglobin 29.7 pg (27-33); Mean Corpuscular Volume 90.2 fl (85-98); Mean Platelet Volume 10.5 fL (7.4-10.4); Monocytes # 0.3 10^3/uL (0.2-0.9); Monocytes % 9.8 %; Neutrophils # 1.88 10^3/uL (1.8-7.7); Neutrophils % 61.2 %; Nucleated Red Blood Cells % 0 %; Platelet Count 205 10^3/cmm (157-399); Red Blood Count 4.48 10^6/uL (3.85-5.65); Red Cell Distribution Width 12.5 % (12.1-15.1); White Blood Count 3.07 10^3/uL (3.29-11.43)
[2023-11-16 09:18] LABS: HCG, Serum Qual Negative (Negative)
[2023-11-16 09:23] LABS: Alanine Aminotransferase 13 U/L (0-33); Alkaline Phosphatase 70 U/L (35-105); Anion Gap 14.6 (5-19); Aspartate Amino Transferase 21 U/L (0-32); Blood Urea Nitrogen 12 mg/dL (6-20); Calcium 9.8 mg/dL (8.5-10.5); Carbon Dioxide 26 mmol/L (22-29); Chloride 103 mmol/L (98-107); Creatinine Clr Calc Pharmacy 118.8451; Globulin 3.2 g/dL (1.3-4.6); Glomerular Filtration Rate 100.4 mL/min (90-130); Glucose 94 mg/dL (65-115); Osmolality Calculated 288 mOsm/kg (285-295); Potassium 4.6 mmol/L (3.5-5.1); Sodium 139 mmol/L (136-145); Total Bilirubin 0.4 mg/dL (0.15-1.2); Total Protein 8.2 g/dL (6.6-8.7)
[2023-11-16 09:32] LABS: Charge for UA Resulting for Rev
[2023-11-16 09:38] LABS: Bilirubin Urine Negative (Negative); Blood Urine 1+ (Negative); Glucose Urine UA Negative (Normal); Ketones Urine Negative (Negative); Leukocyte Esterase Urine Negative (Negative); Nitrate Urine Negative (Negative); Protein Urine Negative (Negative); Specific Gravity, Urine 1.006 (1.005-1.030); Urine Appearance Clear (CLEAR); Urine Color Yellow (Yellow); Urobilinogen Urine 0.2 mg/dL (Negative); pH Urine 6.5 (5-7)
[2023-11-16 09:41] LABS: Bacteria Urine None Seen /hpf; Hyaline Casts Urine 0-4 /lpf; RBC Urine 0-2 /hpf (0-2); Squamous Epithelial Cell Urine 0-5 /hpf (0-5); WBC Urine 0-5 /hpf (0-5)
[2023-11-16] MEDS: iohexol 350 mg/mL 500 mL Btl (per mL) IV (09:51)
[2023-11-16 10:50] VITALS: BP 127/84; PULSE 65; O2SAT 98
[2023-11-16] MEDS: ketorolac 30 mg/mL INJ IVP (10:58)
[2023-11-16 11:00] VITALS: BP 120/83; PULSE 76; O2SAT 100
[2023-11-16 11:49] VITALS: BP 104/78; PULSE 80; O2SAT 100
== END 2023-11-16 11:50 | disposition home or self-care (01) ==
PROVIDERS: Emergency Provider Family Medicine; PCP Family Medicine
DX: N93.9 Abnormal uterine and vaginal bleeding, unspecified (principal); R10.84 Generalized abdominal pain; Z72.0 Tobacco use
CPT/HCPCS: 36415; 74177; 80053; 81003; 81015; 84703; 85025; 96374; 99285; J1885

== ENCOUNTER → 2023-11-30 10:20 | Outpatient (BNVA) | payer MEDICAID, SELFPAY | PROVIDERS: PCP Family Medicine; Visit Provider Obstetrics & Gynecology | DX: R10.2 Pelvic and perineal pain (principal) | CPT/HCPCS: 81000; 81025 ==

== ENCOUNTER → 2023-12-15 07:59 | Outpatient (BNVA) | payer OTHER, SELFPAY | PROVIDERS: PCP Family Medicine; Visit Provider Obstetrics & Gynecology | DX: R10.2 Pelvic and perineal pain (principal); N83.201 Unspecified ovarian cyst, right side | CPT/HCPCS: 76830 ==

== ENCOUNTER → 2023-12-17 10:00 | Outpatient (BNVA) | payer OTHER, SELFPAY | PROVIDERS: PCP Family Medicine; Visit Provider Family Medicine | DX: R10.84 Generalized abdominal pain (principal); R51.9 Headache, unspecified | CPT/HCPCS: 80053; 85025; 85651; 86003; 86008; 86140 ==

== ENCOUNTER → 2023-12-18 11:24 | Outpatient (BNVA) | payer OTHER, SELFPAY | PROVIDERS: PCP Family Medicine; Visit Provider Family Medicine | DX: R10.84 Generalized abdominal pain (principal) | CPT/HCPCS: 87045; 87177; 87209; 87427; 87449; 87493 ==

== ENCOUNTER 2024-02-16 13:24 | Emergency (ER) | payer BC, MEDICAID, SELFPAY ==
[2024-02-16 13:43] VITALS: BP 114/84; PULSE 86; RESP 16; TEMP 36.7; O2SAT 98; BMI 21.6
--- NOTE | 2024-02-16 14:31 | XR_ITS ---
WS: [id number] Exam: XR chest 1V portable [id number] Date/Time of Exam: 02/16/2024 3:02 PM Reason For Exam: dyspnea/cough Comparison 10/02/2023. Lungs are fully inflated and clear. Normal cardiomediastinal silhouette. Bony structures are intact. No pleural effusions. XR/XR chest 1V portable [id number] IMPRESSION: 1. Normal chest.
--- NOTE | 2024-02-16 14:31 | ECG_ITS ---
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 Measurements Intervals [place] Rate: 67 P: 71 MI: 175 QRS: 34 QRSD: 97 T: 64 QT: 381 QTc: 405 Interpretive Statements SINUS RHYTHM POSSIBLE RIGHT VENTRICULAR CONDUCTION DELAY [RSR (QR) IN V1/V2] Compared to ECG 10/02/2023 11:38:58 Sinus arrhythmia no longer present Electronically Signed On 02-17-2024 00:58:05 [employer] by Iglesia Taveras M.D. [email or web address]
--- NOTE | 2024-02-16 14:32 | ED_ITS ---
HPI - Abdominal Pain 2 General: Chief Complaint: Abdominal Pain Stated Complaint: R. side pain, dealing with allergic reation too Time Seen by Provider: 02/16/24 14:19 History of Present Illness: 28-year-old female presents emergency ro om complaining of right upper quadrant abdominal pain that feels similar to what she has had in the past with her biliary colic. Approximately 2 years ago patient had a cholecystectomy due to biliary dyskinesia. States this feels very similar to what she had previously. She denies any fever sweats chills denies any dysuria urgency or frequency. She has not really noticed anything that makes it better or worse. She has been nauseated with dry heaves no hematemesis or coffee-ground emesis. Associated Symptoms: Denies chills, dysuria and fever(s) Related Data Home Medications Medication Instructions Recorded Confirmed Lactobacillus acidophilus 1,000 mmu cells PO DAILY 02/16/24 02/16/24 (Acidophilus capsule) famotidine 20 mg tablet 20 mg PO DAILY 02/16/24 02/16/24 magnesium 200 mg tablet 200 mg PO DAILY 02/16/24 02/16/24 Allergies Allergy/AdvReac Type Severity Reaction Status Date / Time Alpha-Gal Allergy ADR-Abdominal Verified 02/16/24 13:42 ([id number],3-Gala Pain Review of Systems 2 Const: Denies: fever(s) or chills Card: Denies: chest pain Resp: Denies: dyspnea GI: Reports: abdominal pain : Denies: dysuria, urinary frequency or urinary urgency Musc: Denies: neck pain or back pain Skin/Breast: Denies: rash PFSH ED 2 PFSH: Medical History Alpha-gal syndrome Psychiatric care Abdominal pain Vaginal delivery Active labor Supervision of other normal Chronic cholecystitis Surgical History History of cholecystectomy Family History Other Cancer Diabetes Hypertension Stroke Denies family history of Colon cancer Ovarian cancer CAD (coronary artery disease) Heart disease Hyperlipidemia Breast cancer Uterine cancer Thyroid disease Social History Smoking and tobacco/nicotine status: unknown if used tobacco/nicotine Physical Exam 2 Const: GENERAL APPEARANCE: cooperative ORIENTATION/CONSCIOUSNESS: Yes awake, Yes oriented to person, Yes oriented to place and Yes oriented to time HENMT: COMMON NORMALS: normocephalic, atraumatic and hearing grossly normal bilaterally HEAD & SCALP: normocephalic and atraumatic Resp: COMMON NORMALS: normal respiratory effort, No retractions, No use of accessory muscles and clear to auscultation bilaterally AUSCULTATION: clear to auscultation bilaterally Cardio: COMMON NORMALS: regular rate, regular rhythm and No murmurs present (Cardio) RATE: regular rate RHYTHM: regular rhythm GI: COMMON NORMALS: Soft to palpation and No hepatosplenomegaly present A USCULTATION: Yes normoactive bowel sounds PALPATION: Yes Soft to palpation, No Tenderness to palpation present (GI), No Guarding due to palpation present (GI) and Yes No hepatosplenomegaly present Extremity: COMMON NORMALS: normal to inspection, capillary refill normal, no clubbing, cyanosis or edema, no calf tenderness and no pedal edema Neuro: SENSORIUM/ORIENTATION: Yes oriented to person, Yes oriented to place and Yes oriented to time Skin: COMMON NORMALS: no rashes or lesions noted GENERAL SKIN EXAM: no rashes or lesions noted Course 2 Vital Signs: Vital signs: Vital Signs Temperature 98.1 F 02/16/24 13:43 Pulse Rate 86 02/16/24 13:43 Respiratory Rate 18 02/16/24 14:51 Blood Pressure 114/84 02/16/24 13:43 Pulse Oximetry 98 02/16/24 14:51 Oxygen Delivery Me thod Room Air 02/16/24 14:51 MDM - Abdominal Pain Medical Decision Making Labs and imaging reviewed no significant finding. Patient reports having biliary colic like symptoms. Question if the patient may have some sphincter of Oddi disease. She had biliary dyskinesia and had her gallbladder removed. Now she is having a recurrent biliary colic like symptoms. She was seen a couple months ago for abdominal pain as well. She has not noticed anything that exacerbates it. Will discharge patient home advised her that if she continues to have pain follow-up with her primary care doctor she may benefit from further evaluation including possible MRCP for sphincter of Oddi disease. Discussed foods to avoid to avoid exacerbating. Patient does have some pelvic fluid on her CT however she has no real pelvic pains more focused the right upper quadrant. Medical Records I reviewed the patient's medical records. Lab Data I reviewed the patient's lab results. 02/16/24 14:45 02/16/24 14:45 Labs/Radiology: Radiology Impressions Chest X-Ray 02/16/24 14:31 IMPRESSION: 1. Normal chest. Abdomen/Pelvis CT 02/16/24 14:52 IMPRESSION: 1. 2.7 cm right ovarian cyst and mild free pelvic fluid suggestive of physiologic changes. 2. No evidence of appendicitis or other acute abdominal or pelvic inflammatory process 3. Postsurgical changes of cholecystectomy 4. Stable right basilar pulmonary nodules. If the patient does not have known cancer, follow up should be based on clinical information because of the low risk of cancer in this age group. (Reference: Mike) REFERENCES: Mike Garduno, et al. Guidelines for Management of Incidental Pulmonary Nodules Detected on CT Images: From the Fleischner Society 2017. Radiology. 2017;284(1):228-243. Laboratory Results WBC 7.56 10^3/uL (3.29-11.43) 02/16/24 14:45 RBC 4.16 10^6/uL (3.85-5.65) 02/16/24 14:45 Hgb 12.50 g/dL (11.27-16.99) 02/16/24 14:45 Hct 37.8 % (36-47) 02/16/24 14:45 MCV 90.9 fl (85-98) 02/16/24 14:45 MCH 30.0 pg (27-33) 02/16/24 14:45 MCHC 33.1 g/dL (30-55) 02/16/24 14:45 RDW 12.5 % (12.1-15.1) 02/16/24 14:45 Plt Count 214 10^3/cmm (157-399) 02/16/24 14:45 MPV 10.5 fL (7.4-10.4) H 02/16/24 14:45 Neut % (Auto) 66.5 % 02/16/24 14:45 Lymph % (Auto) 22.6 % 02/16/24 14:45 [place] % (Auto) 9.8 % 02/16/24 14:45 Eos % (Auto) 0.5 % 02/16/24 14:45 Baso % (Auto) 0.3 % 02/16/24 14:45 Neut # (Auto) 5.03 10^3/uL (1.8-7.7) 02/16/24 14:45 Lymph # (Auto) 1.7 10^3/uL (0.8-4.8) 02/16/24 14:45 [place] # (Auto) 0.7 10^3/uL (0.2-0.9) 02/16/24 14:45 Eos # (Auto) 0.0 10^3/uL (0.0-0.8) 02/16/24 14:45 Baso # (Auto) 0.0 10^3/uL (0.0-0.1) 02/16/24 14:45 Nucleated RBC % (auto) 0 % 02/16/24 14:45 Nucleated RBCs # 0.0 /100WBC 02/16/24 14:45 Sodium 137 mmol/L (136-145) 02/16/24 14:45 Potassium 3.7 mmol/L (3.5-5.1) 02/16/24 14:45 Chloride 100 mmol/L (98-107) 02/16/24 14:45 Carbon Dioxide 26 mmol/L (22-29) 02/16/24 14:45 Anion Gap 14.7 (5-19) 02/16/24 14:45 BUN 14 mg/dL (6-20) 02/16/24 14:45 Creatinine 0.8 mg/dL (0.5-0.9) 02/16/24 14:45 GFR Calculation 85.4 mL/min (90-130) L 02/16/24 14:45 Glucose 93 mg/dL (65-115) 02/16/24 14:45 Calculated Osmolality 284 mOsm/kg (285-295) L 02/16/24 14:45 Calcium 9.8 mg/dL (8.5-10.5) 02/16/24 14:45 Total Bilirubin 0.3 mg/dL (0.15-1.2) 02/16/24 14:45 AST 14 U/L (0-32) 02/16/24 14:45 ALT 15 U/L (0-33) 02/16/24 14:45 Alkaline Phosphatase 67 U/L (35-105) 02/16/24 14:45 Total Protein 8.1 g/dL (6.6-8.7) 02/16/24 14:45 Albumin 4.9 g/dL (3.5-5.2) 02/16/24 14:45 Globulin 3.2 g/dL (1.3-4.6) 02/16/24 14:45 Lipase 25 U/L (13-60) 02/16/24 14:45 HCG, Qual Negative (Negative) 02/16/24 14:45 Urine Color Yellow (Yellow) 02/16/24 14:50 Urine Appearance Clear (CLEAR) 02/16/24 14:50 Urine pH 5.5 (5-7) 02/16/24 14:50 Ur Specific [place] 1.033 (1.005-1.030) H 02/16/24 14:50 Urine Protein Trace (Negative) A 02/16/24 14:50 Urine Glucose (UA) Negative (Normal) 02/16/24 14:50 Urine Ketones Trace (Negative) 02/16/24 14:50 Urine Blood Negative (Negative) 02/16/24 14:50 Urine Nitrate Negative (Negative) 02/16/24 14:50 Urine Bilirubin Negative (Negative) 02/16/24 14:50 Urine Urobilinogen 1.0 mg/dL (Negative) 02/16/24 14:50 Ur Leukocyte Esterase Negative (Negative) 02/16/24 14:50 Urine RBC 3-5 /hpf (0-2) 02/16/24 14:50 Urine WBC 0-5 /hpf (0-5) 02/16/24 14:50 Ur Squamous Epith Cells 0-5 /hpf (0-5) 02/16/24 14:50 Calcium Oxalate Crystal 10-15 /hpf H 02/16/24 14:50 Amorphous Sediment Not Reportable 02/16/24 14:50 Urine Bacteria None seen /hpf (NONE) 02/16/24 14:50 Hyaline Casts 3.71 /lpf 02/16/24 14:50 All radiology interpretation(s) finalized by discharge Discharge Plan Discharge Patient Disposition: Home Clinical Impression: Abdominal pain Qualifiers: Abdominal location: generalized Qualified Code(s): R10.84 - Generalized abdominal pain Condition: Stable Prescriptions: No Action famotidine 20 mg Tablet 20 mg PO DAILY Acidophilus Capsule 1,000 mmu cells PO DAILY magnesium 200 mg Tablet 200 mg PO DAILY Discharge Orders: Discharge ED (Routine); Ordered 02/16/24 Ordered By: Dre Gunter Referrals: Flaco Massey MD [Primary Care Provider] - Discharge Activity: Increase activity as tolerated Patient Instructions: Abdominal Pain (ED), Opioid Safety, Pain Management Activity Restrictions/Additional Instructions: Thank you for choosing [facility] for your healthcare needs today. It is very important that you follow up as instructed or that you return to the Emergency Department should you have concerns or if your condition changes or worsens in any way. You were seen in the emergency room with a complaint abdominal pain. Your laboratory tests and CT were unremarkable. Given your history of cholecystectomy for biliary dyskinesia you may need to be further evaluated possibly by MRCP for sphincter of Oddi disease. This can cause biliary colic like symptoms in patients who previously had a cholecystectomy when the sphincter muscle controlling the common bile duct does not function properly. Avoid fatty foods and greasy foods and red meats as this can exacerbate it. Follow-up with your primary care doctor. Coding Level of Care Code ED Rag Baler for Julito Pérez
[2024-02-16 14:51] VITALS: RESP 18; O2SAT 98
--- NOTE | 2024-02-16 14:52 | CTR_ITS ---
PROCEDURE INFORMATION: Exam: CT Abdomen And Pelvis With Contrast Exam date and time: 02/16/2024 3:25 PM Age: 28 years old Clinical indication: Other: RT side pain; Additional info: Abd pain TECHNIQUE: Imaging protocol: Computed tomography of the abdomen and pelvis with contrast. Radiation optimization: All CT scans at this facility use at least one of these dose optimization techniques: automated exposure control; mA and/or kV adjustment per patient size (includes targeted exams where dose is matched to clinical indication); or iterative reconstruction. Contrast material: OMNI 350; Contrast volume: 100 ml; Contrast route: INTRAVENOUS (IV); COMPARISON: CT abdomen pelvis w con* [id number] 11/16/2023 9:45 AM RADIATION DOSE METRICS: Total DLP (mGy-cm): 330.46 FINDINGS: Lungs: There is a stable perifissural nodule along the anterior aspect of the right lower lobe since 11/16/2023 and additional 5 mm right lower lobe pulmonary nodule, the latter of which is stable since 12/25/2021. The perifissural nodule is not included on the field of view on the study of 12/25/2021. Liver: Normal. No mass. Gallbladder and biliary ducts: Postsurgical changes of cholecystectomy are noted. There is stable minimal intra and extrahepatic biliary ductal dilatation, likely reflecting reservoir effect. Pancreas: Normal. No ductal dilation. Spleen: Normal. No splenomegaly. Adrenal glands: Normal. No mass. Kidneys and ureters: Normal. No hydronephrosis. Stomach and bowel: Unremarkable. No obstruction. No mucosal thickening. Appendix: No evidence of appendicitis. Intraperitoneal space: There is trace free pelvic fluid Vasculature: Unremarkable. No abdominal aortic aneurysm. Lymph nodes: Unremarkable. No enlarged lymph nodes. Urinary bladder: Unremarkable as visualized. Reproductive: There is a 2.7 cm cystic lesion within the right ovary. Bones/joints: Unremarkable. No acute fracture. Soft tissues: Unremarkable. CT/CT abdomen pelvis w con* [id number] IMPRESSION: 1. 2.7 cm right ovarian cyst and mild free pelvic fluid suggestive of physiologic changes. 2. No evidence of appendicitis or other acute abdominal or pelvic inflammatory process 3. Postsurgical changes of cholecystectomy 4. Stable right basilar pulmonary nodules. If the patient does not have known cancer, follow up should be based on clinical information because of the low risk of cancer in this age group. (Reference: Mike) REFERENCES: Mike Garduno, et al. Guidelines for Management of Incidental Pulmonary Nodules Detected on CT Images: From the Fleischner Society 2017. Radiology. 2017;284(1):228-243.
[2024-02-16 15:05] LABS: Basophils % 0.3 %; Eosinophils % 0.5 %; Hematocrit 37.8 % (36-47); Lymphocytes # 1.7 10^3/uL (0.8-4.8); Lymphocytes % 22.6 %; Mean Corpuscular HGB Conc 33.1 g/dL (30-55); Mean Corpuscular Volume 90.9 fl (85-98); Mean Platelet Volume 10.5 fL (7.4-10.4); Monocytes # 0.7 10^3/uL (0.2-0.9); Monocytes % 9.8 %; Neutrophils # 5.03 10^3/uL (1.8-7.7); Neutrophils % 66.5 %; Nucleated Red Blood Cells % 0 %; Platelet Count 214 10^3/cmm (157-399); Red Blood Count 4.16 10^6/uL (3.85-5.65); Red Cell Distribution Width 12.5 % (12.1-15.1); White Blood Count 7.56 10^3/uL (3.29-11.43)
[2024-02-16 15:07] LABS: Bilirubin Urine Negative (Negative); Blood Urine Negative (Negative); Glucose Urine UA Negative (Normal); Ketones Urine Trace (Negative); Leukocyte Esterase Urine Negative (Negative); Nitrate Urine Negative (Negative); Protein Urine Trace (Negative); Urine Appearance Clear (CLEAR); Urine Color Yellow (Yellow); pH Urine 5.5 (5-7)
[2024-02-16 15:12] LABS: Add Urine Microscopic? YES; Bacteria Urine None Seen /hpf; Hyaline Casts Urine 3.71 /lpf; Squamous Epithelial Cell Urine 0-5 /hpf (0-5); WBC Urine 0-5 /hpf (0-5)
[2024-02-16 15:14] LABS: Specific Gravity, Urine 1.033 (1.005-1.030); UA Slide Review UA Slide Review Perf
[2024-02-16 15:17] LABS: HCG, Serum Qual Negative (Negative)
[2024-02-16 15:23] LABS: Alanine Aminotransferase 15 U/L (0-33); Albumin Level 4.9 g/dL (3.5-5.2); Alkaline Phosphatase 67 U/L (35-105); Anion Gap 14.7 (5-19); Aspartate Amino Transferase 14 U/L (0-32); Blood Urea Nitrogen 14 mg/dL (6-20); Calcium 9.8 mg/dL (8.5-10.5); Carbon Dioxide 26 mmol/L (22-29); Chloride 100 mmol/L (98-107); Creatinine Clr Calc Pharmacy 102.4696; Globulin 3.2 g/dL (1.3-4.6); Glomerular Filtration Rate 85.4 mL/min (90-130); Glucose 93 mg/dL (65-115); Lipase 25 U/L (13-60); Osmolality Calculated 284 mOsm/kg (285-295); Potassium 3.7 mmol/L (3.5-5.1); Sodium 137 mmol/L (136-145); Total Bilirubin 0.3 mg/dL (0.15-1.2); Total Protein 8.1 g/dL (6.6-8.7)
[2024-02-16 15:23] LABS: Add Urine Culture? No
[2024-02-16] MEDS: iohexol 350 mg/mL 500 mL Btl (per mL) IV (15:25)
[2024-02-16] MEDS: morphine 4 mg/mL SDV 1 mL IVP (16:04)
[2024-02-16] MEDS: ondansetron 2 mg/ML SDV 2 mL 4 MG IVP (16:05)
[2024-02-16 16:55] VITALS: BP 105/66; PULSE 73; O2SAT 98
== END 2024-02-16 16:56 | disposition home or self-care (01) ==
PROVIDERS: Emergency Provider Family Medicine; PCP Family Medicine
DX: R10.84 Generalized abdominal pain (principal)
CPT/HCPCS: 36415; 71045; 74177; 80053; 81001; 83690; 84703; 85025; 93005; 96374; 96375; 99285; J2270; J2405

== ENCOUNTER → 2024-02-24 11:10 | Outpatient (BNVA) | payer MEDICAID, SELFPAY | PROVIDERS: PCP Family Medicine; Visit Provider Family Medicine | DX: R00.0 Tachycardia, unspecified (principal); M19.90 Unspecified osteoarthritis, unspecified site; R53.83 Other fatigue; I10 Essential (primary) hypertension | CPT/HCPCS: 84443; 84550; 85651; 86140; 86160; 86162; 86235; 86255; 86376; 86618; 86666; 86757 ==

== ENCOUNTER → 2024-05-25 10:39 | Outpatient (BNVA) | payer MEDICAID, SELFPAY | PROVIDERS: PCP Family Medicine; Referring Provider Family Medicine; Visit Provider Internal Medicine Rheumatology | DX: M25.50 Pain in unspecified joint (principal) | CPT/HCPCS: 36415; 80076; 82565; 82607; 82728; 82746; 83520; 83540; 83550; 84439; 84443; 85025; 85651; 86140; 86200; 86431; 86480; 86704; 86803; 87340 ==

== ENCOUNTER 2024-05-30 07:39 | Outpatient (CLI) | payer MEDICAID, SELFPAY ==
--- NOTE | 2024-05-30 07:45 | USCV_ITS ---
Tisha Mcginnis Age: 28 Gender: F : 1995 Exam Date: 05/30/2024 07:56 Ordering Phys: Lani Mann Technologist: Exam Location: [facility] [place] Indication: sob palps BP: 115 / 70 HR: 76 Rhythm: Sinus Technical Quality: Adequate MEASUREMENTS (Male / Female) Normal Values 2D ECHO LV Diastolic Diameter PLAX 4.1 cm 4.2 - 5.9 / 3.9 - 5.3 cm IVS Diastolic Thickness 1.1 cm 0.6 - 1.0 / 0.6 - 0.9 cm IVS Systolic Thickness 1.3 cm LVPW Diastolic Thickness 1.0 cm 0.6 - 1.0 / 0.6 - 0.9 cm LVPW Systolic Thickness 1.5 cm LVOT Diameter 2.0 cm LV Ejection Fraction 2D Teich 66.1 % LV Ejection Fraction MOD 4C 58.6 % LV Ejection Fraction MOD 2C 58.2 % LV Ejection Fraction 2C AL 57.9 % LA Diameter 2.5 cm RA Systolic Volume 4C AL 25.2 ml RA Systolic Volume 4C MOD 24.4 ml Aorta at Sinotubular Diameter 2.3 cm IVC Diameter 1.5 cm M-MODE LA Ao Ratio MM 1.2 AV Cusp Separation MM 2.1 cm DOPPLER AV Peak Velocity 107.0 cm/s LVOT Peak Velocity 90.0 cm/s AV Area Cont Eq vti 2.9 cm squared AV Area Cont Eq pk 2.7 cm squared MV Peak Velocity 96.7 cm/s MV Area PHT 4.3 cm squared Mitral E to A Ratio 1.7 TV Peak Velocity 225.5 cm/s TR Peak Velocity 243.0 cm/s TR Peak Gradient 23.6 mmHg TV Peak E Velocity 116.0 cm/s PV Peak Velocity 79.0 cm/s FINDINGS Left Ventricle Left ventricle is normal in size. LV systolic function is normal with EF of 55-60%. No regional wall motion abnormalities. Right Ventricle Normal in size and function Right Atrium Normal in size Left Atrium Normal in size Mitral Valve Structurally normal mitral valve. Trace mitral regurgitation. Aortic Valve Structurally normal aortic valve. No significant stenosis or regurgitation. Tricuspid Valve Mild tricuspid regurgitation. Pulmonary artery systolic function is normal Pulmonic Valve Not well visualized Pericardium Normal Aorta Normal in size IVC Appears to be normal CONCLUSIONS LV systolic function is normal with EF of 55-60% Trace mitral regurgitation Mild tricuspid regurgitation Compared to prior echocardiogram from 11/17/2022, no significant changes are seen Bright Wallis MD (Electronically Signed) Final Date: 02 June 2024 11:25 S
== END 2024-05-30 07:40 | disposition home or self-care (01) ==
LOC: RAD 07:39
PROVIDERS: PCP Family Medicine; Visit Provider Nurse Practitioner Family
DX: I51.7 Cardiomegaly (principal); R00.0 Tachycardia, unspecified; R94.31 Abnormal electrocardiogram [ECG] [EKG]; R00.2 Palpitations; R93.1 Abnormal findings on diagnostic imaging of heart and coronary circulation
CPT/HCPCS: 93306

== ENCOUNTER 2024-06-14 14:10 | Emergency (ER) | payer MEDICAID, SELFPAY ==
[2024-06-14 14:11] VITALS: BP 154/92; PULSE 96; TEMP 36.7; O2SAT 97; BMI 20.3
--- NOTE | 2024-06-14 14:17 | ECG_ITS ---
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 Measurements Intervals Emerson Rate: 100 P: 75 MS: 188 QRS: 45 QRSD: 98 T: 79 QT: 337 QTc: 435 Interpretive Statements SINUS TACHYCARDIA LEFT ATRIAL ENLARGEMENT [-0.15mV P-WAVE IN V1/V2] INCOMPLETE RIGHT BUNDLE BRANCH BLOCK [90+ ms QRS DURATION, TERMINAL R IN V1/V2, 40+ ms S IN I/aVL/V4/V5/V6] INTERPRETATION BASED ON A DEFAULT AGE OF 40 YEARS Compared to ECG 02/16/2024 14:43:32 Atrial abnormality now present Incomplete right bundle-branch block now present Sinus rhythm no longer present Electronically Signed On 06-14-2024 18:47:30 CDT by Iglesia Taveras M.D. [id number]
--- NOTE | 2024-06-14 14:28 | XR_ITS ---
WS: [id number] Exam: XR chest 1V portable [id number] Date/Time of Exam: 06/14/2024 2:48 PM Reason For Exam: dyspnea/cough Comparison 02/16/2024. Lungs are clear and fully expanded. Normal cardiomediastinal silhouette and regional bony elements. XR/XR chest 1V portable [id number] IMPRESSION: 1. Normal chest.
--- NOTE | 2024-06-14 14:35 | ED_ITS ---
HPI - Arrhythmia/Palpitations 2 General: Chief Complaint: Arrhythmia/Palpitations Stated Complaint: chest pain, sob Time Seen by Provider: 06/14/24 14:27 History of Present Illness: 28-year-old female who presents emergenc y room with complaints of irregular heartbeat shortness of breath with exertion mild chest discomfort. She has had this issues intermittently as an ongoing problem. She has had 2 event monitor in the last year and a half. Both showed occasional PVCs some sinus tachycardia but no significant arrhythmias. She is also had 2 echocardiograms in the last year and a half neither showed any significant valvular disease or abnormality. She has diltiazem to take 60 mg 1 3 times a day she notices that since taking it her exercise tolerance seems to be worse she gets increasing shortness of breath. She has a history of lupus she also has alpha gal she has some ongoing GI workup and is scheduled for colonoscopy. She denies any medic easy melena hematemesis coffee-ground emesis denies any vomiting. She still occasionally has some right upper quadrant abdominal pain. Seen once before was concerned about the potential for having sphincter of Oddi disease since she had persistent gallbladder symptoms despite her previously having had a cholecystectomy. That portion of her symptoms seem to resolve but she still has other GI symptoms for which they are pursuing workup. No chest pain discomfort or arrhythmias at this time Related Data Home Medications ?Medication ?Instructions ?Recorded ?Confirmed diltiazem HCl 60 mg tablet 60 mg PO TID PRN Blood Pres sure 06/14/24 06/14/24 gabapentin 100 mg capsule 100 mg PO BID PRN nerve pain 06/14/24 06/14/24 Previous Rx's ?Medication ?Instructions ?Recorded leflunomide 20 mg tablet 20 mg PO DAILY #30 tabs 05/07 12/01 prednisone 10 mg tablet See Rx Instructions PO DAILY #90 05/25/24 tabs amoxicillin 875 mg-potassium 1 tab PO BID 10 days #20 tabs 06/09/24 clavulanate 125 mg tablet fluticasone propionate 50 2 spray intranasal BID PRN a llergy 06/09/24 mcg/actuation nasal symptoms #16 grams spray,suspension (Flonase Allergy Relief) Allergies Allergy/AdvReac Type Severity Reaction Status Date / Time Alpha-Gal Allergy ADR-Abdominal Verified 06/14/24 14:22 (Cxvozrzhz-Tmzix-9,3-Gala Pain Review of Systems 2 Const: Denies: fever(s) or chills Card: Reports: palpitations; Denies: chest pain Resp: Reports: dyspnea GI: Denies: abdominal pain : Denies: dysuria, urinary frequency or urinary urgency Musc: Denies: neck pain or back pain Skin/Breast: Denies: rash PFSH ED 2 PFSH: Medical History Endometriosis GERD (gastroesophageal reflux disease) Chronic headache Immunization counseling High risk medication use Plaque psoriasis Psoriatic arthritis Alpha-gal syndrome Psychiatric care Abdominal pain Vaginal delivery Active labor Supervision of other normal Chronic cholecystitis Surgical History History of cholecystectomy Family History Other Cancer Diabetes Hypertension Stroke Denies family history of Colon cancer Ovarian cancer CAD (coronary artery disease) Heart disease Hyperlipidemia Breast cancer Uterine cancer Thyroid disease Social History Smoking and tobacco/nicotine status: never used tobacco/nicotine Physical Exam 2 Const: GENERAL APPEARANCE: cooperative ORIENTATION/CONSCIOUSNESS: Yes awake, Yes oriented to person, Yes oriented to place and Yes oriented to time HENMT: COMMON NORMALS: normocephalic, atraumatic and hearing grossly normal bilaterally HEAD & SCALP: normocephalic and atraumatic Resp: COMMON NORMALS: normal respiratory effort, No retractions, No use of accessory muscles and clear to auscultation bilaterally AUSCULTATION: clear to auscultation bilaterally Cardio: COMMON NORMALS: regular rate, regular rhythm and No murmurs present (Cardio) RATE: regular rate RHYTHM: regular rhythm GI: COMMON NORMALS: Soft to palpation and No hepatosplenomegaly present A USCULTATION: Yes normoactive bowel sounds PALPATION: Yes Soft to palpation, No Tenderness to palpation present (GI), No Guarding due to palpation present (GI) and Yes No hepatosplenomegaly present Extremity: COMMON NORMALS: normal to inspection, capillary refill normal, no clubbing, cyanosis or edema, no calf tenderness and no pedal edema Neuro: SENSORIUM/ORIENTATION: Yes oriented to person, Yes oriented to place and Yes oriented to time Skin: COMMON NORMALS: no rashes or lesions noted GENERAL SKIN EXAM: no rashes or lesions noted Course 2 Vital Signs: Vital signs: Vital Signs Temperature 98.1 F 06/14/24 14:11 Pulse Rate 96 06/14/24 14:11 Blood Pressure 154/92 06/14/24 14:11 Pulse Oximetry 97 06/14/24 14:11 Oxygen Delivery Me thod Room Air 06/14/24 14:11 MDM - Arrhythmia/Palpitations Medical Decision Making EKG does not show any arrhythmias. Patient not having any chest pain. Labs reviewed no significant findings. Remainder of exam unremarkable. Will discharge patient home set up for 72-hour Holter monitor and follow-up with primary care. Medical Records I reviewed the patient's medical records. Lab Data I reviewed the patient's lab results. 06/14/24 14:33 06/14/24 14:33 Radiology Impressions Chest X-Ray 06/14/24 14:28 IMPRESSION: 1. Normal chest. Laboratory Results WBC 5.35 10^3/uL (3.29-11.43) 06/14/24 14:33 RBC 4.31 10^6/uL (3.85-5.65) 06/14/24 14:33 Hgb 12.90 g/dL (11.27-16.99) 06/14/24 14:33 Hct 39.9 % (36-47) 06/14/24 14:33 MCV 92.6 fl (85-98) 06/14/24 14:33 MCH 29.9 pg (27-33) 06/14/24 14:33 MCHC 32.3 g/dL (30-55) 06/14/24 14:33 RDW 12.4 % (12.1-15.1) 06/14/24 14:33 Plt Count 213 10^3/cmm (157-399) 06/14/24 14:33 MPV 10.0 fL (7.4-10.4) 06/14/24 14:33 Neut % (Auto) 61.7 % 06/14/24 14:33 Lymph % (Auto) 27.1 % 06/14/24 14:33 Ventura % (Auto) 9.5 % 06/14/24 14:33 Eos % (Auto) 1.3 % 06/14/24 14:33 Baso % (Auto) 0.2 % 06/14/24 14:33 Neut # (Auto) 3.30 10^3/uL (1.8-7.7) 06/14/24 14:33 Lymph # (Auto) 1.5 10^3/uL (0.8-4.8) 06/14/24 14:33 Ventura # (Auto) 0.5 10^3/uL (0.2-0.9) 06/14/24 14:33 Eos # (Auto) 0.1 10^3/uL (0.0-0.8) 06/14/24 14:33 Baso # (Auto) 0.0 10^3/uL (0.0-0.1) 06/14/24 14:33 Nucleated RBC % (auto) 0 % 06/14/24 14:33 Nucleated RBCs # 0.0 /100WBC 06/14/24 14:33 Sodium 138 mmol/L (136-145) 06/14/24 14:33 Potassium 3.6 mmol/L (3.5-5.1) 06/14/24 14:33 Chloride 100 mmol/L (98-107) 06/14/24 14:33 Carbon Dioxide 28 mmol/L (22-29) 06/14/24 14:33 Anion Gap 13.6 (5-19) 06/14/24 14:33 BUN 15 mg/dL (6-20) 06/14/24 14:33 Creatinine 0.8 mg/dL (0.5-0.9) 06/14/24 14:33 GFR Calculation 85.4 mL/min (90-130) L 06/14/24 14:33 Glucose 88 mg/dL (65-115) 06/14/24 14:33 Calculated Osmolality 286 mOsm/kg (285-295) 06/14/24 14:33 Calcium 9.5 mg/dL (8.5-10.5) 06/14/24 14:33 Total Bilirubin 0.3 mg/dL (0.15-1.2) 06/14/24 14:33 AST 18 U/L (0-32) 06/14/24 14:33 ALT 29 U/L (0-33) 06/14/24 14:33 Alkaline Phosphatase 70 U/L (35-105) 06/14/24 14:33 Total Protein 8.0 g/dL (6.6-8.7) 06/14/24 14:33 Albumin 4.8 g/dL (3.5-5.2) 06/14/24 14:33 Globulin 3.2 g/dL (1.3-4.6) 06/14/24 14:33 Influenza A (PCR) Negative (Negative) 06/14/24 14:35 Influenza Type B (PCR) Negative (Negative) 06/14/24 14:35 RSV (PCR) Negative (Negative) 06/14/24 14:35 SARS-CoV-2 (PCR) Negative (Negative) 06/14/24 14:35 All radiology interpretation(s) finalized by discharge Discharge Plan Discharge Patient Disposition: Home Clinical Impression: Palpitations Condition: Stable Prescriptions: No Action leflunomide 20 mg tablet 20 mg PO DAILY Qty: 30 3RF prednisone 10 mg tablet See Rx Instructions PO DAILY Qty: 90 1RF Rx Instructions: orally; take 2tab daily x7days then 1tab daily x7days then stay on 0.5 (5mg) tab daily. fluticasone propionate [Flonase Allergy Relief] 50 mcg/actuation spray,suspension 2 spray intranasal BID PRN (Reason: allergy symptoms) Qty: 16 0RF Rx Instructions: administer into each nostril amoxicillin-pot clavulanate 875-125 mg tablet 1 tab PO BID 10 Days Qty: 20 0RF gabapentin 100 mg capsule 100 mg PO BID PRN (Reason: nerve pain) diltiazem HCl 60 mg tablet 60 mg PO TID PRN (Reason: Blood Pressure) Discharge Orders: Discharge ED (Routine); Ordered 06/14/24 Ordered By: Dre Gunter Referrals: Flaco Massey MD [Primary Care Provider] - Discharge Diet: Usual diet Discharge Activity: Resume usual activity Patient Instructions: Opioid Safety, Pain Management Activity Restrictions/Additional Instructions: Thank you for choosing [facility] for your healthcare needs today. It is very important that you follow up as instructed or that you return to the Emergency Department should you have concerns or if your condition changes or worsens in any way. You were seen in the emergency room with complaints of palpitations and racing heart rate. Your EKG was normal. Reviewed previous labs TSH done recently was normal. Your other labs were unremarkable. Reviewed your old records including previous echocardiograms and cardiac monitors. The previous Holter monitor showed sinus arrhythmias. Will set you up for 72-hour Holter monitor follow-up your primary care doctor some of your symptoms may be result of the diltiazem that you have been taking. Print Language: Jordanian Coding Level of Care Code ED Life Advisor for Julito Pérez
[2024-06-14 14:38] LABS: Basophils % 0.2 %; Eosinophils # 0.1 10^3/uL (0.0-0.8); Eosinophils % 1.3 %; Hematocrit 39.9 % (36-47); Lymphocytes # 1.5 10^3/uL (0.8-4.8); Lymphocytes % 27.1 %; Mean Corpuscular HGB Conc 32.3 g/dL (30-55); Mean Corpuscular Hemoglobin 29.9 pg (27-33); Mean Corpuscular Volume 92.6 fl (85-98); Monocytes # 0.5 10^3/uL (0.2-0.9); Monocytes % 9.5 %; Neutrophils % 61.7 %; Nucleated Red Blood Cells % 0 %; Platelet Count 213 10^3/cmm (157-399); Red Blood Count 4.31 10^6/uL (3.85-5.65); Red Cell Distribution Width 12.4 % (12.1-15.1); White Blood Count 5.35 10^3/uL (3.29-11.43)
[2024-06-14 14:57] LABS: Alanine Aminotransferase 29 U/L (0-33); Albumin Level 4.8 g/dL (3.5-5.2); Alkaline Phosphatase 70 U/L (35-105); Anion Gap 13.6 (5-19); Aspartate Amino Transferase 18 U/L (0-32); Blood Urea Nitrogen 15 mg/dL (6-20); Calcium 9.5 mg/dL (8.5-10.5); Carbon Dioxide 28 mmol/L (22-29); Chloride 100 mmol/L (98-107); Creatinine Clr Calc Pharmacy 100.0704; Globulin 3.2 g/dL (1.3-4.6); Glomerular Filtration Rate 85.4 mL/min (90-130); Glucose 88 mg/dL (65-115); Osmolality Calculated 286 mOsm/kg (285-295); Potassium 3.6 mmol/L (3.5-5.1); Sodium 138 mmol/L (136-145); Total Bilirubin 0.3 mg/dL (0.15-1.2)
[2024-06-14 15:20] LABS: Influenza A NEGATIVE (Negative); Influenza B NEGATIVE (Negative); Respiratory Syncytial Virus Ce NEGATIVE (Negative); SARS-CoV-2 PCR NEGATIVE (Negative)
[2024-06-14 16:10] VITALS: BP 118/79; PULSE 85; O2SAT 95
--- NOTE | 2024-06-15 11:31 | DCPLANNER ---
messaged heart care for er f/u
== END 2024-06-14 16:11 | disposition home or self-care (01) ==
PROVIDERS: Emergency Provider Family Medicine; PCP Family Medicine
DX: R00.2 Palpitations (principal); Z11.52 Encounter for screening for COVID-19
CPT/HCPCS: 36415; 71045; 80053; 85025; 87637; 93005; 99285

== ENCOUNTER 2024-06-21 15:54 | Outpatient (CLI) | payer MEDICAID, SELFPAY ==
--- NOTE | 2024-06-21 16:00 | MR_ITS ---
WS: [id number] MRI HEAD WITH CONTRAST TECHNIQUE: Sagittal T1, T2 axial, T2 axial FLAIR, axial susceptibility weighted imaging, axial diffusion weighted images, and coronal T2 images were obtained. Pre and post-T1 axial and post T1 coronal images. ADC and FSPGR images. CLINICAL INFORMATION: R51.9 - Headache, unspecified COMPARISON: CT 2021 FINDINGS: No evidence of restricted diffusion to suggest acute ischemia. Ventricular system and basal cisterns are patent. Incidental cerebellar tonsillar ectopia. No suspicious intracranial signal abnormalities. Normal posterior fossa. Normal vascular flow voids at the skull base. No extra-axial fluid collections. Retention cyst or polyp LEFT maxillary sinus. Paranasal sinuses are otherwise well aerated. Mastoid air cells are well aerated. No hemosiderin. Normal optic chiasm and pituitary infundibulum. Temporal lobes and hippocampal formations are normal. No abnormal intracranial enhancement. Normal dural venous sinuses. Normal visualized pituitary. No other suspicious findings. MR/MR head wo/w con [id number] IMPRESSION: 1. No evidence of restricted diffusion to suggest acute ischemia. 2. No suspicious intracranial signal abnormalities. Normal marie-white differen tiation. 3. Retention cyst or polyp LEFT maxillary sinus measuring 1.8 x 1.3 cm. 4. No hemosiderin. 5. No abnormal gadolinium enhancement.
[2024-06-21] MEDS: gadobenate dimeglumine 20 mL vial 13 ML IV (16:53)
== END 2024-06-21 15:55 | disposition home or self-care (01) ==
LOC: RAD 15:55
PROVIDERS: PCP Family Medicine; Visit Provider Psychiatry & Neurology Neurology
DX: R51.9 Headache, unspecified (principal); G89.29 Other chronic pain; R93.0 Abnormal findings on diagnostic imaging of skull and head, not elsewhere classified
CPT/HCPCS: 70553

== ENCOUNTER 2024-07-21 11:00 | Outpatient (CLI) | payer MEDICAID, SELFPAY | END 2024-07-21 11:01 | disposition home or self-care (01) | LOC: LAB 11:02 | PROVIDERS: PCP Family Medicine; Visit Provider Surgery | DX: R10.9 Unspecified abdominal pain (principal); G89.29 Other chronic pain | CPT/HCPCS: 36415; 82784; 83516; 83630; 83993 ==

== ENCOUNTER 2024-07-28 08:18 | Day surgery (SDC) | payer MEDICAID, SELFPAY ==
[2024-07-28 08:31] VITALS: BP 108/78; PULSE 74; RESP 18; TEMP 36.4; O2SAT 97; BMI 20.3
[2024-07-28] MEDS: sodium chloride 0.9% 1,000 ML 15 ML IV (08:39)
[2024-07-28 08:48] LABS: OR HCG Qualitative Urine Negative (Negative)
--- NOTE | 2024-07-28 08:57 | W.PM.OPSFHP ---
Same Day Surgery H&P Indication for Procedure/HPI DATE OF PROCEDURE: July 28, 2024 CHIEF COMPLAINT/INDICATIONFOR SURGICAL PROCEDURE: chronic abdominal pain PREOP DIAGNOSIS: chronic abdominal pain PLANNED PROCEDURE: Operation Date: 07/28/24 10:10 Proposed Procedures p EGD 05063, 01042,G0105, Z12.11, R10.9, G89.29(Not Applicable) - Parth Duron MD s Colonoscopy(Not Applicable) - Parth Duron MD Medications/Allergies* Home Medications ?Medication ?Instructions ?Recorded ?Confirmed ?Type multivitamin 1 cap PO DAILY 06/20/24 07/25/24 History Allergies/Adverse Reactions Allergy/AdvReac Type Severity Reaction Status Date / Time Alpha-Gal Allergy ADR-Abdominal Verified 07/28/24 08:27 (Oqjoayztt-Tamlf-7,3-Gala Pain Current Medications: Generic Name Dose Route Start Last Admin Trade Name Freq PRN Reason Stop Dose Admin Sodium Chloride 1,000 mls @ 15 mls/hr 07/28/24 08:22 07/28/24 08:39 Sodium Chloride 0.9% IV 07/29/24 08:21 15 mls/hr .Q24H PRN Administration COLONOSCOPY FLUIDS Pertinent History/Comorbid Conditions* Medical History (Updated 06/22/24 @ 00:00 by LOWELL Marlow) Endometriosis GERD (gastroesophageal reflux disease) Chronic headache Immunization counseling High risk medication use Plaque psoriasis Psoriatic arthritis Alpha-gal syndrome Psychiatric care Abdominal pain Vaginal delivery Active labor Supervision of other normal Chronic cholecystitis Surgical History (Updated 05/20/21 @ 00:39 by Naveed Gómez DO) History of cholecystectomy Family History (Updated 09/22/22 @ 12:55 by Jacki Gil) Diabetes Cancer Hypertension Stroke Denies family history of Colon cancer Ovarian cancer CAD (coronary artery disease) Heart disease Hyperlipidemia Breast cancer Uterine cancer Thyroid disease Social History Smoking and tobacco/nicotine status: never used tobacco/nicotine Pertinent Exam Findings alert, oriented x 3, clear to auscultation bilaterally and regular rate & rhythm Recommendations Surgery/Procedure today Coding Level of Care Code Acute Code for Chg Fwd
--- NOTE | 2024-07-28 09:00 | ANES.PREANE2 ---
Pre-Anesthetic Assessment Height/Weight: Height 1.7 m Weight 58.967 kg Temp Pulse Resp BP Pulse Ox O2 Del Method 97.6 F 74 18 108/78 97 Room Air 07/28/24 08:31 07/28/24 08:31 07/28/24 08:31 07/28/24 08:31 07/28/24 08:31 07/28/24 08:31 Preop Diagnosis: chronic abdominal pain Operation Date: 07/28/24 10:10 Proposed Procedures p EGD 97581, 13369,G0105, Z12.11, R10.9, G89.29(Not Applicable) - Parth Duron MD s Colonoscopy(Not Applicable) - Parth Duron MD Familial anesthetic complications: none Was Beta Tasha taken within 24 hours: N/A Was Clonidine taken within 24 hours: N/A Last intake: Intake Last Liquid Date 07/27/24 Last Liquid Time 22:00 Last Solid Date 07/26/24 Last Solid Time 18:00 Social No alcohol daily MJ Exam alert and oriented x 3 Airway Submandibular: within normal limits Cervical ROM: within normal limits Mallampati: Class I Dentition: full Pulmonary None reported CV/HEM None reported None reported Hepatic None reported GI None reported Metabolic None reported Musc/skel Lupus Neuropsych None reported Anesthetic Plan ASA status: 2 Anesthesia: Anesthesia Evaluation and MAC Medications/Allergies Home Medications ?Medication ?Instructions ?Recorded ?Confirmed ?Last Taken ?Type multivitamin 1 cap PO DAILY 06/20/24 07/25/24 07/27/24 06:00 History Allergies Allergy/AdvReac Type Severity Reaction Status Date / Time Alpha-Gal Allergy ADR-Abdominal Verified 07/28/24 08:27 (Nvpflyguu-Ubwit-8,3-Gala Pain Current Medications Generic Name Dose Route Start Last Admin Trade Name Freq PRN Reason Stop Dose Admin Sodium Chloride 1,000 mls @ 15 mls/hr 07/28/24 08:22 07/28/24 08:39 Sodium Chloride 0.9% IV 07/29/24 08:21 15 mls/hr .Q24H PRN Administration COLONOSCOPY FLUIDS PFSH Anesthesia Medical History Endometriosis GERD (gastroesophageal reflux disease) Chronic headache Immunization counseling High risk medication use Plaque psoriasis Psoriatic arthritis Alpha-gal syndrome Psychiatric care Abdominal pain Vaginal delivery Active labor Supervision of other normal Chronic cholecystitis Surgical History History of cholecystectomy Family History Other Cancer Diabetes Hypertension Stroke Denies family history of Colon cancer Ovarian cancer CAD (coronary artery disease) Heart disease Hyperlipidemia Breast cancer Uterine cancer Thyroid disease Social History Smoking and tobacco/nicotine status: never used tobacco/nicotine Data Anesthesia Cardiac Studies: Echocardiogram 05/30/24 Cardiac Event Monitor 05/08/23
[2024-07-28 09:30] VITALS: BP 87/51; PULSE 71; RESP 18; TEMP 36.3; O2SAT 98
[2024-07-28 09:45] VITALS: BP 107/73; PULSE 75; RESP 16; TEMP 36.2; O2SAT 100
--- NOTE | 2024-07-28 10:31 | ANE.PACU2 ---
Inpatient post-anesthesia follow up: Airway intact: Yes Vital signs: Temperature 97.1 F Pulse Rate 75 Respiratory Rate 16 Blood Pressure 107/73 Pulse Oximetry 100 Oxygen Delivery Me thod Room Air Oxygen Flow Rate Fraction of Inspir ed Oxygen Hydration adequate: Yes Nausea and vomiting: No Pain level: 1 Mental status: Baseline
== END 2024-07-28 10:31 | disposition home or self-care (01) ==
PROVIDERS: Student in an Organized Health Care Education/Training Program; PCP Family Medicine; Visit Provider Surgery
PROC: 0DJ08ZZ Inspection of Upper Intestinal Tract, Via Natural or Artificial Opening Endoscopic (ICD-10-PCS; principal; 2024-07-28 10:10)
PROC: 0DJD8ZZ Inspection of Lower Intestinal Tract, Via Natural or Artificial Opening Endoscopic (ICD-10-PCS; CPT 45378; 2024-07-28 10:10)
DX: K29.50 Unspecified chronic gastritis without bleeding (principal); K29.00 Acute gastritis without bleeding; G89.29 Other chronic pain; Z88.8 Allergy status to other drugs, medicaments and biological substances; K21.9 Gastro-esophageal reflux disease without esophagitis; M32.9 Systemic lupus erythematosus, unspecified; K59.00 Constipation, unspecified; Z90.49 Acquired absence of other specified parts of digestive tract
CPT/HCPCS: 43239; 45380; 81025; 88305; 88342; J2704; J7030